=== PATIENT | female | born 1935 | race Caucasian/White ===

== ENCOUNTER 2018-03-29 09:12 | Emergency (ER) | payer MEDICARE ==
[2018-03-29 10:15] LABS: Mean Corpuscular HGB CONC 34.1 g/dL (32.0-36.0); Mean Corpuscular Hemoglobin 30.6 pg (27.0-31.0); Mean Corpuscular Volume 89.5 fl (81.0-99.0); Mean Platelet Volume 7.8 fL (7.4-10.4); Platelet Count 345 thou/uL (130-400); Red Blood Cell (RBC) Count 4.91 mill/uL (4.20-5.40); White Blood Cell (WBC) Count 22.4 thou/uL (4.8-10.8)
[2018-03-29 10:33] LABS: Lymphocytes 30 % (21-51); MDiff Complete? YES; Monocytes 3 % (0-10); Neutrophil 67 % (42-75); PLT Morphology Comment Appears Adequate
[2018-03-29 10:36] LABS: ALT (SGPT) 19 U/L (8-55); AST (SGOT) 25 U/L (5-34); Albumin 3.7 g/dL (3.4-4.8); Alkaline Phosphatase 106 U/L (40-150); Anion Gap 13 mmol/L (10-20); BUN (Urea Nitrogen) 41 mg/dL (9.8-20.1); Bilirubin, Total 0.5 mg/dL (0.2-1.2); Calc. Creatinine Clearance 0 mL/min (70-130); Calcium 11.3 mg/dL (7.8-10.44); Carbon Dioxide 30 mmol/L (23-31); Chloride 93 mmol/L (98-107); Estimated GFR-MDRD 30; Globulin 2.8 g/dL (2.4-3.5); Glucose 256 mg/dL (83-110); Lipase 19 U/L (8-78); Potassium 3.9 mmol/L (3.5-5.1); Protein, Total 6.5 g/dL (6.0-8.3); Sodium 132 mmol/L (136-145)
[2018-03-29] MEDS ORDERED: Iopamidol 370 76% 100 ML VIAL ONE (12:11)
--- NOTE | 2018-03-29 12:26 | CT ---
CT ABDOMEN AND PELVIS WITH CONTRAST: Comparison: None. History: Intermittent diarrhea and constipation over the last week. Vomiting and nausea all night. Technique: Multiple contiguous axial images were obtained in a CT of the abdomen and pelvis with cont rast. Coronal reformats were performed. FINDINGS: The patient is status poste cholecystectomy and hysterectomy. The liver, adrenal glands, and pancreas are unremarkable. There are calcifications in the spleen from prior granulomatous disease. Subcentim eter hypodensities in the kidneys are likely small cysts. There is scattered diverticula in the colon. The small bowel is unremarkable. No abdominal or pelvic lymphadenopathy are seen. Degenerative changes are seen in the spine. The visualized inferior thorax and abdominal wall soft ti ssues are unremarkable. IMPRESSION: 1. Bilateral renal cysts. 2. No evidence of acute intraabdominal/pelvic abnormality. 3. Diverticulosis. POS: [facility]
[2018-03-29 12:37] LABS: Bilirubin Negative (Negative); Blood, Urine Trace (Negative); Clarity CLEAR (Clear); Glucose, Urine (Dipstick) Negative (Negative); Leukocyte Negative (Negative); Nitrite Negative (Negative); Protein, Urine (Dipstick) Negative (Neg-Trace); Specific Gravity, Urine 1.028 (1.002-1.036); pH, Urine 6.5 (5.0-9.0)
[2018-03-29 12:39] LABS: Bacteria/HPF None Seen HPF (None Seen); Hyaline Casts/LPF 0-3 HYALINE CAST LPF (0-3 Hyaline); Pathc Cast-AUWi Flag 0.43 (0-2.49); RBC/HPF 0-3 HPF (0-3); Squamous Epithelial 0-3 HPF (0-3); WBC/HPF 0-3 HPF (0-3)
[2018-03-29 12:54] LABS: Renal Epithelial 0-3 HPF (0-3); Transitional Epithelial 0-3 HPF (0-3)
--- NOTE | 2018-03-29 14:49 | RAD ---
PORTABLE CHEST ONE VIEW: Date: 03-29-18 Time: 2:02 p.m. History: Cough. FINDINGS: The heart size is prominent. There is elevation of the right hemidiaphragm. No focal areas of consoli dation, pneumothorax, qian pulmonary edema, or pleural effusions is seen. There is evidence of old g ranulomatous disease. IMPRESSION: No evidence of acute cardiopulmonary process. POS: [facility]
[2018-03-29] MEDS ORDERED: Ondansetron ODT 4 MG TAB ONE (15:40)
== END 2018-03-29 14:44 | disposition home or self-care (01) ==
LOC: ERS 09:12
DX: R10.9 Unspecified abdominal pain (principal); R11.2 Nausea with vomiting, unspecified; I48.91 Unspecified atrial fibrillation; E11.40 Type 2 diabetes mellitus with diabetic neuropathy, unspecified; I10 Essential (primary) hypertension; F41.9 Anxiety disorder, unspecified; Z79.82 Long term (current) use of aspirin; Z79.899 Other long term (current) drug therapy
CPT/HCPCS: 36415; 51701; 71045; 74177; 80053; 81003; 81015; 83605; 83690; 85025; 87086; 96360; 96361; A4353; Q0162

== ENCOUNTER 2018-03-30 06:26 | Inpatient (IN) | payer MEDICARE ==
[2018-03-30 07:21] LABS: ALT (SGPT) 16 U/L (8-55); AST (SGOT) 21 U/L (5-34); Albumin 3.3 g/dL (3.4-4.8); Alkaline Phosphatase 88 U/L (40-150); Anion Gap 18 mmol/L (10-20); BUN (Urea Nitrogen) 54 mg/dL (9.8-20.1); Bilirubin, Total 0.5 mg/dL (0.2-1.2); Calc. Creatinine Clearance 0 mL/min (70-130); Calcium 10.8 mg/dL (7.8-10.44); Carbon Dioxide 25 mmol/L (23-31); Chloride 96 mmol/L (98-107); Estimated GFR-MDRD 29; Globulin 2.5 g/dL (2.4-3.5); Glucose 429 mg/dL (83-110); Potassium 4.2 mmol/L (3.5-5.1); Protein, Total 5.8 g/dL (6.0-8.3); Sodium 135 mmol/L (136-145)
[2018-03-30 07:26] LABS: CKMB 6.6 ng/mL (0-6.6); Troponin I 0.263 ng/mL (< 0.028)
[2018-03-30 07:46] LABS: Hemoglobin 12.7 g/dL (12.0-16.0); Mean Corpuscular HGB CONC 33.4 g/dL (32.0-36.0); Mean Corpuscular Hemoglobin 30.2 pg (27.0-31.0); Mean Corpuscular Volume 90.5 fl (81.0-99.0); Mean Platelet Volume 8.4 fL (7.4-10.4); Platelet Count 436 thou/uL (130-400); RBC Distribution Width 11.9 % (11.5-14.5); Red Blood Cell (RBC) Count 4.21 mill/uL (4.20-5.40); White Blood Cell (WBC) Count 24.5 thou/uL (4.8-10.8)
[2018-03-30 07:54] LABS: Band 1 % (5-11); Lymphocytes 28 % (21-51); MDiff Complete? YES; Monocytes 4 % (0-10); Neutrophil 65 % (42-75); PLT Morphology Comment Appears Increased; RBC Morphology Normal; Reactive Lymphocytes 2 % (0-10)
[2018-03-30] MEDS ORDERED: Pantoprazole 40 MG VIAL ONE (08:20)
[2018-03-30 08:36] LABS: Bilirubin Negative (Negative); Blood, Urine Small (Negative); Clarity CLOUDY (Clear); Glucose, Urine (Dipstick) 250 mg/dL (Negative); Leukocyte Negative (Negative); Nitrite Negative (Negative); Protein, Urine (Dipstick) 30 mg/dL (Neg-Trace); Specific Gravity, Urine 1.025 (1.002-1.036); pH, Urine 5.5 (5.0-9.0)
[2018-03-30 08:37] LABS: Iron 67 ug/dL (50-170); Iron Binding Capacity, Total 210 mcg/dL (265-497)
[2018-03-30 08:39] LABS: Bacteria/HPF None Seen HPF (None Seen); Squamous Epithelial 0-3 HPF (0-3); WBC/HPF 0-3 HPF (0-3)
[2018-03-30 08:46] LABS: Pathc Cast-AUWi Flag 5.81 (0-2.49)
--- NOTE | 2018-03-30 08:51 | RAD ---
SINGLE VIEW OF THE CHEST: Comparison: 03-29-18 History: Leukocytosis with nausea and vomiting. FINDINGS: Single view of the chest shows normal sized cardiomediastinal silhouette. There is a calcified granul kiana projecting over the left lung. There is no evidence of consolidation or pleural effusion. IMPRESSION: No evidence of acute cardiopulmonary disease. POS: [facility]
[2018-03-30 08:56] LABS: Hyaline Casts/LPF 0-3 HYALINE CAST LPF (0-3 Hyaline)
[2018-03-30 08:57] LABS: Transitional Epithelial 0-3 HPF (0-3)
[2018-03-30] MEDS ORDERED: Piperacillin/Tazobactam 4.5 GM VIAL ONE (09:49)
[2018-03-30] MEDS ORDERED: Piperacillin/Tazobactam 4.5 GM in Sodium Chloride 0.9% 100 ML IVPB SCH (10:15)
[2018-03-30 10:24] LABS: INR-International Normal Ratio 1.1; PTT 28.6 SEC (22.9-36.1); Prothrombin Time 14.4 SEC (12.0-14.7)
[2018-03-30 11:41] LABS: Troponin I 0.231 ng/mL (< 0.028)
--- NOTE | 2018-03-30 12:34 | HP ---
PRIMARY CARE PHYSICIAN: Rashi Chester M.D. REASON FOR ADMISSION: Sent from alf for altered mental status. HISTORY OF PRESENT ILLNESS: An 82-year-old female who has multiple medical problems including hypert ension, paroxysmal atrial fibrillation, diabetes type 2, who lives at alf. Over there, brenda ent was having vomiting and the patient and subsequently unresponsive. Paramedics were called and edmund kaplan was found with atrial fibrillation with RVR. The patient was given Cardizem bolus and Cardizem drip was started. When she arrived to emergency room, she had rate controlled. This patient is currently alert, oriented x1 only. Patient is not able to provide any history. He s tates that she lives at home. Patient also yesterday came to the emergency room for vomiting and dis charged to alf. At that time, CT of the abdomen and pelvis was done which was unremarkable. This morning, the patient had another episode of vomiting and patient was unresponsive. Patient wa s diaphoretic when paramedics arrived at the alf. Her blood sugar was 410. She was hypoten sive with blood pressure 90/50 and she had possibly atrial fibrillation with RVR with heart rate in 1 53 and paramedics gave her Cardizem bolus and drip. Today in the emergency room, chest x-ray is normal. Routine blood tests showed leukocytosis, lactic acidosis, elevated troponin and acute kidney failure. Her urinalysis is normal. REVIEW OF SYSTEMS: All review of systems tried to review with the patient, but unable to review at t his point because of current cognitive status. ALLERGIES: AMLODIPINE, CECLOR. CURRENT HOME MEDICATIONS: Ashley 180 mg p.o. daily, aspirin 81 mg p.o. daily, Atarax 25 mg p.o. at bedtime, clonidine 0.1 mg p.o. daily and p.r.n., Colace 100 mg twice daily, flecainide 50 mg twice da wil, folic acid 3 mg p.o. daily, glipizide 10 mg twice daily, hydralazine 10 mg t.i.d., hydrochloroth iazide 25 mg daily, Lipitor 40 mg p.o. at bedtime, losartan 50 mg p.o. b.i.d., Mobic 7.5 mg p.o. adi y, Toprol-XL 50 mg p.o. daily, Milk of Magnesia 30 mL p.o. daily p.r.n., Prozac 20 mg p.o. daily, vit narvaez B12 of 1000 mcg p.o. daily, vitamin C 500 mg p.o. daily, vitamin D3 of 1000 unit p.o. daily, Car afate 10 mL 4 times daily, Zofran 4 mg q.6 hourly p.r.n. PAST MEDICAL HISTORY: Atrial fibrillation, diabetes type 2, diabetic neuropathy, history of divertic ulitis, peptic ulcer disease, history of recurrent urinary tract infections, hypertension, scoliosis, dementia. PAST SURGICAL HISTORY: Hysterectomy, left wrist surgery, cholecystectomy. PAST PSYCHIATRIC HISTORY: Anxiety and depression. SOCIAL HISTORY: Patient lives at alf. No history of tobacco, alcohol or illicit drug abuse . FAMILY HISTORY: No strong family history of premature coronary artery disease, stroke or cancer. EMERGENCY ROOM COURSE: Patient has received vancomycin, Zosyn, IV fluid 3 liter, Protonix drip. PHYSICAL EXAMINATION: VITAL SIGNS: On arrival, blood pressure 120/62, pulse 84 regular, respiratory rate 20, temperature 9 8.0, saturation 97% on room air, weight 81 kilograms. GENERAL: The patient is currently alert, arousable, only oriented x1, follows verbal command. No ob vious acute distress. HEAD: Normocephalic, atraumatic. EYES: Pupils round, reactive to light. Extraocular muscle intact. ENT: Oropharynx within normal limits. Moist mucous membranes, no oral lesion, no pharyngeal erythem a, no exudate. NECK: Supple, no JVD, no thyromegaly, no carotid bruit, no jugular venous distention. LUNGS: Clear to auscultation without any rhonchi or rales. CARDIAC: S1, S2 regular. No murmur elicited, no gallop, no rub. ABDOMEN: Patient does not have any tenderness on deep palpation. No epigastric tenderness noted, bu t no distention. Bowel sounds present. No suprapubic discomfort noted. BACK: Unremarkable, no CVA tenderness. EXTREMITIES: Upper extremity: Passive movements of all joints are normal. Lower extremities: No e florecita. Good peripheral pulsation. SKIN: No skin rash. HEMATOLOGICAL: No lymphadenopathy. PSYCHIATRIC: Flat affect. NEUROLOGIC: The patient is moving all 4 limbs. Detailed neurological examination is not possible be cause patient does not cooperative completely, but grossly looking, she does not have any focal neuro logical deficit. SIGNIFICANT LABS: EKG based on my review reveals normal sinus rhythm, nonspecific ST-T changes. Mayra st x-ray based on my review, no acute cardiopulmonary process. Abdomen and pelvis CT scan which was done yesterday which showed cholecystectomy, hysterectomy changes, degenerative changes in the spine, bilateral renal cysts, diverticulosis. CBC: WBC 24.5, hemoglobin 12.7, platelet 436. INR 1.1. BM P: Sodium 135, potassium 4.2, chloride 96, carbon dioxide 25, anion gap 18, BUN 54, creatinine 1.627 , glucose 429, calcium 10.8. Lactic acid 4.0. LFT: AST 21, ALT 16, alkaline phosphatase is 88, alb umin 3.3, lipase 20, CK-MB 6.6, troponin 0.263. Ferritin 351.96. Iron 67, TIBC 210. Urinalysis: B lood small. ASSESSMENT AND PLAN: 1. Acute altered mental status. It is very difficult to ascertain patient's current mental status. We do not know patient's baseline status as well, but as per report, the patient is alert, oriented x1 only and she has underlying dementia. We will do necessary workup for altered mental status inclu ding B12, folate, ammonia, RPR. We will consult Neurology for their opinion. 2. Leukocytosis and lactic acidosis. This is concerning to underlying sepsis, but she does not have any fever. She had CT of the abdomen and pelvis which was unremarkable. Her chest x-ray is normal. Her urinalysis is also not showing any infection, doubt she has any kind of infection. We have to look for another etiology for leukocytosis and lactic acidosis. I am worried about maybe seizure lillian salazar was also in report that they suspected seizure type of activity at alf. We will monitor for that as well and will also get opinion from Neurology as well. As there is a concern of sepsis, we will treat empirically with Rocephin and vancomycin, but if culture remains negative, then we will discontinue antibiotic therapy. At this point, source of infection is unclear and we are also doubt ful for a sepsis diagnosis at this point as well. 3. Atrial fibrillation, paroxysmal with rapid ventricular response at alf, converted to nor mal sinus rhythm after Cardizem drip. At this point, we will continue Tambocor, flecainide 50 mg twi ce daily and we will monitor on telemetry floor. We will do serial cardiac enzymes. We will also co ntinue Toprol-XL 50 mg p.o. daily. We will obtain echocardiography to assess ejection fraction and o ther structural abnormality. At this point, the patient is in sinus rhythm, so no need of a cardiolo gy evaluation. This patient will need at least echocardiography. We will check TSH as well. The edmund kaplan is not a good candidate for chronic anticoagulation therapy because of fall risk. 4. Vomiting and there was question of coffee ground vomitus as per ER report. The patient is curren tly getting Protonix drip in the emergency room. We will check stool for guaiac. We will monitor H&H . If her hemoglobin drops, then we will consider GI evaluation. At this point, we will change to Pr otonix drip to Protonix p.o. and we will treat her vomiting symptomatically with Zofran. 5. Lactic acidosis. As mentioned above, we are suspecting from secondary etiology rather than sepsi s, but will repeat lactic acid level tomorrow and the patient is already on IV fluid and empiric anti biotic therapy. 6. Elevated troponin, likely due to demand ischemia. We will do serial cardiac enzymes. We will al so check total CK level. 7. Acute kidney failure. We do not have any baseline creatinine for her and that is why we will juan carlos pect acute kidney failure. We will give her gentle IV fluid and we will repeat BMP tomorrow. 8. Hyperglycemia. We will continue insulin as per sliding scale per protocol. Diabetic diet will b e given. We will also resume patient's diabetic medication, Glipizide 10 mg twice daily. 9. Peptic ulcer disease. We will continue Protonix for now and Carafate 10 mL 4 times daily. 10. Dyslipidemia. Check lipid profile tomorrow and continue Lipitor 40 mg p.o. at bedtime. 11. Hypertension. Currently, the patient's blood pressure is relatively lower side. If blood press ure permits, then we will continue clonidine, losartan, and Toprol-XL. We will hold on hydrochloroth iazide. We will also continue with hydralazine 10 mg 3 times daily. 12. Deep venous thrombosis prophylaxis. Sequential compression device boots only. As there is conc jas of suspected of coffee-ground emesis, we will avoid any antiplatelet and anticoagulant therapy fo r now. 13. Gastrointestinal prophylaxis. Patient is already on Protonix therapy. 14. Code status: The patient cannot discuss about her code status, no family member around bedside at this point to discuss about code status. We will keep as a FULL CODE and will discuss tomorrow. Disposition plan based on clinical course. We are expecting patient's stay in hospital more than 2 m idnights. Plan of care discussed with the patient, but patient cannot understand well.
[2018-03-30 12:41] LABS: Lactic Acid 1.8 mmol/L (0.5-2.2)
[2018-03-30] MEDS ORDERED: Acetaminophen 325 MG TAB PO PRN (14:00)
[2018-03-30] MEDS ORDERED: cloNIDine 0.1 MG TAB PO PRN (14:00)
[2018-03-30] MEDS ORDERED: hydrALAZINE 20 MG/ML VIAL SLOW IVP PRN (14:00)
[2018-03-30] MEDS ORDERED: HumaLOG 300 UNITS/3 ML VIAL SC PRN (14:00)
[2018-03-30] MEDS ORDERED: Nitroglycerin 0.4 MG TAB (25 Tab Bottle) SL PRN (14:00)
[2018-03-30] MEDS ORDERED: Mag-Al 1200 mg/1200 mg/30 ML UDCUP PO PRN (14:00)
[2018-03-30] MEDS ORDERED: Sodium Chloride 0.65% Nasal 44 ML BOT EA NARE PRN (14:00)
[2018-03-30] MEDS ORDERED: Dextrose 50% Abboject 50 ML SYRINGE SLOW IVP PRN (14:00)
[2018-03-30] MEDS ORDERED: Chloraseptic Spray 180 ml Bottle PO PRN (14:00)
[2018-03-30] MEDS ORDERED: Loperamide HCl 2 MG CAP PO PRN (14:00)
[2018-03-30] MEDS ORDERED: Diabetic Tussin 200 MG/10 ML UDCUP PO PRN (14:00)
[2018-03-30] MEDS ORDERED: Ondansetron HCl/PF 4 MG/2 ML Vial IVP PRN (14:00)
[2018-03-30] MEDS ORDERED: Eucerin (Mineral Oil/Petrolatum,White) 30 gm Jar TOP PRN (14:00)
[2018-03-30] MEDS ORDERED: Senokot 8.6 MG TAB PO PRN (14:00)
[2018-03-30] MEDS ORDERED: Ondansetron ODT 4 MG TAB PO PRN (14:00)
[2018-03-30] MEDS ORDERED: Dextrose 5% in Water 1,000 ML IV PRN (14:00)
[2018-03-30] MEDS ORDERED: Milk Of Magnesia 30 ML UDCUP PO PRN (14:00)
[2018-03-30] MEDS ORDERED: Artificial Tears 18 DROP/0.9 ML EA EYE PRN (14:00)
[2018-03-30] MEDS ORDERED: HYDROcodone/Acetaminophen 5/325 mg Tablet PO PRN (14:00)
[2018-03-30 15:08] LABS: Syphilis Antibody Nonreactive (Nonreactive); Syphilis Antibody Index 0.03 S/CO (<1.00 Non-Reactive)
[2018-03-30 15:10] LABS: Troponin I 0.335 ng/mL (< 0.028)
[2018-03-30 15:26] LABS: Vitamin B12 Greater than 2000 pg/mL (211-911)
[2018-03-30] MEDS ORDERED: Aspirin 325 MG TAB PO SCH (15:45)
[2018-03-30] MEDS: hydrALAZINE 10 MG TAB PO SCH ×2 (15:48→20:06)
[2018-03-30] MEDS: glipiZIDE 5 MG TAB PO SCH (15:48)
[2018-03-30] MEDS: Sodium Chloride 0.9% 1,000 ML IV SCH (15:52)
[2018-03-30] MEDS: Sucralfate 1 GM TAB PO SCH ×2 (17:52→20:06)
[2018-03-30] MEDS: HumaLOG 300 UNITS/3 ML VIAL SC PRN (17:53)
[2018-03-30 18:11] VITALS: BMI 27.1
[2018-03-30 18:21] LABS: Hemoglobin 9.9 g/dL (12.0-16.0)
[2018-03-30] MEDS: Atorvastatin Calcium 40 MG TAB PO SCH (20:05)
[2018-03-30] MEDS: Docusate 100 MG CAP PO SCH (20:05)
[2018-03-30] MEDS: Flecainide 50 MG TAB PO SCH (20:06)
[2018-03-30] MEDS: Losartan 25 MG TAB PO SCH (20:06)
[2018-03-30] MEDS: Pantoprazole 80 MG, Admixture Fee 1 EACH in Sodium Chloride 0.9% 100 ML IVP SCH (20:37)
[2018-03-31 00:42] LABS: Hemoglobin 9.9 g/dL (12.0-16.0)
[2018-03-31] MEDS: Pantoprazole 80 MG, Admixture Fee 1 EACH in Sodium Chloride 0.9% 100 ML IVP SCH ×2 (05:54→17:15)
[2018-03-31] MEDS: Sodium Chloride 0.9% 1,000 ML IV SCH ×3 (05:54→21:36)
[2018-03-31 06:19] LABS: #Basophils 0.3 thou/uL (0.0-0.2); #Eosinphils 0.3 thou/uL (0.0-0.7); #Lymphocytes 5.9 thou/uL (1.20-3.40); #Neutrophils 9.3 thou/uL (1.40-6.50); %Basophils 1.9 % (0.0-1.0); %Eosinophils 1.8 % (0.0-10.0); %Lymphocytes 34.7 % (21.0-51.0); %Neutrophils 55.5 % (42.0-75.0); Mean Corpuscular HGB CONC 34.2 g/dL (32.0-36.0); Mean Corpuscular Hemoglobin 31.1 pg (27.0-31.0); Mean Corpuscular Volume 90.9 fl (81.0-99.0); Platelet Count 256 thou/uL (130-400); RBC Distribution Width 11.9 % (11.5-14.5); White Blood Cell (WBC) Count 16.8 thou/uL (4.8-10.8)
[2018-03-31 07:19] LABS: Lactic Acid 0.9 mmol/L (0.5-2.2)
[2018-03-31 07:20] LABS: ALT (SGPT) 13 U/L (8-55); AST (SGOT) 23 U/L (5-34); Albumin 2.6 g/dL (3.4-4.8); Alkaline Phosphatase 60 U/L (40-150); Anion Gap 8 mmol/L (10-20); BUN (Urea Nitrogen) 41 mg/dL (9.8-20.1); Bilirubin, Total 0.4 mg/dL (0.2-1.2); Calc. Creatinine Clearance 58 mL/min (70-130); Calcium 9.3 mg/dL (7.8-10.44); Carbon Dioxide 24 mmol/L (23-31); Chloride 109 mmol/L (98-107); Estimated GFR-MDRD 54; Globulin 1.7 g/dL (2.4-3.5); Glucose 73 mg/dL (83-110); Potassium 3.1 mmol/L (3.5-5.1); Protein, Total 4.3 g/dL (6.0-8.3); Sodium 138 mmol/L (136-145)
[2018-03-31] MEDS ORDERED: Folic Acid 1 MG TAB PO SCH (09:00)
[2018-03-31] MEDS: glipiZIDE 5 MG TAB PO SCH ×2 (09:06→16:02)
[2018-03-31] MEDS: Sucralfate 1 GM TAB PO SCH ×4 (09:09→21:40)
[2018-03-31] MEDS: Ascorbic Acid 500 mg Chewable Tablet PO SCH (09:11)
[2018-03-31] MEDS: Cyanocobalamin (Vitamin B-12) 1,000 MCG TAB PO SCH (09:11)
[2018-03-31] MEDS: FLUoxetine HCl 20 MG CAP PO SCH (09:12)
[2018-03-31] MEDS: Flecainide 50 MG TAB PO SCH ×2 (09:12→21:39)
[2018-03-31] MEDS: Docusate 100 MG CAP PO SCH ×2 (09:12→21:39)
[2018-03-31] MEDS: Losartan 25 MG TAB PO SCH ×2 (09:14→21:40)
[2018-03-31] MEDS: hydrALAZINE 10 MG TAB PO SCH ×4 (09:15→21:39)
[2018-03-31] MEDS ORDERED: GoLYTELY 4,000 ml Bottle PO SCH ×3 (10:30→11:27)
[2018-03-31] MEDS ORDERED: Vancomycin HCl 1 GM in Premix Bag 1 BAG IVPB SCH (11:00)
--- NOTE | 2018-03-31 14:05 | RAD ---
KUB: Date: 03/31/18 HISTORY: Abdominal pain. Constipation. FINDINGS: The bowel gas pattern is nonobstructive. No free air seen on this supine film. Arthritic changes of t he spine and scoliosis are noted. Extensive atherosclerotic changes are seen. IMPRESSION: No acute findings. POS: [facility]
--- NOTE | 2018-03-31 14:28 | PDOC.PN ---
- Subjective Encounter Start Date: 03/31/18 Encounter Start Time: 09:20 Subjective: awake, not in distress -: daughter at bedside, informs that pt has been having brownish vomitus x3 da - Objective Resuscitation Status: Resuscitation Status FULL:Full Resuscitation MAR Reviewed: Yes Vital Signs & Weight: Vital Signs (12 hours) Temp Pulse Resp BP Pulse Ox 03/31/18 12:34 99.0 F 70 18 123/55 L 98 03/31/18 08:45 99.2 F 80 16 03/31/18 08:30 99.2 F 80 16 131/53 L 98 03/31/18 04:00 98.3 F 79 17 117/55 L 96 Weight Admit Weight 178 lb 9.191 oz Weight 178 lb 14.4 oz I&O: 03/30/18 03/31/18 04/01/18 06:59 06:59 06:59 Intake Total 2160 Balance 2160 Result Diagrams: 03/31/18 05:34 03/31/18 05:34 Additional Labs: Accuchecks 03/31/18 03/31/18 03/31/18 10:32 06:15 02:15 POC Glucose 87 87 71 03/31/18 03/30/18 03/30/18 00:32 21:54 17:03 POC Glucose 74 85 211 H Phys Exam - Physical Examination HEENT: PERRLA, moist MMs Neck: no JVD, supple Respiratory: no wheezing, no rales Cardiovascular: RRR, no significant murmur Gastrointestinal: soft, non-tender, no distention, positive bowel sounds Musculoskeletal: no edema, pulses present Neurological: non-focal, moves all 4 limbs Dx/Plan (1) Constipation Code(s): K59.00 - CONSTIPATION, UNSPECIFIED Status: Acute (2) Acute encephalopathy Code(s): G93.40 - ENCEPHALOPATHY, UNSPECIFIED Status: Acute (3) SAE (acute kidney injury) Code(s): N17.9 - ACUTE KIDNEY FAILURE, UNSPECIFIED Status: Acute Comment: resolving (4) Dehydration, moderate Code(s): E86.0 - DEHYDRATION Status: Resolved (5) Chronic anemia Code(s): D64.9 - ANEMIA, UNSPECIFIED Status: Chronic (6) Demand ischemia of myocardium Code(s): I24.8 - OTHER FORMS OF ACUTE ISCHEMIC HEART DISEASE Status: Acute (7) Afib Code(s): I48.91 - UNSPECIFIED ATRIAL FIBRILLATION Status: Chronic Qualifiers: Atrial fibrillation type: chronic Qualified Code(s): I48.2 - Chronic atrial fibrillation (8) HTN (hypertension) Code(s): I10 - ESSENTIAL (PRIMARY) HYPERTENSION Status: Chronic Qualifiers: Hypertension type: essential hypertension Qualified Code(s): I10 - Essential (primary) hypertension (9) DM type 2 (diabetes mellitus, type 2) Status: Chronic Qualifiers: Diabetes mellitus detention insulin use: without brands editor use Diabetes mellitus complication status: with kidney complications Diabetes mellitus complication detail: with chronic kidney disease Chronic kidney disease stage : stage 3 (moderate) Qualified Code(s): E11.22 - Type 2 diabetes mellitus with diabetic chronic kidney disease; N18.3 - Chronic kidney disease, stage 3 ( moderate); N18.3 - Chronic kidney disease, stage 3 (moderate) - Plan will give 2 liters golytely for severe constipation -: abd xray reviewed -: daughter given full updates, wants cardio consultation -: is on flecainide, toprol xl, cozaar, hydralazine tid low dose -: clear liq diet, gi consultation, colace, miralax. DC vanc, cont levaq * . decrease iv fluids to 30mls/hr, pt starting to have wet cough wbc around 16k from 24k, not sure if she has underlying cll. Review of Systems - Medications/Allergies Allergies/Adverse Reactions: Allergies Allergy/AdvReac Type Severity Reaction Status Date / Time amlodipine [From [facility]] Allergy Verified 03/30/18 08:21 cefaclor Allergy Verified 03/30/18 08:21 Medications: Current Medications Acetaminophen (Tylenol) 650 mg PO Q4H PRN PRN Reason: Headache/Fever or Pain Hydrocodone Bitart/Acetaminophen ([place] 5/325) 1 tab PO Q4H PRN PRN Reason: Moderate Pain (4-6) Al Hydroxide/Mg Hydroxide (Maalox) 30 ml PO Q6H PRN PRN Reason: Heartburn or Indigestion Artificial Tears (Tears Naturale) 0 drop EA EYE PRN PRN PRN Reason: Dry Eyes Ascorbic Acid (Vitamin C) 500 mg PO DAILY [facility] Last Admin: 03/31/18 09:11 Dose: 500 mg Atorvastatin Calcium (Lipitor) 40 mg PO HS CATHERINE Last Admin: 03/30/18 20:05 Dose: 40 mg Cholecalciferol (Vitamin D3) 1,000 units PO DAILY [facility] Last Admin: 03/31/18 09:10 Dose: 1,000 units Clonidine (Catapres) 0.1 mg PO Q4H PRN PRN Reason: Systolic BP > 180 Cyanocobalamin (Vitamin B-12) 1,000 mcg PO DAILY [facility] Last Admin: 03/31/18 09:11 Dose: 1,000 mcg Dextrose/Water (Dextrose 50%) 25 gm SLOW IVP PRN PRN PRN Reason: Hypoglycemia Docusate Sodium (Colace) 100 mg PO BID [facility] Last Admin: 03/31/18 09:12 Dose: 100 mg Flecainide Acetate (Tambocor) 50 mg PO Q12HR [facility] Last Admin: 03/31/18 09:12 Dose: 50 mg Fluoxetine HCl (Prozac) 20 mg PO DAILY [facility] Last Admin: 03/31/18 09:12 Dose: 20 mg Folic Acid (Folvite) 3 mg PO [facility] Glipizide (Glucotrol) 10 mg PO BID-AC [facility] Last Admin: 03/31/18 09:06 Dose: Not Given Glucagon (Glucagon) 1 mg IM PRN PRN PRN Reason: Hypoglycemia Guaifenesin (Robitussin Sf) 200 mg PO Q4H PRN PRN Reason: Cough Hydralazine HCl (Apresoline) 10 mg SLOW IVP Q4H PRN PRN Reason: Systolic BP > 180 Hydralazine HCl (Apresoline) 10 mg PO TID [facility] Last Admin: 03/31/18 09:15 Dose: 10 mg Pantoprazole Sodium 80 mg/Miscellaneous Medication 1 each/ Sodium Chloride 100 mls @ 10 mls/hr IVP INF [facility] Last Admin: 03/31/18 05:54 Dose: 100 mls Dextrose/Water (D5w) 1,000 mls @ 0 mls/hr IV .Q0M PRN; As Directed PRN Reason: Hypoglycemia Levofloxacin 500 mg/ Device 100 mls @ 100 mls/hr IVPB Q24HR [facility] Last Admin: 03/30/18 16:13 Dose: 100 mls Sodium Chloride (Normal Saline 0.9%) 1,000 mls @ 100 mls/hr IV .Q10H [facility] Last Admin: 03/31/18 05:54 Dose: 1,000 mls Insulin Human Lispro (Humalog) 0 units SC .AGGRESSIVE SLIDING PRN PRN Reason: Aggressive Correctional Scale Last Admin: 03/30/18 17:53 Dose: 6 unit Insulin Human Lispro (Humalog) 0 units SC .BEDTIME SLIDING SC PRN PRN Reason: Bedtime Correctional Scale Loperamide HCl (Imodium) 2 mg PO PRN PRN PRN Reason: Diarrhea/Loose Stools Losartan Potassium (Cozaar) 50 mg PO Q12HR [facility] Last Admin: 03/31/18 09:14 Dose: 50 mg Magnesium Hydroxide (Milk Of Magnesium) 30 ml PO DAILYPRN PRN PRN Reason: Constipation Metoprolol Succinate (Toprol Xl) 50 mg PO DAILY [facility] Last Admin: 03/31/18 09:13 Dose: 50 mg Mineral Oil/White Petrolatum (Eucerin Cream) 0 gm TOP BIDPRN PRN PRN Reason: Dry Skin Nitroglycerin (Nitrostat) 0.4 mg SL Q5MIN PRN PRN Reason: Chest Pain Ondansetron HCl (Zofran Odt) 4 mg PO Q6H PRN PRN Reason: Nausea/Vomiting Last Admin: 03/31/18 09:14 Dose: 4 mg Ondansetron HCl (Zofran) 4 mg IVP Q6H PRN PRN Reason: Nausea/Vomiting Phenol (Chloraseptic [place] 180 Ml Bot) 0 ml PO PRN PRN PRN Reason: Sore Throat Polyethylene Glycol (Miralax) 17 gm PO DAILY [facility] Polyethylene Glycol/Electrolytes (Golytely) 4,000 ml PO 1030 [facility] Stop: 03/31/18 16:00 Last Admin: 03/31/18 12:29 Dose: 4,000 ml Senna (Senokot) 2 tab PO HSPRN PRN PRN Reason: Constipation Sodium Chloride ([place] Nasal [place] 0.65%) 0 ml EA NARE QIDPRN PRN PRN Reason: Nasal Congestion Sucralfate (Carafate) 1 gm PO ACHS [facility] Last Admin: 03/31/18 12:26 Dose: 1 gm
--- NOTE | 2018-03-31 15:04 | CON ---
DATE OF CONSULTATION: 03/31/2018 GI INPATIENT CONSULTATION REQUESTING PHYSICIAN: Ebony Gupta M.D. REASON FOR CONSULTATION: Nausea, vomiting and constipation. HISTORY OF PRESENT ILLNESS: Ignacia Marvin is an 82-year-old woman, who recently moved to the area with in the past year from [place]. Her daughter is a nurse and provides most of the history today. Mrs Katherine Marvin has a past GI history of diverticulitis, which has been treated with antibiotics in the past . Her last colonoscopy was 5 or 6 years ago per her daughter. She has never undergone EGD. She had a prior clinical diagnosis of possible peptic ulcer disease on a chronic basis. Her daughter says t hat the patient really does not have much in terms of GI symptoms except some occasional reflux sympt oms. Over the past year, the patient has been put on meloxicam for her arthritis and she also takes aspirin 81 mg daily. The patient also has some issues with chronic constipation over the years. She has taken milk of magnesia as needed and now at her facility she has been on Colace twice per day, b ut about a week ago, she had a recent stool impaction. This was evidently disimpacted with good resu lts with a Fleet Enema last week. The patient's daughter is not sure, but she thinks it may have bee n a week since her last bowel movement. There has been no report of any melena or hematochezia. How ever, a couple of days ago, the patient started having acute nausea and multiple episodes of emesis. The patient's daughter describes this as having been coffee ground emesis and she has had repeated e pisodes of this over the past couple of days. On presentation to the ER two days ago, hemoglobin was normal at 15, but upon repeat presentation yesterday it was 12.7 and it dropped down to 9.9, today i t is 9.0. She does have a BUN elevation as well to 41 with creatinine only 0.98. LFTs and lipase ar e normal. The patient is currently not having any abdominal pain. She has not had any vomiting sinc e yesterday. She has remained hemodynamically stable. She is on a PPI drip. REVIEW OF SYSTEMS: Full review of systems including constitutional, head, eyes, ears, nose, throat, GI, , cardiovascular, respiratory, musculoskeletal, and neurologic systems is negative except as no wolf in the HPI. PAST MEDICAL HISTORY: Atrial fibrillation, diabetes type 2, diabetic neuropathy, history of divertic ulitis, history of recurrent urinary tract infections, hypertension, scoliosis, dementia, hysterectom y, cholecystectomy, left wrist surgery, depression and anxiety. Last colonoscopy 5-6 years ago per t he patient's daughter. ALLERGIES: AMLODIPINE and CECLOR. HOME MEDICATIONS: Ashley, aspirin 81 mg daily, Atarax, clonidine, Colace 100 mg twice daily, flecai nide, folic acid, glipizide, hydralazine, hydrochlorothiazide, Lipitor, losartan, meloxicam 7.5 mg da wil, Toprol-XL, milk of magnesia p.r.n., Prozac, vitamin B12, vitamin C, vitamin D3, Carafate 10 mL 4 times daily, and Zofran p.r.n. SOCIAL HISTORY: [facility] Her daughter is a nurse and very involved with h er care. No history of tobacco, alcohol, or drug abuse. FAMILY HISTORY: No strong family history of malignancy. PHYSICAL EXAMINATION: VITAL SIGNS: Temperature 99.2, pulse 80, blood pressure 131/53, 98% oxygen saturation on room air. GENERAL: Frail 82-year-old woman lying in bed comfortably, in no distress. MENTAL: She is alert and oriented to person. She really cannot answer detailed questions about her history. SKIN: No jaundice, no rash visible or palpable. EYES: No scleral icterus. Extraocular movements intact. ENT: Mucous membranes moist, no oral lesions. LYMPH: No submandibular or supraclavicular lymphadenopathy. THYROID: Nontender to palpation. HEART: Regular rate and rhythm. LUNGS: Clear to auscultation bilaterally. ABDOMEN: Nondistended. Bowel sounds present, soft, nontender to palpation. EXTREMITIES: No peripheral edema. VESSELS: Radial pulses 2+ bilaterally. NEUROLOGIC: Cranial nerves II-XII intact bilaterally. No focal deficits. LABORATORY STUDIES: Hemoglobin down to 9.0, MCV is 90.9, WBC is 16.6. Admission hemoglobin last nig ht was 12.7, but there has been no overt bleeding. Platelets 256. INR 1.1. Sodium 138, potassium 3 .1, BUN elevated to 41, creatinine 0.98, glucose 87. LFTs all normal with total bilirubin 0.4, alkal ine phosphatase 60, AST 23, ALT 13, vitamin B12 greater than 2000, folate 15.6. Ammonia only 12. Tr oponin is 0.035. CK-MB 6.6, lipase only 20. Lactic acid initially 4.0, now down to 1.8. IMAGING STUDIES: She had a CT of the abdomen and pelvis 2 days ago on 03/29/2018, this demonstrated no acute abnormalities. She has some bilateral renal cysts, scattered diverticula in the colon, some stool in the left colon. ASSESSMENT: 1. Hematemesis, over the previous 2 days. 2. Anemia, possibly from acute blood loss. 3. Chronic constipation. PLAN: The patient has had significant decline in hemoglobin over the past day with BUN elevated out of proportion to the creatinine. On the other hand, she has remained hemodynamically stable and ther e has been no evidence of melena. It is difficult to know to what degree her chronic constipation is behind all of her more acute symptoms of nausea and vomiting. Upper endoscopy is certainly warrante d to rule out a bleeding source, and I would recommend that we also perform colonoscopy at the same t mitra. We will administer GoLYTELY bowel preparation over the course of today. Continue the Protonix IV. We will plan for EGD and colonoscopy tomorrow morning. Please call back in the meantime with an y questions or concerns.
[2018-03-31] MEDS: Folic Acid 1 MG TAB PO SCH (21:39)
[2018-03-31] MEDS: Atorvastatin Calcium 40 MG TAB PO SCH (21:40)
--- NOTE | 2018-04-01 01:45 | CON ---
CARDIOVASCULAR CONSULTATION REPORT Virgen Farrar, nurse practitioner of Dr. Shane who is a registered nurse nursery. ROOM: [id number] PRIMARY CARE PHYSICIAN: Kary Shane MD REFERRING PHYSICIAN: Dr. Eliecer Brock REASON FOR CARDIOLOGY CONSULTATION: Atrial fibrillation. HISTORY OF PRESENT ILLNESS: Ms. Marvin is an 82-year-old female with significant history o f hypertension, chronic atrial fibrillation, diabetes type 2, and anxiety. The patient has a history of chronic atrial fibrillation since 2012, which was well controlled with flecainide and aspirin 81 mg. The patient recently moved to [place], [place] from [place], I believe, to live close by to her [facility], but the patient is living at [facility]. The patient has several episodes of vomiting with brown emesis with weakness, and EMS was called and she was found to have atrial fibril lation with rapid ventricular response. According to the daughter, the patient was given diltiazem b olus while the patient was transferred to the emergency department. In the emergency department, the patient's EKG showed sinus rhythm. Since then the patient continued to remain in sinus rhythm; temple truong, the cardiology consult was ordered for recurrent atrial fibrillation with RVR. The patient on a spirin 81 mg for anticoagulant management. According to the daughter, she could not tolerate oral an ticoagulants and also aspirin 325 due to cause of abdominal pain. The patient has a long history of hypertensive urgency and she is on clonidine 0.1 mg once a day at night p.r.n. along with blood press ure medicine; however, per the patient and daughter, the patient's blood pressure is increased when s he is in severe anxiety. However, daughter would like to discontinue clonidine or change to as neede d because the clonidine makes the patient very drowsy per her daughter. The patient is going to have an EGD tomorrow by Dr. Fernández. She is getting KUB, abdominal x-ray results, which showing the constip ation. The patient had a CT scan of abdomen 2 days ago, which shows diverticula in the colon and onesimo e stool in the left colon. She is getting GoLYTELY for colonoscopy tomorrow. The patient and the patient's daughter could not remember whether the patient has any cardiac workup or echocardiogram. PAST MEDICAL HISTORY: 1. Hypertensive urgency. 2. Anxiety, with Xanax. 3. Chronic atrial fibrillation, which is managed well with flecainide and aspirin 81 mg once a day. 4. Diabetes, type 2. 5. Diabetic neuropathy. 6. Diverticulitis. 7. History of UTI, but no recurrence. 8. Sclerosis. 9. Dementia. 10. Possible TIA in 2015. PAST SURGICAL HISTORY: 1. Total hysterectomy. 2. Left wrist surgery. 3. Cholecystectomy. 4. Bilateral cataract surgery. PAST PSYCHIATRIC HISTORY: Positive for anxiety. SOCIAL HISTORY: The patient and her are living at the [facility]. She has s edentary lifestyle, although she can walk around, she does not walk at all, stay in the bed or chair / and she uses a walker for movement or transfer. She denies tobacco, alcohol, or illicit drug ab use. FAMILY HISTORY: The patient's paternal side had a significant history of coronary artery disease. ALLERGIES: She is allergic to CEFACLOR and AMIODARONE, which cause severe edema in the lower extremi ties. MEDICATIONS: Zofran 4 mg p.o. every 6 hours as needed, sucralfate 10 mg 4 times a day, vitamin D3 of 1000 units at bedtime, vitamin C 500 mg once a day, vitamin B12 of 1000 mg once a day, milk of magne surya 30 mg once a day as needed, Prozac 20 mg once a day, metoprolol succinate 50 mg once a day, Melox icam 7.5 mg once a day, losartan 50 mg twice a day, atorvastatin 40 mg once a day, hydrochlorothiazid e 25 mg twice a day, hydralazine 10 mg 3 times a day, glyburide 10 mg twice a day, folic acid 1 mg on ce a day at night, flecainide 50 mg twice a day, Colace 100 mg twice a day, clonidine 0.1 mg at bedti me and as needed, Atarax 25 mg 1 tablet once a day at night, Ashley 180 mg once a day, and aspirin 8 1 mg once a day. REVIEW OF SYSTEMS: Negative unless otherwise mentioned in the HPI or below. Constitutional: Weight loss or gain, sense of well-being, ability to conduct usual activities, exercise tolerance. Skin/Br east: Rash, itching, breast lumps, tenderness, swelling, nipple discharge. Eyes: Vision change, do uble vision, tearing, blind. ENT: Dizziness, vertigo, lightheadedness, nose bleeding, dentures, den lety difficulty, neck stiffness, pain, tenderness, masses in thyroid or other areas. Cardiovascular: Precordial pain, substernal distress, palpitations, syncope, dyspnea on exertion, orthopnea, nocturn al dyspnea, edema, varicosis, claudication. Respiratory: Shortness of breath, wheezing, stridor, co ugh, hemoptysis, fever, night sweats. Gastrointestinal: Poor appetite, dysphagia, indigestion, abdo aracelis pain, jaundice, diarrhea. Genitourinary: Urgency, frequency, dysuria, nocturia, hematuria, po lyuria, oliguria, unusual color of urine. Musculoskeletal: Pain, swelling, redness, or heat of the muscle or joint limited motion, muscular weakness. Neurologic: Seizure conversion, paralysis, tremo r, incoordination. Psychiatric: Emotional problem, depression. PHYSICAL EXAMINATION: VITAL SIGNS: Blood pressure 111/46, pulse is 68 and sinus rhythm, temperature 99.2, respiratory 18, and O2 saturation 100% on room air. GENERAL: Well developed, well nourished, without any acute distress. HEAD: Normocephalic, atraumatic. EYES: Extraocular muscle movement intact. ENT: Oral and nasal mucosae moist without lesion. NECK: No JVD. Neck is supple and normal range of motion. LUNGS: Clear to auscultation bilaterally. No wheezing, rales or rhonchi noted. CARDIOVASCULAR: Regular rate and rhythm. Normal S1 and S2. There are no S3 or S4. No significant murmur, hives, thrill noted. There are 2+ pulses in the dorsalis pedis, posterior tibial, and poplit eal. Carotid pulses are present and bruits present in the left carotid artery side. No edema in the bilateral lower extremities. ABDOMEN: Soft and nontender. No masses to palpate. Bowel sounds are present, but hypoactive. MUSCULOSKELETAL: Able to move all extremities. SKIN: Warm and dry. No skin rash, lesion, or bruise noted. NEUROLOGIC: Alert and oriented x2 to self and place. Per the patient's daughter, the patient is francoise lly easy to forget. PSYCHIATRIC: Mood and affect are normal. EKG: A 12-lead EKG in the ER shows normal sinus rhythm, no ST-segment change, and T-wave inversion in lead 1. LABORATORY DATA: WBC 6.8, hemoglobin 9.0, hematocrit 26.3, platelets 256. Sodium of 138, potassium of 3.1, BUN 41, creatinine 0.98, calcium 9.3. TSH is 0.5322. AST 23, ALT 13. A CT scan on 03/29/20 18 shows bilateral renal cysts, no evidence of acute intra-abdominal abnormality and diverticulitis. ASSESSMENT AND PLAN: 1. Chronic atrial fibrillation with rapid ventricular response. The patient remained in the sinus r hythm since the patient was transferred from the ER according to telemetry record. At this moment, s he is not on any anticoagulants, aspirin or Lovenox due to possible gastrointestinal bleed. Once the patient's gastrointestinal bleed ruled out, we would like to resume the aspirin 81 mg once a day. 2. Hypertension. The patient's blood pressure is stable at this moment. We would like to continue to keep the clonidine 0.1 mg as needed and we would like to continue current medications and adjust a s appropriate. 3. Diabetes, type 2. She is on blood and glucose check. She is on glyburide and the patient's bloo d sugars have been stable at this moment, which is managed by primary care doctor. 4. Gastrointestinal bleed. The patient is going to be n.p.o. after midnight and plan for esophagoga stroduodenoscopy and colonoscopy tomorrow. 5. Anemia, possibly due to gastrointestinal bleed. Again, the patient has plan to have an esophagog astroduodenoscopy and colonoscopy tomorrow, which is managed by GI doctors and also, she is on Proton ix IV. 6. Hyperlipidemia. She is on statin. Thank you very much for allowing the cardiology service to participate in care of the patient. We wi ll follow along with the patient's care team and make further recommendation as appropriate.
[2018-04-01] MEDS: Pantoprazole 80 MG, Admixture Fee 1 EACH in Sodium Chloride 0.9% 100 ML IVP SCH (04:56)
[2018-04-01 08:15] LABS: Hemoglobin 9.7 g/dL (12.0-16.0); Mean Corpuscular HGB CONC 33.5 g/dL (32.0-36.0); Mean Corpuscular Hemoglobin 30.7 pg (27.0-31.0); Mean Corpuscular Volume 91.5 fl (81.0-99.0); Mean Platelet Volume 7.8 fL (7.4-10.4); Platelet Count 297 thou/uL (130-400); RBC Distribution Width 11.9 % (11.5-14.5); Red Blood Cell (RBC) Count 3.16 mill/uL (4.20-5.40); White Blood Cell (WBC) Count 15.3 thou/uL (4.8-10.8)
[2018-04-01 08:20] LABS: Anion Gap 9 mmol/L (10-20); BUN (Urea Nitrogen) 21 mg/dL (9.8-20.1); Calc. Creatinine Clearance 53 mL/min (70-130); Calcium 9.2 mg/dL (7.8-10.44); Carbon Dioxide 26 mmol/L (23-31); Chloride 105 mmol/L (98-107); Estimated GFR-MDRD 49; Glucose 227 mg/dL (83-110); Potassium 3.4 mmol/L (3.5-5.1); Sodium 137 mmol/L (136-145)
[2018-04-01 08:40] LABS: Eosinophils 4 % (0-10); Lymphocytes 34 % (21-51); MDiff Complete? YES; Monocytes 10 % (0-10); Neutrophil 51 % (42-75); Reactive Lymphocytes 1 % (0-10)
[2018-04-01] MEDS ORDERED: Polyethylene Glycol 3350 17 GM Packet PO SCH (09:00)
[2018-04-01] MEDS: hydrALAZINE 10 MG TAB PO SCH ×3 (11:36→21:10)
[2018-04-01] MEDS: Cyanocobalamin (Vitamin B-12) 1,000 MCG TAB PO SCH (11:36)
[2018-04-01] MEDS: Sucralfate 1 GM TAB PO SCH ×4 (11:36→21:08)
[2018-04-01] MEDS: Losartan 25 MG TAB PO SCH ×2 (11:37→21:08)
[2018-04-01] MEDS: Flecainide 50 MG TAB PO SCH ×2 (11:37→21:09)
[2018-04-01] MEDS: Ascorbic Acid 500 mg Chewable Tablet PO SCH (11:37)
[2018-04-01] MEDS: FLUoxetine HCl 20 MG CAP PO SCH (11:37)
[2018-04-01] MEDS: Docusate 100 MG CAP PO SCH ×2 (11:38→21:10)
[2018-04-01] MEDS: glipiZIDE 5 MG TAB PO SCH (12:37)
--- NOTE | 2018-04-01 12:38 | OP ---
DATE OF PROCEDURE: 04/01/2018 GI ENDOSCOPY NOTE SURGEON: William Fernández M.D. WOODWORK SALVAGE INSPECTOR SURGEON: None. PROCEDURES: 1. EGD with control of hemorrhage. 2. Colonoscopy, incomplete due to poor bowel prep. INDICATIONS: 1. Hematemesis. 2. Acute blood loss anemia. 3. Chronic constipation. MEDICATIONS: See anesthesia record. FINDINGS: After discussion of the risks, benefits and alternatives of the procedure, informed consent was obtained and witnessed. Pre-endoscopic cardiopulmonary examination was satisfactory. Timeout was performed before sedation was achieved. Sedation was achieved with anesthesia assistance in the endoscopy unit. A Pentax adult upper endoscope was placed into the oropharynx and passed through the cricopharyngeus under direct visualization. The proximal and mid esophageal mucosa appeared normal. In the distal esophagus for about 3 cm above the GE junction, there is severe erosive esophagitis with a few shallow ulcerations. This has the appearance consistent with reflux esophagitis. The endoscope was then advanced through the GE junction and into the stomach. Forward and retroflexed views of the entire gastric mucosa were obtained. The gastric mucosa appeared essentially unremarkable throughout with a little bit of erythema in the gastric antrum. The endoscope was advanced through the pylorus and into the duodenal bulb. In the duodenal bulb on the anterior wall, there is a deep ulceration. This measures about 8 mm in diameter. It is mostly clean based, but there is a single visible vessel. This is the likely site of her recent bleeding. The remainder of the duodenum appears normal. I performed a cautery of the ulcer bed and visible vessel with a 7-Ethiopian bipolar probe. This was successful. Hemostasis was maintained. The upper endoscope was completely withdrawn and the patient was repositioned. Digital rectal exam was performed which demonstrated large external hemorrhoids. A Pentax adult colonoscope was inserted into the anus and passed forward in the usual fashion. The quality of the bowel preparation was very poor. There was a large amount of semi-solid and actually quite a bit of solid stool remaining in the sigmoid colon and rectum. Therefore, I was unable to advance the endoscope beyond the sigmoid colon. Where visualized, the colonic mucosa appeared normal. There is some sigmoid diverticulosis. Retroflexion in the rectum demonstrates internal hemorrhoids. The colonoscope was completely withdrawn and the patient allowed to recover. The patient tolerated the procedure well. There were no immediate post-procedure complications. IMPRESSION: 1. Duodenal bulb ulcer, measuring 8 mm, deep, with visible vessel. I cauterized the ulcer base with 7-Ethiopian bipolar cautery, with hemostasis maintained. 2. Erosive distal esophagitis. 3. Poor bowel prep, aborted colonoscopy. 4. Sigmoid diverticulosis. 5. Internal and external hemorrhoids. RECOMMENDATIONS: 1. IV proton pump inhibitor every 12 hours while inpatient, then transitioned to twice daily oral dosing thereafter. 2. Advance diet. 3. Check H. pylori serology. Treat if positive. 4. Avoid nonsteroidal anti-inflammatory drugs going forward. 5. More aggressive bowel regimen. 6. No plan to repeat colonoscopy this admission. MTDD
[2018-04-01] MEDS: Polyethylene Glycol 3350 17 GM Packet PO SCH (13:49)
--- NOTE | 2018-04-01 14:46 | PDOC.CTH ---
<Virgen Farrar - Last Filed: 04/01/18 14:44> Cardiology Progress Note - Subjective The pt seen and examined. No overnight events. No cardiac complaints. S/p EGD and having clear liquid diet. - Objective Vital Signs Temp Pulse Resp BP BP Pulse Ox 04/01/18 12:22 97.6 F 64 16 119/51 L 100 04/01/18 11:36 67 129/61 04/01/18 08:15 97.8 F 66 16 100 04/01/18 08:03 97.8 F 66 16 111/54 L 100 04/01/18 04:00 98.6 F 70 18 125/57 L 99 Admit Weight 178 lb 9.191 oz Weight 178 lb 14.4 oz 03/31/18 04/01/18 04/02/18 06:59 06:59 06:59 Intake Total 2160 1651 Balance 2160 1651 - Physical Examination General/Neuro: other: (alarted to name) Lungs: other: (diminished at bases) Heart: RRR Abdomen: soft Extremities: other: (No edema) - Telemetry Telemetry Rhythm: SR freqent PACs - Labs Result Diagrams: 04/01/18 07:51 04/01/18 07:51 Troponin/CKMB CK-MB (CK-2) 6.6 ng/mL (0-6.6) 03/30/18 06:51 Troponin I 0.335 ng/mL (< 0.028) H* 03/30/18 14:26 - Assessment/Plan 1. Paroxysmal Afib - Remains in SR with Trig. PACs. On Flecainide; No OAC or ASA due to s/p GI bleed; cont. to monitor on tele 2. GI bleed - S/p EGD with duodenal ulcer with cauterized today. Tolerate clear liquid diet. On Protonix drip. Managed by GI. 3. HTN - stable with current med 4. DM type 2 - managed by PCP 5. SAE - improved 6. Dementia - stable MAR reviewed * Echo on 03/31/18 showed EF 50-55%, mild MR, trace AR, mild TR and WA. Review of Systems - Review of Systems Constitutional: reports: no symptoms reported EENTM: reports: no symptoms reported Respiratory: reports: no symptoms reported Cardiac (ROS): reports: no symptoms reported ABD/GI: reports: no symptoms reported : reports: no symptoms reported Musculoskeletal: reports: no symptoms reported <Andrea Shane - Last Filed: 04/01/18 21:50> Cardiology Progress Note - Objective Vital Signs Temp Pulse Resp BP BP Pulse Ox 04/01/18 21:10 84 119/51 L 04/01/18 16:00 98.1 F 84 16 112/70 98 04/01/18 14:45 64 136/61 04/01/18 12:22 97.6 F 64 16 119/51 L 100 04/01/18 11:36 67 129/61 Admit Weight 178 lb 9.191 oz Weight 178 lb 14.4 oz 03/31/18 04/01/18 04/02/18 06:59 06:59 06:59 Intake Total 2160 1651 Balance 2160 1651 - Labs Result Diagrams: 04/01/18 07:51 04/01/18 07:51 Troponin/CKMB CK-MB (CK-2) 6.6 ng/mL (0-6.6) 03/30/18 06:51 Troponin I 0.335 ng/mL (< 0.028) H* 03/30/18 14:26 - Assessment/Plan Pt. seen and eval. by me. I agree with the A/P by the CLINICAL LABORATORY TECHNOLOGIST. We have discussed the plan.
--- NOTE | 2018-04-01 15:02 | PDOC.PN ---
- Subjective Encounter Start Date: 04/01/18 Encounter Start Time: 14:00 Subjective: is awake and alert, responds well to verbal questions -: no sob or abd pain - Objective Resuscitation Status: Resuscitation Status FULL:Full Resuscitation MAR Reviewed: Yes Vital Signs & Weight: Vital Signs (12 hours) Temp Pulse Resp BP BP Pulse Ox 04/01/18 14:45 64 136/61 04/01/18 12:22 97.6 F 64 16 119/51 L 100 04/01/18 11:36 67 129/61 04/01/18 08:15 97.8 F 66 16 100 04/01/18 08:03 97.8 F 66 16 111/54 L 100 04/01/18 04:00 98.6 F 70 18 125/57 L 99 Weight Admit Weight 178 lb 9.191 oz Weight 178 lb 14.4 oz I&O: 03/31/18 04/01/18 04/02/18 06:59 06:59 06:59 Intake Total 2160 1651 Balance 2160 1651 Result Diagrams: 04/01/18 07:51 04/01/18 07:51 Additional Labs: Accuchecks 04/01/18 04/01/18 03/31/18 10:36 05:59 20:27 POC Glucose 185 H 257 H 124 H 03/31/18 16:47 POC Glucose 101 Phys Exam - Physical Examination HEENT: PERRLA, moist MMs Neck: no JVD, supple Respiratory: no wheezing, no rales Cardiovascular: RRR, no significant murmur Gastrointestinal: soft, non-tender, positive bowel sounds Musculoskeletal: no edema, pulses present Neurological: non-focal, moves all 4 limbs Psychiatric: A&O x 3 Dx/Plan (1) Duodenal ulcer Status: Acute (2) GI bleed Code(s): K92.2 - GASTROINTESTINAL HEMORRHAGE, UNSPECIFIED Status: Acute Qualifiers: GI bleed type/associated pathology: duodenal ulcer Qualified Code(s): K26.4 - Chronic or unspecified duodenal ulcer with hemorrhage (3) Acute blood loss anemia Code(s): D62 - ACUTE POSTHEMORRHAGIC ANEMIA Status: Acute (4) Constipation Code(s): K59.00 - CONSTIPATION, UNSPECIFIED Status: Acute (5) Acute encephalopathy Code(s): G93.40 - ENCEPHALOPATHY, UNSPECIFIED Status: Resolved (6) SAE (acute kidney injury) Code(s): N17.9 - ACUTE KIDNEY FAILURE, UNSPECIFIED Status: Resolved Comment : resolving (7) Dehydration, moderate Code(s): E86.0 - DEHYDRATION Status: Resolved (8) Demand ischemia of myocardium Code(s): I24.8 - OTHER FORMS OF ACUTE ISCHEMIC HEART DISEASE Status: Acute (9) Afib Code(s): I48.91 - UNSPECIFIED ATRIAL FIBRILLATION Status: Chronic Qualifiers: Atrial fibrillation type: chronic Qualified Code(s): I48.2 - Chronic atrial fibrillation (10) HTN (hypertension) Code(s): I10 - ESSENTIAL (PRIMARY) HYPERTENSION Status: Chronic Qualifiers: Hypertension type: essential hypertension Qualified Code(s): I10 - Essential (primary) hypertension (11) DM type 2 (diabetes mellitus, type 2) Status: Chronic Qualifiers: Diabetes mellitus [employer] insulin use: without prison use Diabetes mellitus complication status: with kidney complications Diabetes mellitus complication detail: with chronic kidney disease Chronic kidney disease stage : stage 3 (moderate) Qualified Code(s): E11.22 - Type 2 diabetes mellitus with diabetic chronic kidney disease; N18.3 - Chronic kidney disease, stage 3 ( moderate); N18.3 - Chronic kidney disease, stage 3 (moderate) - Plan is on protonix drip -: egd showed DU with visible vessel -: pt has stool impaction, continue bowel regimen, fleets until clear -: is more awake and responding to verbal questions this afternoon -: tried to reach daughter over phone, unable to reach to give updates * . renal function at baseline. wbc around 15 from 24k, h/h 08/11. diet per gi advice. Likely dc plan when pt is on oral protonix, currently on drip Review of Systems - Medications/Allergies Allergies/Adverse Reactions: Allergies Allergy/AdvReac Type Severity Reaction Status Date / Time amlodipine [From [facility]] Allergy Verified 03/30/18 08:21 cefaclor Allergy Verified 03/30/18 08:21 Medications: Current Medications Acetaminophen (Tylenol) 650 mg PO Q4H PRN PRN Reason: Headache/Fever or Pain Hydrocodone Bitart/Acetaminophen ([place] 5/325) 1 tab PO Q4H PRN PRN Reason: Moderate Pain (4-6) Al Hydroxide/Mg Hydroxide (Maalox) 30 ml PO Q6H PRN PRN Reason: Heartburn or Indigestion Artificial Tears (Tears Naturale) 0 drop EA EYE PRN PRN PRN Reason: Dry Eyes Ascorbic Acid (Vitamin C) 500 mg PO DAILY [facility] Last Admin: 04/01/18 11:37 Dose: 500 mg Atorvastatin Calcium (Lipitor) 40 mg PO HS [facility] Last Admin: 03/31/18 21:40 Dose: 40 mg Cholecalciferol (Vitamin D3) 1,000 units PO DAILY [facility] Last Admin: 04/01/18 11:37 Dose: 1,000 units Clonidine (Catapres) 0.1 mg PO Q4H PRN PRN Reason: Systolic BP > 180 Cyanocobalamin (Vitamin B-12) 1,000 mcg PO DAILY [facility] Last Admin: 04/01/18 11:36 Dose: 1,000 mcg Dextrose/Water (Dextrose 50%) 25 gm SLOW IVP PRN PRN PRN Reason: Hypoglycemia Docusate Sodium (Colace) 100 mg PO BID [facility] Last Admin: 04/01/18 11:38 Dose: Not Given Flecainide Acetate (Tambocor) 50 mg PO Q12HR [facility] Last Admin: 04/01/18 11:37 Dose: 50 mg Fluoxetine HCl (Prozac) 20 mg PO DAILY [facility] Last Admin: 04/01/18 11:37 Dose: 20 mg Folic Acid (Folvite) 3 mg PO HS [facility] Last Admin: 03/31/18 21:39 Dose: 3 mg Glucagon (Glucagon) 1 mg IM PRN PRN PRN Reason: Hypoglycemia Guaifenesin (Robitussin Sf) 200 mg PO Q4H PRN PRN Reason: Cough Hydralazine HCl (Apresoline) 10 mg SLOW IVP Q4H PRN PRN Reason: Systolic BP > 180 Hydralazine HCl (Apresoline) 10 mg PO TID [facility] Last Admin: 04/01/18 14:45 Dose: 10 mg Pantoprazole Sodium 80 mg/Miscellaneous Medication 1 each/ Sodium Chloride 100 mls @ 10 mls/hr IVP INF [facility] Last Admin: 04/01/18 04:56 Dose: 100 mls Dextrose/Water (D5w) 1,000 mls @ 0 mls/hr IV .Q0M PRN; As Directed PRN Reason: Hypoglycemia Levofloxacin 500 mg/ Device 100 mls @ 100 mls/hr IVPB Q24HR [facility] Last Admin: 04/01/18 14:45 Dose: 100 mls Sodium Chloride (Normal Saline 0.9%) 1,000 mls @ 30 mls/hr IV .Q24H [facility] Last Admin: 03/31/18 21:36 Dose: 1,000 mls Insulin Human Lispro (Humalog) 0 units SC .AGGRESSIVE SLIDING PRN PRN Reason: Aggressive Correctional Scale Last Admin: 03/30/18 17:53 Dose: 6 unit Insulin Human Lispro (Humalog) 0 units SC .BEDTIME SLIDING SC PRN PRN Reason: Bedtime Correctional Scale Loperamide HCl (Imodium) 2 mg PO PRN PRN PRN Reason: Diarrhea/Loose Stools Losartan Potassium (Cozaar) 50 mg PO Q12HR [facility] Last Admin: 04/01/18 11:37 Dose: 50 mg Magnesium Hydroxide (Milk Of Magnesium) 30 ml PO DAILYPRN PRN PRN Reason: Constipation Metoprolol Succinate (Toprol Xl) 50 mg PO DAILY [facility] Last Admin: 04/01/18 11:37 Dose: 50 mg Mineral Oil/White Petrolatum (Eucerin Cream) 0 gm TOP BIDPRN PRN PRN Reason: Dry Skin Nitroglycerin (Nitrostat) 0.4 mg SL Q5MIN PRN PRN Reason: Chest Pain Ondansetron HCl (Zofran Odt) 4 mg PO Q6H PRN PRN Reason: Nausea/Vomiting Last Admin: 03/31/18 09:14 Dose: 4 mg Ondansetron HCl (Zofran) 4 mg IVP Q6H PRN PRN Reason: Nausea/Vomiting Phenol (Chloraseptic [place] 180 Ml Bot) 0 ml PO PRN PRN PRN Reason: Sore Throat Polyethylene Glycol (Miralax) 17 gm PO 1300 [facility] Last Admin: 04/01/18 13:49 Dose: Not Given Senna (Senokot) 2 tab PO HSPRN PRN PRN Reason: Constipation Sodium Chloride ([place] Nasal [place] 0.65%) 0 ml EA NARE QIDPRN PRN PRN Reason: Nasal Congestion Sucralfate (Carafate) 1 gm PO ACHS [facility] Last Admin: 04/01/18 11:38 Dose: 1 gm
--- NOTE | 2018-04-01 15:26 | ADD-CON ---
ADDENDUM DATE OF CONSULTATION: 03/31/2018 DATE OF ADMISSION: 03/30/2018 Please refer the note dictated by the nurse practitioner for this cardiology consult. INDICATION FOR CONSULTATION: An 82-year-old female who has a history of atrial fibrillation. HISTORY OF PRESENT ILLNESS: This very pleasant 82-year-old female recently moved here from [place], her daughter is a nurse and now placed her in assisted living here to close part. She has been doin g relatively well. She has been treated for atrial fibrillation in the past, has been on for the las t 5 or 6 years on flecainide, has been doing quite well with that, but recently has developed some GI problems. She has had some what appeared to be some episodes of hematemesis and she has been evalua wolf in the emergency room, she was then discharged and returned again and was felt that she possibly had some small-bowel obstruction according to the daughter; however, she has had more nausea and vomi ting and appears to have had more drop in her overall hemoglobin and hematocrit, I believe on the y to the hospital via the ambulance she did have an episode of atrial fibrillation, but this have con verted back to sinus rhythm after she was given diltiazem and she has remained otherwise relatively s table. As far as her past medical history, social history, review of systems, medications, allergies , family history, please refer the notes dictated by the nurse practitioner. I did see and evaluate this patient. We have discussed the case. She is a very pleasant lady who is in no acute distress a t this time. She has been given GoLYTELY and is about to go to the bathroom. This was somewhat hurr ied physical evaluation. Her chest was clear to auscultation. Cardiovascular reveals a regular rate and rhythm. She had no significant lower extremity edema. Bowel sounds are present. She has no si gnificant tenderness. Her chest was clear. Cardiac enzymes did show a troponin I of 0.035 with an MB of 6.6, which may be due to demand ischemia associated with her anemia as well as a short episode of atrial fibrillation with some rapid ventric ular response. Otherwise, laboratory data as noted above with hemoglobin has decreased down to 9 pre vious on admission and then been 12.7. IMPRESSION: 1. Possible gastrointestinal bleed. She has been seen by GI and will undergo an endoscopy tomorrow. 2. History of atrial fibrillation in the past, for which she has been on flecainide. I would contin ue this medication, obviously she can hold if she is to be n.p.o., but she may be at risk of returnin g back to her atrial fibrillation. 3. History of diabetes. This will be dealt by the primary care service. 4. History of hypertension. This appears to be relatively stable at this time. 5. Some mild dementia, but this appears to be relatively stable. Also, she is a very pleasant lady. 6. History of possible urinary tract infections. We would continue to follow the patient with you, but at this time from a cardiac standpoint she appears to be stable.
[2018-04-01] MEDS ORDERED: PROPOFOL 200 MG/20 ML VIAL ONE (15:30)
[2018-04-01] MEDS ORDERED: Lidocaine 1% PF 5 ML VIAL ONE (15:30)
[2018-04-01] MEDS: HumaLOG 300 UNITS/3 ML VIAL SC PRN (17:46)
[2018-04-01] MEDS: Sodium Chloride 0.9% 1,000 ML IV SCH (18:13)
[2018-04-01] MEDS: Atorvastatin Calcium 40 MG TAB PO SCH (21:09)
[2018-04-01] MEDS: Folic Acid 1 MG TAB PO SCH (21:11)
[2018-04-02 05:55] LABS: Eosinophils 3 % (0-10); Hemoglobin 8.7 g/dL (12.0-16.0); Lymphocytes 36 % (21-51); MDiff Complete? YES; Mean Corpuscular HGB CONC 34.4 g/dL (32.0-36.0); Mean Corpuscular Hemoglobin 31.9 pg (27.0-31.0); Mean Corpuscular Volume 92.7 fl (81.0-99.0); Mean Platelet Volume 7.7 fL (7.4-10.4); Monocytes 5 % (0-10); Neutrophil 56 % (42-75); PLT Morphology Comment Appears Adequate; Platelet Count 257 thou/uL (130-400); RBC Distribution Width 11.9 % (11.5-14.5); Red Blood Cell (RBC) Count 2.73 mill/uL (4.20-5.40); White Blood Cell (WBC) Count 13.1 thou/uL (4.8-10.8)
[2018-04-02 05:58] LABS: Anion Gap 6 mmol/L (10-20); BUN (Urea Nitrogen) 14 mg/dL (9.8-20.1); Calc. Creatinine Clearance 54 mL/min (70-130); Calcium 9.2 mg/dL (7.8-10.44); Carbon Dioxide 28 mmol/L (23-31); Chloride 109 mmol/L (98-107); Estimated GFR-MDRD 51; Glucose 218 mg/dL (83-110); Potassium 3.5 mmol/L (3.5-5.1); Sodium 139 mmol/L (136-145)
--- NOTE | 2018-04-02 07:45 | PRG ---
DATE OF SERVICE: 04/02/2018 SUBJECTIVE: Ms. Marvin is feeling well this morning. She says she got good sleep. She has no compl aints of nausea or abdominal pain. She had a bowel movement charted yesterday after her procedure. Hemoglobin is stable the past 2 days. PHYSICAL EXAMINATION. VITAL SIGNS: Temperature 98.0, pulse 67, blood pressure 109/47, 98% oxygen saturation on room air. GENERAL: No acute distress. HEART: Regular rate and rhythm. LUNGS: Clear to auscultation bilaterally. ABDOMEN: Soft, nontender to palpation. EXTREMITIES: No peripheral edema. LABORATORY STUDIES: Hemoglobin 8.7. WBC 13.1, platelets 257. Sodium 139, potassium 3.5, BUN 14, wh ich is down from 54 on admission, creatinine is 1.04, glucose 232. ASSESSMENT AND PLAN: 1. Duodenal ulcer with hemorrhage, status post esophagogastroduodenoscopy with bipolar cautery of vi sible vessel yesterday. 2. Erosive esophagitis. 3. Acute blood loss anemia, stabilized. 4. Chronic constipation. There has been no further evidence of overt bleeding. The patient seems to be doing clinically well with stable hemoglobin. Would recommend she stayed on PPI twice daily, this could be transitioned to oral dosing upon hospital discharge. We will follow up results of H. pylori serology as an outpatie nt. She does need to avoid nonsteroidal anti-inflammatory drugs. I will plan to see her back in clinic for followup in the next 2-3 weeks. GI will sign off at this t mitra, but please call back anytime with questions or concerns.
[2018-04-02] MEDS: Sucralfate 1 GM TAB PO SCH ×4 (08:33→20:50)
[2018-04-02] MEDS: FLUoxetine HCl 20 MG CAP PO SCH (08:33)
[2018-04-02] MEDS: hydrALAZINE 10 MG TAB PO SCH ×3 (08:33→20:50)
[2018-04-02] MEDS: Losartan 25 MG TAB PO SCH ×2 (08:33→20:50)
[2018-04-02] MEDS: Ascorbic Acid 500 mg Chewable Tablet PO SCH (08:33)
[2018-04-02] MEDS: Flecainide 50 MG TAB PO SCH ×2 (08:33→20:51)
[2018-04-02] MEDS: Cyanocobalamin (Vitamin B-12) 1,000 MCG TAB PO SCH (08:33)
[2018-04-02] MEDS: Docusate 100 MG CAP PO SCH ×2 (08:34→20:51)
[2018-04-02] MEDS: Pantoprazole 80 MG, Admixture Fee 1 EACH in Sodium Chloride 0.9% 100 ML IVP SCH (08:45)
--- NOTE | 2018-04-02 11:11 | PDOC.CTH ---
<Virgen Farrar - Last Filed: 04/02/18 11:10> Cardiology Progress Note - Subjective The pt seen and examined. No overnight events. No cardiac complaints. S/p EGD and having regluar diet. - Objective Vital Signs Temp Pulse Resp BP Pulse Ox 04/02/18 07:35 98.0 F 68 16 131/60 96 04/02/18 04:00 98.0 F 67 14 109/47 L 98 04/02/18 00:00 99.1 F 68 17 121/53 L 98 Admit Weight 178 lb 9.191 oz Weight 197 lb 1 oz 04/01/18 04/02/18 04/03/18 06:59 06:59 06:59 Intake Total 1651 Balance 1651 - Physical Examination General/Neuro: other: (alerted to self) Lungs: CTA Heart: RRR Abdomen: soft Extremities: other: (1+ pitting BLE edema) - Telemetry Telemetry Rhythm: SR, PACs 60-70s - Labs Result Diagrams: 04/02/18 05:22 04/02/18 05:22 Troponin/CKMB CK-MB (CK-2) 6.6 ng/mL (0-6.6) 03/30/18 06:51 Troponin I 0.335 ng/mL (< 0.028) H* 03/30/18 14:26 - Assessment/Plan 1. Paroxysmal Afib - Remains in SR with Trig. PACs. On Flecainide; No OAC or ASA due to s/p GI bleed; cont. to monitor on tele 2. GI bleed - S/p EGD with duodenal ulcer with cauterized today. Tolerates regular diet. On Protonix drip. Managed by GI. 3. HTN - stable with current med 4. DM type 2 - managed by PCP 5. SAE - improved 6. Dementia - stable MAR reviewed * Echo on 03/31/18 showed EF 50-55%, mild MR, trace AR, mild TR and NH. * From Cardiac standpoint, the pt is stable to d/c. The pt will f/u with Dr Shane' office within2-4 wks. Review of Systems - Review of Systems Constitutional: reports: no symptoms reported EENTM: reports: no symptoms reported Respiratory: reports: no symptoms reported Cardiac (ROS): reports: no symptoms reported ABD/GI: reports: no symptoms reported : reports: no symptoms reported Musculoskeletal: reports: no symptoms reported <Andrea Shane - Last Filed: 04/02/18 22:50> Cardiology Progress Note - Objective Vital Signs Temp Pulse Resp BP BP Pulse Ox 04/02/18 20:50 65 04/02/18 20:19 98.4 F 65 18 113/52 L 98 04/02/18 16:55 98.3 F 65 18 144/73 H 97 04/02/18 16:30 98.0 F 78 16 132/58 L 98 04/02/18 16:08 68 132/69 04/02/18 11:10 97.6 F 63 16 154/64 H 97 Admit Weight 178 lb 9.191 oz Weight 197 lb 1 oz 04/01/18 04/02/18 04/03/18 06:59 06:59 06:59 Intake Total 1651 240 Balance 1651 240 - Labs Result Diagrams: 04/02/18 05:22 04/02/18 05:22 Troponin/CKMB CK-MB (CK-2) 6.6 ng/mL (0-6.6) 03/30/18 06:51 Troponin I 0.335 ng/mL (< 0.028) H* 03/30/18 14:26 - Assessment/Plan Pt. seen and eval. by me. I agree with the A/P by the SCRAP SORTER. She denies cardiac complaints.Cardiac status is stable. I will sign off . If any changes I will be happy to visit with her again.
[2018-04-02] MEDS: Polyethylene Glycol 3350 17 GM Packet PO SCH (12:13)
--- NOTE | 2018-04-02 13:11 | PQF ---
CLINICAL DOCUMENTATION IMPROVEMENT CLARIFICATION FORM: ICD-10 Updated PLEASE DO AN ADDENDUM TO THE PROGRESS NOTE WITH ANY DOCUMENTATION UPDATES OR ADDITIONS AND CARRY THROUGH TO DC SUMMARY. THANK YOU. DATE: 04/02 ATTN : DR. JACQUELINE RUIZ Please exercise your independent, professional judgment in responding to the clarification form. Clinical indicators are provided on the bottom of this form for your review Please check appropriate box(s) to clarify if the following diagnosis has been ruled in or ruled out: SEPSIS [ ] Ruled in diagnosis [ ] Continue to treat [ ] Resolved [ ] Ruled out diagnosis [ x ] Other diagnosis sepsis suspected, unknown source, continue to treat ____ [ ] Unable to determine For continuity of documentation, please document condition throughout progress notes and discharge summary. Thank You. CLINICAL INDICATORS - SIGNS / SYMPTOMS / LABS ER PRESENTATION 03/30: AMS WBC: 24.5 LACTIC ACIDOSIS: 4.0 REC'D 3L NS IN ER ER PHYSICIAN DOCUMENTATION 03/30: SEPSIS ATTENDING H&P DOCUMENTATION 03/30: ASSESSMENT/PLAN: 1) AMS; 2) LEUKOCYTOSIS & LACTIC ACIDOSIS. THIS IS CONCERNING TO UNDERLYING SEPSIS, BUT SHE DOES NOT HAVE ANY FEVER; 7) SAE ATTENDING PN 03/31 & : 2) ACUTE ENCEPHALOPATHY NO FURTHER MENTION OF SEPSIS TO DATE RISK FACTORS: LEUKOCYTOSIS (24.5, ON ADMIT) LACTIC ACIDOSIS (4.0, ON ADMIT) TREATMENTS: IV ANTIBIOTICS (IV ZOSYN 03/30; IV LEVAQUIN 03/30 - PRESENT) IVF (NS 03/30 - PRESENT) THANK YOU! Ena (This form is maintained as a part of the permanent medical record) 2014 [employer], [place]. All Rights Reserved Ena Brush RN, BSN [email or web address] Office: [phone] [facility]ITALSonam
--- NOTE | 2018-04-02 14:18 | PDOC.PN ---
- Subjective Encounter Start Date: 04/02/18 Encounter Start Time: 08:30 -: old records requested/rev Patient seen and examined for G I bleed. No new complaints. No overnight events - Objective Resuscitation Status: Resuscitation Status FULL:Full Resuscitation MAR Reviewed: Yes Vital Signs & Weight: Vital Signs (12 hours) Temp Pulse Pulse Pulse Resp BP BP 04/02/18 11:10 97.6 F 63 16 04/02/18 10:21 66 61 170/69 H 155/68 H 04/02/18 08:30 98.0 F 68 16 04/02/18 08:16 68 71 158/66 H 182/72 H 04/02/18 07:35 98.0 F 68 16 04/02/18 04:00 98.0 F 67 14 BP Pulse Ox 04/02/18 11:10 154/64 H 97 04/02/18 10:21 04/02/18 08:30 96 04/02/18 08:16 04/02/18 07:35 131/60 96 04/02/18 04:00 109/47 L 98 Weight Admit Weight 178 lb 9.191 oz Weight 197 lb 1 oz I&O: 04/01/18 04/02/18 04/03/18 06:59 06:59 06:59 Intake Total 1651 Balance 1651 Result Diagrams: 04/02/18 05:22 04/02/18 05:22 Additional Labs: Accuchecks 04/02/18 04/02/18 04/01/18 11:02 06:13 21:15 POC Glucose 249 H 232 H 170 H 04/01/18 16:24 POC Glucose 243 H EKG Reviewed by me: Yes Phys Exam - Physical Examination Constitutional: NAD HEENT: PERRLA, moist MMs, sclera anicteric Neck: no JVD, supple Respiratory: no wheezing, no rales, no rhonchi Cardiovascular: RRR, no significant murmur, no rub Gastrointestinal: soft, non-tender, no distention, positive bowel sounds Musculoskeletal: no edema, pulses present Neurological: non-focal, normal sensation Lymphatic: no nodes Psychiatric: normal affect Skin: no rash, normal turgor Dx/Plan (1) Acute blood loss anemia Code(s): D62 - ACUTE POSTHEMORRHAGIC ANEMIA Status: Acute (2) Demand ischemia of myocardium Code(s): I24.8 - OTHER FORMS OF ACUTE ISCHEMIC HEART DISEASE Status: Acute (3) Duodenal ulcer Status: Acute (4) Erosive esophagitis Code(s): K22.10 - ULCER OF ESOPHAGUS WITHOUT BLEEDING Status: Acute (5) GI bleed Code(s): K92.2 - GASTROINTESTINAL HEMORRHAGE, UNSPECIFIED Status: Acute Qualifiers: GI bleed type/associated pathology: duodenal ulcer Qualified Code(s): K26.4 - Chronic or unspecified duodenal ulcer with hemorrhage (6) Leucocytosis Code(s): D72.829 - ELEVATED WHITE BLOOD CELL COUNT, UNSPECIFIED Status: Acute (7) Afib Code(s): I48.91 - UNSPECIFIED ATRIAL FIBRILLATION Status: Chronic Qualifiers: Atrial fibrillation type: chronic Qualified Code(s): I48.2 - Chronic atrial fibrillation (8) Anxiety and depression Code(s): F41.9 - ANXIETY DISORDER, UNSPECIFIED; F32.9 - MAJOR DEPRESSIVE DISORDER, SINGLE EPISODE, UNSPECIFIED Status: Chronic (9) Constipation Code(s): K59.00 - CONSTIPATION, UNSPECIFIED Status: Chronic (10) DM type 2 (diabetes mellitus, type 2) Status: Chronic Qualifiers: Diabetes mellitus prison insulin use: without clutch inspector use Diabetes mellitus complication status: with kidney complications Diabetes mellitus complication detail: with chronic kidney disease Chronic kidney disease stage : stage 3 (moderate) Qualified Code(s): E11.22 - Type 2 diabetes mellitus with diabetic chronic kidney disease; N18.3 - Chronic kidney disease, stage 3 ( moderate); N18.3 - Chronic kidney disease, stage 3 (moderate) (11) Dyslipidemia Code(s): E78.5 - HYPERLIPIDEMIA, UNSPECIFIED Status: Chronic (12) HTN (hypertension) Code(s): I10 - ESSENTIAL (PRIMARY) HYPERTENSION Status: Chronic Qualifiers: Hypertension type: essential hypertension Qualified Code(s): I10 - Essential (primary) hypertension (13) Obesity (BMI 30.0-34.9) Code(s): E66.9 - OBESITY, UNSPECIFIED Status: Chronic (14) SAE (acute kidney injury) Code(s): N17.9 - ACUTE KIDNEY FAILURE, UNSPECIFIED Status: Resolved Comment : resolving (15) Acute encephalopathy Code(s): G93.40 - ENCEPHALOPATHY, UNSPECIFIED Status: Resolved (16) Dehydration, moderate Code(s): E86.0 - DEHYDRATION Status: Resolved (17) Lactic acidosis Code(s): E87.2 - ACIDOSIS Status: Resolved (18) Sepsis Code(s): A41.9 - SEPSIS, UNSPECIFIED ORGANISM Status: Suspected - Plan cont current plan of care, continue antibiotics * culture negative, sepsis is suspected only but no obvious source, on levaquin * wbc count is improving * today Hb dropped 1 gm, will monitor one more day in hospital * dc tele * transfer to medical * i tried to call daughter on her cell phone but unable to leave voice mail as voice mail is full * medication reviewed as below * symptomatic treatment * possible discharge tomorrow. Review of Systems - Review of Systems Eyes: negative: Pain, Vision Change, Conjunctivae Inflammation, Eyelid Inflammation, Redness, Other ENT: negative: Ear Pain, Ear Discharge, Nose Pain, Nose Discharge, Nose Congestion, Mouth Pain, Mouth Swelling, Throat Pain, Throat Swelling, Other Respiratory: negative: Cough, Dry, Shortness of Breath, Hemoptysis, SOB with Excertion, Pleuritic Pain, Sputum, Wheezing Cardiovascular: negative: chest pain, palpitations, orthopnea, paroxysmal nocturnal dyspnea, edema, light headedness, other Gastrointestinal: negative: Nausea, Vomiting, Abdominal Pain, Diarrhea, Constipation, Melena, Hematochezia, Other Genitourinary: negative: Dysuria, Frequency, Incontinence, Hematuria, Retention , Other Musculoskeletal: negative: Neck Pain, Shoulder Pain, Arm Pain, Back Pain, Hand Pain, Leg Pain, Foot Pain, Other Skin: negative: Rash, Lesions, Jacob, Bruising, Other - Medications/Allergies Allergies/Adverse Reactions: Allergies Allergy/AdvReac Type Severity Reaction Status Date / Time amlodipine [From [facility]] Allergy Verified 03/30/18 08:21 cefaclor Allergy Verified 03/30/18 08:21 Medications: Current Medications Acetaminophen (Tylenol) 650 mg PO Q4H PRN PRN Reason: Headache/Fever or Pain Hydrocodone Bitart/Acetaminophen ([place] 5/325) 1 tab PO Q4H PRN PRN Reason: Moderate Pain (4-6) Al Hydroxide/Mg Hydroxide (Maalox) 30 ml PO Q6H PRN PRN Reason: Heartburn or Indigestion Artificial Tears (Tears Naturale) 0 drop EA EYE PRN PRN PRN Reason: Dry Eyes Ascorbic Acid (Vitamin C) 500 mg PO DAILY [facility] Last Admin: 04/02/18 08:33 Dose: 500 mg Atorvastatin Calcium (Lipitor) 40 mg PO HS [facility] Last Admin: 04/01/18 21:09 Dose: 40 mg Cholecalciferol (Vitamin D3) 1,000 units PO DAILY [facility] Last Admin: 04/02/18 08:33 Dose: 1,000 units Clonidine (Catapres) 0.1 mg PO Q4H PRN PRN Reason: Systolic BP > 180 Cyanocobalamin (Vitamin B-12) 1,000 mcg PO DAILY [facility] Last Admin: 04/02/18 08:33 Dose: 1,000 mcg Dextrose/Water (Dextrose 50%) 25 gm SLOW IVP PRN PRN PRN Reason: Hypoglycemia Docusate Sodium (Colace) 100 mg PO BID [facility] Last Admin: 04/02/18 08:34 Dose: Not Given Flecainide Acetate (Tambocor) 50 mg PO Q12HR [facility] Last Admin: 04/02/18 08:33 Dose: 50 mg Fluoxetine HCl (Prozac) 20 mg PO DAILY [facility] Last Admin: 04/02/18 08:33 Dose: 20 mg Folic Acid (Folvite) 3 mg PO HS [facility] Last Admin: 04/01/18 21:11 Dose: 3 mg Glucagon (Glucagon) 1 mg IM PRN PRN PRN Reason: Hypoglycemia Guaifenesin (Robitussin Sf) 200 mg PO Q4H PRN PRN Reason: Cough Hydralazine HCl (Apresoline) 10 mg SLOW IVP Q4H PRN PRN Reason: Systolic BP > 180 Hydralazine HCl (Apresoline) 10 mg PO TID [facility] Last Admin: 04/02/18 08:33 Dose: 10 mg Pantoprazole Sodium 80 mg/Miscellaneous Medication 1 each/ Sodium Chloride 100 mls @ 10 mls/hr IVP INF [facility] Last Admin: 04/02/18 08:45 Dose: 100 mls Dextrose/Water (D5w) 1,000 mls @ 0 mls/hr IV .Q0M PRN; As Directed PRN Reason: Hypoglycemia Levofloxacin 500 mg/ Device 100 mls @ 100 mls/hr IVPB Q24HR [facility] Last Admin: 04/01/18 14:45 Dose: 100 mls Sodium Chloride (Normal Saline 0.9%) 1,000 mls @ 30 mls/hr IV .Q24H [facility] Last Admin: 04/01/18 18:13 Dose: Not Given Insulin Human Lispro (Humalog) 0 units SC .AGGRESSIVE SLIDING PRN PRN Reason: Aggressive Correctional Scale Last Admin: 04/01/18 17:46 Dose: 6 unit Insulin Human Lispro (Humalog) 0 units SC .BEDTIME SLIDING SC PRN PRN Reason: Bedtime Correctional Scale Loperamide HCl (Imodium) 2 mg PO PRN PRN PRN Reason: Diarrhea/Loose Stools Losartan Potassium (Cozaar) 50 mg PO Q12HR [facility] Last Admin: 04/02/18 08:33 Dose: 50 mg Magnesium Hydroxide (Milk Of Magnesium) 30 ml PO DAILYPRN PRN PRN Reason: Constipation Metoprolol Succinate (Toprol Xl) 50 mg PO DAILY [facility] Last Admin: 04/02/18 08:33 Dose: 50 mg Mineral Oil/White Petrolatum (Eucerin Cream) 0 gm TOP BIDPRN PRN PRN Reason: Dry Skin Nitroglycerin (Nitrostat) 0.4 mg SL Q5MIN PRN PRN Reason: Chest Pain Ondansetron HCl (Zofran Odt) 4 mg PO Q6H PRN PRN Reason: Nausea/Vomiting Last Admin: 03/31/18 09:14 Dose: 4 mg Ondansetron HCl (Zofran) 4 mg IVP Q6H PRN PRN Reason: Nausea/Vomiting Phenol (Chloraseptic [place] 180 Ml Bot) 0 ml PO PRN PRN PRN Reason: Sore Throat Polyethylene Glycol (Miralax) 17 gm PO 1300 [facility] Last Admin: 04/02/18 12:13 Dose: 17 gm Senna (Senokot) 2 tab PO HSPRN PRN PRN Reason: Constipation Sodium Chloride ([place] Nasal [place] 0.65%) 0 ml EA NARE QIDPRN PRN PRN Reason: Nasal Congestion Sucralfate (Carafate) 1 gm PO ACHS [facility] Last Admin: 04/02/18 12:12 Dose: 1 gm
[2018-04-02] MEDS: HumaLOG 300 UNITS/3 ML VIAL SC PRN (16:18)
[2018-04-02] MEDS: Sodium Chloride 0.9% 1,000 ML IV SCH (17:53)
[2018-04-02] MEDS: Folic Acid 1 MG TAB PO SCH (20:50)
[2018-04-02] MEDS: Atorvastatin Calcium 40 MG TAB PO SCH (20:51)
[2018-04-03 05:47] VITALS: TEMP 98.6
[2018-04-03] MEDS: HumaLOG 300 UNITS/3 ML VIAL SC PRN (05:56)
[2018-04-03 06:50] LABS: #Basophils 0.2 thou/uL (0.0-0.2); #Eosinphils 0.5 thou/uL (0.0-0.7); #Lymphocytes 4.8 thou/uL (1.20-3.40); #Monocytes 0.7 thou/uL (0.11-0.59); #Neutrophils 7.5 thou/uL (1.40-6.50); %Basophils 1.7 % (0.0-1.0); %Eosinophils 3.8 % (0.0-10.0); %Monocytes 5.1 % (0.0-10.0); %Neutrophils 54.4 % (42.0-75.0); Hemoglobin 8.6 g/dL (12.0-16.0); Mean Corpuscular HGB CONC 34.1 g/dL (32.0-36.0); Mean Corpuscular Hemoglobin 31.1 pg (27.0-31.0); Mean Corpuscular Volume 91.2 fl (81.0-99.0); Mean Platelet Volume 7.2 fL (7.4-10.4); Platelet Count 282 thou/uL (130-400); RBC Distribution Width 12.2 % (11.5-14.5); Red Blood Cell (RBC) Count 2.77 mill/uL (4.20-5.40); White Blood Cell (WBC) Count 13.8 thou/uL (4.8-10.8)
[2018-04-03 07:08] LABS: Anion Gap 7 mmol/L (10-20); BUN (Urea Nitrogen) 13 mg/dL (9.8-20.1); Calc. Creatinine Clearance 53 mL/min (70-130); Carbon Dioxide 27 mmol/L (23-31); Chloride 110 mmol/L (98-107); Estimated GFR-MDRD 44; Glucose 305 mg/dL (83-110); Potassium 3.4 mmol/L (3.5-5.1); Sodium 141 mmol/L (136-145)
[2018-04-03] MEDS: Flecainide 50 MG TAB PO SCH (07:36)
[2018-04-03] MEDS: Cyanocobalamin (Vitamin B-12) 1,000 MCG TAB PO SCH (07:36)
[2018-04-03] MEDS: Losartan 25 MG TAB PO SCH (07:36)
[2018-04-03] MEDS: Ascorbic Acid 500 mg Chewable Tablet PO SCH (07:37)
[2018-04-03] MEDS: Docusate 100 MG CAP PO SCH (07:37)
[2018-04-03] MEDS: Sucralfate 1 GM TAB PO SCH (07:37)
[2018-04-03] MEDS: FLUoxetine HCl 20 MG CAP PO SCH (07:37)
[2018-04-03] MEDS ORDERED: glipiZIDE 10 MG TAB PO SCH ×2 (09:00)
[2018-04-03 09:06] VITALS: BP 126/71
[2018-04-03] MEDS: hydrALAZINE 10 MG TAB PO SCH (10:22)
--- NOTE | 2018-04-03 10:25 | DIS ---
PRIMARY CARE PHYSICIAN: Dr. Rashi Chester. DATE OF ADMISSION: 03/30/2018 DATE OF DISCHARGE: 04/03/2018 DISCHARGE DISPOSITION: Assisted living facility at [facility]. PRIMARY DISCHARGE DIAGNOSES: Acute blood loss anemia; duodenal ulcer; erosive esophagitis; demand is chemia of myocardium; acute upper gastrointestinal bleed; sepsis, suspected; leukocytosis, improving; acute kidney failure, improved; acute encephalopathy, resolved; dehydration, corrected; lactic acido sis, resolved. SECONDARY DISCHARGE DIAGNOSES: Obesity with BMI of 30, hypertension, dyslipidemia, diabetes type 2, chronic constipation, anxiety, depression, atrial fibrillation. PRIMARY PROCEDURE/OPERATION: Upper endoscopy was performed by Dr. Fernández and found with duodenal ulcer , which was cauterized as well as erosive esophagitis. RADIOLOGICAL INVESTIGATION: Chest x-ray showed no acute cardiopulmonary process. Abdomen x-ray show ed constipation. Echocardiography showed normal EF. SIGNIFICANT LABORATORY DATA: WBC 13.8, hemoglobin 8.6, platelet 282. INR 1.1. Sodium 141, potassiu m 3.4, BUN 13, creatinine 1.18, calcium 9.0. LFT normal. Albumin 2.6. B12, folate, and TSH normal. Urinalysis normal. Hydrocephalus negative. Blood culture, urine culture negative. Stool for occu lt blood positive. C. diff negative. DISCHARGE MEDICATIONS: Vitamin C 500 mg p.o. daily, aspirin 81 mg p.o. daily, Lipitor 40 mg p.o. marie ly, vitamin D3 of 1000 unit p.o. at bedtime, vitamin B12 of 1000 mcg p.o. daily, Colace 100 mg p.o. b .i.d., ferrous sulfate 325 mg p.o. b.i.d., [place] 180 mg p.o. daily, Tambocor 50 mg p.o. b.i.d., Pro andrew 20 mg p.o. daily, folic acid 1 mg p.o. at bedtime, glipizide 10 mg p.o. b.i.d., hydralazine 10 mg t.i.d., Atarax 25 mg p.o. at bedtime, Levaquin 500 mg p.o. daily for 5 days, losartan 50 mg p.o. b.i .d., metoprolol XL 50 mg p.o. daily, Milk of Magnesia 30 mL p.o. daily p.r.n., Protonix 40 mg p.o. b. i.d., MiraLax 17 grams p.o. daily, sucralfate 1 g p.o. q.i.d. CONTRAINDICATIONS: None. CODE STATUS: FULL CODE. INPATIENT CONSULTANTS: Dr. Fernández was consulted while in hospital. Dr. Shane was consulted while in [facility]. TEST RESULTS PENDING ON DISCHARGE: None. ALLERGIES: AMLODIPINE and CEFACLOR. DISCHARGE PLAN: Post hospital, patient will follow up with primary care physician, Dr. Fernández in 2-3 w eeks. HOSPITAL COURSE: An 82-year-old female who was admitted by me on 03/30/2018. Please see my HPI for further detail. [facility] for altered mental status. In emergency room, edmund kaplan had coffee-ground emesis. She was taking Mobic and NSAID along with aspirin at [facility]. In emergency room, her CT of the abdomen and pelvis was unremarkable. She had a guaiac positive stoo l, her hemoglobin was also low. She was also relatively having low blood pressure. Patient also had atrial fibrillation with RVR, which was improved with Cardizem bolus. Initially atrial fibrillation with RVR, which was improved with Cardizem bolus and subsequently Cardi zem drip and subsequently Cardizem drip was discontinued and continued with the Tambocor. Patient re mained in controlled rate. Regarding GI bleed, we consulted electrolytic etcher and patient was treated with Protonix drip and GI did an upper endoscopy and found with duodenal ulcer and esophagitis. Patient had a little bit bloo d count dropped, she did not require any blood transfusion. We started ferrous sulfate upon discharg e and Dr. Fernández recommended to continue Protonix 40 mg p.o. b.i.d. We discontinued Mobic from her dis charge medications, aspirin is okay to resume upon discharge as per GI. Patient initially suspected for sepsis, because she was having lactic acidosis relatively hypotension and leukocytosis and that is why we started empirically antibiotic therapy, but her all cultures rem ained negative including C. diff. We finished complete course of therapy with Levaquin for a total o f 7 days. She had elevated troponin and that is why we consulted Cardiology and there was related to demand ischemia. Cardiology did not pursue any further investigation. We monitored on telemetry fl oor, but upon stabilization, patient was transferred to medical floor. From cardiac perspective, the re was no plan for any procedure or any more investigation. She had abnormal electrolytes, which was replaced while in hospital. Today, I have seen patient at bedside and examined, I spoke with the patient's daughter Yayo Chang about hospital course and plan of care and updated about test results and medications. PHYSICAL EXAMINATION: GENERAL: Currently, patient is hemodynamically stable. She is on room air. VITAL SIGNS: Temperature 98.6, pulse 71, respiratory rate 16, saturation 97% on room air, blood pres sure 126/71, weight 197 pounds. GENERAL: Patient is currently alert, awake, no acute distress. HEAD: Normocephalic, atraumatic. EYES: Pupils round, reactive to light. Extraocular muscle intact. ENT: Oropharynx within normal limits. Moist mucous membranes. NECK: Supple. No JVD, no thyromegaly, no carotid bruit. LUNGS: Clear to auscultation without any rhonchi or rales. CARDIAC: S1, S2 regular without any murmur. ABDOMEN: Soft and benign. EXTREMITIES: No edema. NEUROLOGIC: Nonfocal examination. Overall, patient is medically stable for discharge today.
--- NOTE | 2018-04-04 14:44 | EKG ---
Test Reason : Blood Pressure : / mmHG Vent. Rate : 083 BPM Atrial Rate : 083 BPM P-R Int : 154 ms QRS Dur : 100 ms QT Int : 456 ms P-R-T Axes : 053 045 103 degrees QTc Int : 535 ms Normal sinus rhythm with sinus arrhythmia Anteroseptal infarct , age undetermined Marked ST abnormality, possible lateral subendocardial injury Prolonged QT Abnormal ECG Confirmed by ALLISON SCHNEIDER, POPPY Busch ([id number]), news video editor MISTY SANABRIA ([id number]) on 04/04/2018 2:43:57 PM Referred By: Confirmed By:POPPY COOPER MD
[2018-04-04 19:13] LABS: H. pylori IgA ABS 13.6 units (0.0-8.9); H. pylori IgG ABS 0.12 (0.00-0.79); H. pylori IgM ABS Less than 9.0 units (0.0-8.9)
== END 2018-04-03 11:23 | disposition home or self-care (01) | DRG 871 ==
LOC: ERS 06:26 → 2NO 10:44 → T4-B 04-02 16:55
PROVIDERS: ADMIT Internal Medicine; ATTEND Internal Medicine
PROC: 0W3P8ZZ Control Bleeding in Gastrointestinal Tract, Via Natural or Artificial Opening Endoscopic (ICD-10-PCS; principal; 2018-04-01)
PROC: 0DJD8ZZ Inspection of Lower Intestinal Tract, Via Natural or Artificial Opening Endoscopic (ICD-10-PCS; 2018-04-01)
DX: A41.9 Sepsis, unspecified organism (principal); K22.11 Ulcer of esophagus with bleeding; K26.4 Chronic or unspecified duodenal ulcer with hemorrhage; G93.40 Encephalopathy, unspecified; E87.2 Acidosis; N17.9 Acute kidney failure, unspecified; I24.8 Other forms of acute ischemic heart disease; D62 Acute posthemorrhagic anemia; I10 Essential (primary) hypertension; I48.0 Paroxysmal atrial fibrillation; E11.40 Type 2 diabetes mellitus with diabetic neuropathy, unspecified; M41.9 Scoliosis, unspecified; F03.90 Unspecified dementia, unspecified severity, without behavioral disturbance, psychotic disturbance, mood disturbance, and anxiety; E11.65 Type 2 diabetes mellitus with hyperglycemia; K59.09 Other constipation; K21.0 Gastro-esophageal reflux disease with esophagitis; K57.30 Diverticulosis of large intestine without perforation or abscess without bleeding; K64.4 Residual hemorrhoidal skin tags; K64.8 Other hemorrhoids; E86.0 Dehydration; F41.9 Anxiety disorder, unspecified; F32.9 Major depressive disorder, single episode, unspecified; E66.9 Obesity, unspecified; Z68.30 Body mass index [BMI] 30.0-30.9, adult; Z90.49 Acquired absence of other specified parts of digestive tract; Z90.710 Acquired absence of both cervix and uterus; Z88.1 Allergy status to other antibiotic agents; Z88.8 Allergy status to other drugs, medicaments and biological substances
CPT/HCPCS: 36415; 36416; 51701; 71045; 74018; 74177; 80048; 80053; 81003; 81015; 82140; 82274; 82553; 82607; 82728; 82746; 83540; 83550; 83605; 83690; 84443; 84484; 85025; 85610; 85730; 86780; 86850; 86900; 86901; 87040; 87086; 87324; 87449; 93005; 93306; 96360; 96361; 96365; 96366; 96367; 96376; A4353; C9113; G8978-GP-CM; G8979-GP-CK; G8987-GO-CK; G8988-GO-CJ; J1956; J2001; J2543; J2704; J3370; J7050; Q0162

== ENCOUNTER 2018-05-17 15:54 | Inpatient (IN) | payer MEDICARE ==
[~2018-05-17 15:54] MED LIST: ISOVUE-370 76%-LOCM 1 ML ONE
--- NOTE | 2018-05-17 16:11 | CT ---
CT HEAD NONCONTRAST: Date: 05/17/18 INDICATION: Stroke, right facial droop. Patient last seen normal at [facility] at 1420 hours on 05/17/18. FINDINGS: There is global atrophy and moderate chronic ischemic disease. No intracranial hemorrhage, mass effec t, or midline shift. IMPRESSION: No acute intracranial hemorrhage or mass effect. Telephone call of findings placed to ER physician, Alonso Adler, at 1602 hours on 05/17/18. CODE CR. POS: ANNE MARIE
--- NOTE | 2018-05-17 16:55 | CT ---
CTA HEAD WITH 3D VOLUME RENDERING CTA NECK WITH 3D VOLUME RENDERING 05/17/18 INDICATION: Stroke, right side facial droop recent onset. FINDINGS: There is no evidence of a significant, proximal M1 filling defect bilaterally. The bilateral anterior cerebral arteries and region of anterior communicating artery are grossly unremarkable. The posterio r communicating arteries are patent. Evaluation of each posterior cerebral artery reveals appropriate contrast opacification. No high grade stenosis or occlusion of the basilar artery. Prominence of the caliber of the posterior communicating arteries with diminutive P1 segments indicates type norma iant circulation. The imaged aortic arch reveals vascular calcification. There is prominent focal calcific density at t he origin and proximal aspect of the left subclavian artery producing moderate focal stenosis. There is mild calcification of the right subclavian artery and involving origin of the brachiocephalic trun k and left common carotid artery. There is mild diffuse calcification as well as confirmative noncalc ified plaque of the common carotid arteries. A retropharyngeal course with mild medial deviation of e ach carotid artery is noted. At the level of the carotid bulbs, bilaterally, there is bulky, calcific plaque. However, No severe stenosis of either cervical ICA is demonstrated. There is mild plaque als o seen at the intracranial course of each distal ICA. No evidence of occlusion of either carotid kwaku ry. There is slight dominance of the right vertebral artery. Mild scattered vascular calcification of the left vertebral artery is present. Incidental note of bilateral thyroid nodules which may be further assessed with thyroid ultrasound. IMPRESSION: Scattered atherosclerotic vascular disease. No focal occlusion is present. Telephone call of findings placed to ER physician, Alonso Adler, at 1638 hours, 05/17/18. Code CR POS: ANNE MARIE
[2018-05-17 17:01] LABS: Hemoglobin 14.5 g/dL (12.0-16.0); Mean Corpuscular HGB CONC 34.2 g/dL (32.0-36.0); Mean Corpuscular Hemoglobin 31.9 pg (27.0-31.0); Mean Corpuscular Volume 93.1 fL (78.0-98.0); Mean Platelet Volume 7.8 fL (7.4-10.4); Platelet Count 275 thou/uL (130-400); RBC Distribution Width 12.3 % (11.5-14.5); Red Blood Cell (RBC) Count 4.55 mill/uL (4.20-5.40); White Blood Cell (WBC) Count 13.1 thou/uL (4.8-10.8)
[2018-05-17 17:02] LABS: PTT 23.6 SEC (22.9-36.1); Prothrombin Time 12.7 SEC (12.0-14.7)
[2018-05-17 17:08] LABS: ALT (SGPT) 15 U/L (8-55); AST (SGOT) 11 U/L (5-34); Albumin 3.8 g/dL (3.4-4.8); Alkaline Phosphatase 86 U/L (40-150); Anion Gap 11 mmol/L (10-20); BUN (Urea Nitrogen) 22 mg/dL (9.8-20.1); Bilirubin, Total 0.3 mg/dL (0.2-1.2); Calc. Creatinine Clearance 0 mL/min (70-130); Calcium 11.1 mg/dL (7.8-10.44); Carbon Dioxide 25 mmol/L (23-31); Chloride 98 mmol/L (98-107); Estimated GFR-MDRD 43; Globulin 2.6 g/dL (2.4-3.5); Glucose 243 mg/dL (83-110); Potassium 4.1 mmol/L (3.5-5.1); Protein, Total 6.4 g/dL (6.0-8.3); Sodium 130 mmol/L (136-145)
[2018-05-17 17:12] LABS: CKMB 0.9 ng/mL (0-6.6); Troponin I 0.057 ng/mL (< 0.028)
[2018-05-17 17:30] LABS: Lymphocytes 68 % (21-51); MDiff Complete? YES; Monocytes 7 % (0-10); Neutrophil 25 % (42-75); PLT Morphology Comment Appears Adequate
[2018-05-17 17:42] LABS: Bilirubin Negative (Negative); Blood, Urine Negative (Negative); Clarity CLEAR (Clear); Glucose, Urine (Dipstick) Negative (Negative); Leukocyte Small (Negative); Nitrite Negative (Negative); Protein, Urine (Dipstick) Negative (Neg-Trace); Specific Gravity, Urine 1.029 (1.002-1.036); pH, Urine 6.5 (5.0-9.0)
[2018-05-17 17:43] LABS: Bacteria/HPF None Seen HPF (None Seen); Hyaline Casts/LPF 0-3 HYALINE CAST LPF (0-3 Hyaline); RBC/HPF 0-3 HPF (0-3); Squamous Epithelial None Seen HPF (0-3); WBC/HPF 0-3 HPF (0-3)
[2018-05-17] MEDS ORDERED: Aspirin 300 MG Suppository PR SCH (18:45)
[2018-05-17 19:04] VITALS: BMI 32.5
[2018-05-17] MEDS ORDERED: Senokot 8.6 MG TAB PO PRN (20:59)
[2018-05-17] MEDS ORDERED: Bisacodyl 5 MG TAB PO PRN (20:59)
[2018-05-17] MEDS ORDERED: Labetalol HCl 100 MG/20 ML VIAL SLOW IVP PRN (20:59)
[2018-05-17] MEDS ORDERED: Acetaminophen 325 MG TAB PO PRN (20:59)
[2018-05-17] MEDS ORDERED: Bisacodyl 10 MG SUPP PR PRN (20:59)
[2018-05-17] MEDS: Atorvastatin Calcium 40 MG TAB PO SCH (22:42)
[2018-05-17] MEDS: Docusate 100 MG CAP PO SCH (22:42)
[2018-05-17] MEDS: Famotidine 20 MG TAB PO SCH (22:42)
[2018-05-18 05:31] LABS: Cardiac Risk 7.4 (Less than 4.5)
[2018-05-18] MEDS ORDERED: Dextrose 5% in Water 1,000 ML IV PRN (06:42)
[2018-05-18] MEDS ORDERED: Dextrose 50% Abboject 50 ML SYRINGE IVP PRN (06:42)
[2018-05-18] MEDS ORDERED: HumaLOG 300 UNITS/3 ML VIAL SC PRN (06:42)
--- NOTE | 2018-05-18 06:59 | PDOC.EVN ---
Event Note - Event Note Event Note: not seeing my dictated h&p will retry briefly Hx TIA, GIB p/w R sided facial droop, L sided weakness, "couldnt get up out of the chair" suddenly earlier in the day. SSX resolved at the time of arrival. Pt also endorsing black tarry stools for several dys A/P TIA eval neuro c/s apprec MRI concern for GIB heme check stool pt is hemodynamically stable resume home meds otherwise
[2018-05-18] MEDS ORDERED: cloNIDine 0.1 MG TAB PO PRN (08:51)
[2018-05-18] MEDS ORDERED: Milk Of Magnesia 30 ML UDCUP PO PRN (08:51)
[2018-05-18] MEDS: Aspirin 81 mg Enteric Coated Tablet PO SCH (09:06)
[2018-05-18] MEDS: Docusate 100 MG CAP PO SCH ×2 (09:06→20:45)
[2018-05-18] MEDS: Famotidine 20 MG TAB PO SCH ×2 (09:06→20:43)
[2018-05-18] MEDS: Flecainide 50 MG TAB PO SCH ×2 (09:22→20:40)
--- NOTE | 2018-05-18 10:07 | MRI ---
BRAIN MRI NONCONTRAST: INDICATION: TIA, 82-year-old female with right facial droop. FINDINGS: There is multifocal punctate restricted diffusion of the posterior division right MCA pedicle with sm all recent infarctions. There is no intracranial hemorrhage, mass effect, or midline shift. Parench ymal atrophy is present with compensatory dilatation of the ventricular system. Motion artifact is p resent limiting the evaluation. There is moderate chronic microvascular ischemic disease. IMPRESSION: Multifocal punctate restricted diffusion at the posterior division right middle cerebral artery alexis tory compatible with small recent infarctions. POS: ANNE MARIE
[2018-05-18] MEDS: FLUoxetine HCl 20 MG CAP PO SCH (10:45)
--- NOTE | 2018-05-18 11:11 | CON ---
DATE OF CONSULTATION: 05/18/2018 CHIEF COMPLAINT: Possible CVA. HISTORY OF PRESENT ILLNESS: The patient is 82 years old and is not able to give me much information and patient was admitted yesterday with possible facial droop and left arm weakness from the emergency room. She was brought in here by the daughter and patient also stated she was a bit unsure of what was going on. Per ER note, the patient had sudden onset of right facial droop and left arm weakness and she had fell multiple times the day and night prior to visit. The patient has history of hypertension and a prior TIA and recent hospitalization for GI bleed and based on examination findings at the ER, there was suspicion for she had dysarthria and facial weakness on the left side and no other findings and the diagnosis was ischemic stroke and patient was admitted for further evaluation. PAST MEDICAL HISTORY: The patient's previous medical history includes hypertension, history of GI bleed, also history of diabetes with diabetic neuropathy, gastrointestinal problems, diverticulitis, peptic ulcer disease, urinary infection, hypertension, scoliosis, and dementia. PAST SURGICAL HISTORY: Patient has history of hysterectomy and orthopedic surgery of the left wrist according to her chart. SOCIAL HISTORY: The patient reports she generally used to live in [place] and currently lives in [facility] with her daughter. ALLERGIES: AMLODIPINE, CECLOR, CEFACLOR and NORVASC. HOME MEDICATIONS: List includes aspirin 81 mg per day, Atarax, Ashley, clonidine, Colace, flecainide, folic acid, glipizide, hydralazine, hydrochlorothiazide, Lipitor, and losartan and currently the patient is unable to give me any answers of her medical history and workup so far, her MRI shows multifocal punctate, restricted diffusion at the posterior division of the right MCA, territory compatible with small recent infarctions and then CT angiogram with [place] of [place] with contrast showed scattered atherosclerotic vascular disease. No focal occlusion was present and mild block in the ICA and no stenosis in the cervical segments of the ICA. LABORATORY DATA: Her laboratory workup includes white count 13.1, hemoglobin 14.5, and platelets 275. Chemistries: Sodium 130, potassium 4.1, chloride 98, bicarbonate 25, BUN 22, creatinine 1.20, glucose 243, cholesterol 214, triglycerides 157, HDL 29, LDL 154, serum protein is 6.4, albumin 3.8, globulin 2.6, troponin I 0.057, ALT is 15, AST 11, alkaline phosphatase is 86. PHYSICAL EXAMINATION: VITAL SIGNS: Her examination shows blood pressure of 118/90, pulse 55, temperature 98.1, respiratory rate 28, O2 sats are 98%. Her blood pressures earlier today at 4:00 a.m. and midnight were in the 200s/80s. GENERAL APPEARANCE: Very pleasant lady who seems to be slightly confused. CHEST: Clear vesicular breathing. CARDIOVASCULAR: S1, S2 heard, no murmurs. Carotids are clear. ABDOMEN: Soft and nontender. NEUROLOGICAL: Higher intellectual functions. The patient knows this is May, but could not give me the year, knows she is at a hospital, could not give me the name of the hospital and she also stated she lives in [facility] near her daughter in a care home community and stated that she forgets a lot of current events because she does not keep up with the date. CRANIAL NERVES: She has mild facial droop on the left side. Extraocular movements are normal. Normal sensation of face bilaterally. Tongue midline, no atrophy noted. Hearing is normal. Normal elevation of palate. Pupils are reactive to light equally at 2 mm. MOTOR: Bulk normal, tone normal, strength 5/5 in upper and lower extremities bilaterally in iliopsoas, hamstrings, quadriceps, ankle dorsiflexion, plantar flexion, deltoid, biceps, triceps, wrist extension/flexion, finger extension and flexion bilaterally and deep tendon reflexes were preserved at 3+ bilaterally in upper and lower extremities. SENSORY: Normal touch, pinprick, proprioception, vibration bilaterally. CEREBELLAR: Normal [id number] and vpoh-cc-[id number]. REVIEW OF SYSTEMS: PULMONARY: Normal. CARDIAC: Normal. GASTROINTESTINAL: Prior history of GI bleed. GENITOURINARY: Negative for any dysuria or frequency of urination. NEUROLOGICAL: Positive for speech difficulty, left facial weakness, and confusion. DERMATOLOGIC: Negative for any skin rash. HEMATOLOGIC: Negative for any bleeding diatheses. IMPRESSION: The patient is an 82-year-old lady with history of acute onset of weakness in her extremity plus left facial droop which brought her to the hospital and stated in the chart that the patient had left-sided weakness and right facial droop and her investigations at this point show mild punctate restricted diffusion at the right MCA territory and her examination shows very mild left facial droop. Otherwise, rest of her examination is normal except for mental status. She seems to be somewhat confused and is not oriented to place or time except she remembers it around 05/16/2018 and is very pleasantly confused and can follow all commands. She may have underlying dementia. At this time, her diagnosis is consistent with small acute CVA in the right MCA territory, could be embolic in nature. RECOMMENDATIONS: Please add Plavix to her medication regimen and obtain echocardiogram and carotid Doppler to complete her stroke workup and she is currently on 81 mg of aspirin. If okay with the racking machine operator, we can add Plavix to her treatment regimen for future stroke prevention. Please monitor for any changes in her neurological status and I will continue to follow with you. MATILDE
--- NOTE | 2018-05-18 14:15 | PDOC.PN ---
- Subjective Encounter Start Date: 05/18/18 Encounter Start Time: 14:13 Subjective: denies any headache,nausea,vision changes,facial numbness -: no paraesthesias /weakness - Objective Resuscitation Status: Resuscitation Status FULL:Full Resuscitation MAR Reviewed: Yes Vital Signs & Weight: Vital Signs (12 hours) Temp Pulse Resp BP Pulse Ox 05/18/18 12:00 98.5 F 54 L 20 189/75 H 98 05/18/18 08:00 98.1 F 55 L 20 118/90 98 05/18/18 04:00 98.2 F 61 18 210/88 H 97 Result Diagrams: 05/17/18 16:45 05/17/18 16:45 Additional Labs: Accuchecks 05/18/18 05/18/18 05/18/18 10:53 07:43 05:56 POC Glucose 221 H 226 H 226 H Laboratory Tests 03/30/18 03/30/18 03/30/18 06:51 11:05 14:26 Creatinine Troponin I 0.263 H 0.231 H 0.335 H* Triglycerides Cholesterol 04/02/18 04/03/18 05/17/18 05:22 06:43 16:45 Creatinine 1.04 1.18 H Troponin I 0.057 H Triglycerides Cholesterol 05/17/18 05/18/18 16:45 04:52 Creatinine 1.20 H Troponin I Triglycerides 157 H Cholesterol 214 H labs reviewed Radiology Reviewed by me: Yes (Brain MRI-multifocal infarct MCA R side) Phys Exam - Physical Examination Constitutional: NAD HEENT: PERRLA, moist MMs, sclera anicteric, oral pharynx no lesions Neck: no nodes, no JVD, supple, full ROM Respiratory: no wheezing, no rales, no rhonchi, clear to auscultation bilateral Cardiovascular: RRR, no significant murmur Gastrointestinal: soft, non-tender, no distention, positive bowel sounds Musculoskeletal: no edema, pulses present Neurological: non-focal, normal sensation, moves all 4 limbs Psychiatric: normal affect, A&O x 3 repeating herself.appears somewhat confused Skin: no rash Dx/Plan (1) Cerebrovascular accident, embolic Code(s): I63.9 - CEREBRAL INFARCTION, UNSPECIFIED Status: Acute Qualifiers: Precerebral and cerebral artery: middle cerebral artery Laterality of affected vessel: right Qualified Code(s): I63.411 - Cerebral infarction due to embolism of right middle cerebral artery (2) H/O: GI bleed Code(s): Z87.19 - PERSONAL HISTORY OF OTHER DISEASES OF THE DIGESTIVE SYSTEM Status: Acute (3) PUD (peptic ulcer disease) Code(s): K27.9 - PEPTIC ULC, SITE UNSP, UNSP AC OR CHR, W/O HEMOR OR PERF Status: Acute Comment: recent diagnosis -03/2018 with acute GI bleed (4) Afib Code(s): I48.91 - UNSPECIFIED ATRIAL FIBRILLATION Status: Chronic Qualifiers: Atrial fibrillation type: chronic Qualified Code(s): I48.2 - Chronic atrial fibrillation (5) Anxiety and depression Code(s): F41.9 - ANXIETY DISORDER, UNSPECIFIED; F32.9 - MAJOR DEPRESSIVE DISORDER, SINGLE EPISODE, UNSPECIFIED Status: Chronic (6) DM type 2 (diabetes mellitus, type 2) Status: Chronic Qualifiers: Diabetes mellitus termite inspector insulin use: without fdc use Diabetes mellitus complication status: with kidney complications Diabetes mellitus complication detail: with chronic kidney disease Chronic kidney disease stage : stage 3 (moderate) Qualified Code(s): E11.22 - Type 2 diabetes mellitus with diabetic chronic kidney disease; N18.3 - Chronic kidney disease, stage 3 ( moderate); N18.3 - Chronic kidney disease, stage 3 (moderate); N18.3 - Chronic kidney disease, stage 3 (moderate) (7) Dyslipidemia Code(s): E78.5 - HYPERLIPIDEMIA, UNSPECIFIED Status: Chronic (8) HTN (hypertension) Code(s): I10 - ESSENTIAL (PRIMARY) HYPERTENSION Status: Chronic Qualifiers: Hypertension type: essential hypertension Qualified Code(s): I10 - Essential (primary) hypertension (9) Obesity (BMI 30.0-34.9) Code(s): E66.9 - OBESITY, UNSPECIFIED Status: Chronic - Plan PT/OT, social services designee, respiratory therapy, out of bed/ambulate, DVT proph w/ SCDs Likley embolic stroke,high risk of bleed w anticoagulation/ -: cont ASA for now. will discuss w family -: add PPI BID w recent GI bleed. -: OT/PT/MANAGER PERFORMANCE IMPROVEMENT/Stroke team eval -: am labs.monitorh/h.FOBT pending. no overt bleed for now * . Review of Systems - Review of Systems Constitutional: negative: fever, chills, sweats, weakness, malaise, other Cardiovascular: negative: chest pain, palpitations, orthopnea, paroxysmal nocturnal dyspnea, edema, light headedness, other Gastrointestinal: negative: Nausea, Vomiting, Abdominal Pain, Diarrhea, Constipation, Melena, Hematochezia, Other Genitourinary: negative: Dysuria, Frequency, Incontinence, Hematuria, Retention , Other Musculoskeletal: negative: Neck Pain, Shoulder Pain, Arm Pain, Back Pain, Hand Pain, Leg Pain, Foot Pain, Other Skin: negative: Rash, Lesions, Jacob, Bruising, Other Neurological: negative: Weakness, Numbness, Incoordination, Change in Speech, Confusion, Seizures, Other - Medications/Allergies Allergies/Adverse Reactions: Allergies Allergy/AdvReac Type Severity Reaction Status Date / Time amlodipine [From [facility]] Allergy Verified 03/30/18 08:21 cefaclor Allergy Verified 03/30/18 08:21 Medications: Current Medications Acetaminophen (Tylenol) 650 mg PO Q4H PRN PRN Reason: Headache/Fever or Pain Aspirin (Ecotrin) 81 mg PO DAILY [facility] Last Admin: 05/18/18 09:06 Dose: 81 mg Atorvastatin Calcium (Lipitor) 40 mg PO HS [facility] Last Admin: 05/17/18 22:42 Dose: 40 mg Bisacodyl (Dulcolax) 10 mg PO DAILYPRN PRN PRN Reason: Constipation Bisacodyl (Dulcolax) 10 mg AK Q24H PRN PRN Reason: Constipation Clonidine (Catapres) 0.1 mg PO PRN PRN PRN Reason: Blood Pressure Dextrose/Water (Dextrose 50%) 25 gm IVP PRN PRN PRN Reason: HYPOGLYCEMIA PROTOCOL Docusate Sodium (Colace) 100 mg PO BID [facility] Last Admin: 05/18/18 09:06 Dose: Not Given Famotidine (Pepcid) 20 mg PO BID [facility] Last Admin: 05/18/18 09:06 Dose: 20 mg Flecainide Acetate (Tambocor) 50 mg PO BID [facility] Last Admin: 05/18/18 09:22 Dose: 50 mg Fluoxetine HCl (Prozac) 20 mg PO DAILY [facility] Last Admin: 05/18/18 10:45 Dose: Not Given Folic Acid (Folvite) 3 mg PO HS [facility] Glipizide (Glucotrol) 10 mg PO BID-AC [facility] Glucagon (Glucagon) 1 mg IM PRN PRN PRN Reason: HYPOGLYCEMIA PROTOCOL Hydralazine HCl (Apresoline) 10 mg SLOW IVP Q4H PRN PRN Reason: BP > 220/110 Dextrose/Water (D5w) 1,000 mls @ 0 mls/hr IV INF PRN; As Directed PRN Reason: HYPOGLYCEMIA PROTOCOL Insulin Human Lispro (Humalog) 0 units SC .MILD SLIDING SCALE PRN; Protocol PRN Reason: MILD SLIDING SCALE Labetalol HCl (Normodyne) 20 mg SLOW IVP Q1H PRN PRN Reason: BP > 220/110 Magnesium Hydroxide (Milk Of Magnesium) 30 ml PO DAILY PRN PRN Reason: Constipation Pantoprazole Sodium (Protonix) 40 mg PO BID [facility] Last Admin: 05/18/18 09:22 Dose: 40 mg Senna (Senokot) 2 tab PO HSPRN PRN PRN Reason: Constipation Sodium Chloride (Flush - Normal Saline) 10 ml IVF Q12HR [facility] Last Admin: 05/18/18 09:23 Dose: 10 ml Sodium Chloride (Flush - Normal Saline) 10 ml IVF PRN PRN PRN Reason: Saline Flush
[2018-05-18] MEDS: hydrALAZINE 10 MG TAB PO SCH ×2 (14:53→20:44)
[2018-05-18] MEDS: HumaLOG 300 UNITS/3 ML VIAL SC PRN ×3 (14:58→20:51)
[2018-05-18] MEDS: glipiZIDE 10 MG TAB PO SCH (17:28)
[2018-05-18] MEDS: hydrALAZINE 20 MG/ML VIAL SLOW IVP PRN (17:28)
--- NOTE | 2018-05-18 19:17 | CON ---
GASTROENTEROLOGY CONSULTATION NOTE DATE OF CONSULTATION: 05/18/2018 CHIEF COMPLAINT: Left-sided weakness. HISTORY OF PRESENT ILLNESS: Ms. Marvin is an 82-year-old woman who was admitted to the emergency [facility] yesterday with a stroke. She was started on aspirin for that. She was evaluated by Neurology and a recommendation was made to add Plavix to her medication regimen. GI was consulted to give an opini on regarding antiplatelet or anticoagulation in this patient since she had a GI bleed back in March. I n 03/2018, she had an acute bleed from a duodenal ulcer for which she underwent cautery of the visibl e vessel by Dr. Fernández. Serology was positive for H. pylori and she underwent treatment with Protonix 40 mg twice daily and amoxicillin and clarithromycin for 14 days starting in mid April. She does not appear to have been on a PPI since then on her medicine list from [facility]. The patient is not able to give much history. She apparently has some underlying demen tia. She is able to tell me her name, but not really contribute otherwise. She does not have family with her currently. She has no abdominal pain, no nausea or vomiting. She states she has a bowel m ovement daily. She is on MiraLax daily at the [facility]. She has had no reported overt ble eding. PAST MEDICAL HISTORY: Atrial fibrillation, diabetes mellitus type 2, diabetic neuropathy, diverticul itis, urinary tract infection, hypertension, scoliosis, and dementia. PAST SURGICAL HISTORY: Hysterectomy, cholecystectomy, wrist surgery. She underwent EGD in 03/2018 a nd was found to have an actively bleeding ulcer in the bulb of the duodenum cauterized. She was barbie wolf for H. pylori in the mid April. FAMILY HISTORY: Negative for GI malignancy. SOCIAL HISTORY: No alcohol, tobacco or drugs. ALLERGIES: AMLODIPINE and CECLOR. MEDICATIONS: Prior to admission, Ashley, aspirin, Atarax, clonidine, Colace, and folic acid, glipiz felicity, hydralazine, hydrochlorothiazide, Lipitor, Losartan, metoprolol, Milk of Magnesia, Prozac, vitam in B12, vitamin C, vitamin D3, Carafate, and Zofran. PHYSICAL EXAMINATION: VITAL SIGNS: Temperature 97.2, pulse 55, blood pressure 198/89. GENERAL: She is in no acute distress. She is oriented to her name, but not the place or year. EYES: Have no scleral icterus. OROPHARYNX: Clear, without lesions. NECK: No cervical or supraclavicular lymphadenopathy. LUNGS: Clear to auscultation bilaterally. HEART: Regular rate and rhythm. ABDOMEN: Soft, nontender, nondistended, bowel sounds are present. EXTREMITIES: No lower extremity edema. RECTAL: Reveals brown stool in the rectal vault. LABORATORY DATA: White blood cell count 13.1, hemoglobin 14.5, platelets 275. Creatinine 1.2. IMPRESSION: 1. Ischemic stroke, likely thromboembolic. 2. Recent duodenal ulcer back in 03/2018. She has been treated with proton pump inhibitor initially and then treated for Helicobacter pylori in April. She completed the 14 days of triple therapy end o f 04/2018. She has been off proton pump inhibitor since then. She has had no evidence of recurrent bleeding. RECOMMENDATIONS: 1. Given the complicated ulcer and that she presented with previously and need for anticoagulation o r antiplatelet therapy, then I would restart proton pump inhibitor daily and continue this indefinite ly. 2. There is no overt bleeding now and she has had her ulcer treated and underlying cause of the ulce r also treated in the H. pylori therapy. She should have a stool antigen checked for H. pylori to [facility] for eradication ideally in around a month. We will check a stool antigen now since she has been off proton pump inhibitor. 3. There is no contraindication at this point to antiplatelet therapy or anticoagulation. 4. I will sign off. Please call if GI can be of assistance.
[2018-05-18] MEDS: Losartan 25 MG TAB PO SCH (20:39)
[2018-05-18] MEDS: Folic Acid 1 MG TAB PO SCH (20:41)
[2018-05-18] MEDS: Atorvastatin Calcium 40 MG TAB PO SCH (20:43)
[2018-05-18] MEDS ORDERED: Non-Formulary Item 1 EACH (Losartan Potassium [Losartan Potassium] 50 MG) PO SCH (21:00)
[2018-05-19 00:36] LABS: BHCG - Serum Negative (NEGATIVE); Pregs Control Background? CLEAR/WHITE (CLR/WHITE); Pregs Control Bar Appear? YES (CONTROL BAR)
[2018-05-19 00:38] LABS: PTT 26.1 SEC (22.9-36.1); Prothrombin Time 13.7 SEC (12.0-14.7)
[2018-05-19 00:50] LABS: CKMB 1.8 ng/mL (0-6.6); Troponin I 0.083 ng/mL (< 0.028)
[2018-05-19] MEDS: HumaLOG 300 UNITS/3 ML VIAL SC PRN ×3 (07:33→22:31)
--- NOTE | 2018-05-19 08:13 | CT ---
PRELIMINARY REPORT/[facility]/EMERGENTY AFTER-HOURS PROCEDURE CT Head Without Intravenous Contrast CLINICAL HISTORY: 82 years old, female; Signs and symptoms; Weakness, extremity; Left; Patient HX: Stroke TECHNIQUE: Axial computed tomography images of the head/brain without intravenous contrast. COMPARISON: No relevant prior studies available. FINDINGS: Brain: Age appropriate atrophy and small vessel ischemic change. No mass effect, midline shift or ext ra axial fluid collections. [place]-white matter differentiation is normal. No hemorrhage. Ventricles: Unremarkable. No ventriculomegaly. Bones/joints: Unremarkable. No acute fracture. Soft tissues: Unremarkable. Vasculature: Carotid and vertebral artery atherosclerotic calcification. Sinuses: Unremarkable as visualized. No acute sinusitis. Mastoid air cells: Unremarkable as visualized. No mastoid effusion. Orbits: The patient has had bilateral lens replacement surgery. IMPRESSION: No acute findings. Thank you for allowing us to participate in the care of your patient. Dictated and Authenticated by: Theron Booker MD 05/19/2018 1:09 AM Central Time ([place] & [place]) FINAL REPORT CT HEAD NONCONTRAST: FINDINGS/IMPRESSION: Agree with the preliminary interpretation provided above. No acute intracranial hemorrhage or mass effect. Redemonstration of microvascular ischemic disease, moderate in degree, as was depicted on exam 2 days prior.
--- NOTE | 2018-05-19 08:16 | PDOC.EVN ---
Event Note - Event Note Event Note: Late Entry for 05/18/18. Phoned Pt's daughter Ms Stephens. Discussed the findings of MRI elvi with new CVA.Question of embolic in nature and recs from Neurology to start Plavix and personal Recs for Anticoagulation. 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 she is not oppesed to the antiplatelet/anticoagulation Rx but would like me to get cardiology and GI on board for their recommendations as well ,since Pt had episode of GIB in from duodenal ulcer. Off of PPI for some reason-daughter not able to tell. Code status discussed with daughter who is MPOA. She reports that pt was a DNR/ DNI earlier but daughter wants to think about it it and discuss it with other family members as well. Wants to keep mom as Full Code for now. Will get back to me soon. all Qs answered. RN updated. Time spent in ACP meeting-17 mins.
--- NOTE | 2018-05-19 12:01 | PRG ---
DATE OF SERVICE: 05/19/2018 CHIEF COMPLAINT: Stroke. INTERVAL HISTORY: The patient's daughter was in the room today and she reports she has had prior history of mild dementia, but she has fallen 4 times the night before she was brought to the hospital and she has worsened overnight and she now has significant worsening of her speech as well as left arm weakness and she is more sleepy today and a repeat stat CT scan was done last night after a code green was called in. At this time, patient is resting in a chair. CURRENT REPORTS: Echocardiogram shows ejection fraction 55%-60%, mildly dilated left atrium, left ventricular size is normal. Impaired relaxation compatible with diastolic dysfunction. LABORATORY DATA: No new labs on the system other than PT 13.7, INR 1.0, PTT is 26.1, troponin I is 0.083, glucose 192. PHYSICAL EXAMINATION: VITAL SIGNS: Blood pressure 183/62, pulse 53, temperature 97.4, and 94% O2 sats. GENERAL APPEARANCE: She is sitting down in the chair and kind of slumped over, but wakes up and tries to talk. CHEST: Clear. NEUROLOGICAL: Higher intellectual functions. She does try to talk, but she has significant dysarthria. CRANIAL NERVES: She has left facial droop which is worse than yesterday. Extraocular movements are normal. Motor exam; bulk is normal. Tone is decreased in the left upper extremity. Strength is normal in the right upper with normal hand stunt double and left upper extremity strength is 0/ 5. She does not cooperate much and difficult to assess strength in lower extremities, but right leg is moving well and I am not sure about the left lower extremity strength on my testing. IMPRESSION: Patient is an 82-year-old lady with definite worsening since yesterday and seems to have established her right MCA stroke at this time. Her MRI did show evidence of multifocal distribution at posterior division of right MCA and current exam is compatible with right MCA infarct. RECOMMENDATIONS: Please consult Cardiology regarding whether she is a candidate for anticoagulation; however, she is high fall risk and I discussed this with the patient's daughter and I will follow up patient with you tomorrow. Please continue to monitor neurological status. [id number]
[2018-05-19] MEDS: glipiZIDE 10 MG TAB PO SCH ×2 (12:37→16:57)
[2018-05-19] MEDS: Aspirin 81 mg Enteric Coated Tablet PO SCH (12:37)
[2018-05-19] MEDS: Docusate 100 MG CAP PO SCH ×2 (12:38→20:18)
[2018-05-19] MEDS: Flecainide 50 MG TAB PO SCH ×2 (12:38→20:17)
[2018-05-19] MEDS: Famotidine 20 MG TAB PO SCH (12:38)
[2018-05-19] MEDS: FLUoxetine HCl 20 MG CAP PO SCH (12:39)
[2018-05-19] MEDS: hydrALAZINE 10 MG TAB PO SCH ×3 (12:39→20:18)
[2018-05-19] MEDS: Losartan 25 MG TAB PO SCH ×2 (12:40→20:18)
[2018-05-19] MEDS: Polyethylene Glycol 3350 17 GM Packet PO SCH (12:41)
--- NOTE | 2018-05-19 13:50 | PDOC.PN ---
- Subjective Encounter Start Date: 05/19/18 Encounter Start Time: 13:48 Subjective: Ramy russ called last night for changes in mental status -: Stat anitha CT negative for ac findings.discussed daughter -: Pt sleeping in chair .more somnolent per daughter - Objective Resuscitation Status: Resuscitation Status FULL:Full Resuscitation MAR Reviewed: Yes Vital Signs & Weight: Vital Signs (12 hours) Temp Pulse Pulse Pulse Resp BP BP 05/19/18 12:39 55 L 05/19/18 11:54 98.4 F 55 L 20 05/19/18 08:14 54 L 53 L 151/79 H 183/62 H 05/19/18 08:00 97.4 F L 54 L 16 05/19/18 07:50 97.4 F L 54 L 16 05/19/18 03:11 98.2 F 60 20 BP Pulse Ox 05/19/18 12:39 05/19/18 11:54 163/87 H 93 L 05/19/18 08:14 05/19/18 08:00 94 L 05/19/18 07:50 149/52 H 94 L 05/19/18 03:11 170/65 H 98 Weight Admit Weight 195 lb 8 oz Weight 195 lb 8 oz I&O: 05/18/18 05/19/18 05/20/18 06:59 06:59 06:59 Intake Total 300 370 Balance 300 370 Result Diagrams: 05/17/18 16:45 05/17/18 16:45 Additional Labs: Accuchecks 05/19/18 05/19/18 05/19/18 10:45 05:53 00:10 POC Glucose 219 H 192 H 239 H 05/18/18 05/18/18 20:40 16:28 POC Glucose 243 H 256 H Microbiology 05/18/18 12:36 Urine voided Urine Culture - Preliminary Laboratory Tests 05/17/18 05/19/18 16:45 00:15 Troponin I 0.057 H 0.083 H labs reviewed Phys Exam - Physical Examination Constitutional: NAD HEENT: PERRLA, moist MMs, sclera anicteric, oral pharynx no lesions Neck: no nodes, no JVD, supple, full ROM Respiratory: no wheezing, no rales, no rhonchi, clear to auscultation bilateral Cardiovascular: RRR, no significant murmur Gastrointestinal: soft, non-tender, no distention, positive bowel sounds Musculoskeletal: no edema, pulses present Neurological: moves all 4 limbs Deviation from normal: sleepy Dx/Plan (1) Cerebrovascular accident, embolic Code(s): I63.9 - CEREBRAL INFARCTION, UNSPECIFIED Status: Acute Qualifiers: Precerebral and cerebral artery: middle cerebral artery Laterality of affected vessel: right Qualified Code(s): I63.411 - Cerebral infarction due to embolism of right middle cerebral artery (2) H/O: GI bleed Code(s): Z87.19 - PERSONAL HISTORY OF OTHER DISEASES OF THE DIGESTIVE SYSTEM Status: Acute (3) PUD (peptic ulcer disease) Code(s): K27.9 - PEPTIC ULC, SITE UNSP, UNSP AC OR CHR, W/O HEMOR OR PERF Status: Acute Comment: recent diagnosis -03/2018 with acute GI bleed (4) Afib Code(s): I48.91 - UNSPECIFIED ATRIAL FIBRILLATION Status: Chronic Qualifiers: Atrial fibrillation type: chronic Qualified Code(s): I48.2 - Chronic atrial fibrillation (5) Anxiety and depression Code(s): F41.9 - ANXIETY DISORDER, UNSPECIFIED; F32.9 - MAJOR DEPRESSIVE DISORDER, SINGLE EPISODE, UNSPECIFIED Status: Chronic (6) DM type 2 (diabetes mellitus, type 2) Status: Chronic Qualifiers: Diabetes mellitus cartoon designer insulin use: without alf use Diabetes mellitus complication status: with kidney complications Diabetes mellitus complication detail: with chronic kidney disease Chronic kidney disease stage : stage 3 (moderate) Qualified Code(s): E11.22 - Type 2 diabetes mellitus with diabetic chronic kidney disease; N18.3 - Chronic kidney disease, stage 3 ( moderate); N18.3 - Chronic kidney disease, stage 3 (moderate); N18.3 - Chronic kidney disease, stage 3 (moderate) (7) Dyslipidemia Code(s): E78.5 - HYPERLIPIDEMIA, UNSPECIFIED Status: Chronic (8) HTN (hypertension) Code(s): I10 - ESSENTIAL (PRIMARY) HYPERTENSION Status: Chronic Qualifiers: Hypertension type: essential hypertension Qualified Code(s): I10 - Essential (primary) hypertension (9) Obesity (BMI 30.0-34.9) Code(s): E66.9 - OBESITY, UNSPECIFIED Status: Chronic - Plan respiratory therapy, incentive spirometry, out of bed/ambulate, DVT proph w/SCDs cont ASA ,statin for now.marino embolic stroke -: cleared by GI for anticoag if needed.will defer to cardiology -: discussed w daughter (SHIRA) again-she in not oppsed to it if needed -: cont PPI. no overt bleed. s/p rx for H pylori.H/H stable -: OT,PT.rehab on DC.discussed w Neurologist as well * .Follow urine Cx results. * am labs Review of Systems - Review of Systems Other: limited ROS as falls back asleep quickly.denies any discomfort or pain - Medications/Allergies Allergies/Adverse Reactions: Allergies Allergy/AdvReac Type Severity Reaction Status Date / Time amlodipine [From [facility]] Allergy Verified 03/30/18 08:21 cefaclor Allergy Verified 03/30/18 08:21 Medications: Current Medications Acetaminophen (Tylenol) 650 mg PO Q4H PRN PRN Reason: Headache/Fever or Pain Aspirin (Ecotrin) 81 mg PO DAILY [facility] Last Admin: 05/19/18 12:37 Dose: Not Given Atorvastatin Calcium (Lipitor) 40 mg PO HS [facility] Last Admin: 05/18/18 20:43 Dose: 40 mg Bisacodyl (Dulcolax) 10 mg PO DAILYPRN PRN PRN Reason: Constipation Bisacodyl (Dulcolax) 10 mg [place] Q24H PRN PRN Reason: Constipation Clonidine (Catapres) 0.1 mg PO PRN PRN PRN Reason: Blood Pressure Last Admin: 05/18/18 15:55 Dose: 0.1 mg Dextrose/Water (Dextrose 50%) 25 gm IVP PRN PRN PRN Reason: HYPOGLYCEMIA PROTOCOL Docusate Sodium (Colace) 100 mg PO BID [facility] Last Admin: 05/19/18 12:38 Dose: Not Given Enoxaparin Sodium (Lovenox) 90 mg SC 0900,2100 [facility] Famotidine (Pepcid) 20 mg PO BID [facility] Last Admin: 05/19/18 12:38 Dose: Not Given Flecainide Acetate (Tambocor) 50 mg PO BID [facility] Last Admin: 05/19/18 12:38 Dose: Not Given Fluoxetine HCl (Prozac) 20 mg PO DAILY [facility] Last Admin: 07/07/18 12:39 Dose: Not Given Folic Acid (Folvite) 3 mg PO HS [facility] Last Admin: 05/18/18 20:41 Dose: 3 mg Glipizide (Glucotrol) 10 mg PO BID-AC [facility] Last Admin: 05/19/18 12:37 Dose: Not Given Glucagon (Glucagon) 1 mg IM PRN PRN PRN Reason: HYPOGLYCEMIA PROTOCOL Hydralazine HCl (Apresoline) 10 mg SLOW IVP Q4H PRN PRN Reason: BP > 220/110 Last Admin: 05/18/18 17:28 Dose: 10 mg Hydralazine HCl (Apresoline) 10 mg PO TID [facility] Last Admin: 05/19/18 12:39 Dose: Not Given Dextrose/Water (D5w) 1,000 mls @ 0 mls/hr IV INF PRN; As Directed PRN Reason: HYPOGLYCEMIA PROTOCOL Insulin Human Lispro (Humalog) 0 units SC .MILD SLIDING SCALE PRN; Protocol PRN Reason: MILD SLIDING SCALE Last Admin: 05/19/18 07:33 Dose: 2 unit Labetalol HCl (Normodyne) 20 mg SLOW IVP Q1H PRN PRN Reason: BP > 220/110 Losartan Potassium (Cozaar) 50 mg PO BID [facility] Last Admin: 05/19/18 12:40 Dose: Not Given Magnesium Hydroxide (Milk Of Magnesium) 30 ml PO DAILY PRN PRN Reason: Constipation Metoprolol Succinate (Toprol Xl) 50 mg PO DAILY [facility] Last Admin: 05/19/18 12:40 Dose: Not Given Pantoprazole Sodium (Protonix) 40 mg PO DAILY [facility] Last Admin: 05/19/18 12:41 Dose: Not Given Polyethylene Glycol (Miralax) 17 gm PO DAILY [facility] Last Admin: 05/19/18 12:41 Dose: Not Given Senna (Senokot) 2 tab PO HSPRN PRN PRN Reason: Constipation Sodium Chloride (Flush - Normal Saline) 10 ml IVF Q12HR [facility] Last Admin: 05/18/18 20:46 Dose: Not Given Sodium Chloride (Flush - Normal Saline) 10 ml IVF PRN PRN PRN Reason: Saline Flush
--- NOTE | 2018-05-19 15:33 | MRI ---
BRAIN MRI NONCONTRAST: CLINICAL HISTORY: Progressive stroke symptoms, left-sided weakness, right facial droop with confusion. FINDINGS: There is increased restricted diffusion localizing to posterior division, right MCA territory. The d egree of patient motion throughout the exam does limit assessment. Ventricular system is stable. No new midline shift. Evaluation is otherwise limited as the patient could not tolerate the exam and a dditional imaging sequences were not acquired. IMPRESSION: Progressive restricted diffusion, localizing primarily to the posterior division right middle cerebra l artery territory, compatible with temporal evolution/progression of acute infarction. Examination is otherwise limited. POS: ANNE MARIE
--- NOTE | 2018-05-19 15:54 | CON ---
DATE OF CONSULT: 05/19/18 HISTORY OF PRESENT ILLNESS: Patient is an unfortunate 82-year-old woman who presents with a left-side d weakness and altered mental status. The patient apparently has a history of paroxysmal atrial fibr illation. She was diagnosed seven years ago. She was placed on flecainide. The patient was also tr eated with Coumadin. She eventually got off this medication. She suffered cerebrovascular accident when she was not on anticoagulation therapy. She was treated with Eliquis. This medication was then switched back to ASPIRIN according to the patient's daughter. The patient subsequently had a GI hem orrhage. The patient continued on low dose aspirin therapy. She presented with left-sided weakness and altered mental status. The patient seemed to be improving until yesterday when she suddenly bec rachel markedly weak on her left side and less responsive. PAST MEDICAL HISTORY: Significant for 1. Paroxysmal atrial fibrillation. 2. Hypertension. 3. Diabetes mellitus. 4. Thyroid disorder. PAST SURGICAL HISTORY: Has had a thyroidectomy, hysterectomy. SOCIAL HISTORY: Nonsmoker. FAMILY HISTORY: Positive family history of heart disease. ALLERGIES: She is allergic to CECLOR. MEDICATIONS: Aspirin 81 daily, Prozac 20 daily, flecainide 50 b.i.d., metoprolol 50 daily, glipizide 10 daily, losartan 50 b.i.d. REVIEW OF SYSTEMS: Not obtainable. PHYSICAL EXAMINATION: GENERAL: Confused woman with a blood pressure 163/87. NECK: Showed no jugular venous distention. LUNGS: Clear to auscultation. HEART: Regular rate and rhythm, normal S1, S2. ABDOMEN: Distended. EXTREMITIES: Showed trace edema. NEUROLOGIC: She has marked left-sided upper extremity weakness and slurred speech. LABORATORY: Sodium 130, potassium 4.1, chloride 90, bicarbonate 25, BUN 22, creatinine 1.2, glucose is 243. Her white blood count 13.1, hemoglobin 14.5, hematocrit 42.4 and platelets are 274. Her EK G revealed her to have sinus bradycardia with a nonspecific ST-T wave abnormality. Her echocardiogra m revealed normal left ventricular ejection fraction 55-60% with diastolic dysfunction. IMPRESSION: 1. Cerebrovascular accident. 2. History of paroxysmal atrial fibrillation. 3. History of gastrointestinal hemorrhage. 4. Hypertension. 5. Diabetes mellitus. 6. Dyslipidemia. This patient presents with cerebrovascular accident would recommend Eliquis to lower her risk of futu re thromboembolic events. The patient's prognosis is very guarded. We will continue to follow this patient with you through her hospitalization.
[2018-05-19] MEDS: hydrALAZINE 20 MG/ML VIAL SLOW IVP PRN (16:57)
[2018-05-19] MEDS ORDERED: Ondansetron HCl/PF 4 MG/2 ML Vial SLOW IVP PRN (19:55)
[2018-05-19] MEDS: Folic Acid 1 MG TAB PO SCH (20:17)
[2018-05-19] MEDS: Atorvastatin Calcium 40 MG TAB PO SCH (20:17)
[2018-05-19] MEDS: Enoxaparin Sodium 100 MG/ML SYRINGE SC SCH (20:21)
[2018-05-20] MEDS: HumaLOG 300 UNITS/3 ML VIAL SC PRN ×4 (06:54→21:17)
[2018-05-20 07:31] LABS: #Eosinphils 0.3 thou/uL (0.0-0.7); #Lymphocytes 5.7 thou/uL (1.20-3.40); #Neutrophils 7.6 thou/uL (1.40-6.50); %Basophils 0.1 % (0.0-1.0); %Eosinophils 2.1 % (0.0-10.0); %Lymphocytes 38.8 % (21.0-51.0); %Monocytes 7.1 % (0.0-10.0); Hemoglobin 15.7 g/dL (12.0-16.0); Mean Corpuscular HGB CONC 33.2 g/dL (32.0-36.0); Mean Corpuscular Hemoglobin 31.1 pg (27.0-31.0); Mean Corpuscular Volume 93.6 fL (78.0-98.0); Mean Platelet Volume 8.6 fL (7.4-10.4); Platelet Count 296 thou/uL (130-400); RBC Distribution Width 12.6 % (11.5-14.5); Red Blood Cell (RBC) Count 5.05 mill/uL (4.20-5.40); White Blood Cell (WBC) Count 14.6 thou/uL (4.8-10.8)
[2018-05-20] MEDS: Enoxaparin Sodium 100 MG/ML SYRINGE SC SCH ×2 (08:58→21:18)
[2018-05-20] MEDS: glipiZIDE 10 MG TAB PO SCH ×2 (09:01→16:43)
[2018-05-20] MEDS: Losartan 25 MG TAB PO SCH ×2 (09:04→21:32)
[2018-05-20] MEDS: hydrALAZINE 10 MG TAB PO SCH ×3 (09:04→21:32)
[2018-05-20] MEDS: Famotidine 20 MG TAB PO SCH (09:04)
[2018-05-20] MEDS: Aspirin 81 mg Enteric Coated Tablet PO SCH (09:04)
[2018-05-20] MEDS: FLUoxetine HCl 20 MG CAP PO SCH (09:05)
[2018-05-20] MEDS: Flecainide 50 MG TAB PO SCH ×2 (09:05→21:32)
[2018-05-20] MEDS: Docusate 100 MG CAP PO SCH ×2 (09:08→21:31)
[2018-05-20] MEDS: Polyethylene Glycol 3350 17 GM Packet PO SCH (09:11)
--- NOTE | 2018-05-20 11:49 | PRG ---
DATE OF SERVICE: 05/20/2018 INTERVAL HISTORY: The patient has had an MRI of the brain, which confirmed the extension of her CVA in the same vascular territory. She is already on anticoagulation. The patient continues to be some what sleepy since yesterday and no additional changes. She has already completed her Cardiology cons ultation as well, which is much appreciated. LABORATORY WORKUP: White count 14.6, hemoglobin 15.7, hematocrit 47.3, platelets 296. Chemistry, gl ucose is 246. PHYSICAL EXAMINATION: VITAL SIGNS: Her blood pressure is 174/82, pulse 79, temperature 98.3. GENERAL: She seems quite drowsy similar to yesterday and does not talk much, seems to be having some aphasia. MOTOR EXAMINATION: She moves right upper extremity as well as both lower extremities and has signifi cant weakness in the left upper extremity. IMPRESSION: The patient is an 82-year-old lady with an acute right middle cerebral artery stroke wit h establishment of that stroke and extension of the infarct territory yesterday, and she has been onesimo ewhat drowsy at this time. She may have other metabolic factors such as a possible infection, which needs to be explored and that could explain her drowsiness and deterioration in her level of alertnes s. RECOMMENDATIONS: Please continue to look for any other metabolic factors, which can contribute to he r worsening clinically. Agree with anticoagulation plans per Dr. Mei. I will have Neurology fo llow up patient. Please consider transfer to a rehabilitation center such as long term [facility] or acute rehabilitation.
--- NOTE | 2018-05-20 14:56 | PDOC.PN ---
- Subjective Encounter Start Date: 05/20/18 Encounter Start Time: 10:30 Subjective: pt up in chair. - Objective Resuscitation Status: Resuscitation Status FULL:Full Resuscitation Vital Signs & Weight: Vital Signs (12 hours) Temp Pulse Pulse Pulse Resp BP BP 05/20/18 14:16 67 167/76 H 05/20/18 12:00 98.7 F 70 18 05/20/18 09:04 79 174/82 H 05/20/18 08:59 98.3 F 79 16 05/20/18 08:19 79 68 174/82 H 05/20/18 07:36 98.3 F 74 16 05/20/18 03:34 97.9 F 73 20 BP BP Pulse Ox 05/20/18 14:16 05/20/18 12:00 135/67 95 05/20/18 09:04 05/20/18 08:59 98 05/20/18 08:19 158/52 H 05/20/18 07:36 206/64 H 98 05/20/18 03:34 177/59 H 90 L Weight Admit Weight 195 lb 8 oz Weight 195 lb 8 oz I&O: 05/19/18 05/20/18 05/21/18 06:59 06:59 06:59 Intake Total 300 370 Output Total 300 Balance 300 70 Result Diagrams: 05/20/18 04:30 05/17/18 16:45 Additional Labs: Accuchecks 05/20/18 05/20/18 05/19/18 10:40 04:59 21:57 POC Glucose 246 H 203 H 203 H 05/19/18 16:46 POC Glucose 196 H Phys Exam - Physical Examination HEENT: PERRLA, moist MMs, sclera anicteric, TM's clear, oral pharynx no lesions , 2+ tonsils Neck: no nodes, no JVD, supple, full ROM Respiratory: no wheezing, no rales, no rhonchi, wheezing present, clear to auscultation bilateral Cardiovascular: RRR, no significant murmur, no rub, gallop, irregular Gastrointestinal: soft, non-tender, positive bowel sounds left sided paralysis, aphasia Dx/Plan (1) Cerebrovascular accident, embolic Code(s): I63.9 - CEREBRAL INFARCTION, UNSPECIFIED Status: Acute Qualifiers: Precerebral and cerebral artery: middle cerebral artery Laterality of affected vessel: right Qualified Code(s): I63.411 - Cerebral infarction due to embolism of right middle cerebral artery (2) Afib Code(s): I48.91 - UNSPECIFIED ATRIAL FIBRILLATION Status: Chronic Qualifiers: Atrial fibrillation type: chronic Qualified Code(s): I48.2 - Chronic atrial fibrillation (3) H/O: GI bleed Code(s): Z87.19 - PERSONAL HISTORY OF OTHER DISEASES OF THE DIGESTIVE SYSTEM Status: Acute (4) DM type 2 (diabetes mellitus, type 2) Status: Chronic Qualifiers: Diabetes mellitus fdc insulin use: without terminal operations manager use Diabetes mellitus complication status: with kidney complications Diabetes mellitus complication detail: with chronic kidney disease Chronic kidney disease stage : stage 3 (moderate) Qualified Code(s): E11.22 - Type 2 diabetes mellitus with diabetic chronic kidney disease; N18.3 - Chronic kidney disease, stage 3 ( moderate); N18.3 - Chronic kidney disease, stage 3 (moderate); N18.3 - Chronic kidney disease, stage 3 (moderate) - Plan ok per cardio/gi to start pt on anticoagulation -: pt on lovonox will start eliquis -: on asa/statin -: will need snf * . Review of Systems - Review of Systems ENT: negative: Ear Pain, Ear Discharge, Nose Pain, Nose Discharge, Nose Congestion, Mouth Pain, Mouth Swelling, Throat Pain, Throat Swelling, Other Respiratory: negative: Cough, Dry, Shortness of Breath, Hemoptysis, SOB with Excertion, Pleuritic Pain, Sputum, Wheezing Cardiovascular: negative: chest pain, palpitations, orthopnea, paroxysmal nocturnal dyspnea, edema, light headedness, other Gastrointestinal: negative: Nausea, Vomiting, Abdominal Pain, Diarrhea, Constipation, Melena, Hematochezia, Other - Medications/Allergies Allergies/Adverse Reactions: Allergies Allergy/AdvReac Type Severity Reaction Status Date / Time amlodipine [From [facility]] Allergy Verified 03/30/18 08:21 cefaclor Allergy Verified 03/30/18 08:21 Medications: Current Medications Acetaminophen (Tylenol) 650 mg PO Q4H PRN PRN Reason: Headache/Fever or Pain Aspirin (Ecotrin) 81 mg PO DAILY [facility] Last Admin: 05/20/18 09:04 Dose: 81 mg Atorvastatin Calcium (Lipitor) 40 mg PO HS [facility] Last Admin: 05/19/18 20:17 Dose: Not Given Bisacodyl (Dulcolax) 10 mg PO DAILYPRN PRN PRN Reason: Constipation Bisacodyl (Dulcolax) 10 mg [place] Q24H PRN PRN Reason: Constipation Clonidine (Catapres) 0.1 mg PO PRN PRN PRN Reason: Blood Pressure Last Admin: 05/18/18 15:55 Dose: 0.1 mg Dextrose/Water (Dextrose 50%) 25 gm IVP PRN PRN PRN Reason: HYPOGLYCEMIA PROTOCOL Docusate Sodium (Colace) 100 mg PO BID [facility] Last Admin: 05/20/18 09:08 Dose: 100 mg Enoxaparin Sodium (Lovenox) 90 mg SC 0900,2100 [facility] Last Admin: 05/20/18 08:58 Dose: 90 mg Famotidine (Pepcid) 20 mg PO DAILY [facility] Last Admin: 05/20/18 09:04 Dose: 20 mg Flecainide Acetate (Tambocor) 50 mg PO BID [facility] Last Admin: 05/20/18 09:05 Dose: 50 mg Fluoxetine HCl (Prozac) 20 mg PO DAILY [facility] Last Admin: 05/20/18 09:05 Dose: 20 mg Folic Acid (Folvite) 3 mg PO HS [facility] Last Admin: 05/19/18 20:17 Dose: Not Given Glipizide (Glucotrol) 10 mg PO BID-AC [facility] Last Admin: 05/20/18 09:01 Dose: 10 mg Glucagon (Glucagon) 1 mg IM PRN PRN PRN Reason: HYPOGLYCEMIA PROTOCOL Hydralazine HCl (Apresoline) 10 mg SLOW IVP Q4H PRN PRN Reason: BP > 220/110 Last Admin: 05/19/18 16:57 Dose: 10 mg Hydralazine HCl (Apresoline) 10 mg PO TID [facility] Last Admin: 05/20/18 14:16 Dose: 10 mg Dextrose/Water (D5w) 1,000 mls @ 0 mls/hr IV INF PRN; As Directed PRN Reason: HYPOGLYCEMIA PROTOCOL Insulin Human Lispro (Humalog) 0 units SC .MILD SLIDING SCALE PRN; Protocol PRN Reason: MILD SLIDING SCALE Last Admin: 05/20/18 10:55 Dose: 3 unit Labetalol HCl (Normodyne) 20 mg SLOW IVP Q1H PRN PRN Reason: BP > 220/110 Losartan Potassium (Cozaar) 50 mg PO BID [facility] Last Admin: 05/20/18 09:04 Dose: 50 mg Magnesium Hydroxide (Milk Of Magnesium) 30 ml PO DAILY PRN PRN Reason: Constipation Metoprolol Succinate (Toprol Xl) 50 mg PO DAILY [facility] Last Admin: 05/20/18 09:04 Dose: 50 mg Ondansetron HCl (Zofran) 4 mg SLOW IVP ONE PRN PRN Reason: Nausea/Vomiting Stop: 05/20/18 19:56 Last Admin: 05/19/18 20:20 Dose: 4 mg Pantoprazole Sodium (Protonix) 40 mg PO DAILY [facility] Last Admin: 05/20/18 09:05 Dose: 40 mg Polyethylene Glycol (Miralax) 17 gm PO DAILY [facility] Last Admin: 05/20/18 09:11 Dose: 17 gm Senna (Senokot) 2 tab PO HSPRN PRN PRN Reason: Constipation Sodium Chloride (Flush - Normal Saline) 10 ml IVF Q12HR [facility] Last Admin: 05/20/18 09:07 Dose: 10 ml Sodium Chloride (Flush - Normal Saline) 10 ml IVF PRN PRN PRN Reason: Saline Flush
[2018-05-20] MEDS: Dextrose 5 %-0.45 % NaCl 1,000 ML IV SCH (16:43)
[2018-05-20 17:10] LABS: Bilirubin Small (Negative); Blood, Urine Negative (Negative); Clarity CLOUDY (Clear); Glucose, Urine (Dipstick) Negative (Negative); Leukocyte Small (Negative); Nitrite Negative (Negative); Protein, Urine (Dipstick) Trace mg/dL (Neg-Trace); Specific Gravity, Urine 1.029 (1.002-1.036); pH, Urine 5.5 (5.0-9.0)
[2018-05-20 17:12] LABS: Yeast-AUWi Flag 12.3 (0-25.0)
[2018-05-20 17:17] LABS: Pathc Cast-AUWi Flag 2.76 (0-2.49)
[2018-05-20 17:31] LABS: RBC/HPF 0-3 HPF (0-3)
[2018-05-20 17:32] LABS: Bacteria/HPF Rare-Few HPF (None Seen); Hyaline Casts/LPF NONE SEEN LPF (0-3 Hyaline); Manual Microscopic Reviewed? No Path Casts Seen; Renal Epithelial None Seen HPF (0-3); Transitional Epithelial 0-3 HPF (0-3)
[2018-05-20] MEDS: Atorvastatin Calcium 40 MG TAB PO SCH (21:31)
[2018-05-20] MEDS: Folic Acid 1 MG TAB PO SCH (21:32)
[2018-05-21] MEDS: Dextrose 5 %-0.45 % NaCl 1,000 ML IV SCH ×2 (06:18→21:24)
[2018-05-21] MEDS: HumaLOG 300 UNITS/3 ML VIAL SC PRN ×3 (06:41→16:43)
[2018-05-21] MEDS ORDERED: hydrALAZINE 25 MG TAB PO SCH (09:00)
[2018-05-21] MEDS: Enoxaparin Sodium 100 MG/ML SYRINGE SC SCH (09:14)
[2018-05-21] MEDS: Losartan 25 MG TAB PO SCH ×2 (09:21→21:22)
[2018-05-21] MEDS: Flecainide 50 MG TAB PO SCH ×2 (09:22→21:23)
[2018-05-21] MEDS: hydrALAZINE 10 MG TAB PO SCH (09:22)
[2018-05-21] MEDS: Aspirin 81 mg Enteric Coated Tablet PO SCH (09:25)
[2018-05-21] MEDS: Docusate 100 MG CAP PO SCH ×4 (09:28→21:23)
[2018-05-21] MEDS: Famotidine 20 MG TAB PO SCH (09:28)
[2018-05-21] MEDS: glipiZIDE 10 MG TAB PO SCH ×2 (09:28→16:33)
[2018-05-21] MEDS: FLUoxetine HCl 20 MG CAP PO SCH ×2 (09:28→09:40)
[2018-05-21] MEDS: Polyethylene Glycol 3350 17 GM Packet PO SCH (09:34)
[2018-05-21] MEDS ORDERED: Insulin Glargine 5 UNITS in Pre-Filled Syringe 1 EACH SC SCH (10:30)
--- NOTE | 2018-05-21 10:33 | PDOC.CTH ---
<Virgen Farrar - Last Filed: 05/21/18 10:34> Cardiology Progress Note - Subjective The pt seen and examined. No overnight events. No cardiac complaints. Passed Swallowing test. - Objective Vital Signs Temp Pulse Resp BP BP Pulse Ox 05/21/18 09:37 71 164/80 H 05/21/18 09:22 71 164/80 H 05/21/18 08:00 98.4 F 70 18 164/80 H 97 05/21/18 04:41 98 F 70 16 214/86 H 93 L 05/21/18 00:37 97.8 F 67 16 202/86 H 99 Admit Weight 195 lb 8 oz Weight 195 lb 8 oz 05/20/18 05/21/18 05/22/18 06:59 06:59 06:59 Intake Total 370 Output Total 300 Balance 70 - Physical Examination General/Neuro: other: (self and pertial situation) Lungs: CTA Heart: RRR Abdomen: soft Extremities: other: (No edema) - Telemetry Telemetry Rhythm: SR 60-70s - Labs Result Diagrams: 05/20/18 04:30 05/20/18 16:00 Troponin/CKMB CK-MB (CK-2) 1.8 ng/mL (0-6.6) 05/19/18 00:15 Troponin I 0.083 ng/mL (< 0.028) H 05/19/18 00:15 - Assessment/Plan 1. Emblic CVA with Lt side weakness - managed by neurology service; She passed swallowing test. 2. Paroxysmal Afib - Remains in SR 60-70s. On Lovenox 910mg subq BID. Will stop ASA and Lovenox and change to Eliquis 5mg PO BID (Cr clearance level 48ml/ min with Cockcroft-Gault scale) 3. Hx of GI bleed with s/p Duodenal ulcer with cauterized on 04/02/18 - Stable; OK to start OAC by GI 4. HTN - Hydralazine 25mg BID was started from today. Clonidine 0.1 mg PRN for SBP > 180. Cont. to monitor 5. DM type 2 - managed by PCP 6. SAE - slightly worsen than yesterday; on NS 75ml/h 7. Demntia - stable MAR reviewed Review of Systems - Review of Systems Constitutional: reports: weakness EENTM: reports: no symptoms reported Respiratory: reports: no symptoms reported Cardiac (ROS): reports: no symptoms reported ABD/GI: reports: no symptoms reported : reports: no symptoms reported Musculoskeletal: reports: no symptoms reported <Andrea Shane - Last Filed: 05/21/18 23:25> Cardiology Progress Note - Objective Vital Signs Temp Pulse Pulse Resp BP BP Pulse Ox 05/21/18 21:23 79 05/21/18 19:40 97.4 F L 79 20 100/48 L 96 05/21/18 19:37 98.1 F 63 18 200/75 H 94 L 05/21/18 15:38 97.6 F 68 16 165/69 H 96 05/21/18 12:19 63 176/77 H 05/21/18 12:00 97.9 F 63 15 178/80 H 97 Admit Weight 195 lb 8 oz Weight 195 lb 8 oz 05/20/18 05/21/18 05/22/18 06:59 06:59 06:59 Intake Total 370 Output Total 300 Balance 70 - Labs Result Diagrams: 05/20/18 04:30 05/20/18 16:00 Troponin/CKMB CK-MB (CK-2) 1.8 ng/mL (0-6.6) 05/19/18 00:15 Troponin I 0.083 ng/mL (< 0.028) H 05/19/18 00:15 - Assessment/Plan Pt. seen and eval. by me. I agree with the A/P by the [employer]IVER.She is able to communicate but still has left hemiparesis.
[2018-05-21] MEDS ORDERED: hydrALAZINE 10 MG TAB PO SCH (15:00)
[2018-05-21] MEDS ORDERED: diphenhydrAMINE 12.5 MG/5 ML UDCUP PO PRN (17:19)
--- NOTE | 2018-05-21 20:24 | PDOC.PN ---
- Subjective Encounter Start Date: 05/21/18 Encounter Start Time: 09:15 Subjective: pt up in bed no complains - Objective Resuscitation Status: Resuscitation Status FULL:Full Resuscitation Vital Signs & Weight: Vital Signs (12 hours) Temp Pulse Pulse Pulse Resp BP BP 05/21/18 15:38 97.6 F 68 16 05/21/18 12:19 63 176/77 H 05/21/18 12:00 97.9 F 63 15 05/21/18 10:19 67 05/21/18 09:37 71 164/80 H 05/21/18 09:22 71 164/80 H BP BP Pulse Ox 05/21/18 15:38 165/69 H 96 05/21/18 12:19 05/21/18 12:00 178/80 H 97 05/21/18 10:19 153/79 H 05/21/18 09:37 05/21/18 09:22 Weight Admit Weight 195 lb 8 oz Weight 195 lb 8 oz I&O: 05/20/18 05/21/18 05/22/18 06:59 06:59 06:59 Intake Total 370 Output Total 300 Balance 70 Result Diagrams: 05/20/18 04:30 05/20/18 16:00 Additional Labs: Accuchecks 05/21/18 05/21/18 05/21/18 16:42 10:53 05:53 POC Glucose 197 H 239 H 257 H 05/20/18 21:06 POC Glucose 224 H Phys Exam - Physical Examination HEENT: PERRLA, moist MMs, sclera anicteric, TM's clear, oral pharynx no lesions , 2+ tonsils Neck: no nodes, no JVD, supple, full ROM Respiratory: no wheezing, no rales, no rhonchi, wheezing present, clear to auscultation bilateral Cardiovascular: RRR, no significant murmur, no rub, gallop, irregular Gastrointestinal: soft, non-tender, positive bowel sounds left side paralysis, aphasia Dx/Plan (1) Cerebrovascular accident, embolic Code(s): I63.9 - CEREBRAL INFARCTION, UNSPECIFIED Status: Acute Qualifiers: Precerebral and cerebral artery: middle cerebral artery Laterality of affected vessel: right Qualified Code(s): I63.411 - Cerebral infarction due to embolism of right middle cerebral artery (2) Afib Code(s): I48.91 - UNSPECIFIED ATRIAL FIBRILLATION Status: Chronic Qualifiers: Atrial fibrillation type: chronic Qualified Code(s): I48.2 - Chronic atrial fibrillation (3) H/O: GI bleed Code(s): Z87.19 - PERSONAL HISTORY OF OTHER DISEASES OF THE DIGESTIVE SYSTEM Status: Acute (4) DM type 2 (diabetes mellitus, type 2) Status: Chronic Qualifiers: Diabetes mellitus intermediate accountant insulin use: without intermediate accountant use Diabetes mellitus complication status: with kidney complications Diabetes mellitus complication detail: with chronic kidney disease Chronic kidney disease stage : stage 3 (moderate) Qualified Code(s): E11.22 - Type 2 diabetes mellitus with diabetic chronic kidney disease; N18.3 - Chronic kidney disease, stage 3 ( moderate); N18.3 - Chronic kidney disease, stage 3 (moderate); N18.3 - Chronic kidney disease, stage 3 (moderate) (5) Elevated WBC count Code(s): D72.829 - ELEVATED WHITE BLOOD CELL COUNT, UNSPECIFIED Status: Acute - Plan pt started on eliquis -: will check cxr in am, ua normal cx so far is negative -: spoke with daughter she is ok for her mom to go to rehab * . Review of Systems - Review of Systems ENT: negative: Ear Pain, Ear Discharge, Nose Pain, Nose Discharge, Nose Congestion, Mouth Pain, Mouth Swelling, Throat Pain, Throat Swelling, Other Respiratory: negative: Cough, Dry, Shortness of Breath, Hemoptysis, SOB with Excertion, Pleuritic Pain, Sputum, Wheezing Cardiovascular: negative: chest pain, palpitations, orthopnea, paroxysmal nocturnal dyspnea, edema, light headedness, other Gastrointestinal: negative: Nausea, Vomiting, Abdominal Pain, Diarrhea, Constipation, Melena, Hematochezia, Other Genitourinary: negative: Dysuria, Frequency, Incontinence, Hematuria, Retention , Other - Medications/Allergies Allergies/Adverse Reactions: Allergies Allergy/AdvReac Type Severity Reaction Status Date / Time amlodipine [From [facility]] Allergy Verified 03/30/18 08:21 cefaclor Allergy Verified 03/30/18 08:21 Medications: Current Medications Acetaminophen (Tylenol) 650 mg PO Q4H PRN PRN Reason: Headache/Fever or Pain Apixaban (Eliquis) 5 mg PO BID [facility] Atorvastatin Calcium (Lipitor) 40 mg PO HS [facility] Last Admin: 05/20/18 21:31 Dose: Not Given Bisacodyl (Dulcolax) 10 mg PO DAILYPRN PRN PRN Reason: Constipation Bisacodyl (Dulcolax) 10 mg PA Q24H PRN PRN Reason: Constipation Clonidine (Catapres) 0.1 mg PO PRN PRN PRN Reason: Blood Pressure Last Admin: 05/18/18 15:55 Dose: 0.1 mg Dextrose/Water (Dextrose 50%) 25 gm IVP PRN PRN PRN Reason: HYPOGLYCEMIA PROTOCOL Diphenhydramine HCl (Benadryl) 12.5 mg PO Q6H PRN PRN Reason: Itching & Insomnia Docusate Sodium (Colace) 100 mg PO BID [facility] Last Admin: 05/21/18 09:37 Dose: 100 mg Famotidine (Pepcid) 20 mg PO DAILY [facility] Last Admin: 05/21/18 09:28 Dose: 20 mg Flecainide Acetate (Tambocor) 50 mg PO BID [facility] Last Admin: 05/21/18 09:22 Dose: 50 mg Fluoxetine HCl (Prozac) 20 mg PO DAILY [facility] Last Admin: 05/21/18 09:40 Dose: 20 mg Folic Acid (Folvite) 3 mg PO [facility] Last Admin: 05/20/18 21:32 Dose: Not Given Glipizide (Glucotrol) 10 mg PO BID-AC [facility] Last Admin: 05/21/18 16:33 Dose: 10 mg Glucagon (Glucagon) 1 mg IM PRN PRN PRN Reason: HYPOGLYCEMIA PROTOCOL Hydralazine HCl (Apresoline) 10 mg SLOW IVP Q4H PRN PRN Reason: BP > 220/110 Last Admin: 05/19/18 16:57 Dose: 10 mg Hydralazine HCl (Apresoline) 25 mg PO BID [facility] Dextrose/Water (D5w) 1,000 mls @ 0 mls/hr IV INF PRN; As Directed PRN Reason: HYPOGLYCEMIA PROTOCOL Dextrose/Sodium Chloride (D5 1/2 Ns) 1,000 mls @ 75 mls/hr IV .[id number] [facility] Last Admin: 05/21/18 06:18 Dose: 1,000 mls Insulin Glargine 5 units/ (Miscellaneous Medication) 0.05 mls @ 0 mls/[facility] Insulin Human Lispro (Humalog) 0 units SC .MILD SLIDING SCALE PRN; Protocol PRN Reason: MILD SLIDING SCALE Last Admin: 05/21/18 16:43 Dose: 2 unit Labetalol HCl (Normodyne) 20 mg SLOW IVP Q1H PRN PRN Reason: BP > 220/110 Losartan Potassium (Cozaar) 50 mg PO BID [facility] Last Admin: 05/21/18 09:21 Dose: 50 mg Magnesium Hydroxide (Milk Of Magnesium) 30 ml PO DAILY PRN PRN Reason: Constipation Metoprolol Succinate (Toprol Xl) 50 mg PO DAILY [facility] Last Admin: 05/21/18 09:22 Dose: 50 mg Pantoprazole Sodium (Protonix) 40 mg PO DAILY [facility] Last Admin: 05/21/18 09:28 Dose: 40 mg Polyethylene Glycol (Miralax) 17 gm PO DAILY [facility] Last Admin: 05/21/18 09:34 Dose: Not Given Senna (Senokot) 2 tab PO HSPRN PRN PRN Reason: Constipation Sodium Chloride (Flush - Normal Saline) 10 ml IVF Q12HR [facility] Last Admin: 05/21/18 11:21 Dose: 10 ml Sodium Chloride (Flush - Normal Saline) 10 ml IVF PRN PRN PRN Reason: Saline Flush
[2018-05-21] MEDS ORDERED: Heparin 5,000 UNITS/ML VIAL SC SCH (21:00)
[2018-05-21] MEDS: Apixaban 5 MG TAB PO SCH (21:22)
[2018-05-21] MEDS: Atorvastatin Calcium 40 MG TAB PO SCH (21:22)
[2018-05-21] MEDS: hydrALAZINE 25 MG TAB PO SCH (21:23)
[2018-05-21] MEDS: Folic Acid 1 MG TAB PO SCH (21:23)
[2018-05-22 05:33] LABS: Anion Gap 13 mmol/L (10-20); BUN (Urea Nitrogen) 18 mg/dL (9.8-20.1); Calc. Creatinine Clearance 54 mL/min (70-130); Calcium 10.7 mg/dL (7.8-10.44); Carbon Dioxide 19 mmol/L (23-31); Chloride 107 mmol/L (98-107); Estimated GFR-MDRD 45; Glucose 233 mg/dL (83-110); Potassium 4.2 mmol/L (3.5-5.1); Sodium 135 mmol/L (136-145)
[2018-05-22 06:03] LABS: Band 2 % (5-11); Eosinophils 6 % (0-10); Lymphocytes 31 % (21-51); MDiff Complete? YES; Mean Corpuscular HGB CONC 32.8 g/dL (32.0-36.0); Mean Corpuscular Hemoglobin 30.6 pg (27.0-31.0); Mean Corpuscular Volume 93.3 fL (78.0-98.0); Mean Platelet Volume 8.6 fL (7.4-10.4); Monocytes 7 % (0-10); Neutrophil 47 % (42-75); Platelet Count 244 thou/uL (130-400); RBC Distribution Width 12.3 % (11.5-14.5); Reactive Lymphocytes 7 % (0-10); Red Blood Cell (RBC) Count 4.58 mill/uL (4.20-5.40)
[2018-05-22] MEDS: HumaLOG 300 UNITS/3 ML VIAL SC PRN ×3 (06:33→17:14)
[2018-05-22] MEDS: Losartan 25 MG TAB PO SCH (08:11)
[2018-05-22] MEDS: Apixaban 5 MG TAB PO SCH (08:11)
[2018-05-22] MEDS: Docusate 100 MG CAP PO SCH (08:12)
[2018-05-22] MEDS: glipiZIDE 10 MG TAB PO SCH ×2 (08:13→15:47)
[2018-05-22] MEDS: Flecainide 50 MG TAB PO SCH (08:13)
[2018-05-22] MEDS: Famotidine 20 MG TAB PO SCH (08:13)
[2018-05-22] MEDS: FLUoxetine HCl 20 MG CAP PO SCH (08:26)
[2018-05-22] MEDS: hydrALAZINE 25 MG TAB PO SCH ×3 (08:29→15:46)
[2018-05-22] MEDS: Polyethylene Glycol 3350 17 GM Packet PO SCH (08:32)
[2018-05-22] MEDS ORDERED: cloNIDine 0.1 MG TAB PO SCH ×2 (09:00→21:00)
[2018-05-22] MEDS ORDERED: Insulin Glargine 5 UNITS in Pre-Filled Syringe 1 EACH SC SCH (09:00)
--- NOTE | 2018-05-22 09:42 | RAD ---
CHEST 1 VIEW PORTABLE: Date: 05/22/18 HISTORY: 82-year-old female with history of leukocytosis. COMPARISON: 03/30/10. FINDINGS: Monitor leads overlie the chest. Heart size is at least borderline. Prominent atherosclerotic ectatic changes of the aorta. Old granuloma calcification changes of the left lung. There is some artifact o verlying the mid and lower chest. IMPRESSION: Borderline heart size. Old granulomatous disease. Atherosclerosis of aorta with ectasia. No evidence for pneumonia or other acute process. POS: [facility]
--- NOTE | 2018-05-22 10:12 | PQF ---
CLINICAL DOCUMENTATION IMPROVEMENT CLARIFICATION FORM: ICD-10 Updated PLEASE DO AN ADDENDUM TO THE PROGRESS NOTE WITH ANY DOCUMENTATION UPDATES OR ADDITIONS AND CARRY THROUGH TO DC SUMMARY. THANK YOU. Date: 07/23/18 ATTN: DR. GARLAND Please exercise your independent, professional judgment in responding to the clarification form. Clinical indicators are provided on the bottom of this form for your review Please check appropriate box(s): [ ] Protein Calorie Malnutrition: [ ] Mild [ ] Moderate [ ] Severe [ ] Other Malnutrition (please specify) __ [ ] Underweight without malnutrition [ ] Cachexia [ ] Other diagnosis [ x ] Unable to determine In addition, please specify: Present on Admission (POA): [ x] Yes [ ] No [ ] Unable to determine CLINICAL INDICATORS - SIGNS / SYMPTOMS / LABS DIETARY NOTE 05/18: "INCREASED NUTRIENT NEEDS RELATED TO METABOLIC DEMANDS OF WOUND HEALING EVIDENCED BY INCREASED ESTIMATED CALORI AND PROTEIN NEEDS." OT NOTE 05/19: "ORAL PHASE DEFICITS- MODERATE IMPAIRMENT" PHARYNGEAL PHASE: "MODERATE-SEVERE FUNCTIONAL IMPAIRMENT" RISKS: CVA DEMENTIA WOUND HEALING IMPAIRED ADLS DYSPHAGIA TREATMENT: DIETARY CONSULT OCCUPATIONAL THERAPY CONSULT NUTRITIONAL SUPPLEMENTS Moderate Malnutrition (in acute illness) Energy Intake: <75% of estimated energy requirement for > 7 days Weight Loss: 1-2%/1 week; 5%/ 1 month; 7.5%/3 months Other: mild body fat loss; mild muscle mass loss; mild fluid accumulation; Severe Malnutrition (in acute illness) Energy Intake: < 50% of estimated energy requirement for > 5 days Weight Loss: >1-2%/1 week; >5%/1 month; >7.5%/3 months Other: moderate body fat loss; moderate muscle mass loss; moderate- severe fluid accumulation; measurably reduced emergency nurse strength Moderate Malnutrition (in chronic illness) Energy Intake: <75% of estimated energy requirement for >1 month Weight Loss: 5%/1 month; 7.5%/3 months; 10%/6 months; 20%/1 year Other: mild body fat loss; mild muscle mass loss; mild fluid accumulation Severe Malnutrition (in chronic illness) Energy Intake: <75% of estimated energy requirement for >1 month Weight Loss: >5%/1 month; >7.5%/3 months; >10%/6 months; >20%/1 year Other: severe body fat loss; severe muscle mass loss; severe fluid accumulation ; measurably reduced emergency nurse strength (This form is maintained as a part of the permanent medical record) 2014 [employer] All Rights Reserved [email or web address] Office: [phone] [facility]
[2018-05-22] MEDS ORDERED: cloNIDine 0.1 MG TAB PO PRN (14:16)
--- NOTE | 2018-05-22 14:23 | PDOC.CTH ---
<Virgen Farrar - Last Filed: 05/22/18 14:20> Cardiology Progress Note - Subjective The pt seen and examined. No overnight events. No cardiac complaints. She is in bed sleeping at this moment. Per family, she will be very drowsy after taking Clonidine. Prior to taking clonidine, the pt was talking and responded to family. - Objective Vital Signs Temp Pulse Pulse Resp BP BP BP 05/22/18 11:35 97.7 F 62 16 147/52 H 05/22/18 10:30 174/63 H 05/22/18 10:29 59 L 174/63 H 05/22/18 09:35 59 L 174/63 H 05/22/18 08:29 57 L 190/90 H 05/22/18 08:00 98.4 F 57 L 16 05/22/18 07:47 98.4 F 57 L 16 190/90 H 05/22/18 03:20 98.2 F 66 20 185/90 H Pulse Ox 05/22/18 11:35 96 05/22/18 10:30 05/22/18 10:29 05/22/18 09:35 05/22/18 08:29 05/22/18 08:00 95 05/22/18 07:47 95 05/22/18 03:20 95 Admit Weight 195 lb 8 oz Weight 195 lb 8 oz 05/21/18 05/22/18 05/23/18 06:59 06:59 06:59 Intake Total 945 Balance 945 - Physical Examination Heart: RRR Abdomen: soft Extremities: other: (No edema) - Telemetry Telemetry Rhythm: SR 60s with PACs - Labs Result Diagrams: 05/22/18 04:36 05/22/18 04:36 Troponin/CKMB CK-MB (CK-2) 1.8 ng/mL (0-6.6) 05/19/18 00:15 Troponin I 0.083 ng/mL (< 0.028) H 05/19/18 00:15 - Assessment/Plan 1. Emblic CVA with Lt hemiparesis - managed by neurology service; She passed swallowing test. 2. Paroxysmal Afib - Remains in SR 60-70s; on Eliquis 5mg PO BID and Metoprolol 50mg (Cr clearance level 48ml/min with Cockcroft-Gault scale) 3. Hx of GI bleed with s/p Duodenal ulcer with cauterized on 04/02/18 - Stable; OK to start OAC by GI 4. HTN - Hydralazine 25mg was increased from BID to TID. Also start Isosorbide dinitrate 10mg BID from tonight. Change Clonidine 0.1 mg to PRN for SBP > 180m due to side effect (makes the pt very drowsy). Cont. to monitor 5. DM type 2 - managed by PCP 6. SAE - improving; cont. to monitor 7. Demntia - stable MAR reviewed Review of Systems - Review of Systems Constitutional: reports: see HPI EENTM: reports: see HPI Respiratory: reports: see HPI Cardiac (ROS): reports: no symptoms reported, see HPI ABD/GI: reports: see HPI : reports: see HPI <Andrea Shane - Last Filed: 05/22/18 18:29> Cardiology Progress Note - Objective Vital Signs Temp Pulse Pulse Resp BP BP BP 05/22/18 16:00 98.1 F 56 L 14 144/56 H 05/22/18 15:46 62 05/22/18 11:35 97.7 F 62 16 147/52 H 05/22/18 10:30 174/63 H 05/22/18 10:29 59 L 174/63 H 05/22/18 09:35 59 L 174/63 H 05/22/18 08:29 57 L 190/90 H 05/22/18 08:00 98.4 F 57 L 16 05/22/18 07:47 98.4 F 57 L 16 190/90 H Pulse Ox 05/22/18 16:00 89 L 05/22/18 15:46 05/22/18 11:35 96 05/22/18 10:30 05/22/18 10:29 05/22/18 09:35 05/22/18 08:29 05/22/18 08:00 95 05/22/18 07:47 95 Admit Weight 195 lb 8 oz Weight 195 lb 8 oz 05/21/18 05/22/18 05/23/18 06:59 06:59 06:59 Intake Total 1145 Balance 1145 - Labs Result Diagrams: 05/22/18 04:36 05/22/18 16:01 Troponin/CKMB CK-MB (CK-2) 1.8 ng/mL (0-6.6) 05/19/18 00:15 Troponin I 0.083 ng/mL (< 0.028) H 05/19/18 00:15 - Assessment/Plan pt. seen and eval. by me. I agree with the A\P by the RETAIL SALES ASSISTANT. She is alert. No complaints. Plan for rehab transfer today.
[2018-05-22 16:35] VITALS: BP 144/56; TEMP 98.1
[2018-05-22] MEDS: Dextrose 5 %-0.45 % NaCl 1,000 ML IV SCH (17:29)
[2018-05-22] MEDS ORDERED: Isosorbide Dinitrate 5 MG TAB PO SCH (21:00)
== END 2018-05-22 18:26 | DRG 65 ==
LOC: ERS 15:54 → 2SE 18:48
PROVIDERS: ADMIT Family Medicine; ATTEND Family Medicine
DX: I63.411 Cerebral infarction due to embolism of right middle cerebral artery (principal); G81.94 Hemiplegia, unspecified affecting left nondominant side; N17.9 Acute kidney failure, unspecified; K27.7 Chronic peptic ulcer, site unspecified, without hemorrhage or perforation; F41.8 Other specified anxiety disorders; E11.9 Type 2 diabetes mellitus without complications; E78.5 Hyperlipidemia, unspecified; E66.9 Obesity, unspecified; F03.90 Unspecified dementia, unspecified severity, without behavioral disturbance, psychotic disturbance, mood disturbance, and anxiety; I48.0 Paroxysmal atrial fibrillation; Z79.01 Long term (current) use of anticoagulants; I12.9 Hypertensive chronic kidney disease with stage 1 through stage 4 chronic kidney disease, or unspecified chronic kidney disease; E11.22 Type 2 diabetes mellitus with diabetic chronic kidney disease; N18.3 Chronic kidney disease, stage 3 (moderate)
CPT/HCPCS: 36415; 36416; 70450; 70496; 70498; 70551; 71045; 80053; 80061; 81001; 81003; 81015; 82274; 82550; 82553; 82565; 84484; 84703; 85025; 85610; 85730; 87086; 93005; 93306; A4216; G8978-GP-CM; G8979-GP-CL; G8987-GO-CN; G8988-GO-CM; G8996-GN-CJ; G8996-GN-CM; G8997-GN-CJ; G8997-GN-CK; J0360; J1650; J2405

== ENCOUNTER 2018-06-19 13:32 | Outpatient (CLI) | payer MEDICARE | END 2018-06-19 13:33 | disposition home or self-care (01) | LOC: BICRAD 13:32 | PROVIDERS: ATTEND Nurse Practitioner Family | DX: M25.512 Pain in left shoulder (principal); M79.602 Pain in left arm; M79.642 Pain in left hand; M21.932 Unspecified acquired deformity of left forearm ==

== ENCOUNTER 2018-06-22 15:09 | Inpatient (IN) | payer MEDICARE ==
[2018-06-22 15:43] LABS: Hemoglobin 14.8 g/dL (12.0-16.0); Mean Corpuscular HGB CONC 32.1 g/dL (32.0-36.0); Mean Corpuscular Hemoglobin 30.7 pg (27.0-31.0); Mean Corpuscular Volume 95.4 fL (78.0-98.0); Mean Platelet Volume 8.3 fL (7.4-10.4); Platelet Count 212 thou/uL (130-400); RBC Distribution Width 13.1 % (11.5-14.5); Red Blood Cell (RBC) Count 4.84 mill/uL (4.20-5.40)
[2018-06-22 15:52] LABS: PTT 32.5 SEC (22.9-36.1); Prothrombin Time 15.4 SEC (12.0-14.7)
[2018-06-22 15:54] LABS: INR-International Normal Ratio 1.2
[2018-06-22 15:58] LABS: Eosinophils 4 % (0-10); Lymphocytes 34 % (21-51); MDiff Complete? YES; Monocytes 8 % (0-10); Neutrophil 46 % (42-75); PLT Morphology Comment Appears Adequate; RBC Morphology Normal; Reactive Lymphocytes 7 % (0-10)
[2018-06-22 16:04] LABS: AST (SGOT) 23 U/L (5-34); Albumin 3.9 g/dL (3.4-4.8); Anion Gap 14 mmol/L (10-20); Bilirubin, Total 0.5 mg/dL (0.2-1.2); Calc. Creatinine Clearance 0 mL/min (70-130); Calcium 11.4 mg/dL (7.8-10.44); Carbon Dioxide 22 mmol/L (23-31); Chloride 106 mmol/L (98-107); Estimated GFR-MDRD 46; Globulin 2.6 g/dL (2.4-3.5); Potassium 4.6 mmol/L (3.5-5.1); Protein, Total 6.5 g/dL (6.0-8.3); Sodium 137 mmol/L (136-145)
--- NOTE | 2018-06-22 16:04 | CT ---
CT BRAIN WITHOUT CONTRAST: 06/22/18 HISTORY: Altered mental status. FINDINGS: Comparison is made with the exam of 05/19/18. There are changes or cortical atrophy, chronic small vessel ischemic disease and old infarction in th e right MCA territory. No acute infarct, hemorrhage, midline shift, or abnormal extra-axial fluid col lections are seen. The ventricular size is appropriate and the basilar cisterns patent. The bony calv arium is intact. The visualized paranasal sinuses and mastoid air cells are well aerated. IMPRESSION: No CT evidence of acute intracranial process. Discussed over the telephone with ER physician, Dr. Nik Cao at 3:36 p.m. POS: [facility]
[2018-06-22 16:07] LABS: CKMB 3.1 ng/mL (0-6.6); Troponin I 0.075 ng/mL (< 0.028)
[2018-06-22 16:28] LABS: Bilirubin Negative (Negative); Blood, Urine Negative (Negative); Clarity CLEAR (Clear); Glucose, Urine (Dipstick) Negative (Negative); Leukocyte Trace (Negative); Nitrite Positive (Negative); Protein, Urine (Dipstick) Negative (Neg-Trace); Specific Gravity, Urine 1.013 (1.002-1.036); pH, Urine 6.5 (5.0-9.0)
[2018-06-22 16:31] LABS: Bacteria/HPF Rare-Few HPF (None Seen); Hyaline Casts/LPF 0-3 HYALINE CAST LPF (0-3 Hyaline); RBC/HPF 0-3 HPF (0-3); Squamous Epithelial 0-3 HPF (0-3)
[2018-06-22 19:24] LABS: BUN (Urea Nitrogen) 23 mg/dL (9.8-20.1); Glucose 118 mg/dL (83-110)
[2018-06-22 19:25] LABS: ALT (SGPT) 20 U/L (8-55); Alkaline Phosphatase 83 U/L (40-150)
[2018-06-22 19:41] LABS: Troponin I 0.081 ng/mL (< 0.028)
[2018-06-23] MEDS ORDERED: Milk Of Magnesia 30 ML UDCUP PO PRN (03:47)
[2018-06-23] MEDS ORDERED: Insulin Regular 300 UNITS/3 ML VIAL SC PRN ×2 (03:47)
[2018-06-23] MEDS ORDERED: Mag-Al 1200 mg/1200 mg/30 ML UDCUP PO PRN (03:47)
[2018-06-23] MEDS ORDERED: Acetaminophen 325 MG TAB PO PRN (03:47)
[2018-06-23] MEDS ORDERED: Calcium Carbonate 500 MG ChewTAB PO PRN (03:47)
[2018-06-23] MEDS ORDERED: Bisacodyl 10 MG SUPP PR PRN (03:47)
[2018-06-23] MEDS ORDERED: Dextrose 50% Abboject 50 ML SYRINGE SLOW IVP PRN (03:47)
[2018-06-23] MEDS ORDERED: Senokot 8.6 MG TAB PO PRN (03:47)
[2018-06-23] MEDS ORDERED: Dextrose 5% in Water 1,000 ML IV PRN (03:47)
[2018-06-23] MEDS ORDERED: Acetaminophen 650 MG Suppository PR PRN (03:47)
[2018-06-23] MEDS: Sodium Chloride 0.9% 1,000 ML IV SCH ×2 (04:17→21:29)
--- NOTE | 2018-06-23 04:47 | HP ---
DATE OF ADMISSION: 06/22/2018 The patient was seen and examined on 06/22/2018 CHIEF COMPLAINT: Altered mentation. HISTORY OF PRESENT ILLNESS: The patient is an 82-year-old female with recent embolic CVA, was irish t into the emergency room with altered mentation. History obtained from the review of ER record as w ell as from the patient. No family at the bedside. The patient was discharged from this facility approximately a month ago after an embolic CVA. She wa s started on anticoagulation. She currently resides at [facility] er the care of Dr. Chester. The patient was found to have altered mentation for which she was sent to the emergency room for eval uation. Not much information is available from the patient. Per ER record, nursing staff reported t hat the patient was last seen normal this morning. No fever, chills, injuries, fall, nausea or vomit ing, chest pain, shortness of breath reported. PAST MEDICAL HISTORY: 1. Recent embolic cerebrovascular accident with left-sided hemiparesis. 2. Paroxysmal atrial fibrillation. 3. History of GI bleeding secondary to duodenal ulcer in 03/2018. 4. Hypertension. 5. Diabetes mellitus, type 2. 6. Dementia. 7. Recurrent urinary tract infections. 8. Anxiety, depression. PAST SURGICAL HISTORY: 1. Hysterectomy. 2. Cholecystectomy. 3. Left wrist surgery. ALLERGIES: The patient is allergic to AMLODIPINE and CEFACLOR. CURRENT MEDICATIONS: At the nursing facility; 1. Tylenol as needed. 2. Apixaban 5 mg twice a day. 3. Lipitor 40 mg at bedtime. 4. Colace twice a day. 5. Vitamin B12 of 1000 mcg daily. 6. Pepcid 20 mg daily. 7. Ashley 180 mg daily. 8. Flecainide 50 mg b.i.d. 9. Prozac 40 mg daily. 10. Folic acid 3 mg daily. 11. Glipizide 10 mg twice a day. 12. Hydralazine 25 mg 3 times a day. 13. Levemir 5 units every morning. 14. Losartan 50 mg twice a day. 15. Melatonin 3 mg at bedtime. 16. Toprol-XL 50 mg daily. 17. MiraLax daily. 18. Vitamin C 500 mg daily. 19. Zofran as needed. SOCIAL HISTORY: As discussed above. The patient is FULL CODE. Surrogate decision maker is Katnesha Ellisnoel per face sheet. This needs to be confirmed in a.m. FAMILY HISTORY: Cannot be obtained from the patient due to current cognitive status. REVIEW OF SYSTEMS: Cannot be obtained from the patient due to current cognitive status. PHYSICAL EXAMINATION: VITAL SIGNS: In the emergency room, temperature 98.2, respirations 16, pulse rate of 61, blood press ure 179/59 with O2 saturation 93% on room air. GENERAL: An 82-year-old female, in no apparent distress. HEENT: Head atraumatic, normocephalic. Sclerae are anicteric. Moist mucous membrane. No oral lesi on. NECK: Supple. No JVD appreciated. No carotid bruit. LUNGS: Clear to auscultation bilaterally. No wheezing, rales or rhonchi. HEART: S1, S2 present. Regular rate and rhythm. No rubs or gallops appreciated. ABDOMEN: Soft. Bowel sounds present. No rebound or guarding. EXTREMITIES: No edema or calf tenderness. NEUROLOGIC: At baseline, no new focal deficit. The patient has chronic left-sided weakness. Tone w as normal on the right. PSYCHIATRY: As discussed above. LYMPH NODES: No palpable lymph nodes in the neck. PERIPHERAL VASCULAR: Radial pulses palpable bilaterally. MUSCULOSKELETAL: No joint swelling or tenderness. SKIN: Warm and dry. LABORATORY AND X-RAY FINDINGS: 1. CBC showed WBC 12 with hemoglobin 14.8. 2. BUN 23, creatinine 1.13. 3. Troponin in the indeterminate range at 0.075. 4. Calcium chronically elevated at 11.4. 5. Urinalysis showed 4-6 wbc with few bacteria. 6. CT scan of the brain by my review was negative for acute findings. 7. Chest x-ray, two weeks ago, was negative for acute findings. 8. EKG by my review showed sinus bradycardia without significant ST-T wave changes. IMPRESSION: 1. Toxic metabolic encephalopathy, multifactorial. Probably secondary to urinary tract infection. 2. Paroxysmal atrial fibrillation on anticoagulation. 3. Chronically elevated troponins in the indeterminate range. 4. Diabetes mellitus, type 2. 5. Recent embolic cerebrovascular accident with left-sided hemiparesis. 6. Hypertension. 7. History of GI bleeding secondary to duodenal ulcer. 8. Chronic kidney disease, stage 3. 9. Chronic mild hypercalcemia. 10. Dehydration. 11. Leukocytosis. Please note that patient's white blood cell counts are chronically elevated. 12. Mild metabolic acidosis. PLAN: The patient will be monitored on the telemetry unit. She is currently admitted as observation . We will continue empiric antibiotics. We will resume home medications including anticoagulation. Repeat labs in a.m. Consult physical therapy, occupation therapy. There is a rehab screening order ed by the ER physician. We will add urine cultures to the ER sample. Plan of care was discussed with the patient in detail. We will discuss the plan of care with the sandra de la torre when they arrive.
[2018-06-23 07:33] LABS: Hemoglobin 12.5 g/dL (12.0-16.0); Platelet Count 191 thou/uL (130-400)
[2018-06-23] MEDS: Losartan 25 MG TAB PO SCH ×2 (08:33→21:31)
[2018-06-23] MEDS: hydrALAZINE 25 MG TAB PO SCH ×3 (08:33→21:31)
[2018-06-23] MEDS: Cyanocobalamin (Vitamin B-12) 1,000 MCG TAB PO SCH (08:33)
[2018-06-23] MEDS: Apixaban 5 MG TAB PO SCH ×2 (08:33→21:30)
[2018-06-23] MEDS: Flecainide 50 MG TAB PO SCH ×2 (08:34→21:31)
[2018-06-23] MEDS: FLUoxetine HCl 20 MG CAP PO SCH (08:34)
[2018-06-23] MEDS ORDERED: Prevnar 13-Val Conj/PF 0.5 ML SYRINGE IM ONE (09:00)
[2018-06-23] MEDS: Polyethylene Glycol 3350 17 GM Packet PO SCH (09:05)
[2018-06-23] MEDS: Docusate 100 MG CAP PO SCH ×2 (09:05→21:30)
[2018-06-23] MEDS: Famotidine 20 MG TAB PO SCH (09:05)
[2018-06-23] MEDS: Atorvastatin Calcium 40 MG TAB PO SCH (21:30)
[2018-06-23] MEDS: Folic Acid 1 MG TAB PO SCH (21:31)
[2018-06-23] MEDS: Melatonin 3 MG TAB PO SCH (21:32)
--- NOTE | 2018-06-23 21:50 | PDOC.PN ---
- Subjective Encounter Start Date: 06/23/18 Encounter Start Time: 21:44 Subjective: nsg notes rev, sara ovn, pt no new c/o, no active pain at this point in time -: is able to calmly answer questions appropriately - son in law at bedside -: states she is visiblly better and "has better color" - Objective Resuscitation Status: Resuscitation Status FULL:Full Resuscitation Vital Signs & Weight: Vital Signs (12 hours) Temp Pulse Resp BP Pulse Ox 06/23/18 19:30 98.5 F 61 16 175/73 H 100 06/23/18 15:12 57 L 06/23/18 14:40 97.9 F 57 L 16 173/71 H Weight Admit Weight 182 lb 4.8 oz Weight 182 lb 4.8 oz Result Diagrams: 06/23/18 07:19 06/22/18 15:28 Additional Labs: Accuchecks 06/23/18 06/23/18 06/23/18 20:41 16:51 11:01 POC Glucose 132 H 100 115 H Phys Exam - Physical Examination Constitutional: NAD lying in hospital bed HEENT: moist MMs Respiratory: no wheezing, no rales, no rhonchi, clear to auscultation bilateral limited ant exam Cardiovascular: RRR, no significant murmur, no rub Gastrointestinal: soft, non-tender, no distention, positive bowel sounds Musculoskeletal: no edema, pulses present Neurological: moves all 4 limbs Psychiatric: normal affect Dx/Plan - Plan H&P reviewed. 1. sepsis - significantly improved 2. UTI - continue empiric abx 3. metabolic encephalopathy 2/2 sepsis from UTI - resolved diet: as chad activity: as chad dvt ppx Review of Systems - Medications/Allergies Allergies/Adverse Reactions: Allergies Allergy/AdvReac Type Severity Reaction Status Date / Time amlodipine [From [facility]] Allergy Verified 06/22/18 23:57 cefaclor Allergy Verified 06/22/18 23:57 Medications: Current Medications Acetaminophen (Tylenol) 650 mg PO Q4H PRN PRN Reason: Headache/Fever or Pain Acetaminophen (Tylenol) 650 mg ID Q4H PRN PRN Reason: Headache/Fever or Pain Al Hydroxide/Mg Hydroxide (Maalox) 30 ml PO Q6H PRN PRN Reason: Heartburn or Indigestion Apixaban (Eliquis) 5 mg PO BID [facility] Last Admin: 06/23/18 21:30 Dose: 5 mg Atorvastatin Calcium (Lipitor) 40 mg PO HS [facility] Last Admin: 06/23/18 21:30 Dose: 40 mg Bisacodyl (Dulcolax) 10 mg ID Q24H PRN PRN Reason: Constipation Calcium Carbonate (Tums) 1,000 mg PO Q4H PRN PRN Reason: Heartburn or Indigestion Clonidine (Catapres) 0.1 mg PO PRN PRN PRN Reason: SBP Greater Than 180 Cyanocobalamin (Vitamin B-12) 1,000 mcg PO DAILY [facility] Last Admin: 06/23/18 08:33 Dose: 1,000 mcg Dextrose/Water (Dextrose 50%) 25 gm SLOW IVP PRN PRN PRN Reason: Hypoglycemia Docusate Sodium (Colace) 100 mg PO BID [facility] Last Admin: 06/23/18 21:30 Dose: Not Given Famotidine (Pepcid) 20 mg PO DAILY [facility] Last Admin: 06/23/18 09:05 Dose: Not Given Flecainide Acetate (Tambocor) 50 mg PO BID [facility] Last Admin: 06/23/18 21:31 Dose: 50 mg Fluoxetine HCl (Prozac) 20 mg PO DAILY [facility] Last Admin: 06/23/18 08:34 Dose: 20 mg Folic Acid (Folvite) 3 mg PO HS [facility] Last Admin: 06/23/18 21:31 Dose: 3 mg Glucagon (Glucagon) 1 mg IM PRN PRN PRN Reason: Hypoglycemia Hydralazine HCl (Apresoline) 25 mg PO TID [facility] Last Admin: 06/23/18 21:31 Dose: 25 mg Sodium Chloride (Normal Saline 0.9%) 1,000 mls @ 75 mls/hr IV .[id number] [facility] Stop: 06/25/18 04:01 Last Admin: 06/23/18 21:29 Dose: Not Given Dextrose/Water (D5w) 1,000 mls @ 0 mls/hr IV .Q0M PRN PRN Reason: Hypoglycemia Insulin Human Regular (Humulin R) 0 units SC .MILD SLIDING SCALE PRN PRN Reason: Mild Correctional Scale Insulin Human Regular (Humulin R) 0 units SC .BEDTIME SLIDING SC PRN PRN Reason: Bedtime Correctional Scale Losartan Potassium (Cozaar) 50 mg PO BID [facility] Last Admin: 06/23/18 21:31 Dose: 50 mg Magnesium Hydroxide (Milk Of Magnesium) 30 ml PO DAILYPRN PRN PRN Reason: Constipation Melatonin (Melatonin) 3 mg PO HS [facility] Last Admin: 06/23/18 21:32 Dose: 3 mg Metoprolol Succinate (Toprol Xl) 50 mg PO DAILY [facility] Last Admin: 06/23/18 08:33 Dose: 50 mg Polyethylene Glycol (Miralax) 17 gm PO DAILY [facility] Last Admin: 06/23/18 09:05 Dose: Not Given Senna (Senokot) 2 tab PO HSPRN PRN PRN Reason: Constipation Sodium Chloride (Flush - Normal Saline) 10 ml IVF Q12HR [facility] Last Admin: 06/23/18 21:32 Dose: Not Given Sodium Chloride (Flush - Normal Saline) 10 ml IVF PRN PRN PRN Reason: Saline Flush
[2018-06-24] MEDS ORDERED: Haloperidol Lactate 5 MG/ML VIAL SLOW IVP SCH ×2 (04:45→22:00)
[2018-06-24 05:24] LABS: ALT (SGPT) 21 U/L (8-55); AST (SGOT) 21 U/L (5-34); Albumin 3.5 g/dL (3.4-4.8); Alkaline Phosphatase 77 U/L (40-150); Anion Gap 13 mmol/L (10-20); BUN (Urea Nitrogen) 13 mg/dL (9.8-20.1); Bilirubin, Total 0.6 mg/dL (0.2-1.2); Calc. Creatinine Clearance 59 mL/min (70-130); Calcium 10.8 mg/dL (7.8-10.44); Carbon Dioxide 21 mmol/L (23-31); Chloride 109 mmol/L (98-107); Estimated GFR-MDRD 55; Globulin 2.2 g/dL (2.4-3.5); Glucose 133 mg/dL (83-110); Magnesium 1.8 mg/dL (1.6-2.6); Phosphorus 2.7 mg/dL (2.3-4.7); Potassium 4.4 mmol/L (3.5-5.1); Protein, Total 5.7 g/dL (6.0-8.3); Sodium 139 mmol/L (136-145)
[2018-06-24 07:04] LABS: Band 1 % (5-11); Hemoglobin 13.6 g/dL (12.0-16.0); Lymphocytes 35 % (21-51); MDiff Complete? YES; Mean Corpuscular HGB CONC 33.6 g/dL (32.0-36.0); Mean Corpuscular Hemoglobin 32.1 pg (27.0-31.0); Mean Corpuscular Volume 95.4 fL (78.0-98.0); Mean Platelet Volume 8.2 fL (7.4-10.4); Monocytes 7 % (0-10); Neutrophil 57 % (42-75); PLT Morphology Comment Appears Adequate; Platelet Count 212 thou/uL (130-400); RBC Distribution Width 12.9 % (11.5-14.5); Red Blood Cell (RBC) Count 4.25 mill/uL (4.20-5.40); White Blood Cell (WBC) Count 11.8 thou/uL (4.8-10.8)
[2018-06-24] MEDS: Flecainide 50 MG TAB PO SCH ×2 (08:11→20:41)
[2018-06-24] MEDS: FLUoxetine HCl 20 MG CAP PO SCH (08:11)
[2018-06-24] MEDS: Polyethylene Glycol 3350 17 GM Packet PO SCH (08:11)
[2018-06-24] MEDS: Losartan 25 MG TAB PO SCH ×2 (08:16→20:41)
[2018-06-24] MEDS: Famotidine 20 MG TAB PO SCH (08:16)
[2018-06-24] MEDS: Apixaban 5 MG TAB PO SCH ×2 (08:16→20:40)
[2018-06-24] MEDS: Cyanocobalamin (Vitamin B-12) 1,000 MCG TAB PO SCH (08:16)
[2018-06-24] MEDS: hydrALAZINE 25 MG TAB PO SCH ×3 (08:16→20:42)
[2018-06-24] MEDS: Sodium Chloride 0.9% 1,000 ML IV SCH ×2 (08:17→20:38)
[2018-06-24] MEDS: Docusate 100 MG CAP PO SCH ×2 (08:17→20:42)
[2018-06-24] MEDS ORDERED: Meropenem 1 GM in Sodium Chloride 0.9% 100 ML IVPB SCH (10:30)
[2018-06-24] MEDS ORDERED: MEROPENEM 1 GM/50 ML 1 GM in Admixture Fee 1 EACH IVPB SCH (14:00)
--- NOTE | 2018-06-24 15:08 | PDOC.PN ---
- Subjective Encounter Start Date: 06/24/18 Encounter Start Time: 15:14 Pt seen for followup re: UTI. Denies chest pain, shortness of breath, fevers or chills. - Objective Resuscitation Status: Resuscitation Status FULL:Full Resuscitation MAR Reviewed: Yes Vital Signs & Weight: Vital Signs (12 hours) Temp Pulse Pulse Pulse Pulse Pulse Pulse 06/24/18 13:10 64 71 66 65 59 L 06/24/18 12:00 97.8 F 60 06/24/18 08:10 97.9 F 60 06/24/18 04:00 97.9 F 61 Resp BP BP BP BP BP BP 06/24/18 13:10 174/74 H 145/96 H 152/84 H 216/84 H 196/82 H 06/24/18 12:00 14 180/78 H 06/24/18 08:10 13 189/79 H 06/24/18 04:00 16 177/79 H Pulse Ox 06/24/18 13:10 06/24/18 12:00 98 06/24/18 08:10 96 06/24/18 04:00 100 Weight Admit Weight 182 lb 4.8 oz Weight 182 lb 4.8 oz I&O: 06/23/18 06/24/18 06/25/18 06:59 06:59 06:59 Intake Total 1000 Balance 1000 Result Diagrams: 06/24/18 04:44 06/24/18 04:44 Additional Labs: Accuchecks 06/24/18 06/24/18 06/23/18 11:01 08:11 20:41 POC Glucose 134 H 110 132 H 06/23/18 16:51 POC Glucose 100 EKG Reviewed by me: Yes (Tele: NSR) Phys Exam - Physical Examination Constitutional: NAD HEENT: moist MMs Neck: supple Respiratory: clear to auscultation bilateral Cardiovascular: RRR Gastrointestinal: soft Neurological: moves all 4 limbs Psychiatric: normal affect Dx/Plan (1) UTI (urinary tract infection) Status: Acute Comment: resubmit urine sample, start meropenem. Pt's allergic reaction fo cefaclor was rash. Discussed with daughter, updated her. Also explained that there is a 1% chance of cross-reactivity. (2) HTN (hypertension) Code(s): I10 - ESSENTIAL (PRIMARY) HYPERTENSION Status: Chronic Qualifiers: Hypertension type: essential hypertension Qualified Code(s): I10 - Essential (primary) hypertension Comment: start PRN IV hydralazine (3) PAF (paroxysmal atrial fibrillation) Code(s): I48.0 - PAROXYSMAL ATRIAL FIBRILLATION Status: Chronic Comment: continue apixaban, metoprolol (4) Acute encephalopathy Code(s): G93.40 - ENCEPHALOPATHY, UNSPECIFIED Status: Resolved - Plan * . Review of Systems - Review of Systems Constitutional: negative: fever, chills, sweats, weakness, malaise Respiratory: negative: Cough, Shortness of Breath, SOB with Excertion, Pleuritic Pain, Wheezing Cardiovascular: negative: chest pain, palpitations, orthopnea, paroxysmal nocturnal dyspnea, edema, light headedness - Medications/Allergies Allergies/Adverse Reactions: Allergies Allergy/AdvReac Type Severity Reaction Status Date / Time amlodipine [From [facility]] Allergy Verified 06/22/18 23:57 cefaclor Allergy Verified 06/22/18 23:57 Medications: Current Medications Acetaminophen (Tylenol) 650 mg PO Q4H PRN PRN Reason: Headache/Fever or Pain Acetaminophen (Tylenol) 650 mg UT Q4H PRN PRN Reason: Headache/Fever or Pain Al Hydroxide/Mg Hydroxide (Maalox) 30 ml PO Q6H PRN PRN Reason: Heartburn or Indigestion Apixaban (Eliquis) 5 mg PO BID [facility] Last Admin: 06/24/18 08:16 Dose: 5 mg Atorvastatin Calcium (Lipitor) 40 mg PO HS [facility] Last Admin: 06/23/18 21:30 Dose: 40 mg Bisacodyl (Dulcolax) 10 mg UT Q24H PRN PRN Reason: Constipation Calcium Carbonate (Tums) 1,000 mg PO Q4H PRN PRN Reason: Heartburn or Indigestion Clonidine (Catapres) 0.1 mg PO PRN PRN PRN Reason: SBP Greater Than 180 Cyanocobalamin (Vitamin B-12) 1,000 mcg PO DAILY [facility] Last Admin: 06/24/18 08:16 Dose: 1,000 mcg Dextrose/Water (Dextrose 50%) 25 gm SLOW IVP PRN PRN PRN Reason: Hypoglycemia Docusate Sodium (Colace) 100 mg PO BID [facility] Last Admin: 06/24/18 08:17 Dose: Not Given Famotidine (Pepcid) 20 mg PO DAILY [facility] Last Admin: 06/24/18 08:16 Dose: 20 mg Flecainide Acetate (Tambocor) 50 mg PO BID [facility] Last Admin: 06/24/18 08:11 Dose: 50 mg Fluoxetine HCl (Prozac) 20 mg PO DAILY [facility] Last Admin: 06/24/18 08:11 Dose: 20 mg Folic Acid (Folvite) 3 mg PO HS [facility] Last Admin: 06/23/18 21:31 Dose: 3 mg Glucagon (Glucagon) 1 mg IM PRN PRN PRN Reason: Hypoglycemia Hydralazine HCl (Apresoline) 25 mg PO TID [facility] Last Admin: 06/24/18 08:16 Dose: 25 mg Sodium Chloride (Normal Saline 0.9%) 1,000 mls @ 75 mls/hr IV .[id number] [facility] Stop: 06/25/18 04:01 Last Admin: 06/24/18 08:17 Dose: 1,000 mls Dextrose/Water (D5w) 1,000 mls @ 0 mls/hr IV .Q0M PRN PRN Reason: Hypoglycemia Meropenem 1 gm/ Miscellaneous (Medication) 50 mls @ 100 mls/hr IVPB Q8HR [facility] Last Admin: 06/24/18 14:18 Dose: 50 mls Insulin Human Regular (Humulin R) 0 units SC .MILD SLIDING SCALE PRN PRN Reason: Mild Correctional Scale Insulin Human Regular (Humulin R) 0 units SC .BEDTIME SLIDING SC PRN PRN Reason: Bedtime Correctional Scale Losartan Potassium (Cozaar) 50 mg PO BID [facility] Last Admin: 06/24/18 08:16 Dose: 50 mg Magnesium Hydroxide (Milk Of Magnesium) 30 ml PO DAILYPRN PRN PRN Reason: Constipation Melatonin (Melatonin) 3 mg PO [facility] Last Admin: 06/23/18 21:32 Dose: 3 mg Metoprolol Succinate (Toprol Xl) 50 mg PO DAILY [facility] Last Admin: 06/24/18 08:16 Dose: 50 mg Polyethylene Glycol (Miralax) 17 gm PO DAILY [facility] Last Admin: 06/24/18 08:11 Dose: 17 gm Senna (Senokot) 2 tab PO HSPRN PRN PRN Reason: Constipation Sodium Chloride (Flush - Normal Saline) 10 ml IVF Q12HR [facility] Last Admin: 06/24/18 08:17 Dose: Not Given Sodium Chloride (Flush - Normal Saline) 10 ml IVF PRN PRN PRN Reason: Saline Flush
[2018-06-24] MEDS ORDERED: hydrALAZINE 20 MG/ML VIAL SLOW IVP PRN (15:14)
[2018-06-24] MEDS: Atorvastatin Calcium 40 MG TAB PO SCH (20:41)
[2018-06-24] MEDS: Folic Acid 1 MG TAB PO SCH (20:41)
[2018-06-24] MEDS: Melatonin 3 MG TAB PO SCH (20:42)
[2018-06-24] MEDS: MEROPENEM 1 GM/50 ML 1 GM in Premix Bag 1 BAG IVPB SCH (21:07)
[2018-06-25] MEDS: Haloperidol Lactate 5 MG/ML VIAL SLOW IVP SCH ×2 (03:22→04:45)
[2018-06-25] MEDS: MEROPENEM 1 GM/50 ML 1 GM in Premix Bag 1 BAG IVPB SCH ×3 (06:15→22:02)
[2018-06-25] MEDS: Flecainide 50 MG TAB PO SCH ×2 (09:00→22:05)
[2018-06-25] MEDS: hydrALAZINE 25 MG TAB PO SCH ×3 (09:00→22:23)
[2018-06-25] MEDS: Famotidine 20 MG TAB PO SCH (09:00)
[2018-06-25] MEDS: Cyanocobalamin (Vitamin B-12) 1,000 MCG TAB PO SCH (09:00)
[2018-06-25] MEDS: FLUoxetine HCl 20 MG CAP PO SCH (09:00)
[2018-06-25] MEDS: Apixaban 5 MG TAB PO SCH ×2 (09:01→22:04)
[2018-06-25] MEDS: Docusate 100 MG CAP PO SCH ×2 (09:01→22:05)
[2018-06-25] MEDS: Losartan 25 MG TAB PO SCH ×2 (09:01→22:05)
[2018-06-25] MEDS: Polyethylene Glycol 3350 17 GM Packet PO SCH (09:04)
[2018-06-25] MEDS: cloNIDine 0.1 MG TAB PO PRN (12:11)
--- NOTE | 2018-06-25 13:07 | PQF ---
CLINICAL DOCUMENTATION IMPROVEMENT CLARIFICATION FORM: ICD-10 Updated PLEASE DO AN ADDENDUM TO THE PROGRESS NOTE WITH ANY DOCUMENTATION UPDATES OR ADDITIONS AND CARRY THROUGH TO DC SUMMARY. THANK YOU. DATE: 06/25 ATTN: DR. MALAIKA ROTHMAN Please exercise your independent, professional judgment in responding to the clarification form. Clinical indicators are provided on the bottom of this form for your review. Please check appropriate box(s) to clarify if the following diagnosis has been ruled in or ruled out: SEPSIS [ ] Ruled in diagnosis [ ] Continue to treat [ ] Resolved [ X ] Ruled out diagnosis [ ] Other diagnosis [ ] Unable to determine In addition, please specify: Present on Admission (POA): [ ] Yes [ ] No [ ] Unable to determine For continuity of documentation, please document condition throughout progress notes and discharge summary. Thank You. CLINICAL INDICATORS - SIGNS / SYMPTOMS / LABS ER PHYSICIAN DOCUMENTATION 06/22: PT PRESENTS FOR EVALUATION OF MENTAL STATUS CHANGES SINCE THIS MORNING. PER NH, PT HAS BEEN SCREAMING ALL DAY & IS NOT VERBALIZING ANY COMPLAINTS. H&P DOCUMENTATION 06/22: IMPRESSION: 1) TOXIC METABOLIC ENCEPHALOPATHY, MULTIFACTORIAL. PROBABLY 2/2 UTI; 11) LEUKOCYTOSIS. PLEASE NOTE THAT PATIENT' S WBC COUNTS ARE CHRONICALLY ELEVATED; 12) MILD METABOIC ACIDOSIS ATTENDING PN 06/23: DX/PLAN: 1) SEPSIS - SIGNIFICANTLY IMPROVED WBC: 12.0 (06/22) RISK FACTORS: CURRENT UTI METABOLIC ACIDOSIS METABOLIC ENCEPHALOPATHY TREATMENTS: IV ANTIBIOTICS (CIPRO 06/22; MERREM 06/23 - PRESENT) IVF (NS 06/23-) THANK YOU! Ena (This form is maintained as a part of the permanent medical record) 2014 [employer]. All Rights Reserved Ena Brush RN, BSN [email or web address] Office: [phone] [facility]
--- NOTE | 2018-06-25 16:03 | PDOC.PN ---
- Subjective Encounter Start Date: 06/25/18 Encounter Start Time: 08:00 Pt seen for followup re: UTI. Awake and alert, denies chest pain, shortness of breath, fevers or chills. - Objective Resuscitation Status: Resuscitation Status FULL:Full Resuscitation MAR Reviewed: Yes Vital Signs & Weight: Vital Signs (12 hours) Temp Pulse Resp BP BP BP Pulse Ox 06/25/18 15:11 97.8 F 72 14 146/68 H 98 06/25/18 12:50 141/63 H 06/25/18 12:11 188/79 H 06/25/18 11:49 98.3 F 55 L 12 188/79 H 100 06/25/18 08:40 97.8 F 57 L 14 176/74 H 98 Weight Admit Weight 182 lb 4.8 oz Weight 189 lb 1.6 oz I&O: 06/24/18 06/25/18 06/26/18 06:59 06:59 06:59 Intake Total 1000 2390 Output Total 100 Balance 1000 2290 Result Diagrams: 06/26/18 07:48 06/26/18 07:54 Additional Labs: Accuchecks 06/25/18 06/25/18 06/24/18 10:52 06:04 20:34 POC Glucose 135 H 150 H 165 H 06/24/18 16:36 POC Glucose 159 H EKG Reviewed by me: Yes (Tele: NSR) Phys Exam - Physical Examination Constitutional: NAD HEENT: moist MMs Neck: full ROM Respiratory: clear to auscultation bilateral Cardiovascular: RRR Gastrointestinal: soft Neurological: moves all 4 limbs Psychiatric: normal affect Dx/Plan (1) UTI (urinary tract infection) Status: Acute Comment: continue IV meropenem, await (repeat) urine culture (2) HTN (hypertension) Code(s): I10 - ESSENTIAL (PRIMARY) HYPERTENSION Status: Chronic Qualifiers: Hypertension type: essential hypertension Qualified Code(s): I10 - Essential (primary) hypertension Comment: Improving, continue PRN IV hydralazine (3) PAF (paroxysmal atrial fibrillation) Code(s): I48.0 - PAROXYSMAL ATRIAL FIBRILLATION Status: Chronic Comment: on apixaban, metoprolol (4) Acute encephalopathy Code(s): G93.40 - ENCEPHALOPATHY, UNSPECIFIED Status: Resolved - Plan * . Review of Systems - Review of Systems Cardiovascular: negative: chest pain, palpitations, orthopnea, paroxysmal nocturnal dyspnea, edema, light headedness Gastrointestinal: negative: Nausea, Vomiting, Abdominal Pain, Diarrhea, Constipation, Melena, Hematochezia - Medications/Allergies Allergies/Adverse Reactions: Allergies Allergy/AdvReac Type Severity Reaction Status Date / Time amlodipine [From [facility]] Allergy Verified 06/22/18 23:57 cefaclor Allergy Verified 06/22/18 23:57 Medications: Current Medications Acetaminophen (Tylenol) 650 mg PO Q4H PRN PRN Reason: Headache/Fever or Pain Last Admin: 06/25/18 01:58 Dose: 650 mg Acetaminophen (Tylenol) 650 mg MA Q4H PRN PRN Reason: Headache/Fever or Pain Al Hydroxide/Mg Hydroxide (Maalox) 30 ml PO Q6H PRN PRN Reason: Heartburn or Indigestion Apixaban (Eliquis) 5 mg PO BID [facility] Last Admin: 06/25/18 09:01 Dose: 5 mg Atorvastatin Calcium (Lipitor) 40 mg PO [facility] Last Admin: 06/24/18 20:41 Dose: 40 mg Bisacodyl (Dulcolax) 10 mg MA Q24H PRN PRN Reason: Constipation Calcium Carbonate (Tums) 1,000 mg PO Q4H PRN PRN Reason: Heartburn or Indigestion Clonidine (Catapres) 0.1 mg PO PRN PRN PRN Reason: SBP Greater Than 180 Last Admin: 06/25/18 12:11 Dose: 0.1 mg Cyanocobalamin (Vitamin B-12) 1,000 mcg PO DAILY [facility] Last Admin: 06/25/18 09:00 Dose: 1,000 mcg Dextrose/Water (Dextrose 50%) 25 gm SLOW IVP PRN PRN PRN Reason: Hypoglycemia Docusate Sodium (Colace) 100 mg PO BID [facility] Last Admin: 06/25/18 09:01 Dose: 100 mg Famotidine (Pepcid) 20 mg PO DAILY [facility] Last Admin: 06/25/18 09:00 Dose: 20 mg Flecainide Acetate (Tambocor) 50 mg PO BID [facility] Last Admin: 06/25/18 09:00 Dose: 50 mg Fluoxetine HCl (Prozac) 20 mg PO DAILY [facility] Last Admin: 06/25/18 09:00 Dose: 20 mg Folic Acid (Folvite) 3 mg PO HS [facility] Last Admin: 06/24/18 20:41 Dose: 3 mg Glucagon (Glucagon) 1 mg IM PRN PRN PRN Reason: Hypoglycemia Hydralazine HCl (Apresoline) 25 mg PO TID [facility] Last Admin: 06/25/18 15:32 Dose: 25 mg Hydralazine HCl (Apresoline) 10 mg SLOW IVP Q6H PRN PRN Reason: SBP Greater Than 170 Dextrose/Water (D5w) 1,000 mls @ 0 mls/hr IV .Q0M PRN PRN Reason: Hypoglycemia Meropenem 1 gm/ Device 50 mls @ 100 mls/hr IVPB Q8HR [facility] Last Admin: 06/25/18 15:31 Dose: 50 mls Insulin Human Regular (Humulin R) 0 units SC .MILD SLIDING SCALE PRN PRN Reason: Mild Correctional Scale Insulin Human Regular (Humulin R) 0 units SC .BEDTIME SLIDING SC PRN PRN Reason: Bedtime Correctional Scale Losartan Potassium (Cozaar) 50 mg PO BID [facility] Last Admin: 06/25/18 09:01 Dose: 50 mg Magnesium Hydroxide (Milk Of Magnesium) 30 ml PO DAILYPRN PRN PRN Reason: Constipation Melatonin (Melatonin) 3 mg PO HS [facility] Last Admin: 06/24/18 20:42 Dose: 3 mg Metoprolol Succinate (Toprol Xl) 50 mg PO DAILY [facility] Last Admin: 06/25/18 09:00 Dose: 50 mg Polyethylene Glycol (Miralax) 17 gm PO DAILY [facility] Last Admin: 06/25/18 09:04 Dose: Not Given Senna (Senokot) 2 tab PO HSPRN PRN PRN Reason: Constipation Sodium Chloride (Flush - Normal Saline) 10 ml IVF Q12HR [facility] Last Admin: 06/25/18 09:05 Dose: Not Given Sodium Chloride (Flush - Normal Saline) 10 ml IVF PRN PRN PRN Reason: Saline Flush
[2018-06-25] MEDS: Folic Acid 1 MG TAB PO SCH (22:04)
[2018-06-25] MEDS: Atorvastatin Calcium 40 MG TAB PO SCH (22:04)
[2018-06-25] MEDS: Melatonin 3 MG TAB PO SCH (22:04)
[2018-06-26] MEDS: MEROPENEM 1 GM/50 ML 1 GM in Premix Bag 1 BAG IVPB SCH ×2 (05:33→14:44)
[2018-06-26 08:43] LABS: Hemoglobin 13.5 g/dL (12.0-16.0); Mean Corpuscular HGB CONC 33.7 g/dL (32.0-36.0); Mean Corpuscular Hemoglobin 31.5 pg (27.0-31.0); Mean Corpuscular Volume 93.2 fL (78.0-98.0); Mean Platelet Volume 8.5 fL (7.4-10.4); Platelet Count 172 thou/uL (130-400); RBC Distribution Width 12.9 % (11.5-14.5); Red Blood Cell (RBC) Count 4.28 mill/uL (4.20-5.40)
[2018-06-26] MEDS: Polyethylene Glycol 3350 17 GM Packet PO SCH (08:53)
[2018-06-26] MEDS: Apixaban 5 MG TAB PO SCH (08:55)
[2018-06-26] MEDS: Flecainide 50 MG TAB PO SCH (08:55)
[2018-06-26] MEDS: Cyanocobalamin (Vitamin B-12) 1,000 MCG TAB PO SCH (08:55)
[2018-06-26] MEDS: Famotidine 20 MG TAB PO SCH (08:55)
[2018-06-26] MEDS: hydrALAZINE 25 MG TAB PO SCH (08:55)
[2018-06-26] MEDS: Docusate 100 MG CAP PO SCH (08:55)
[2018-06-26] MEDS: FLUoxetine HCl 20 MG CAP PO SCH (08:55)
[2018-06-26] MEDS: Losartan 25 MG TAB PO SCH (08:56)
[2018-06-26] MEDS: cloNIDine 0.1 MG TAB PO PRN (08:56)
[2018-06-26 09:10] LABS: Band 2 % (5-11); Eosinophils 1 % (0-10); Lymphocytes 16 % (21-51); MDiff Complete? YES; Monocytes 2 % (0-10); Neutrophil 66 % (42-75); RBC Morphology Normal; Reactive Lymphocytes 12 % (0-10)
[2018-06-26 10:43] LABS: Carbon Dioxide 13 mmol/L (23-31); Chloride 109 mmol/L (98-107); Potassium 4.5 mmol/L (3.5-5.1); Sodium 136 mmol/L (136-145)
[2018-06-26 10:45] LABS: Anion Gap 16 mmol/L (10-20); BUN (Urea Nitrogen) 8 mg/dL (9.8-20.1); Calc. Creatinine Clearance 72 mL/min (70-130); Calcium 10.1 mg/dL (7.8-10.44); Estimated GFR-MDRD 68; Glucose 143 mg/dL (83-110)
[2018-06-26] MEDS ORDERED: hydrALAZINE 25 MG TAB PO SCH (13:00)
[2018-06-26 13:29] VITALS: BMI 28.1
--- NOTE | 2018-06-26 15:14 | DIS ---
DATE OF ADMISSION: 06/22/2018 DATE OF DISCHARGE: 06/26/2018 PRIMARY CARE PROVIDER: LISA Lama DISCHARGE DIAGNOSES: 1. Acute encephalopathy. 2. Urinary tract infection. CONDITION OF PATIENT ON THE DAY OF DISCHARGE: Stable. I assessed Ms. Marvin on the day of discharge . She denies any chest pain or shortness of breath. PHYSICAL EXAMINATION: VITAL SIGNS: Stable. HEART: S1 and S2 are heard, regular. LUNGS: Clear to auscultation bilaterally. DISCHARGE MEDICATIONS: Meropenem 1 gram IV q.8 hours, 8 more doses, vitamin C 500 mg at bedtime, Lip itor 40 mg at bedtime, vitamin B12 1000 mcg daily, Colace 100 mg 2 times a day, Pepcid 20 mg daily, A llegra 180 mg daily, flecainide 50 mg 2 times a day, Prozac 20 mg daily, folic acid 3 mg at bedtime, glipizide 10 mg 2 times a day, losartan 50 mg 2 times a day, metoprolol succinate 50 mg daily, apixab an 5 mg 2 times a day, Apresoline 25 mg 4 times a day, Lantus 5 units in the morning, MiraLax 17 gram s daily, clonidine 0.1 mg as needed for systolic blood pressure greater than 180, Atarax 25 mg at bed time as needed, magnesium hydroxide 30 mL daily as needed, Zofran 4 mg every 6 hours as needed, Tylen ol regular strength 650 mg every 4 hours as needed. HOSPITAL COURSE: Ms. Marvin is a pleasant 82-year-old lady who was admitted to [facility] on 06/23/2018 for acute encephalopathy, likely secondary to urinary tract infection. Sara still was treated with intravenous antibiotics. First urine culture showed growth of 3 or more different organisms indicating probable contamination. A second sample was submitted on 06/24/2018. She is b eing continued on intravenous meropenem. She is being discharged to [facility] for skilled [facility]. Her final urine culture results will need to be followed up by [facility] physician. Clinically, her encephalopathy improved. On the day of discharge, she has white count of 12,000, hem oglobin 13.5, platelet count 172,000. Normal sodium, normal potassium and normal creatinine. Many thanks for allowing me to participate in your patient's care. Please feel free to contact me wi th any questions or concerns. DISCHARGE DESTINATION: [facility]. TOTAL AMOUNT OF TIME SPENT COORDINATING THIS DISCHARGE: 33 minutes.
[2018-06-26 16:43] VITALS: TEMP 98.6
[2018-06-26 16:44] VITALS: BP 124/71
--- NOTE | 2018-07-07 11:19 | EKG ---
Test Reason : Blood Pressure : / mmHG Vent. Rate : 057 BPM Atrial Rate : 057 BPM P-R Int : 196 ms QRS Dur : 116 ms QT Int : 492 ms P-R-T Axes : 000 -26 123 degrees QTc Int : 478 ms Sinus bradycardia with Premature supraventricular complexes Inferior infarct , age undetermined Anteroseptal infarct , age undetermined Abnormal ECG Confirmed by CARLOS VILLASENOR DO ([id number]), manuscript editor MISTY SANABRIA ([id number]) on 07/07/2018 11:19:25 AM Referred By: Confirmed By:CARLOS VILLASENOR DO
== END 2018-06-26 16:48 | disposition home or self-care (01) | DRG 689 ==
LOC: ERS 15:09 → OBSVTOIN 19:48 → 2NO 19:48 → T4-A 06-26 13:24
PROVIDERS: ADMIT Internal Medicine; ATTEND Internal Medicine
DX: N39.0 Urinary tract infection, site not specified (principal); G92 Toxic encephalopathy; I69.354 Hemiplegia and hemiparesis following cerebral infarction affecting left non-dominant side; E87.2 Acidosis; N18.3 Chronic kidney disease, stage 3 (moderate); I12.9 Hypertensive chronic kidney disease with stage 1 through stage 4 chronic kidney disease, or unspecified chronic kidney disease; E11.22 Type 2 diabetes mellitus with diabetic chronic kidney disease; I48.0 Paroxysmal atrial fibrillation; F41.9 Anxiety disorder, unspecified; F32.9 Major depressive disorder, single episode, unspecified; F03.90 Unspecified dementia, unspecified severity, without behavioral disturbance, psychotic disturbance, mood disturbance, and anxiety; E86.0 Dehydration; E83.52 Hypercalcemia; Z88.8 Allergy status to other drugs, medicaments and biological substances; Z88.1 Allergy status to other antibiotic agents; Z79.01 Long term (current) use of anticoagulants; Z87.11 Personal history of peptic ulcer disease; Z90.49 Acquired absence of other specified parts of digestive tract; Z90.710 Acquired absence of both cervix and uterus
CPT/HCPCS: 36415; 36416; 51701; 70450; 80048; 80053; 81003; 81015; 82553; 83735; 84100; 84484; 85014; 85018; 85025; 85049; 85610; 85730; 87086; 93005; 96365; A4216; A4353; G8978-GP-CL; G8979-GP-CL; G8987-GO-CM; G8988-GO-CK; G8996-GN-CJ; G8996-GN-CK; G8997-GN-CJ; G8997-GN-CK; J0744; J1630; J2185; J7050

== ENCOUNTER 2018-07-22 22:02 | Observation (INO) | payer MEDICARE ==
[2018-07-22 23:16] LABS: #Basophils 0.1 thou/uL (0.0-0.2); #Eosinphils 0.4 thou/uL (0.0-0.7); #Lymphocytes 3.5 thou/uL (1.20-3.40); #Monocytes 0.7 thou/uL (0.11-0.59); #Neutrophils 7.7 thou/uL (1.40-6.50); %Basophils 0.9 % (0.0-1.0); %Eosinophils 3.2 % (0.0-10.0); %Monocytes 5.7 % (0.0-10.0); %Neutrophils 62.2 % (42.0-75.0); Hemoglobin 12.1 g/dL (12.0-16.0); Mean Corpuscular HGB CONC 33.4 g/dL (32.0-36.0); Mean Corpuscular Hemoglobin 31.9 pg (27.0-31.0); Mean Corpuscular Volume 95.6 fL (78.0-98.0); Mean Platelet Volume 7.9 fL (7.4-10.4); Platelet Count 305 thou/uL (130-400); RBC Distribution Width 12.9 % (11.5-14.5); White Blood Cell (WBC) Count 12.4 thou/uL (4.8-10.8)
--- NOTE | 2018-07-22 23:19 | CT ---
CT CERVICAL SPINE NONCONTRAST: History: Fall. Neck injury. FINDINGS: Vertebral body heights and alignment are maintained. There is multilevel disc space narrowing and ost eophytosis. Cervicothoracic junction is intact. Osseous structures are demineralized. No acute fractu re or dislocation. Nonspecific low density nodules are apparent within the thyroid gland. Dense calci fication within the internal carotid arteries. Degenerative changes throughout the cervical spine. IMPRESSION: 1. Lumbar spondylosis. No acute osseous abnormalities are demonstrated. 2. Atherosclerosis. POS: [facility]
--- NOTE | 2018-07-22 23:20 | CT ---
CT HEAD NONCONTRAST: History: Fall. Head injury. Comparison: 06-22-18 FINDINGS: There is no evidence of acute intracranial hemorrhage or infarct. Diffuse cortical atrophy and chroni c ischemic small vessel disease are again demonstrated. Old right posterior frontal infarct. Extracra nial scalp swelling overlies the left frontal calvarium. No depressed skull fracture. IMPRESSION: 1. No acute intracranial abnormalities are demonstrated. Chronic intracranial findings are stable. 2. Large left frontal scalp hematoma. POS: [facility]
[2018-07-22 23:21] LABS: INR-International Normal Ratio 1.3; PTT 31.6 SEC (22.9-36.1); Prothrombin Time 16.6 SEC (12.0-14.7)
--- NOTE | 2018-07-22 23:23 | RAD ---
AP PELVIS ONE VIEW: History: Fall. Pelvic injury. FINDINGS: Sacral ala and pelvic rings are intact. No displaced fractures are apparent. Calcification over the a rterial structures. Degenerative changes of hips, right greater than left. IMPRESSION: 1. Atherosclerosis. 2. No acute osseous abnormalities are demonstrated. POS: [facility]
--- NOTE | 2018-07-22 23:27 | RAD ---
CHEST ONE VIEW: History: Fall. Chest pain. Comparison: 05-24-18 FINDINGS: Cardiac silhouette is magnified by projection. Pulmonary vasculature is unremarkable. Mediastinum is midline with aortic calcification. Calcified granulomata are consistent with healed granulomatous dis ease. No lobar consolidation or evidence of pneumothorax. IMPRESSION: Atherosclerosis. Chronic type findings are stable. POS: [facility]
[2018-07-22 23:32] LABS: ALT (SGPT) 14 U/L (8-55); AST (SGOT) 15 U/L (5-34); Albumin 3.3 g/dL (3.4-4.8); Alkaline Phosphatase 78 U/L (40-150); Anion Gap 12 mmol/L (10-20); BUN (Urea Nitrogen) 12 mg/dL (9.8-20.1); Bilirubin, Total 0.6 mg/dL (0.2-1.2); Calc. Creatinine Clearance 0 mL/min (70-130); Calcium 10.7 mg/dL (7.8-10.44); Carbon Dioxide 23 mmol/L (23-31); Chloride 109 mmol/L (98-107); Estimated GFR-MDRD 55; Glucose 177 mg/dL (83-110); Magnesium 1.6 mg/dL (1.6-2.6); Protein, Total 6.3 g/dL (6.0-8.3); Sodium 140 mmol/L (136-145)
[2018-07-22 23:36] LABS: CKMB 1.7 ng/mL (0-6.6); Troponin I 0.032 ng/mL (< 0.028)
[2018-07-22] MEDS ORDERED: Acetaminophen 500 MG TAB ONE (23:48)
[2018-07-23] MEDS ORDERED: Ondansetron ODT 4 MG TAB SL PRN (01:45)
[2018-07-23] MEDS ORDERED: Acetaminophen 325 MG TAB PO PRN (01:45)
[2018-07-23] MEDS ORDERED: Ondansetron HCl/PF 4 MG/2 ML Vial IVP PRN (01:45)
[2018-07-23 02:40] VITALS: BMI 28.5
--- NOTE | 2018-07-23 09:13 | CT ---
NONCONTRAST CT HEAD: DATE: 07/23/18. HISTORY: Post fall, scalp hematoma. Followup evaluation. COMPARISON: 07/22/18. FINDINGS: There has been interval enlargement of the left frontal and frontotemporal scalp hematoma when compar ed to the prior exam. No underlying calvarial fracture is seen. There is no evidence of an intrapar enchymal or extraaxial hemorrhage. Again noted are chronic small-vessel ischemic changes and cerebral volume loss. This stable area of encephalomalacia is again demonstrated in the right posterior frontal lobe related to remote infarcti on. There is no mass effect or midline shift. No acute cortical infarction is seen. There has been no o ther interval change from the prior exam. IMPRESSION: 1. No acute intracranial abnormalities demonstrated. 2. Interval enlargement of the left frontal and frontotemporal scalp hematoma. No intraparenchymal or extraaxial hemorrhage is evident on this exam. 3. Stable chronic small-vessel ischemic changes and cerebral volume loss as well as stable area of e ncephalomalacia likely related to remote infarction in the posterior right frontal lobe. POS: [facility]
[2018-07-23] MEDS ORDERED: cloNIDine 0.1 MG TAB PO PRN (10:11)
[2018-07-23] MEDS ORDERED: hydrOXYzine 25 MG TAB PO PRN (10:16)
[2018-07-23] MEDS ORDERED: Ondansetron ODT 4 MG TAB PO PRN (10:17)
[2018-07-23] MEDS ORDERED: Milk Of Magnesia 30 ML UDCUP PO PRN (10:17)
[2018-07-23] MEDS ORDERED: Loratadine 10 MG TAB PO SCH (10:30)
[2018-07-23] MEDS ORDERED: FLUoxetine HCl 20 MG CAP PO SCH (10:30)
[2018-07-23] MEDS ORDERED: Flecainide 50 MG TAB PO SCH (10:30)
[2018-07-23] MEDS ORDERED: hydrALAZINE 25 MG TAB PO SCH (10:30)
[2018-07-23] MEDS ORDERED: Famotidine 20 MG TAB PO SCH (10:30)
[2018-07-23] MEDS ORDERED: Docusate 100 MG CAP PO SCH (10:30)
[2018-07-23] MEDS ORDERED: Polyethylene Glycol 3350 17 GM Packet PO SCH (10:30)
[2018-07-23] MEDS ORDERED: Cyanocobalamin (Vitamin B-12) 1,000 MCG TAB PO SCH (10:30)
[2018-07-23] MEDS: Losartan 25 MG TAB PO SCH ×2 (11:12→23:41)
[2018-07-23] MEDS: hydrALAZINE 25 MG TAB PO SCH ×3 (13:40→23:42)
[2018-07-23] MEDS ORDERED: Folic Acid 1 MG TAB PO SCH (21:00)
[2018-07-23] MEDS ORDERED: Mirtazapine 15 MG TAB PO SCH (21:00)
[2018-07-23] MEDS ORDERED: Ascorbic Acid 500 mg Chewable Tablet PO SCH (21:00)
[2018-07-23] MEDS ORDERED: Atorvastatin Calcium 40 MG TAB PO SCH (21:00)
--- NOTE | 2018-07-23 23:12 | HP ---
DATE OF ADMISSION: 07/23/2018 CHIEF COMPLAINT: Status post fall. HISTORY OF PRESENT ILLNESS: Ms. Marvin is an 82-year-old female with past medical history of diabetes, hypertension, history of CVA, was brought [facility] The patient fell with face down. The patient, according to the alf staff, they wanted to put her in the bed, they kept her in the wheelchair in the room, went to get the sheet s and by the time they came back, patient fell, she was found on the floor. The patient's daughter jose butler this is the second fall in 2 days. 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 The patient was sent to the ER and then she was evaluated and foun d to have a large hematoma on the left frontal area, but no evidence of any intracranial bleeding. X -ray of the pelvis did not show any fractures. X-ray of the hip also did not show factors. The brenda ent admitted for close monitoring of her head injury with possible concussion and hematoma. The brenda ent is also on anticoagulant for her atrial fibrillation with a lipase 89. The patient is admitted f or close monitoring. PAST MEDICAL HISTORY: 1. Hypertension. 2. Diabetes mellitus. 3. Dementia. 4. Hyperlipidemia. 5. Gastroesophageal reflux. 6. Status post CVA. 7. GI bleeding. 8. Paroxysmal atrial fibrillation. 9. Dementia. PAST SURGICAL HISTORY: 1. Status post hysterectomy. 2. Status post cholecystectomy. 3. Status post left hip replacement surgery. ALLERGIES: AMLODIPINE and CEFACLOR. CURRENT MEDICATIONS: Tylenol p.r.n., Eliquis b.i.d. 5 mg, Lipitor 40 mg at bedtime, vitamin C daily, clonidine p.r.n., vitamin B12 daily, Colace 100 mg b.i.d., Pepcid 20 mg daily, Ashley daily, flecai nide 50 mg b.i.d., Prozac 20 mg daily, folic acid 3 mg daily, hydralazine 25 q.i.d., Atarax p.r.n., L antus insulin 5 units daily, losartan 50 mg b.i.d., Milk of Magnesia p.r.n., metoprolol 50 daily, Rem gerald 15 mg at bedtime, MiraLax 17 grams daily, Zofran p.r.n., Seroquel 25 b.i.d. FAMILY HISTORY: Nothing of interest. SOCIAL HISTORY: Patient is a resident of [facility]. REVIEW OF SYSTEMS: Cardiovascular: No chest pain. No shortness of breath. There has been no fever or cough. Gastrointestinal: No nausea or vomiting. No abdominal pain. Central Nervous System: H as headache, no dizziness. PHYSICAL EXAMINATION: GENERAL: The patient is alert, awake, not well oriented. VITAL SIGNS: Temperature 98, pulse 70, respirations 20, blood pressure 170/60. HEENT: Head, there is a large hematoma on the left frontal area. NECK: Supple. No JVD. LUNGS: Bilateral air entry present, no rales, no rhonchi. CARDIAC: S1, S2 regular. ABDOMEN: Soft, no distention, no tenderness. Normal bowel sounds. RECTAL: Deferred. NEUROLOGIC: The patient is alert, awake, not oriented. Motor system power 3/5 in left upper and low er extremities and 4/5 in right upper and lower extremities. Deep tendon reflexes 2+ bilaterally. P lantar downgoing. Sensory intact. LABORATORY AND X-RAY FINDINGS: CBC shows WBC 12, hemoglobin 12, hematocrit 36, platelets 305. Proth rombin time 16, INR 1.3. Metabolic panel: Sodium 140, potassium 4, chloride 109, CO2 of 26, BUN 12, creatinine 0.9, glucose 177. CK-MB 1.7, troponin I 0.038. CT cervical spine showed no abnormalities. Pelvic x-ray showed no fractures. CT of the brain showed no acute intracranial abnormalities. There is evidence of left frontal and frontotemporal scalp hem atoma. EKG not done. ASSESSMENT: 1. Status post fall with possible head concussion. 2. Large left frontal scalp hematoma. 3. Diabetes mellitus. 4. Hypertension. 5. Atrial fibrillation, paroxysmal. 6. Status post cerebrovascular accident with left hemiparesis. 7. Dementia. PLAN: 1. Vital signs q.4 hours. 2. Activity: As tolerated. 3. Allergies: AMLODIPINE and CEFACLOR. 4. We will do neuro checks. 5. Continue alf medications. 6. We will monitor left scalp hematoma.
[2018-07-23] MEDS: Docusate 100 MG CAP PO SCH (23:41)
[2018-07-23] MEDS: Flecainide 50 MG TAB PO SCH (23:42)
[2018-07-24 06:10] LABS: Anion Gap 10 mmol/L (10-20); BUN (Urea Nitrogen) 12 mg/dL (9.8-20.1); Calc. Creatinine Clearance 64 mL/min (70-130); Calcium 10.2 mg/dL (7.8-10.44); Carbon Dioxide 26 mmol/L (23-31); Chloride 107 mmol/L (98-107); Estimated GFR-MDRD 62; Glucose 132 mg/dL (83-110); Potassium 3.9 mmol/L (3.5-5.1); Sodium 139 mmol/L (136-145)
[2018-07-24] MEDS ORDERED: Prevnar 13-Val Conj/PF 0.5 ML SYRINGE IM ONE (09:00)
[2018-07-24] MEDS ORDERED: Loratadine 10 MG TAB PO SCH (09:00)
[2018-07-24] MEDS ORDERED: Polyethylene Glycol 3350 17 GM Packet PO SCH (09:00)
[2018-07-24] MEDS ORDERED: Cyanocobalamin (Vitamin B-12) 1,000 MCG TAB PO SCH (09:00)
[2018-07-24] MEDS ORDERED: FLUoxetine HCl 20 MG CAP PO SCH (09:00)
[2018-07-24] MEDS ORDERED: Famotidine 20 MG TAB PO SCH (09:00)
[2018-07-24] MEDS: Flecainide 50 MG TAB PO SCH (11:03)
[2018-07-24] MEDS: hydrALAZINE 25 MG TAB PO SCH (11:03)
[2018-07-24] MEDS: Losartan 25 MG TAB PO SCH ×2 (11:03→11:04)
[2018-07-24] MEDS: Docusate 100 MG CAP PO SCH (11:03)
[2018-07-24 12:02] LABS: Burr Cells SLIGHT = 2-5 cells (100X) (0-1/hpf); Eosinophils 4 % (0-10); Lymphocytes 25 % (21-51); MDiff Complete? YES; Mean Corpuscular HGB CONC 33.3 g/dL (32.0-36.0); Mean Corpuscular Hemoglobin 31.6 pg (27.0-31.0); Mean Platelet Volume 8.4 fL (7.4-10.4); Microcytosis SLIGHT = 6-15 cells (100X) (0-5/hpf); Monocytes 6 % (0-10); Neutrophil 59 % (42-75); PLT Morphology Comment Appears Adequate; Platelet Count 338 thou/uL (130-400); RBC Distribution Width 12.9 % (11.5-14.5); Reactive Lymphocytes 6 % (0-10); Red Blood Cell (RBC) Count 3.48 mill/uL (4.20-5.40); White Blood Cell (WBC) Count 13.1 thou/uL (4.8-10.8)
[2018-07-24 13:28] VITALS: BP 142/74; TEMP 98.5
--- NOTE | 2018-07-25 13:01 | DIS ---
DATE OF ADMISSION: 07/23/2018 DATE OF DISCHARGE: 07/24/2018 ADMITTING DIAGNOSES: 1. Status post fall with possible head concussion. 2. Large left frontal scalp hematoma. 3. Diabetes mellitus. 4. Hypertension. 5. Atrial fibrillation, paroxysmal. 6. Status post cerebrovascular accident, left hemiparesis. 7. Dementia. FINAL DIAGNOSES: 1. Status post fall with possible head concussion, improved. 2. Large left frontal scalp hematoma. 3. Diabetes mellitus. 4. Hypertension. 5. Chronic atrial fibrillation paroxysmal. 6. Status post cerebrovascular accident with left hemiparesis. 7. Dementia. BRIEF SUMMARY OF HOSPITAL COURSE: Ms. Marvin is an 82-year-old female admitted [facility] and sustained hematoma, left frontal head, also has evidence of concussion. Patient was closed monitoring for head injury. A repeat CAT scan done , showed no intracranial bleeding , but still showed left frontal scalp hematoma. Patient was a bit sleepy, so her medications were changed. Her medications when she was [facility] were discontinued. Seroquel was stopped. Remeron was also stopped and Atarax was also stopped. Patient became more alert, awake, and she is eating better. She has remained neurologically stable. So in view of improvement, the patient was discharged. At the time of discharge, she was stable. Her vital signs stable. Lungs clear. Heart sounds regular. Abdomen is soft, nontender. Bowel sounds present. DISCHARGE MEDICATIONS: Include vitamin C 500 mg daily, vitamin B12 of 1000 mcg daily, magnesium p.r.n., Prozac 20 mg daily, metoprolol 50 daily, losartan 50 b.i.d., Lipitor 40 mg daily, folic acid daily 1 mg, flecainide 50 mg b.i.d., Colace 100 mg b.i.d., Ashley 60 mg daily, clonidine 0.1 q.6 hours p.r.n., Zofran 4 mg p.r.n. q.6, Tylenol p.r.n., Eliquis 5 mg b.i.d., Lantus insulin 20 units daily, MiraLax 17 grams daily, Pepcid 20 mg daily, hydralazine 25 mg q.i.d. FOLLOWUP: [facility]
== END 2018-07-24 11:43 ==
LOC: ERS 22:02 → 2SE 07-23 00:37
PROVIDERS: ADMIT Internal Medicine; ATTEND Internal Medicine
DX: S09.90XA Unspecified injury of head, initial encounter (principal); S00.03XA Contusion of scalp, initial encounter; I10 Essential (primary) hypertension; E11.9 Type 2 diabetes mellitus without complications; E78.5 Hyperlipidemia, unspecified; K21.9 Gastro-esophageal reflux disease without esophagitis; F03.90 Unspecified dementia, unspecified severity, without behavioral disturbance, psychotic disturbance, mood disturbance, and anxiety; I69.354 Hemiplegia and hemiparesis following cerebral infarction affecting left non-dominant side; I48.2 Chronic atrial fibrillation; Z79.01 Long term (current) use of anticoagulants; Z79.899 Other long term (current) drug therapy; Z88.8 Allergy status to other drugs, medicaments and biological substances; Z96.642 Presence of left artificial hip joint; W05.0XXA Fall from non-moving wheelchair, initial encounter; Y92.129 Unspecified place in nursing home as the place of occurrence of the external cause
CPT/HCPCS: 36415; 36416; 70450; 71045; 72125; 72170; 80048; 80053; 82553; 83735; 84484; 85025; 85610; 85730; 93005; A4216; G0378

== ENCOUNTER 2018-08-03 13:46 | Outpatient (CLI) | payer MEDICARE ==
[~2018-08-03 13:46] MED LIST changes: -ISOVUE-370 76%-LOCM 1 ML ONE; +Iopamidol 370 76% 100 ML VIAL ONE
--- NOTE | 2018-08-03 15:10 | CT ---
CT HEAD WITH AND WITHOUT CONTRAST 08/03/18 Multiple axial tomograms obtained through the head both pre and post IV contrast administration. INDICATIONS: Cognitive changes. Fall two weeks ago. COMPARISON: Comparison made to head CT of 07/23/18. FINDINGS: Scalp hematoma of the left frontal bone has decreased in size; however, there continues to be a promi nent focal hematoma over the left frontal bone. There is no evidence of underlying fracture. Sinuses and mastoids are well aerated. There is cortical atrophy. Chronic ischemic white matter changes. Encephalomalacia involving the righ t frontoparietal region is again noted. There is no evidence of acute intracranial hemorrhage, mass o r infarct. No abnormally enhancement identified on the postcontrast study. IMPRESSION: 1. There continues to be a prominent scalp hematoma over the left frontal bone although the scal p hematoma has decreased in size when compared to prior study. 2. There are chronic brain findings which appear stable with no evidence of acute interval herndon ge. POS: [facility]
== END 2018-08-03 13:47 | disposition home or self-care (01) ==
LOC: CT 13:46
PROVIDERS: ATTEND Internal Medicine
DX: R41.89 Other symptoms and signs involving cognitive functions and awareness (principal); S00.03XD Contusion of scalp, subsequent encounter
CPT/HCPCS: 70470

== ENCOUNTER 2018-08-05 11:29 | Inpatient (IN) | payer MEDICARE ==
[2018-08-05 12:34] LABS: Hemoglobin 12.9 g/dL (12.0-16.0); Mean Corpuscular HGB CONC 32.5 g/dL (32.0-36.0); Mean Corpuscular Hemoglobin 30.7 pg (27.0-31.0); Mean Corpuscular Volume 94.3 fL (78.0-98.0); Mean Platelet Volume 8.2 fL (7.4-10.4); Platelet Count 333 thou/uL (130-400); RBC Distribution Width 12.4 % (11.5-14.5); White Blood Cell (WBC) Count 11.1 thou/uL (4.8-10.8)
[2018-08-05 12:39] LABS: ALT (SGPT) Less than 7 U/L (8-55); AST (SGOT) 10 U/L (5-34); Alkaline Phosphatase 72 U/L (40-150); Anion Gap 12 mmol/L (10-20); BUN (Urea Nitrogen) 12 mg/dL (9.8-20.1); Bilirubin, Total 0.5 mg/dL (0.2-1.2); Calc. Creatinine Clearance 0 mL/min (70-130); Calcium 10.7 mg/dL (7.8-10.44); Carbon Dioxide 20 mmol/L (23-31); Chloride 108 mmol/L (98-107); Estimated GFR-MDRD 69; Globulin 2.8 g/dL (2.4-3.5); Glucose 129 mg/dL (83-110); Potassium 4.2 mmol/L (3.5-5.1); Protein, Total 5.8 g/dL (6.0-8.3); Sodium 136 mmol/L (136-145)
[2018-08-05 12:44] LABS: CKMB 1.1 ng/mL (0-6.6); Troponin I 0.044 ng/mL (< 0.028)
[2018-08-05 12:53] LABS: Band 2 % (5-11); Eosinophils 2 % (0-10); Lymphocytes 10 % (21-51); MDiff Complete? YES; Monocytes 12 % (0-10); Neutrophil 62 % (42-75); PLT Morphology Comment Appears Adequate; RBC Morphology Normal; Reactive Lymphocytes 12 % (0-10)
[2018-08-05 12:55] LABS: Bilirubin Negative (Negative); Blood, Urine Negative (Negative); Clarity CLEAR (Clear); Glucose, Urine (Dipstick) Negative (Negative); Leukocyte Negative (Negative); Nitrite Negative (Negative); Protein, Urine (Dipstick) Negative (Neg-Trace); Specific Gravity, Urine 1.012 (1.002-1.036); Urobilinogen 0.2 mg/dL (0.2-1.0); pH, Urine 5.5 (5.0-9.0)
[2018-08-05] MEDS ORDERED: Nitroglycerin 2% Ointment 1 INCH/1 GM Packet ONE (13:59)
[2018-08-05 16:18] LABS: Troponin I 0.052 ng/mL (< 0.028)
[2018-08-05] MEDS ORDERED: Insulin Regular 300 UNITS/3 ML VIAL SC PRN (16:39)
[2018-08-05] MEDS ORDERED: Dextrose 50% Abboject 50 ML SYRINGE IVP PRN (16:39)
[2018-08-05] MEDS ORDERED: Dextrose 5% in Water 1,000 ML IV PRN (16:39)
[2018-08-05] MEDS: hydrALAZINE 25 MG TAB PO SCH ×2 (17:17→21:40)
[2018-08-05] MEDS ORDERED: Milk Of Magnesia 30 ML UDCUP PO PRN (17:25)
[2018-08-05] MEDS ORDERED: Ondansetron ODT 4 MG TAB PO PRN (17:26)
[2018-08-05] MEDS ORDERED: Acetaminophen 325 MG TAB PO PRN (17:27)
[2018-08-05] MEDS ORDERED: cloNIDine 0.1 MG TAB PO PRN (17:28)
[2018-08-05] MEDS: cefTRIAXone\\ROCEPHIN 2 GM in Sodium Chloride 0.9% 100 ML IVPB SCH (18:25)
[2018-08-05] MEDS: Flecainide 50 MG TAB PO SCH (21:40)
[2018-08-05] MEDS: Folic Acid 1 MG TAB PO SCH (21:40)
[2018-08-05] MEDS: Atorvastatin Calcium 40 MG TAB PO SCH (21:40)
[2018-08-05] MEDS: Apixaban 5 MG TAB PO SCH (21:40)
[2018-08-05] MEDS: Ascorbic Acid 500 mg Chewable Tablet PO SCH (21:40)
[2018-08-05] MEDS: Famotidine 20 MG TAB PO SCH (21:41)
--- NOTE | 2018-08-06 00:17 | HP ---
DATE OF ADMISSION: 08/05/2018 REASON FOR ADMISSION AND CHIEF COMPLAINT: Altered mental status, chest pain. HISTORY OF PRESENT ILLNESS: Ms. Marvin is an 83-year-old, female with past medical history of dementia, status post CVA, who was found to have altered mental status, the patient was not responding well. According to alf staff, the patient also has not been eating well either. She was started on Rocephin 3 days ago for urinary tract infection and given fluids as well, but today, she has not been responding well according to alf staff, complained of some jaw pain, and her blood pressure was also elevated at the alf. In the ER, the patient was evaluated. The patient complained of chest pain while in the ER. She was given aspirin and nitroglycerin. Her urinalysis was negative. When I went to see the patient, the patient was more alert and awake, able to answer all questions. So, in view of the chest pain and altered mental status, the patient is being admitted to rule out myocardial infarction. PAST MEDICAL HISTORY: 1. Dementia. 2. Hypertension. 3. Diabetes mellitus. 4. Hyperlipidemia. 5. Gastroesophageal reflux disease. 6. Status post CVA with left hemiparesis. 7. History of gastrointestinal bleeding. 8. Paroxysmal atrial fibrillation. 9. History of UTI. PAST SURGICAL HISTORY: 1. Status post hysterectomy. 2. Status post cholecystectomy. 3. Status post left hip replacement surgery. ALLERGIES: AMLODIPINE and CEFACLOR. CURRENT MEDICATIONS: The patient is on fluoxetine 20 mg daily, losartan 50 mg b.i.d., metoprolol 50 mg daily, Lantus insulin 5 units daily, hydralazine 25 mg q.i.d., Eliquis 5 mg b.i.d., Rocephin 2 grams daily, Ashley 60 mg daily, vitamin B12 daily, Pepcid 20 mg daily, Lipitor 40 mg daily, flecainide 50 mg daily, vitamin C daily, Colace 100 mg b.i.d. FAMILY HISTORY: Nothing of interest. SOCIAL HISTORY: The patient lives at [facility]. No history of smoking. No history of alcohol. REVIEW OF SYSTEMS: Unable to obtain fully, but the patient states she does have some pain in the chest, sharp in nature, not associated with diaphoresis. Respiratory: No fever or cough. Gastrointestinal: No nausea, vomiting, abdominal pain. Genitourinary: No dysuria or hematuria. Central Nervous System: No headache, no dizziness. PHYSICAL EXAMINATION: GENERAL: The patient is alert, awake, not well oriented. VITAL SIGNS: Temperature 98, pulse 65, respirations 20, blood pressure 158/60. HEENT: Head has hematoma on the left side, which is old one. Also, ecchymosis on the left temporal area, frontal areas of the left cheek area, and left side of the neck as well. NECK: Supple. No JVD. LUNGS: Bilateral air entry present. No rales or rhonchi. HEART: S1, S2 regular. ABDOMEN: Soft. No distention, no tenderness. Normal bowel sounds. RECTAL: Deferred. CENTRAL NERVOUS SYSTEM: The patient is alert, awake, not well oriented. Motor system: Power 4/5 in right upper and lower extremities and 2 to 3/5 in left upper and lower extremities. Deep tendon reflex, 2+ bilaterally. Plantar downgoing. Sensory intact. LABORATORY AND X-RAY FINDINGS: CBC shows WBC 11, hemoglobin 12, hematocrit 39, platelets 333. Metabolic panel: Sodium 136, potassium 4.8, chloride 108, CO2 of 20, urea nitrogen 12, creatinine 0.9, glucose 129. CK-MB 1.1. Troponin 0.044. Urinalysis is negative. Chest x-ray was not done. EKG shows normal sinus rhythm, no acute ST-T wave changes seen. ASSESSMENT: 1. Chest pain, rule out myocardial infarction. 2. Metabolic encephalopathy. 3. Left frontal hematoma, improving. 4. Left scalp hematoma, improving. 5. Urinary tract infection by history. 6. Status post cerebrovascular accident with left hemiparesis. 7. Hypertension, uncontrolled. 8. Diabetes mellitus. 9. Paroxysmal atrial fibrillation. 10. Dementia. 11. History of diarrhea. PLAN: 1. Vital signs q.4 hours. 2. Activity: As tolerated. 3. Allergies: CEFACLOR and AMLODIPINE. 4. Hep-Lock. 5. Diet: ADA and cardiac. 6. Troponin I q.8 hours as well as q.6 hours x2. 7. Increase hydralazine to 50 q.i.d. 8. Continue other medications. Hold Colace. 9. Stool for C. difficile and culture. 10. Rocephin 2 grams daily. MTDD
[2018-08-06] MEDS: Losartan 25 MG TAB PO SCH ×2 (09:40→12:51)
[2018-08-06] MEDS: hydrALAZINE 25 MG TAB PO SCH ×5 (09:40→21:32)
[2018-08-06] MEDS: Flecainide 50 MG TAB PO SCH ×3 (09:40→21:31)
[2018-08-06] MEDS: Famotidine 20 MG TAB PO SCH ×3 (09:40→21:32)
[2018-08-06] MEDS: Cyanocobalamin (Vitamin B-12) 1,000 MCG TAB PO SCH ×2 (09:41→12:50)
[2018-08-06] MEDS: Loratadine 10 MG TAB PO SCH ×2 (09:41→12:51)
[2018-08-06] MEDS: Apixaban 5 MG TAB PO SCH ×3 (09:41→21:33)
[2018-08-06] MEDS: Insulin Glargine 5 UNITS in Pre-Filled Syringe 1 EACH SC SCH (09:41)
[2018-08-06] MEDS: FLUoxetine HCl 20 MG CAP PO SCH (12:44)
[2018-08-06] MEDS: Vancomycin HCl 25 MG/ML Oral PO SCH (17:04)
[2018-08-06] MEDS: cefTRIAXone\\ROCEPHIN 2 GM in Sodium Chloride 0.9% 100 ML IVPB SCH (17:12)
[2018-08-06] MEDS: Sodium Chloride 0.45% 1,000 ML IV SCH (19:57)
[2018-08-06] MEDS: Atorvastatin Calcium 40 MG TAB PO SCH (21:31)
[2018-08-06] MEDS: Folic Acid 1 MG TAB PO SCH (21:31)
[2018-08-06] MEDS: Ascorbic Acid 500 mg Chewable Tablet PO SCH (21:32)
[2018-08-07] MEDS: Vancomycin HCl 25 MG/ML Oral PO SCH ×4 (00:04→17:47)
[2018-08-07 06:05] LABS: #Basophils 0.1 thou/uL (0.0-0.2); #Eosinphils 0.4 thou/uL (0.0-0.7); #Lymphocytes 3.9 thou/uL (1.20-3.40); #Monocytes 0.9 thou/uL (0.11-0.59); #Neutrophils 6.4 thou/uL (1.40-6.50); %Basophils 0.8 % (0.0-1.0); %Eosinophils 3.4 % (0.0-10.0); %Lymphocytes 33.4 % (21.0-51.0); %Monocytes 7.4 % (0.0-10.0); %Neutrophils 55.1 % (42.0-75.0); Hemoglobin 13.5 g/dL (12.0-16.0); Mean Corpuscular HGB CONC 32.2 g/dL (32.0-36.0); Mean Corpuscular Hemoglobin 30.3 pg (27.0-31.0); Mean Corpuscular Volume 93.9 fL (78.0-98.0); Mean Platelet Volume 8.2 fL (7.4-10.4); Platelet Count 397 thou/uL (130-400); RBC Distribution Width 12.3 % (11.5-14.5); Red Blood Cell (RBC) Count 4.47 mill/uL (4.20-5.40); White Blood Cell (WBC) Count 11.6 thou/uL (4.8-10.8)
[2018-08-07 06:18] LABS: Anion Gap 18 mmol/L (10-20); BUN (Urea Nitrogen) 11 mg/dL (9.8-20.1); Calc. Creatinine Clearance 55 mL/min (70-130); Carbon Dioxide 16 mmol/L (23-31); Chloride 107 mmol/L (98-107); Estimated GFR-MDRD 56; Glucose 152 mg/dL (83-110); Potassium 3.9 mmol/L (3.5-5.1); Sodium 137 mmol/L (136-145)
[2018-08-07] MEDS: Flecainide 50 MG TAB PO SCH ×2 (09:52→21:30)
[2018-08-07] MEDS: hydrALAZINE 25 MG TAB PO SCH ×4 (09:52→21:27)
[2018-08-07] MEDS: FLUoxetine HCl 20 MG CAP PO SCH (09:52)
[2018-08-07] MEDS: Loratadine 10 MG TAB PO SCH (09:52)
[2018-08-07] MEDS: Insulin Glargine 5 UNITS in Pre-Filled Syringe 1 EACH SC SCH (09:53)
[2018-08-07] MEDS: Losartan 25 MG TAB PO SCH (09:53)
[2018-08-07] MEDS: Cyanocobalamin (Vitamin B-12) 1,000 MCG TAB PO SCH (09:53)
[2018-08-07] MEDS: Apixaban 5 MG TAB PO SCH ×2 (09:53→21:33)
[2018-08-07] MEDS: Famotidine 20 MG TAB PO SCH ×2 (09:53→21:34)
[2018-08-07] MEDS: Sodium Chloride 0.45% 1,000 ML IV SCH (11:46)
[2018-08-07] MEDS: cefTRIAXone\\ROCEPHIN 2 GM in Sodium Chloride 0.9% 100 ML IVPB SCH (18:57)
[2018-08-07] MEDS ORDERED: hydrALAZINE 20 MG/ML VIAL SLOW IVP PRN (19:00)
[2018-08-07] MEDS: Atorvastatin Calcium 40 MG TAB PO SCH (21:30)
[2018-08-07] MEDS: Ascorbic Acid 500 mg Chewable Tablet PO SCH (21:33)
[2018-08-07] MEDS: Folic Acid 1 MG TAB PO SCH (21:35)
[2018-08-08] MEDS: Vancomycin HCl 25 MG/ML Oral PO SCH ×5 (00:25→18:38)
[2018-08-08] MEDS ORDERED: hydrALAZINE 20 MG/ML VIAL SLOW IVP PRN (07:24)
[2018-08-08] MEDS: Insulin Glargine 5 UNITS in Pre-Filled Syringe 1 EACH SC SCH (09:09)
[2018-08-08] MEDS: Loratadine 10 MG TAB PO SCH (09:09)
[2018-08-08] MEDS: Losartan 25 MG TAB PO SCH (09:09)
[2018-08-08] MEDS: FLUoxetine HCl 20 MG CAP PO SCH (09:09)
[2018-08-08] MEDS: Flecainide 50 MG TAB PO SCH ×2 (09:09→21:53)
[2018-08-08] MEDS: Famotidine 20 MG TAB PO SCH ×2 (09:09→21:53)
[2018-08-08] MEDS: Apixaban 5 MG TAB PO SCH ×2 (09:09→21:53)
[2018-08-08] MEDS: Cyanocobalamin (Vitamin B-12) 1,000 MCG TAB PO SCH (09:09)
[2018-08-08] MEDS: hydrALAZINE 25 MG TAB PO SCH ×4 (09:38→21:56)
[2018-08-08 11:39] VITALS: BMI 25.0
[2018-08-08] MEDS: Ascorbic Acid 500 mg Chewable Tablet PO SCH (21:53)
[2018-08-08] MEDS: Folic Acid 1 MG TAB PO SCH (21:53)
[2018-08-08] MEDS: Atorvastatin Calcium 40 MG TAB PO SCH (21:54)
[2018-08-09] MEDS: Vancomycin HCl 25 MG/ML Oral PO SCH ×4 (00:22→17:58)
[2018-08-09] MEDS: Insulin Glargine 5 UNITS in Pre-Filled Syringe 1 EACH SC SCH (09:19)
[2018-08-09] MEDS: hydrALAZINE 25 MG TAB PO SCH ×3 (10:25→21:36)
[2018-08-09] MEDS: Apixaban 5 MG TAB PO SCH ×2 (10:25→21:35)
[2018-08-09] MEDS: Flecainide 50 MG TAB PO SCH ×2 (10:25→21:35)
[2018-08-09] MEDS: Losartan 25 MG TAB PO SCH (10:26)
[2018-08-09] MEDS: Saccharomyces boulardii 250 MG CAP PO SCH (10:26)
[2018-08-09] MEDS: FLUoxetine HCl 20 MG CAP PO SCH (10:26)
--- NOTE | 2018-08-09 10:32 | CON ---
DATE OF CONSULTATION: 08/09/2018 INDICATION FOR CONSULTATION: This is an 83-year-old female with hypertension and other medical probl ems which include occasional bradycardia. HISTORY OF PRESENT ILLNESS: This very unfortunate 83-year-old female who has had multiple medical pr oblems in the past. She suffered a CVA. She has had a history of hypertension. She has altered men lety status. [facility] a [facility]. She has dementia. She has not been eating very much rec ently and has had failure to thrive. She has been having urinary tract infections in the past. She has been placed on antibiotics and she remains on antibiotics at this time. She was seen in the [facility] room apparently complaining of some chest discomfort. Unfortunately, I cannot get any informat ion from this lady, she has maybe the alertness of perhaps 1, she is arousable, but appears to be truong y sleepy. She does not offer up any answers to the questions and just continues to drift back off to sleep. In the emergency room apparently there was some concern about some chest discomfort and she was admitted with the chest discomfort and possible rule out myocardial infarction. Her cardiac enzy mes were indeterminate at 0.044, increased up to 0.052 and then decreased back down to 0.04. The MBs were negative. This does not indicate myocardial infarction. Her EKG did have some abnormalities, but she has some type of conduction abnormality. Also, she had decreased R-wave progression in the a nterior leads which could have been considered as a possible old anterior myocardial infarction. She has had an echocardiogram earlier this year which showed ejection fraction to be within normal limit s. This was performed in May. Ejection fraction was 55-60%. She also had some mild dilatation of the left atrium as well as some diastolic dysfunction. At this time, I cannot elicit any complaints from the patient. PAST MEDICAL HISTORY: Significant for hypertension, diabetes, hyperlipidemia, gastroesophageal reflu x disease. She has had a CVA. She has a left hemiparesis. Also, the right upper extremity appears to be somewhat contracted. She has a history of paroxysmal atrial fibrillation, history of urinary t ract infections, dementia. She has had a history of GI bleeds in the past. She has had a hysterecto my, cholecystectomy, left hip replacement. ALLERGIES: She is allergic to AMLODIPINE and CEFACLOR. MEDICATIONS: Insulin, vancomycin, Eliquis, Lipitor, vitamins, Pepcid, flecainide, Prozac, Folvite, h ydralazine, Cozaar and Claritin. REVIEW OF SYSTEMS: Not obtainable as she does not offer any information. Please refer to the notes already dictated. SOCIAL HISTORY: She lives in a [facility]. She has no history of alcohol or tobacco abuse. FAMILY HISTORY: Noncontributory. PHYSICAL EXAMINATION: GENERAL: Reveals an elderly demented female who has obviously had strokes in the past and has hemipa resis and has contractures of the left upper extremity worse than the right. VITAL SIGNS: Her blood pressure is fluctuating between 130/53 to 170/70. The highest was over 200 s ystolic. This is only one reading a couple days ago, heart rate is 62 and sinus rhythm. Respiratory rate is about 18. HEENT: Shows the head to have a large hematoma which is slightly fluctuant in the left frontal area of the scalp, but otherwise unremarkable. Carotids are present. I do not hear any significant bruit s. CHEST: Clear to auscultation. She has poor inspiratory effort. CARDIOVASCULAR: Exam reveals a regular rate and rhythm. There are no gross murmurs noted. ABDOMEN: Soft and nontender. Positive bowel sounds are present. EXTREMITIES: Show no clubbing, cyanosis or edema. Pedal pulses are present. SKIN: Warm and dry. NEUROLOGIC: The patient is alert and oriented x1. She is arousable, but that is about it. I cannot elicit any further information from the patient. IMPRESSION: 1. Hypertension, which appears to be under reasonable control at this time. Occasionally, she does fluctuate, but overall blood pressure appears to be relatively stable with the present medications an d I would agree with the present management of the patient. 2. History of abnormal EKGs. The patient does have diastolic dysfunction. She may have had myocard ial infarctions in the past; however, EKG does not show anything acute. Her echocardiogram did not g aminata evidence back in May of any myocardial infarction. I will need to compare her EKGs with older E KGs, but at this time I do not see any acute changes, there is no ST segment elevation and I suspect that the abnormal EKG changes most likely are due to ongoing hypertension. She may have had an infer ior myocardial infarction and again will need to evaluate the old EKGs at this time. She is not a ca ndidate to undergo any type of interventional procedures. She is also not a candidate for pacemaker should she become bradycardic unless her mental status improves. At this time, she appears to be com fortable and I would agree with the present management of the patient. 3. History of diabetes. This will be dealt with by the primary care service. 4. History of hyperlipidemia. Given her age and her mental status changes, it could be reasonable t o stop the Lipitor at this time unless she has severe elevation of the cholesterol. Her last LDL lev el back in May, was 154, I do not see one has been checked since that time and based on this, it cou ld be reasonable either way to proceed with the Lipitor or given her status issues do not improve, to stop this medication, it would be 1 less medication that she would have to take. 5. History of intermittent atrial fibrillation. She has remained in sinus rhythm since she has been here and she seems to be tolerating the flecainide and I would continue this medication. From my perspective, the patient is stable enough most likely to be returned to the [facility]. I do not have any further recommendations at this time for the patient.
[2018-08-09] MEDS: Cyanocobalamin (Vitamin B-12) 1,000 MCG TAB PO SCH (10:40)
[2018-08-09] MEDS: Famotidine 20 MG TAB PO SCH ×2 (10:41→21:35)
[2018-08-09] MEDS: Loratadine 10 MG TAB PO SCH (10:41)
[2018-08-09 11:12] LABS: #Basophils 0.1 thou/uL (0.0-0.2); #Eosinphils 0.6 thou/uL (0.0-0.7); #Lymphocytes 4.7 thou/uL (1.20-3.40); #Neutrophils 5.5 thou/uL (1.40-6.50); %Eosinophils 5.4 % (0.0-10.0); %Lymphocytes 39.6 % (21.0-51.0); Hemoglobin 14.4 g/dL (12.0-16.0); Mean Corpuscular HGB CONC 31.4 g/dL (32.0-36.0); Mean Corpuscular Hemoglobin 29.4 pg (27.0-31.0); Mean Corpuscular Volume 93.7 fL (78.0-98.0); Mean Platelet Volume 7.8 fL (7.4-10.4); Platelet Count 353 thou/uL (130-400); RBC Distribution Width 12.6 % (11.5-14.5); White Blood Cell (WBC) Count 11.9 thou/uL (4.8-10.8)
[2018-08-09 11:30] LABS: Anion Gap 11 mmol/L (10-20); BUN (Urea Nitrogen) 9 mg/dL (9.8-20.1); Calc. Creatinine Clearance 66 mL/min (70-130); Calcium 11.2 mg/dL (7.8-10.44); Carbon Dioxide 21 mmol/L (23-31); Chloride 108 mmol/L (98-107); Estimated GFR-MDRD 69; Glucose 134 mg/dL (83-110); Potassium 3.8 mmol/L (3.5-5.1); Sodium 136 mmol/L (136-145)
[2018-08-09] MEDS: Folic Acid 1 MG TAB PO SCH (21:35)
[2018-08-09] MEDS: Atorvastatin Calcium 40 MG TAB PO SCH (21:35)
[2018-08-09] MEDS: Ascorbic Acid 500 mg Chewable Tablet PO SCH (21:35)
[2018-08-10] MEDS: Vancomycin HCl 25 MG/ML Oral PO SCH ×2 (00:56→05:36)
[2018-08-10 09:18] VITALS: TEMP 97.8
--- NOTE | 2018-08-10 10:16 | PDOC.CTH ---
Cardiology Progress Note - Subjective The pt seen and examined. No overnight events. She is very drowsy and unable to answer any questions or follow commands at this time. - Objective Vital Signs Temp Pulse Resp BP Pulse Ox 08/10/18 08:51 97.8 F 63 17 143/65 H 98 08/10/18 04:00 98.2 F 63 14 151/66 H 99 Admit Weight 176 lb 0.32 oz Weight 169 lb 1.6 oz 08/09/18 08/10/18 08/11/18 06:59 06:59 06:59 Intake Total 400 320 Output Total 576 Balance -176 320 - Physical Examination General/Neuro: other: (confused) Lungs: CTA Heart: RRR Abdomen: soft Extremities: other: - Telemetry Telemetry Rhythm: SB/SR 55-60s - Labs Result Diagrams: 08/09/18 10:58 08/09/18 10:58 Troponin/CKMB CK-MB (CK-2) 1.1 ng/mL (0-6.6) 08/05/18 12:12 Troponin I 0.040 ng/mL (< 0.028) H 08/05/18 18:51 - Assessment/Plan 1. HTN - relatively stable 2. Paroxysmal Afib - Remains in SR/SB with Flecainide 50 mg BID, Eliquis 5mg BID , and Metoprolol. [id number] score of 7 (Age >75, Female, HTN, CVA, DM) 3. Abnormal ECG - not good candidate for further cardiac sx. 4. DM type 2 - managed by PCP 5. hx of CVA with Lt hemiparesis - 6. Hx of GI bleed - stable 7. Dementia MAR * From Cardiac standpoint, the pt is stable to tx back to SNF. Review of Systems - Review of Systems Constitutional: reports: see HPI EENTM: reports: see HPI Respiratory: reports: see HPI Cardiac (ROS): reports: see HPI ABD/GI: reports: see HPI
[2018-08-10] MEDS: Famotidine 20 MG TAB PO SCH (10:46)
[2018-08-10] MEDS: Cyanocobalamin (Vitamin B-12) 1,000 MCG TAB PO SCH (10:46)
[2018-08-10] MEDS: hydrALAZINE 25 MG TAB PO SCH (10:47)
[2018-08-10] MEDS: Loratadine 10 MG TAB PO SCH (10:48)
[2018-08-10 10:54] VITALS: BP 139/64
[2018-08-10] MEDS: Flecainide 50 MG TAB PO SCH (10:58)
[2018-08-10] MEDS: FLUoxetine HCl 20 MG CAP PO SCH (10:58)
[2018-08-10] MEDS: Losartan 25 MG TAB PO SCH (10:58)
[2018-08-10] MEDS: Apixaban 5 MG TAB PO SCH (10:58)
[2018-08-10] MEDS: Insulin Glargine 5 UNITS in Pre-Filled Syringe 1 EACH SC SCH (10:58)
[2018-08-10] MEDS: Saccharomyces boulardii 250 MG CAP PO SCH (10:59)
--- NOTE | 2018-08-11 16:08 | EKG ---
Test Reason : Blood Pressure : / mmHG Vent. Rate : 064 BPM Atrial Rate : 064 BPM P-R Int : 188 ms QRS Dur : 100 ms QT Int : 454 ms P-R-T Axes : 074 -22 114 degrees QTc Int : 468 ms Sinus rhythm with Premature atrial complexes Inferior infarct , age undetermined Anteroseptal infarct , age undetermined Abnormal ECG Confirmed by TANIKA SCHNEIDER, MACARIO ([id number]), department editor MISTY SANABRIA ([id number]) on 08/11/2018 4:07:51 PM Referred By: Confirmed By:MACARIO SAGASTUME MD
--- NOTE | 2018-08-11 16:10 | EKG ---
Test Reason : Blood Pressure : / mmHG Vent. Rate : 067 BPM Atrial Rate : 067 BPM P-R Int : 162 ms QRS Dur : 108 ms QT Int : 462 ms P-R-T Axes : 042 -19 111 degrees QTc Int : 488 ms Normal sinus rhythm with sinus arrhythmia Inferior infarct , age undetermined Anteroseptal infarct , age undetermined Abnormal ECG No changes 22-JUN-2018 Confirmed by TANIKA SCHNEIDER, MACARIO ([id number]), field map editor MISTY SANABRIA ([id number]) on 08/11/2018 4:10:45 PM Referred By: Confirmed By:MACARIO SAGASTUME MD
--- NOTE | 2018-08-13 10:43 | DIS ---
DATE OF ADMISSION: 08/05/2018 DATE OF DISCHARGE: 08/10/2018 ADMITTING DIAGNOSES: 1. Chest pain, rule out myocardial infarction. 2. Metabolic encephalopathy. 3. Left frontal hematoma, improving. 4. Left scalp hematoma, improving. 5. Urinary tract infection. 6. Status post cerebrovascular accident with right hemiparesis. 7. Uncontrolled hypertension. 8. Diabetes mellitus. 9. Paroxysmal atrial fibrillation. 10 . Dementia. FINAL DIAGNOSES: 1. Clostridium difficile colitis. 2. Protein-calorie malnutrition, severe. 3. Severe dementia. 4. Metabolic encephalopathy, improved. 5. Left frontal and scalp hematoma, improving. 6. Status post cerebrovascular accident with left hemiparesis. 7. Diabetes mellitus. 8. Hypertension, uncontrolled, improved. 9. Paroxysmal atrial fibrillation. BRIEF SUMMARY OF HOSPITAL COURSE: Ms. Marvin is an 83-year-old female admitted because of chest pain. The patient was admitted to rule out myocardial infarction. Serial cardiac enzymes were within normal limits, but patient developed diarrhea, watery stools. Stool test was done for C. dif f and came out positive, so patient was started on vancomycin p.o. Patient was lethargic on admissio n, but improved in few days and started on diet, but she was not eating much. Her hypertension was u ncontrolled. Her medication hydralazine dose was increased after which her blood pressure came down to normal. Cardiology consult was also done. Patient was seen by Dr. Shane. She felt her chest pain is resolved. She is not a candidate for any invasive workup for coronary artery disease. Her blood pressure is fairly controlled. No additional recommendations. The patient's diarrhea has improved, but she is still not improving, not eating much. Her condition was discussed with the family, did n ot want any PEG tubing. Continue with current diet. Patient will be transferred back to the [facility]. At the time of discharge, it was stable. Her vital signs stable. Lungs clear. Heart so unds regular. Abdomen is soft, nontender. Bowel sounds present. DISCHARGE MEDICATIONS: Include vitamin C daily 500 mg, vitamin B12 of 1000 mcg daily, Milk of Magnes ia p.r.n., Prozac 20 mg daily, metoprolol 50 daily, losartan 50 mg daily, Lipitor 40 mg daily, folic acid 3 mg at bedtime, flecainide 50 b.i.d., clonidine 0.1 q.6 hours p.r.n., Zofran p.r.n., Tylenol p. r.n., Eliquis 5 mg b.i.d., Lantus insulin 5 units daily, Pepcid 20 mg daily, Ashley 60 mg daily, hyd ralazine 50 t.i.d., Florastor 250 mg daily, vancomycin 125 q.i.d. for 10 days. FOLLOWUP: Patient will be followed up at [facility].
== END 2018-08-10 12:10 | DRG 313 ==
LOC: ERS 11:29 → 2NO 14:31
PROVIDERS: ADMIT Internal Medicine; ATTEND Internal Medicine
DX: R07.9 Chest pain, unspecified (principal); G93.41 Metabolic encephalopathy; N39.0 Urinary tract infection, site not specified; I69.354 Hemiplegia and hemiparesis following cerebral infarction affecting left non-dominant side; I10 Essential (primary) hypertension; F03.90 Unspecified dementia, unspecified severity, without behavioral disturbance, psychotic disturbance, mood disturbance, and anxiety; R94.31 Abnormal electrocardiogram [ECG] [EKG]; I48.0 Paroxysmal atrial fibrillation; E11.9 Type 2 diabetes mellitus without complications; R62.7 Adult failure to thrive; R00.1 Bradycardia, unspecified; K21.9 Gastro-esophageal reflux disease without esophagitis; S00.03XD Contusion of scalp, subsequent encounter; E78.5 Hyperlipidemia, unspecified; Z87.19 Personal history of other diseases of the digestive system; Z79.01 Long term (current) use of anticoagulants; Z79.4 Long term (current) use of insulin; Z88.8 Allergy status to other drugs, medicaments and biological substances
CPT/HCPCS: 36415; 36416; 51701; 70470; 80048; 80053; 81003; 82274; 82553; 83630; 84484; 85025; 87045; 87046; 87086; 87324; 87449; 87493; 87899; 93005; A4216; G8996-GN-CK; G8997-GN-CJ; J0360; J0696; J7050; Q0162

== ENCOUNTER 2018-08-29 14:16 | Emergency (ER) | payer MEDICARE, BC ==
[2018-08-29 15:32] LABS: #Basophils 0.1 thou/uL (0.0-0.2); #Eosinphils 0.4 thou/uL (0.0-0.7); #Lymphocytes 4.4 thou/uL (1.20-3.40); #Monocytes 0.6 thou/uL (0.11-0.59); #Neutrophils 6.7 thou/uL (1.40-6.50); %Basophils 0.6 % (0.0-1.0); %Eosinophils 3.5 % (0.0-10.0); %Monocytes 5.1 % (0.0-10.0); %Neutrophils 54.7 % (42.0-75.0); Hemoglobin 15.8 g/dL (12.0-16.0); Mean Corpuscular Volume 93.5 fL (78.0-98.0); Mean Platelet Volume 9.9 fL (7.4-10.4); Platelet Count 220 thou/uL (130-400); RBC Distribution Width 13.7 % (11.5-14.5); Red Blood Cell (RBC) Count 5.29 mill/uL (4.20-5.40); White Blood Cell (WBC) Count 12.2 thou/uL (4.8-10.8)
[2018-08-29 15:41] LABS: ALT (SGPT) 14 U/L (8-55); AST (SGOT) 15 U/L (5-34); Albumin 3.9 g/dL (3.4-4.8); Alkaline Phosphatase 79 U/L (40-150); Anion Gap 12 mmol/L (10-20); BUN (Urea Nitrogen) 16 mg/dL (9.8-20.1); Bilirubin, Total 0.8 mg/dL (0.2-1.2); Calc. Creatinine Clearance 0 mL/min (70-130); Calcium 11.8 mg/dL (7.8-10.44); Carbon Dioxide 25 mmol/L (23-31); Chloride 105 mmol/L (98-107); Estimated GFR-MDRD 51; Globulin 3.4 g/dL (2.4-3.5); Glucose 177 mg/dL (83-110); Potassium 3.3 mmol/L (3.5-5.1); Protein, Total 7.3 g/dL (6.0-8.3); Sodium 139 mmol/L (136-145)
--- NOTE | 2018-08-29 15:52 | RAD ---
CHEST ONE VIEW: 08/29/18 COMPARISON: 05/24/18 HISTORY: Generalized weakness. FINDINGS: Atherosclerosis of the aorta. Normal cardiac silhouette. The pulmonary vessels and hilum are normal. Costophrenic angles are clear. Diminished lung volumes, without consolidation or mass. No pneumothora x or osseous abnormalities. Calcified granuloma in the left upper lobe is redemonstrated. IMPRESSION: 1. Diminished lung volumes likely due to poor inspiratory effort. 2. No acute cardiopulmonary process. 3. Atherosclerosis. POS: [facility]
--- NOTE | 2018-08-29 15:53 | CT ---
HEAD CT WITHOUT CONTRAST: Date: 08/29/18 COMPARISON: 07/23/18 and 08/03/18. HISTORY: Generalized weakness. FINDINGS: Stable malacic change involving the right frontal and temporal lobe. Stable white matter hypodensitie s due to chronic small vessel ischemic change. No midline shift. Basilar cisterns are patent. Stable atrophy. No parenchymal hemorrhage. No extra-axial hematoma. Interval resolution of previously noted left scalp hematoma. Minimal residual soft tissue prominence does remain along the left frontal convexity. Calvarium is intact. Adequate aeration of the sinuses a nd mastoid air cells. Atherosclerosis of the carotid arteries is noted. IMPRESSION: 1. No intracranial post-traumatic sequelae. 2. Stable chronic small vessel ischemic change of the white matter. 3. Stable malacic change involving the right cerebrum. POS: [facility]
[2018-08-29 16:06] LABS: Bilirubin Negative (Negative); Blood, Urine Negative (Negative); Clarity TURBID (Clear); Glucose, Urine (Dipstick) Negative (Negative); Leukocyte Trace (Negative); Nitrite Negative (Negative); Protein, Urine (Dipstick) Negative (Neg-Trace); Specific Gravity, Urine 1.023 (1.002-1.036); Urobilinogen 0.2 mg/dL (0.2-1.0); pH, Urine 5.5 (5.0-9.0)
[2018-08-29 16:08] LABS: Bacteria/HPF None Seen HPF (None Seen)
[2018-08-29 16:13] LABS: Pathc Cast-AUWi Flag 16.57 (0-2.49)
[2018-08-29 16:20] LABS: RBC/HPF 0-3 HPF (0-3); WBC/HPF 0-3 HPF (0-3)
[2018-08-29 16:21] LABS: Hyaline Casts/LPF 0-3 HYALINE CAST LPF (0-3 Hyaline); Other Casts/LPF None Seen LPF (0-3 Hyaline)
[2018-08-29] MEDS ORDERED: Potassium Chloride 20 MEQ TAB ONE (18:03)
== END 2018-08-29 18:28 | disposition home or self-care (01) ==
LOC: ERS 14:16
DX: E86.0 Dehydration (principal); E87.6 Hypokalemia; I48.91 Unspecified atrial fibrillation; E11.9 Type 2 diabetes mellitus without complications; I10 Essential (primary) hypertension; Z86.73 Personal history of transient ischemic attack (TIA), and cerebral infarction without residual deficits; F41.8 Other specified anxiety disorders
CPT/HCPCS: 36415; 70450; 71045; 80053; 81003; 81015; 85025; 93005; A4353

== ENCOUNTER 2018-09-25 10:18 | Inpatient (IN) | payer MEDICARE, BC ==
[2018-09-25 11:16] LABS: Bilirubin Moderate (Negative); Blood, Urine Trace (Negative); Clarity CLOUDY (Clear); Glucose, Urine (Dipstick) Negative (Negative); Leukocyte Negative (Negative); Nitrite Negative (Negative); Protein, Urine (Dipstick) Negative (Neg-Trace); Specific Gravity, Urine 1.026 (1.002-1.036); Urobilinogen 0.2 mg/dL (0.2-1.0)
[2018-09-25 11:21] LABS: Squamous Epithelial 0-3 HPF (0-3); WBC/HPF 0-3 HPF (0-3)
[2018-09-25 11:25] LABS: Pathc Cast-AUWi Flag 6.68 (0-2.49)
[2018-09-25 11:40] LABS: Hyaline Casts/LPF 0-3 HYALINE CAST LPF (0-3 Hyaline)
[2018-09-25 11:41] LABS: Bacteria/HPF 1+ HPF (None Seen); Crystals/HPF None Seen HPF (Negative)
[2018-09-25 11:52] LABS: Hemoglobin 17.5 g/dL (12.0-16.0); Mean Corpuscular HGB CONC 30.2 g/dL (32.0-36.0); Mean Corpuscular Hemoglobin 28.9 pg (27.0-31.0); Mean Corpuscular Volume 95.8 fL (78.0-98.0); Mean Platelet Volume 12.1 fL (7.4-10.4); Platelet Count 131 thou/uL (130-400); Red Blood Cell (RBC) Count 6.05 mill/uL (4.20-5.40)
[2018-09-25 12:11] LABS: CKMB 19.9 ng/mL (0-6.6); Troponin I 0.682 ng/mL (< 0.028)
[2018-09-25 12:12] LABS: ALT (SGPT) 26 U/L (8-55); AST (SGOT) 42 U/L (5-34); Albumin 3.6 g/dL (3.4-4.8); Alkaline Phosphatase 126 U/L (40-150); Anion Gap 18 mmol/L (10-20); BUN (Urea Nitrogen) 92 mg/dL (9.8-20.1); Bilirubin, Total 0.8 mg/dL (0.2-1.2); Calc. Creatinine Clearance 0 mL/min (70-130); Calcium 12.7 mg/dL (7.8-10.44); Carbon Dioxide 28 mmol/L (23-31); Chloride 129 mmol/L (98-107); Estimated GFR-MDRD 16; Globulin 3.4 g/dL (2.4-3.5); Glucose 171 mg/dL (83-110); Potassium 3.8 mmol/L (3.5-5.1); Sodium 171 mmol/L (136-145)
[2018-09-25 12:36] LABS: Band 1 % (5-11); Eosinophils 3 % (0-10); Lymphocytes 24 % (21-51); Monocytes 4 % (0-10); Neutrophil 55 % (42-75); Reactive Lymphocytes 13 % (0-10)
[2018-09-25 12:37] LABS: MDiff Complete? YES
--- NOTE | 2018-09-25 12:51 | RAD ---
CHEST ONE VIEW: HISTORY: An 83-year-old female with altered mental status and low diastolic blood pressure. FINDINGS: Monitor leads overly the chest. Old granulomatous disease. Heart size is normal. No confluent pneu monia, overt edema, or pleural effusion. Stable from prior study, 08/29/2018. IMPRESSION: 1. Stable chest. 2. Old granulomatous disease. 3. Atherosclerosis of the aorta with ectasia. POS: [facility]
--- NOTE | 2018-09-25 12:56 | CT ---
HEAD CT WITHOUT CONTRAST: HISTORY: Altered mental status. COMPARISON: 08/29/2018 FINDINGS: No parenchymal hemorrhage. No extraaxial hematoma. No midline shift. The basilar cisterns are moon nt. Age appropriate atrophy. Chronic small vessel ischemic changes of the white matter identified. Stable malacic and gliotic change in the right temporal lobe. The remainder of the cerebrum demonst rates preservation of cortical saldivar white matter differentiation. Stable configuration of the ventricular system. Adequate aeration of the sinuses and mastoid air cells. The calvarium is intact. IMPRESSION: 1. No acute intracranial process. 2. Chronic small vessel ischemic change of the white matter. 3. Stable malacic and gliotic change of the right temporal lobe due to previous right middle cerebra l artery distribution insult. POS: [facility]
[2018-09-25] MEDS ORDERED: Sodium Chloride 0.9% 100 ML ONE (13:34)
[2018-09-25] MEDS ORDERED: Piperacillin/Tazobactam 3.375 GM VIAL ONE (13:34)
[2018-09-25] MEDS ORDERED: Aspirin 300 MG Suppository ONE (13:34)
[2018-09-25 14:12] LABS: CKMB 20.7 ng/mL (0-6.6); Troponin I 0.641 ng/mL (< 0.028)
[2018-09-25] MEDS ORDERED: Ondansetron PF 4 MG/2 ML Vial IVP PRN (16:07)
[2018-09-25] MEDS ORDERED: Ondansetron ODT 4 MG TAB SL PRN (16:07)
[2018-09-25] MEDS ORDERED: Acetaminophen 325 MG TAB PO PRN (16:07)
[2018-09-25 16:12] LABS: Critical Call Chem Troponin I RESULT DECREASING; Troponin I 0.614 ng/mL (< 0.028)
[2018-09-25] MEDS ORDERED: Dextrose 5% in Water 1,000 ML IV SCH (16:15)
[2018-09-25 17:17] LABS: Lactic Acid 3.5 mmol/L (0.5-2.2)
[2018-09-25] MEDS ORDERED: Dextrose 5% in Water 1,000 ML IV PRN (18:38)
[2018-09-25] MEDS ORDERED: Dextrose 50% Abboject 50 ML SYRINGE IVP PRN (18:38)
[2018-09-25] MEDS: Dextrose 5% in Water 1,000 ML IV SCH (18:51)
[2018-09-25 19:17] LABS: Hemoglobin 14.8 g/dL (12.0-16.0); Mean Corpuscular HGB CONC 29.5 g/dL (32.0-36.0); Mean Corpuscular Hemoglobin 28.7 pg (27.0-31.0); Mean Corpuscular Volume 97.4 fL (78.0-98.0); Mean Platelet Volume 12.5 fL (7.4-10.4); Platelet Count 100 thou/uL (130-400); RBC Distribution Width 14.8 % (11.5-14.5); Red Blood Cell (RBC) Count 5.15 mill/uL (4.20-5.40); White Blood Cell (WBC) Count 16.4 thou/uL (4.8-10.8)
[2018-09-25 19:22] LABS: Troponin I 0.645 ng/mL (< 0.028)
[2018-09-25 19:37] LABS: Anion Gap 20 mmol/L (10-20); BUN (Urea Nitrogen) 91 mg/dL (9.8-20.1); Calc. Creatinine Clearance 15 mL/min (70-130); Calcium 11.3 mg/dL (7.8-10.44); Carbon Dioxide 22 mmol/L (23-31); Chloride 132 mmol/L (98-107); Estimated GFR-MDRD 16; Glucose 255 mg/dL (83-110); Potassium 3.6 mmol/L (3.5-5.1); Sodium 170 mmol/L (136-145)
[2018-09-25 19:47] LABS: #Basophils 0.2 thou/uL (0.0-0.2); #Eosinphils 0.2 thou/uL (0.0-0.7); #Lymphocytes 5.3 thou/uL (1.20-3.40); #Monocytes 0.7 thou/uL (0.11-0.59); %Basophils 1.1 % (0.0-1.0); %Eosinophils 1.4 % (0.0-10.0); %Monocytes 4.4 % (0.0-10.0); %Neutrophils 61.1 % (42.0-75.0); Anisocytosis SLIGHT = 6-15 cells (100X) (0-5/hpf); MDiff Complete? YES; PLT Morphology Comment Appears Decreased
[2018-09-25] MEDS: Piperacillin/Tazobactam 2.25 GM in Sodium Chloride 0.9% 100 ML IVPB SCH (20:04)
--- NOTE | 2018-09-25 23:47 | CON ---
DATE OF CONSULTATION: 09/25/2018 HISTORY OF PRESENT ILLNESS: Ms. Marvin is an 83-year-old white female who is a resident of [facility], was transferred for further evaluation for the decreased maintenance status. She was noted to be severely hypernatremic. Please note, she has a history of C. difficile colitis recently. She has had decreased p.o. intake for the last several days. She continues to have ongoing diarrhea. Du ring the initial evaluation, she was noted to be severely hypernatremic. D5 water has been started a t the ER. REVIEW OF SYSTEMS: Positive for decreased mentation, decreased appetite, decreased energy level. Po sitive for diarrhea. Positive for nausea, but no vomiting. No headache, no diplopia, no fever or ch ills, no abdominal pain, no shortness of breath, no chest pain. HOME MEDICATIONS: Included hydralazine 50 mg p.o. t.i.d., clonidine 0.1 mg p.r.n., vancomycin 125 mg q.i.d., Florastor 250 mg daily, metoprolol succinate 50 mg once a day, magnesium hydroxide p.r.n., i nsulin 5 units subcu q.a.m., folic acid 3 mg at bedtime, flecainide 50 mg p.o. b.i.d., fluoxetine 20 mg daily, atorvastatin 40 mg at bedtime, and Eliquis 5 mg p.o. b.i.d. PAST MEDICAL HISTORY: Status post atrial fibrillation, hypertension, C. difficile colitis, depressio n, hyperlipidemia, history of dementia, diabetes mellitus, GERD, status post cerebrovascular accident with left hemiparesis, status post GI bleed, paroxysmal atrial fibrillation, and history of UTI. PAST SURGICAL HISTORY: 1. The patient is status post colonoscopy. 2. Status post hysterectomy. 3. Status post thyroid surgery. 4. Status post left wrist surgery. 5. Status post left hip replacement. 6. Status post cholecystectomy. ALLERGIES: AMLODIPINE, CEFACLOR. FAMILY HISTORY: No ESRD. SOCIAL HISTORY: The patient lives in [facility]. She has two children. She is a retired banker. She is . No alcohol, no IV drug abuse, no blood transfusion. No history of smoking. Originally from [place]. PHYSICAL EXAMINATION: VITAL SIGNS: Blood pressure is noted at 119/66, heart rate 83, respiratory rate 16, temperature 97.3 , O2 sat is 100% on room air. GENERAL: Noted to be lethargic, decreased mentation. SKIN: Decreased turgor. HEENT: Pinkish conjunctivae, anicteric sclerae. NECK: No neck mass, no carotid bruits, no JVD. CHEST: No deformities. LUNGS: Clear breath sounds, no wheezing, no crackles. HEART: Irregularly irregular. Grade 2/6 systolic murmur, no gallops, no rubs. ABDOMEN: Globular, soft, nontender, no masses. EXTREMITIES: No edema, no deformities. NEUROLOGIC: Decreased mentation. Positive for left hemiparesis. LABORATORY: Of 09/25/2018 sodium was noted at 171, potassium 3.8, chloride 129, carbon dioxide 28, B UN 92, creatinine 2.87, glucose 171, calcium 12.7, AST 42, ALT 26, troponin I 0.614. White count 22, hemoglobin 17.5. Urinalysis specific gravity 1.026, no pigmented granular cast. Further review of her serum creatinine shows the following 08/29/2018, BUN 16, creatinine 1.04. CT scan of the brain 09/25/2018 showed no acute intracranial process. Stable malacic and gliotic estela nge in the right temporal lobe. On 09/25/2018, chest x-ray stable chest, old granulomatous disease. ASSESSMENT AND PLAN: 1. Hypernatremia secondary to volume depletion. Agree with D5 water at 125 mL per hour. 2. Acute kidney injury - consider hemodynamically mediated renal dysfunction with a history of diarr hea, decreased p.o. intake and decreased fluid intake. Once the hyponatremia slightly improved, cons ider changing the IV fluid to D5 half normal saline at 125 mL per hour. We will be repeating a base met again. Elevated white count 22,000. Consider empiric IV antibiotics with this patient. Consider cefepime 1 gram IV every day. Consider blood culture and urine culture with this patient. Thank you for the consult. We will continue to follow.
[2018-09-26] MEDS: Dextrose 5% in Water 1,000 ML IV SCH (01:11)
[2018-09-26] MEDS: Insulin Regular 300 UNITS/3 ML VIAL SC PRN (02:29)
[2018-09-26] MEDS: Piperacillin/Tazobactam 2.25 GM in Sodium Chloride 0.9% 100 ML IVPB SCH ×4 (02:29→19:50)
[2018-09-26 05:36] LABS: Anion Gap 15 mmol/L (10-20); BUN (Urea Nitrogen) 93 mg/dL (9.8-20.1); Calc. Creatinine Clearance 14 mL/min (70-130); Calcium 10.8 mg/dL (7.8-10.44); Carbon Dioxide 21 mmol/L (23-31); Chloride 130 mmol/L (98-107); Estimated GFR-MDRD 15; Glucose 247 mg/dL (83-110); Potassium 3.4 mmol/L (3.5-5.1); Sodium 163 mmol/L (136-145)
[2018-09-26 05:50] LABS: Band 4 % (5-11); Eosinophils 3 % (0-10); Hemoglobin 12.9 g/dL (12.0-16.0); Lymphocytes 37 % (21-51); MDiff Complete? YES; Mean Corpuscular HGB CONC 30.4 g/dL (32.0-36.0); Mean Corpuscular Hemoglobin 29.2 pg (27.0-31.0); Mean Platelet Volume 11.1 fL (7.4-10.4); Monocytes 1 % (0-10); Neutrophil 45 % (42-75); PLT Morphology Comment Appears Decreased; Platelet Count 98 thou/uL (130-400); RBC Distribution Width 14.4 % (11.5-14.5); Reactive Lymphocytes 10 % (0-10); Red Blood Cell (RBC) Count 4.41 mill/uL (4.20-5.40); White Blood Cell (WBC) Count 19.2 thou/uL (4.8-10.8)
--- NOTE | 2018-09-26 05:54 | PDOC.EVN ---
Event Note - Event Note Event Note: Ramy Rodrigues was called at approx 04:56, when I arrived at bedside, patient was minimally responsive and being bag masked as she is DNI. Unable to get a blood pressure. Pulses were palpated in carotid and radial. Prior to arrival about 20 seconds of CPR was performed until patient pushed staff away. Monitors showed sustained ventricular tachycardia with rates in the 180s up to 200. Amiodarone 150mg was given, patient converted to sinus in the 120s for a few minutes. BP was 80s/50s. 500ml LR bolus given. Then patient slowed into HR of 50s, afib. BP improved to 100s/60s, MAP of 80. Bag mask was changed to non-rebreather, SO2 >92 % during this entire episode, though initially SO2 was not being measured. Daughter and PCP was called and informed of preceding events. Morning labs were drawn during this event, Na improved from 170 to 162, K was 3.4, Cl 130. There was concern about patient not voiding overnight, bladder scan showed scant urine in the bladder.
[2018-09-26 06:11] LABS: Troponin I 0.645 ng/mL (< 0.028)
[2018-09-26] MEDS ORDERED: Sodium Chloride 0.9% 250 ML IV SCH (06:30)
--- NOTE | 2018-09-26 07:22 | HP ---
DATE OF ADMISSION: 09/25/2018 REASON FOR ADMISSION AND CHIEF COMPLAINT: Altered mental status. HISTORY OF PRESENT ILLNESS: Ms. Marvin is an 83-year-old female with past medical history of severe dementia, protein-calorie malnutrition, who was brought in because of change and decrease in mental status for the last 1 week. Her mentation was slowly going down and at last became almost unresponsive. Patient has not been eating well, taking fluids for the last couple of weeks. She has been treated for C. difficile colitis, completed treatment recently. She did not have any fever, no chest pain, no shortness of breath. Patient usually communicates with her daughter, but the last one week, she has not communicated to her, becoming more lethargic, so patient was sent to the hospital. In the ER, patient was found to be severely dehydrated with acute kidney injury and hypernatremia. Patient was also found to have leukocytosis as well and elevated lactic acid, but there is no clear cut evidence of any infection. She does have a sacral decubitus. The patient received IV fluids D5W after normal saline then given Zosyn 1 dose and admitted for further evaluation and management. PAST MEDICAL HISTORY: 1. Severe dementia. 2. Paroxysmal atrial fibrillation. 3. Diabetes mellitus. 4. Peptic ulcer disease. 5. Status post cerebrovascular accident with left hemiparesis. 6. History of GI bleeding as well. 7. History of urinary tract infection. 8. History of Clostridium difficile colitis. 9. Gastroesophageal reflux disease. PAST SURGICAL HISTORY: 1. Status post hysterectomy. 2. Status post cholecystectomy. 3. Status post left hip replacement surgery. ALLERGIES: AMLODIPINE, CEFACLOR. CURRENT MEDICATIONS: Patient is on nystatin suspension for oral thrush, Florastor daily, Pepcid AC daily, Prozac 20 mg daily, metoprolol 50 mg daily, Cozaar also 50 mg daily, Lantus insulin 5 units daily, flecainide 50 mg b.i.d., Lipitor 40 mg daily, Eliquis 5 mg b.i.d., hydralazine 50 three times daily, clonidine p.r.n., Tylenol p.r.n., Zofran p.r.n. FAMILY HISTORY: Nothing of interest. SOCIAL HISTORY: Patient is a resident of [facility]. REVIEW OF SYSTEMS: Unable to obtain because of mental status. PHYSICAL EXAMINATION: GENERAL: The patient is awake, not very alert, not communicating. VITAL SIGNS: Temperature 97, pulse 79, respirations 20, blood pressure 120/60, O2 saturation 96% on room air. HEENT: Head is normocephalic, atraumatic. Pupils are equal and reactive to light. Nasopharynx is pale and dry. Hard and soft palate, no lesions seen. SKIN: Turgor is decreased. There is mottling of the skin in the lower legs. NECK: Supple. No JVD. LUNGS: Breath sounds diminished bilaterally. Percussion not dull bilaterally. No rales, no rhonchi. CARDIAC: S1, S2, irregular irregular. ABDOMEN: Soft, no distention, no tenderness. Normal bowel sounds present. RECTAL: Deferred. CENTRAL NERVOUS SYSTEM: No focal deficit. EXTREMITIES: On exam of the back, there is a sacral decubitus present LABORATORY AND X-RAY FINDINGS: CBC shows WBC 22, hemoglobin 17, hematocrit 57, platelets 131. Metabolic panel: Sodium 170, potassium 3.8, chloride 129, CO2 of 28, BUN 92, creatinine 2.87, glucose 171. Lactic acid level 2.5. CK-MB 19, troponin I 0.68. CPK 266. Urinalysis negative. Chest x-ray, old granulomatous disease, stable chest. CT of the brain, no acute intracranial process. ASSESSMENT: 1. Acute metabolic encephalopathy, severe. 2. Acute kidney injury. 3. Severe hypernatremia,severe dementia, severe protein-calorie malnutrition, elevated troponin I, possible demand ischemia, and sacral decubitus. 4. Leukocytosis, rule out sepsis. 5. Diabetes mellitus. 6. History of Clostridium difficile colitis. PLAN: 1. Vital signs q.4 hours. 2. Activity: As tolerated. 3. Allergies: CEFACLOR and AMLODIPINE. 4. IV fluids: D5W 800 mL/hour. 5. Zosyn 2.25 grams IV piggyback q.6 hours. 6. Diet: N.p.o. 7. Troponin I q.6 hours x2. 8. Wound care team consult. 9. Nephrology consult. 10. Protonix 40 mg IV piggyback daily. 11. Cardiology consult. MTDD
[2018-09-26] MEDS ORDERED: Sodium Chloride 0.9% 500 ML IV SCH (08:15)
--- NOTE | 2018-09-26 09:06 | PRG ---
DATE OF SERVICE: 09/26/2018 SUBJECTIVE: Ms. Marvin is an 83-year-old white female who was admitted for volume depletion. She h as also history of Clostridium difficile colitis. We are seeing the patient for her hypernatremia. She was given D5 water with some improvement of the serum sodium from 170 to a most recent value of 1 62. In addition, she was also noted to be in acute renal failure. My feeling is that this is all hemodyn amically mediated renal dysfunction. In the interim, last night, she developed ventricular tachycard ia. A code was said to have been called. Currently, she is still on the hypotensive side. PHYSICAL EXAMINATION: VITAL SIGNS: Blood pressure is noted at 84/70, heart rate 72, respiratory rate 19, temperature 99.4, pulse ox 98%. GENERAL: The patient is awake, but confused, not in overt distress. SKIN: Adequate turgor. HEENT: She has pinkish conjunctivae, anicteric sclerae. NECK: No neck mass, no carotid bruits, no JVD. CHEST: No deformities. LUNGS: Decreased breath sounds. HEART: Normal sinus rhythm. No murmur, no gallops or rubs. ABDOMEN: Globular, soft, nontender, no masses. EXTREMITIES: No edema, no deformities. MEDICATIONS: 09/26/2018 - Reviewed. LABORATORY: 09/26/2018 - White count 9.2, hemoglobin 12.9. Sodium 163, potassium 3.4, chloride 130, carbon dioxide 21, BUN 93, creatinine 3.0, glucose 247, calcium 10.8. ASSESSMENT AND PLAN: 1. Acute kidney injury - hemodynamically mediated renal dysfunction. Continue to optimize hemodynam ics. Change the D5 water to D5 half normal saline at 125 mL per hour. 2. Mild hyperkalemia - due to the acute renal failure we will continue to observe this. Potassium 3 .4. 3. Hypernatremia, slightly improved. Continue IV hydration. Currently, serum sodium is 163. I hav e changed IV fluid from D5 water to D5 half normal saline at 125 mL per hour due to the hypotension. 4. Leukocytosis - on empiric antibiotics. Overall, prognosis remains guarded.
[2018-09-26] MEDS: Nystatin 500,000 UNITS/5 ML UDCUP PO SCH ×4 (10:42→19:51)
[2018-09-26] MEDS: Pantoprazole 40 MG VIAL IVP SCH (10:42)
[2018-09-26] MEDS: Dextrose 5 %-0.45 % NaCl 1,000 ML IV SCH ×2 (12:15→18:59)
--- NOTE | 2018-09-26 13:28 | CON ---
DATE OF CONSULTATION: 09/26/2018 PRIMARY CARE PHYSICIAN: Dr. Felix Wilkerson PRIMARY MILL LABORER: Dr. Kary Shane REFERRING PHYSICIAN: Dr. Wilkerson REASON FOR CARDIOLOGY CONSULTATION: Elevated troponin. HISTORY OF PRESENT ILLNESS: Ms. Marvin is an 83-year-old female with significant history o f dementia, paroxysmal atrial fibrillation, diabetes, hypertension, history of GI bleed with cauteriz ation in 03/2018, Clostridium difficile and a UTI and cerebrovascular accident with right-sided weakn ess. The patient is currently a resident of the [facility]. At this moment, the patient is un responsive, not following commands or answering any questions. The patient's information was receive d from patient's medical record and the ER records. The patient was transferred from [facility] to the emergency department for mental status change for at least 1 week and severe weakness. She has been treated for C. diff for quite a while. She has not eaten well and her mental status decline d for the last couple of weeks. In the ER, the patient was found to have hypernatremia with 171 and dehydration and creatinine kinase is 266. The patient coded early this morning around 5:00 due to un responsive. They started CPR and the patient started moving in response to the CPR. At this moment, the patient is DNI. However, according to the nurses report, the patient is going to be a DNR today . The patient had echocardiogram done in 05/2018 which shows EF of 55-60%, mild dilated left atrium, di astolic dysfunction, mild tricuspid regurgitation, mild pulmonary valve regurgitation, and trace mitr al valve regurgitation. According to hospital records, she has not had any cardiac workup except ech ocardiogram; however, at the last admission, the patient was told she is not a good candidate for any cardiac procedure due to dementia and with multiple physical problems. PAST MEDICAL HISTORY: 1. Paroxysmal atrial fibrillation. 2. Hypertension. 3. Dementia. 4. Diabetes. 5. History of a GI bleed from jejunal ulcer with cauterization in 03/2018. 6. History of a urinary tract infection. 7. History of Clostridium difficile. 8. Status post cerebrovascular accident with right-sided weakness. 9. Diabetic neuropathy. 10. Diverticulitis. 11. Sclerosis. 12. Anxiety. PAST SURGICAL HISTORY: 1. Hysterectomy. 2. Cholecystectomy. 3. Left hip replacement surgery. 4. Jejunal ulcer cauterization in 03/2018. ALLERGIES: She is allergic to AMLODIPINE and CEFACLOR. HOME MEDICATIONS: Vitamin C 500 mg once a day, vitamin B12 1000 mcg once a day, Prozac 20 mg once a day, metoprolol succinate 50 mg once a day, losartan 50 mg twice a day, atorvastatin 40 mg once a day , folic acid 3 mg once a day, Flecainide 50 mg once a day, Eliquis 5 mg twice a day, Lantus 5 units e very morning, Pepcid 20 mg once a day, Ashley 60 mg once a day as needed, Colace 100 mg twice a day as needed, hydralazine 50 mg 4 times a day. FAMILY HISTORY: The patient's paternal side has a significant history of coronary artery disease. SOCIAL HISTORY: Patient and her live at [facility]. According to the patient's medica l record she has a sedentary lifestyle. She never used tobacco, alcohol or illicit drug abuse. REVIEW OF SYSTEMS: Not obtainable. PHYSICAL EXAMINATION: VITAL SIGNS: Blood pressure 86/42, temperature 98.9, pulse is 81, atrial fibrillation, respiratory r ate 16, O2 saturation 100% with a nonrebreather. GENERAL: The patient is not responsive, response to the painful stimulation. The patient does not f ollow commands at this moment. HEENT: Head is normocephalic, atraumatic. NECK: No JVP, neck is supple. LUNGS: Clear to auscultation bilaterally, but diminished at the bases. No wheezing, rales or rhonch i noted. CARDIOVASCULAR: Irregularly irregular did have a systolic murmur, no gallop, rub, thrill noted. 1+ pulses in bilateral lower extremities. No edema, warm to touch in the bilateral lower extremities. ABDOMEN: Soft, nontender, no mass to palpate. Bowel sounds are present. MUSCULOSKELETAL: The patient can move her right arm, but not the left arm or lower extremities. Aga in, she does not follow any commands. SKIN: Warm and dry. No lesion or hematoma noted. NEUROLOGIC: Patient is lethargic, decreased mentation. LABORATORY DATA: WBC 19.2, hemoglobin 12.9, hematocrit 42.4, platelets 98. Sodium 163, which was 17 1 at admission, potassium 3.4, BUN 93, creatinine 3.0, glucose 247, AST 42, ALT 26, creatinine kinase 266. Troponin is less 0.645. RADIOLOGY: Brain CT scan shows no acute intracranial process. Chest x-ray show atherosclerosis of t he aorta with ectasia, otherwise stable. ASSESSMENT AND PLAN: 1. Elevated troponin, possible demand ischemia secondary to severe dehydration and severe hypernatre maciel. 12-lead EKG at ER did not show any ST elevation change or T-wave inversion. Also, at this mome nt, the patient is not a good candidate for any cardiac workup due to elevated creatinine level and t he patient's mental status. We would like to continue to monitor on the telemetry at this moment. 2. Acute metabolic encephalopathy and history of Code Blue early this morning. According to patient 's medical record, the patient's mental status has not changed at this moment. She is n.p.o. at this moment, she is receiving D5 half normal saline 125 mL per an hour. 3. Severe dehydration. Again, at this moment, the patient receiving D5 half normal saline at 125 mL per an hour. 4. Acute kidney injury on chronic kidney disease. Already the renal consult was done by Dr. Alves. 5. Paroxysmal atrial fibrillation. The patient was in a sinus rhythm until this morning, but at thi s moment, the patient is in atrial fibrillation, heart rate 70s-80s. The Flecainide is on hold at th is moment due to the n.p.o. at this moment. Once the patient's condition is stable, we would like to resume that medicine. At this moment, we would like to continue to monitor on the telemetry. Once the patient's heart rate is more than normal, we might like to start diltiazem or amiodarone. 6. Diabetes type 2. She is on a.c. and at bedtime glucose check with sliding scale insulin ordered. 7 . History of gastrointestinal bleed. At this moment, the patient's hemoglobin level is stable. Th ere are no medical records showing the patient is having any blood in her stool or urine. We would l isabelle to continue to monitor. Thank you very much for allowing the Cardiology Service to participate in the care of this patient. We will follow along with the patient's care team and make further recommendations as appropriate.
[2018-09-26] MEDS ORDERED: Sodium Chloride 0.9% 500 ML IVPB SCH (18:30)
[2018-09-27] MEDS: Piperacillin/Tazobactam 2.25 GM in Sodium Chloride 0.9% 100 ML IVPB SCH ×4 (01:48→20:24)
[2018-09-27] MEDS: Insulin Regular 300 UNITS/3 ML VIAL SC PRN ×2 (01:55→08:33)
[2018-09-27 05:25] LABS: Anion Gap 11 mmol/L (10-20); BUN (Urea Nitrogen) 67 mg/dL (9.8-20.1); Calc. Creatinine Clearance 18 mL/min (70-130); Calcium 9.1 mg/dL (7.8-10.44); Carbon Dioxide 21 mmol/L (23-31); Chloride 126 mmol/L (98-107); Estimated GFR-MDRD 18; Glucose 338 mg/dL (83-110); Potassium 3.2 mmol/L (3.5-5.1); Sodium 155 mmol/L (136-145)
[2018-09-27 05:30] LABS: Critical Call Chem Troponin I RESULT DECREASING; Troponin I 0.564 ng/mL (< 0.028)
[2018-09-27 05:37] LABS: Band 1 % (5-11); Lymphocytes 30 % (21-51); MDiff Complete? YES; Mean Corpuscular HGB CONC 30.1 g/dL (32.0-36.0); Mean Corpuscular Hemoglobin 29.2 pg (27.0-31.0); Mean Corpuscular Volume 97.1 fL (78.0-98.0); Mean Platelet Volume 12.4 fL (7.4-10.4); Monocytes 7 % (0-10); Neutrophil 62 % (42-75); PLT Morphology Comment Appears Decreased; Platelet Count 81 thou/uL (130-400); RBC Distribution Width 14.4 % (11.5-14.5); RBC Morphology Normal; Red Blood Cell (RBC) Count 4.11 mill/uL (4.20-5.40); White Blood Cell (WBC) Count 14.8 thou/uL (4.8-10.8)
[2018-09-27] MEDS: Dextrose 5 %-0.45 % NaCl 1,000 ML IV SCH ×3 (06:08→20:42)
--- NOTE | 2018-09-27 08:27 | ADD-CON ---
ADDENDUM DATE OF CONSULTATION: 09/26/2018 DATE OF ADMISSION: 09/25/2018 INDICATION FOR CONSULTATION: This is an elderly 83-year-old female with dementia who is status post CVA, paroxysmal atrial fibrillation with multiple other medical problems who has had a recent episode of Clostridium difficile. She also has what appears to be candidate in the mouth and throat area of the tongue. She has not been eating for the last couple of weeks. She became dehydrated. She presented to the emergency room, she was hypotensive. She was admitted at this time and then actually this morning had an episode of ventricular tachycardia. She has been on flecainide for her atrial fibrillation. At this time, this is being held after her renal insufficiency which is acute most likely due to the dehydration and due to the ventricular tachycardia. Please refer to the notes already dictated by my nurse practitioner, Ivanna New. At this time, the patient is minimally responsive. She will open her eyes, but otherwise does not offer up any verbal response. She is a DNR patient. At this time, she did have an echocardiogram earlier this year which showed a normal ejection fraction with diastolic dysfunction. Other than that, she has been doing relatively well. She is not a candidate for any other significant cardiac procedures due to her dementia and multiple medical problems. For her past medical history, social history, family history, allergies, medications, review of systems: Please refer to the notes dictated already by my nurse practitioner. PHYSICAL EXAMINATION: GENERAL: Reveals an elderly female who at this time is unresponsive. She is hypotensive. VITAL SIGNS: Blood pressure in the 80s-90s systolic, but in the Trendelenburg. Blood pressures over 100. She is volume depleted. She is afebrile. Heart rate is in the 80s. She has atrial fibrillation, respiratory rate is about 16. She has a nonrebreather oxygen mask and oxygen levels are 100% saturations. HEENT: Shows the head to be normocephalic and atraumatic. LUNGS: Chest is clear to auscultation. There were no rales, rhonchi, or wheezing. CARDIOVASCULAR: Reveals an irregular rhythm. She has a systolic murmur at the apex. ABDOMEN: Soft and nontender. EXTREMITIES: Showed no clubbing, cyanosis, or edema. Left foot has minimal edema actually now since she has been given hydration. NEUROLOGIC: The patient is unresponsive essentially except she will open her eyes and she has evidence of dementia. LABORATORY DATA: Please refer to the notes already dictated as well as the laboratory data, Radiology, EKGs, and chest x-rays. IMPRESSION: 1. Abnormal cardiac enzymes was due to demand ischemia associated with her multiple medical problems dehydration. She also has severe hyponatremia. Sodium level is over 170. At this time, we will continue medical management and we will follow her closely with you. Dr. Wilkerson is replacing her volume. 2. Dementia with metabolic encephalopathy. We will continue with her IV fluids. 3. Cardiac arrest or ventricular tachycardia this morning. This appears to be stable at this time, she has had no further episodes, we will hold the flecainide with her renal insufficiency. This medication will increase the chances of her having ventricular tachycardia .I suggest calium blockers or betablockers if needed to control the heart rate. 4. Acute on chronic kidney disease. She has stage 4 renal disease. This will be dealt with by the primary care physician and the morning nanny. 5. History of paroxysmal atrial fibrillation. At this time, we would just continue to follow her and rate controlled could give perhaps deep venous thrombosis prophylaxis, Lovenox or heparin in this lady, but again, she is a DNR and also will need to be very careful with Lovenox and her renal insufficiency. MATILDE
--- NOTE | 2018-09-27 09:01 | PRG ---
DATE OF SERVICE: 09/27/2018 SUBJECTIVE: Ms. Marvin is an 83-year-old female who was seen by the Renal Service for her acute kidn ey injury/hypernatremia. Initially she was given with D5 water with improvement of the hypernatremia . However, due to the hypotensive episode, IV fluid was changed to D5 half normal saline with potass ium. Blood pressure is also slowly improving. She has had episodes also of hypertension. At the [facility] time, she has been having episodes of V-tach as well as sinus pauses. Cardiology is now consulted . No new complaints today. PHYSICAL EXAMINATION: VITAL SIGNS: Blood pressure 119/58, heart rate 64, respiratory rate 16, temperature 98, pulse ox 100 %. GENERAL: Noted to be awake, but lethargic, not in overt distress. SKIN: Adequate turgor. HEENT: She has pinkish conjunctivae, anicteric sclerae. NECK: No neck mass, no carotid bruits, no JVD. CHEST: No deformities. LUNGS: Decreased breath sounds. HEART: Normal sinus rhythm. No murmur, no gallops or rubs. ABDOMEN: Globular, soft, nontender, no masses. EXTREMITIES: No edema, no deformities. MEDICATIONS: 09/27/2018 - Reviewed. LABORATORY DATA: 09/27/2018 - White count 14.8, hemoglobin 12, sodium 155, potassium 3.2, chloride 1 26, carbon dioxide 21, BUN 67, creatinine 2.58, glucose 338. Troponin I 0.564. ASSESSMENT: 1. Hypernatremia, clinically improving with hypotonic solution. Continue D5 half normal saline. 2. Acute kidney injury - hemodynamically mediated renal dysfunction. Improved with volume repletion . Currently on D5 half normal. 3. Cardiac arrhythmia. Cardiology is following. 4. Hypotension, much improved. 5. Hypokalemia, p.r.n. potassium replacement. 6. Elevated white count on empiric IV antibiotics. Recheck base met and CBC in a.m.
[2018-09-27] MEDS: Pantoprazole 40 MG VIAL IVP SCH (09:51)
[2018-09-27] MEDS: Nystatin 500,000 UNITS/5 ML UDCUP PO SCH ×4 (09:52→20:24)
[2018-09-27] MEDS ORDERED: Potassium Chloride 40 MEQ in Sodium Chloride 0.9% 250 ML 250 ML IVPB SCH (10:00)
--- NOTE | 2018-09-27 11:34 | PDOC.CTH ---
<Virgen Farrar - Last Filed: 09/27/18 11:31> Cardiology Progress Note - Subjective The pt seen and examined. No overnight events. She does not follow any commands. Per RN, her HR went down very low when she was moved/turned today. - Objective Vital Signs Temp Pulse Resp BP Pulse Ox 09/27/18 08:15 97.4 F L 58 L 18 113/51 L 100 09/27/18 04:23 98.0 F 64 16 119/58 L 100 09/27/18 00:00 97.8 F 58 L 20 115/56 L 100 Admit Weight 135 lb Weight 143 lb 3.2 oz 09/26/18 09/27/18 09/28/18 06:59 06:59 06:59 Intake Total 1373 Output Total 380 Balance 993 - Physical Examination General/Neuro: other: (very lethergic) Lungs: other: (diminished at bases) Heart: RRR Abdomen: soft Extremities: other: (No edema) - Telemetry Telemetry Rhythm: SR - Labs Result Diagrams: 09/27/18 04:31 09/27/18 04:31 Troponin/CKMB CK-MB (CK-2) 20.7 ng/mL (0-6.6) H* 09/25/18 13:33 Troponin I 0.564 ng/mL (< 0.028) H* 09/27/18 04:31 - Assessment/Plan 1. elevated Trop 2/2 demand ischemia possible due to severe dehydration - stable ; 2. Hypernatremia - improving with D51/2NS; 3. s/p Cardiac arrest/V tach - cont. to monitor on tele 4. SAE on CKD stage 4 - managed by car refinisher 5. Prox Afib - Remains in SB/SR; Flecanide is on hold due to renal insufficiency ; Platelet level is 81 today. cont. to monitor on tele 6. DM type 2 - stable 7. C diff - 8. Hx of GI bleed - 9. Hypokelemia - replaced today MAR reviewed * DNR Review of Systems - Review of Systems Constitutional: reports: see HPI EENTM: reports: see HPI Respiratory: reports: see HPI <Andrea Shane - Last Filed: 09/27/18 17:02> Cardiology Progress Note - Objective Vital Signs Temp Pulse Resp BP Pulse Ox 09/27/18 16:35 97.3 F L 66 20 122/58 L 100 09/27/18 13:00 97.9 F 59 L 18 101/47 L 99 09/27/18 08:15 97.4 F L 58 L 18 113/51 L 100 09/27/18 08:00 100 Admit Weight 135 lb Weight 143 lb 3.2 oz 09/26/18 09/27/18 09/28/18 06:59 06:59 06:59 Intake Total 1373 Output Total 380 Balance 993 - Labs Result Diagrams: 09/27/18 04:31 09/27/18 04:31 Troponin/CKMB CK-MB (CK-2) 20.7 ng/mL (0-6.6) H* 09/25/18 13:33 Troponin I 0.564 ng/mL (< 0.028) H* 09/27/18 04:31 - Assessment/Plan Pt. seen and eval. by me. She is slightly more alert today. She is able to say her name and responds to verbal stimuli. I agree with the A/P by the LEVEL VIAL CURVATURE GAUGER. would not resume flecainide in the future.
[2018-09-28] MEDS: Insulin Regular 300 UNITS/3 ML VIAL SC PRN ×3 (00:55→18:31)
[2018-09-28] MEDS: Piperacillin/Tazobactam 2.25 GM in Sodium Chloride 0.9% 100 ML IVPB SCH ×4 (01:01→20:17)
[2018-09-28] MEDS: Dextrose 5 %-0.45 % NaCl 1,000 ML IV SCH ×2 (02:23→20:18)
[2018-09-28 05:34] LABS: Anion Gap 13 mmol/L (10-20); BUN (Urea Nitrogen) 55 mg/dL (9.8-20.1); Calc. Creatinine Clearance 19 mL/min (70-130); Calcium 9.6 mg/dL (7.8-10.44); Carbon Dioxide 18 mmol/L (23-31); Estimated GFR-MDRD 20; Glucose 326 mg/dL (83-110); Potassium 3.6 mmol/L (3.5-5.1); Sodium 153 mmol/L (136-145)
[2018-09-28 05:36] LABS: Chloride 126 mmol/L (98-107)
[2018-09-28 05:40] LABS: Band 2 % (5-11); Eosinophils 2 % (0-10); Hemoglobin 14.3 g/dL (12.0-16.0); Lymphocytes 40 % (21-51); MDiff Complete? YES; Mean Corpuscular Hemoglobin 28.5 pg (27.0-31.0); Mean Corpuscular Volume 98.2 fL (78.0-98.0); Monocytes 3 % (0-10); Neutrophil 53 % (42-75); Nucleated RBC 1 % (0); PLT Morphology Comment Appears Decreased; Platelet Count 93 thou/uL (130-400); RBC Distribution Width 14.3 % (11.5-14.5); Red Blood Cell (RBC) Count 5.02 mill/uL (4.20-5.40); White Blood Cell (WBC) Count 14.5 thou/uL (4.8-10.8)
--- NOTE | 2018-09-28 07:22 | PRG ---
DATE OF SERVICE: 09/28/2018 SUBJECTIVE: Ms. Marvin is an 83-year-old white female who was admitted for generalized malaise. She was found to be in acute kidney injury and hypernatremic. She has been given hypotonic solution. D ue to the acute kidney injury IV fluid was changed to half normal saline and renal function is slowly improving. Cardiology has evaluated this patient for runs of sinus pauses. This morning the patien t is awake, but confused and not following commands. PHYSICAL EXAMINATION: VITAL SIGNS: Blood pressure 104/54, heart rate 64, respiratory rate 18, temperature 97.4. GENERAL: The patient is awake, not in distress, not following commands, confused. SKIN: Adequate turgor. HEENT: She has a pinkish conjunctivae, anicteric sclerae. NECK: No neck mass, no carotid bruits, no JVD. CHEST: No deformities. LUNGS: Decreased breath sounds. HEART: Normal sinus rhythm. No murmur, no gallops, no rubs. ABDOMEN: Globular, soft, nontender. EXTREMITIES: No edema. MEDICATIONS: 09/28/2018 - Reviewed. LABORATORY DATA: 09/28/2018 - White count 14.5, hemoglobin 14.3, sodium 153, potassium 3.6, chloride 126, carbon dioxide 18, BUN 55, creatinine 2.32, glucose 326, calcium 9.6. ASSESSMENT AND PLAN: 1. Acute kidney injury - hemodynamically mediated renal dysfunction. Renal function is slowly impro ving with a creatinine currently at 2.32. Please note this peaked at 3.0. Continue current IV hydra tion. 2. Hypernatremia, slowly improving. Most recent serum sodium is 153 and on admission this was 170. Once the renal function is further improved, consider changing the D5 half normal saline to 0.25% so dium chloride. 3. Sepsis, on empiric IV antibiotics. 4. Cardiac arrhythmias. Cardiology is following. The patient is a DNR. Continue supportive care.
[2018-09-28] MEDS: Pantoprazole 40 MG VIAL IVP SCH (08:19)
[2018-09-28] MEDS: Nystatin 500,000 UNITS/5 ML UDCUP PO SCH ×4 (08:21→20:18)
--- NOTE | 2018-09-28 11:38 | PDOC.CTH ---
<Virgen Farrar - Last Filed: 09/28/18 11:38> Cardiology Progress Note - Subjective The pt seen and examined. No overnight events. The pt responds to pain stimulation; however, she still does not follow commands. - Objective Vital Signs Temp Pulse Resp BP Pulse Ox 09/28/18 08:20 100 09/28/18 03:22 97.4 F L 64 18 104/54 L 100 Admit Weight 135 lb Weight 147 lb 09/27/18 09/28/18 09/29/18 06:59 06:59 06:59 Intake Total 1373 1376 Output Total 380 250 Balance 993 1126 - Physical Examination Lungs: other: (diminished at bases) Heart: RRR Abdomen: soft Extremities: other: (No edema) - Telemetry Telemetry Rhythm: SR 60s - Labs Result Diagrams: 09/28/18 04:38 09/28/18 04:38 Troponin/CKMB CK-MB (CK-2) 20.7 ng/mL (0-6.6) H* 09/25/18 13:33 Troponin I 0.564 ng/mL (< 0.028) H* 09/27/18 04:31 - Assessment/Plan 1. Elevated Trop 2/2 demand ischemia possible due to severe dehydration - stable ; 2. Hypernatremia - improving with D51/2NS; 3. s/p Cardiac arrest/V tach - cont. to monitor on tele 4. SAE on CKD stage 4 - improving; managed by early education teacher 5. Prox Afib - Remains in SB/SR; Flecanide is on hold due to renal insufficiency ; Platelet level is 81 today. cont. to monitor on tele 6. DM type 2 - stable 7. C diff - 8. Hx of GI bleed - 9. Bradycardia - HR was down to 26 at 0717 on 09/28/18. Cont monitoring on tele MAR reviewed * DNR Review of Systems - Review of Systems Constitutional: reports: see HPI EENTM: reports: see HPI Respiratory: reports: see HPI Cardiac (ROS): reports: see HPI ABD/GI: reports: see HPI : reports: see HPI <Andrea Shane - Last Filed: 09/28/18 13:17> Cardiology Progress Note - Objective Vital Signs Temp Pulse Resp BP Pulse Ox 09/28/18 12:00 97.4 F L 67 18 126/58 L 98 09/28/18 08:20 100 09/28/18 03:22 97.4 F L 64 18 104/54 L 100 Admit Weight 135 lb Weight 147 lb 09/27/18 09/28/18 09/29/18 06:59 06:59 06:59 Intake Total 1373 1376 Output Total 380 250 Balance 993 1126 - Labs Result Diagrams: 09/28/18 04:38 09/28/18 04:38 Troponin/CKMB CK-MB (CK-2) 20.7 ng/mL (0-6.6) H* 09/25/18 13:33 Troponin I 0.564 ng/mL (< 0.028) H* 09/27/18 04:31 - Assessment/Plan pt. seen and eval. by me this afternoon. She is much improved. She is communicating in full sentences and answering questions. HR still fluctuates. Overall stable. Continue to observe. Not a good candidate for pacemaker insertion. RRR, chest clear. No edema.
--- NOTE | 2018-09-28 16:29 | PQF ---
CLINICAL DOCUMENTATION IMPROVEMENT CLARIFICATION FORM: ICD-10 Updated PLEASE DO AN ADDENDUM TO THE PROGRESS NOTE WITH ANY DOCUMENTATION UPDATES OR ADDITIONS AND CARRY THROUGH TO DC SUMMARY. THANK YOU. DATE: 09/28/18 ATTN: Dr. Wilkerson Please exercise your independent, professional judgment in responding to the clarification form. Clinical indicators are provided on the bottom of this form for your review Please check appropriate box(s) to clarify if the following diagnosis has been ruled in or ruled out: SEPSIS [ ] Ruled in diagnosis [ ] Continue to treat [ ] Resolved [ ] Ruled out diagnosis [ y] Cannot rule out diagnosis [ ] Other diagnosis [ ] Unable to determine In addition, please specify: Present on Admission (POA): [ y ] Yes [ ] No [ ] Unable to determine For continuity of documentation, please document condition throughout progress notes and discharge summary. Thank You. CLINICAL INDICATORS - SIGNS / SYMPTOMS / LABS H&P 09/25: WBC 22 Lactic acid level 2.5 Acute metabolic encephalopathy, severe SAE Leukocytosis, rule out sepsis 09/28 Dr. Alves: Sepsis, on empiric IV antibiotics RISKS: H&P: 83 yo. Severe dementia. DM . Sacral decubitus present. Hx of clostridium difficile colitis. Severe hypernatremia, severe protein-calorie malnutrition, elevated troponin I, possible demand ischemia. TREATMENT: Order 09/25: IV Zosyn Thank you, Mackenzie (This form is maintained as a part of the permanent medical record) 2014 [employer], [email or web address]. All Rights Reserved Mackenzie Perdomo RN, BSN [email or web address] Office: [phone] [facility]
[2018-09-29] MEDS: Piperacillin/Tazobactam 2.25 GM in Sodium Chloride 0.9% 100 ML IVPB SCH ×4 (02:33→20:14)
[2018-09-29 05:19] LABS: Anion Gap 12 mmol/L (10-20); BUN (Urea Nitrogen) 41 mg/dL (9.8-20.1); Calc. Creatinine Clearance 24 mL/min (70-130); Calcium 9.2 mg/dL (7.8-10.44); Carbon Dioxide 16 mmol/L (23-31); Estimated GFR-MDRD 26; Glucose 257 mg/dL (83-110); Potassium 3.3 mmol/L (3.5-5.1); Sodium 151 mmol/L (136-145)
[2018-09-29 05:31] LABS: Chloride 126 mmol/L (98-107)
[2018-09-29] MEDS: Dextrose 5 %-0.45 % NaCl 1,000 ML IV SCH ×3 (06:00→11:41)
[2018-09-29 06:17] LABS: Band 3 % (5-11); Eosinophils 1 % (0-10); Hemoglobin 13.4 g/dL (12.0-16.0); Lymphocytes 32 % (21-51); MDiff Complete? YES; Mean Corpuscular HGB CONC 31.2 g/dL (32.0-36.0); Mean Corpuscular Hemoglobin 29.2 pg (27.0-31.0); Mean Corpuscular Volume 93.7 fL (78.0-98.0); Mean Platelet Volume 12.5 fL (7.4-10.4); Monocytes 6 % (0-10); Neutrophil 57 % (42-75); PLT Morphology Comment Appears Decreased; Platelet Count 98 thou/uL (130-400); RBC Distribution Width 14.1 % (11.5-14.5); RBC Morphology Normal; Red Blood Cell (RBC) Count 4.57 mill/uL (4.20-5.40); White Blood Cell (WBC) Count 10.9 thou/uL (4.8-10.8)
[2018-09-29] MEDS: Nystatin 500,000 UNITS/5 ML UDCUP PO SCH ×4 (08:55→20:24)
[2018-09-29] MEDS: Pantoprazole 40 MG VIAL IVP SCH (08:55)
[2018-09-29] MEDS ORDERED: Potassium Chloride 10 MEQ in Premix Bag 1 BAG IVPB SCH ×2 (10:30→12:45)
--- NOTE | 2018-09-29 11:41 | PRG ---
DATE OF SERVICE: 09/29/2018 RENAL MEDICINE SUBJECTIVE: Ms. Marvin is an 83-year-old white female who was seen by the Renal Service for hypernat remia and acute kidney injury. She was given hypertonic volume repletion with improvement of the ser um sodium and renal function. She has also been seen by Cardiology due to cardiac arrhythmia. This morning, she is a little more awake. The plan is to change her to completely hypotonic solution D5 water. This was ordered by Dr. Wilkerson. No new complaints. OBJECTIVE: VITAL SIGNS: Blood pressure 168/71, heart rate 70, respiratory rate 16, temperature 96.9, pulse ox 1 00%. GENERAL: Noted to be awake and follows simple commands. SKIN: Adequate turgor. HEENT: She has pinkish conjunctivae, anicteric sclerae. NECK: No neck mass, no carotid bruits, no JVD. CHEST: No deformities. LUNGS: Decreased breath sounds. HEART: Normal sinus rhythm. No murmur, no gallops, no rubs. ABDOMEN: Globular, soft, nontender, no masses. EXTREMITIES: No edema. NEUROLOGIC: The patient is awake, can follow simple commands, moving all extremities. MEDICATIONS: Medications of 09/29/2018 was reviewed. LABORATORY DATA: Laboratories of 09/29/2018, white count 10.9, hemoglobin 13.4. Sodium 151, potassi um 3.3, chloride 126, carbon dioxide 16, BUN 41, creatinine 1.88, glucose 257, calcium 9.2. ASSESSMENT AND PLAN: 1. Mild hypokalemia, p.r.n. potassium replacement. 2. Hypernatremia, clinically improving. Most recent serum sodium is now 151. Continue hypotonic so lution. 3. Acute kidney injury -- hemodynamically mediated renal dysfunction, much improved with volume repl etion. 4. Leukocytosis -- the patient is on IV antibiotics. 5. Cardiac arrhythmia -- Cardiology is following. We will check base met and CBC in a.m. Agree wit h current management.
--- NOTE | 2018-09-29 12:47 | PDOC.CTH ---
Cardiology Progress Note - Objective Vital Signs Temp Pulse Resp BP Pulse Ox 09/29/18 12:36 97.8 F 70 16 138/65 100 09/29/18 07:47 96.9 F L 70 16 168/71 H 100 09/29/18 05:04 97.6 F 69 13 163/70 H 100 Admit Weight 135 lb Weight 161 lb 11.2 oz 09/28/18 09/29/18 09/30/18 06:59 06:59 06:59 Intake Total 1376 1700 Output Total 250 650 Balance 1126 1050 - Physical Examination General/Neuro: other: (lethargic but making sentences.) Neck: no JVD present Lungs: CTA Heart: RRR Abdomen: no HSM, NT/ND - Telemetry Telemetry Rhythm: NSR - Labs Result Diagrams: 09/29/18 04:27 09/29/18 04:27 Troponin/CKMB CK-MB (CK-2) 20.7 ng/mL (0-6.6) H* 09/25/18 13:33 Troponin I 0.564 ng/mL (< 0.028) H* 09/27/18 04:31 - Assessment/Plan 1. Elevated Trop 2/2 demand ischemia possible due to severe dehydration - stable ; 2. Hypernatremia - improving with D51/2NS; 3. s/p Cardiac arrest/V tach - cont. to monitor on tele 4. SAE on CKD stage 4 - improving; managed by rainbow trout farm manager 5. Prox Afib - Remains in SB/SR; Flecanide is on hold due to renal insufficiency ; Platelet level is 81 today. cont. to monitor on tele 6. DM type 2 - stable 7. C diff - 8. Hx of GI bleed - 9. Bradycardia - HR was down to 26 at 0717 on 09/28/18. Cont monitoring on tele MAR reviewed * DNR
[2018-09-29] MEDS: Insulin Regular 300 UNITS/3 ML VIAL SC PRN (13:04)
[2018-09-29] MEDS: Dextrose 5% w/ 20 mEq KCl 1,000 ML IV SCH (15:51)
[2018-09-30] MEDS: Piperacillin/Tazobactam 2.25 GM in Sodium Chloride 0.9% 100 ML IVPB SCH ×4 (01:26→20:50)
[2018-09-30] MEDS: Dextrose 5% w/ 20 mEq KCl 1,000 ML IV SCH (08:29)
[2018-09-30] MEDS: Nystatin 500,000 UNITS/5 ML UDCUP PO SCH ×4 (08:29→20:50)
[2018-09-30] MEDS: Pantoprazole 40 MG VIAL IVP SCH (08:30)
[2018-09-30] MEDS ORDERED: Dextrose 5% w/ 20 mEq KCl 1,000 ML IV SCH (10:41)
--- NOTE | 2018-09-30 13:03 | PRG ---
DATE OF SERVICE: 09/30/2018 SUBJECTIVE: Ms. Marvin is an 83-year-old white female who was seen by the Renal Service for her hype rnatremia and acute kidney injury. She has been getting hypotonic solution in the last several days with a slow improvement in the serum sodium. Renal function has also been slowly improving over time with IV volume repletion. She is more awake this morning. No acute events noted last night. IV fl uid has been changed to D5 water. OBJECTIVE: VITAL SIGNS: Blood pressure is 148/64, heart rate 66, respiratory rate 18, temperature 99.4, pulse o x 100% room air. GENERAL: Noted to be awake, alert, supine, lethargic, not in overt distress. SKIN: Adequate turgor. HEENT: She has pinkish conjunctivae, anicteric sclerae. NECK: No neck mass, no carotid bruits, no JVD. CHEST: No deformities. LUNGS: Clear breath sounds. HEART: Normal sinus rhythm. No murmur, no gallops, no rubs. ABDOMEN: Globular, soft, nontender, no masses. EXTREMITIES: No edema, no deformities. MEDICATIONS: Of 09/30/2018 reviewed. LABORATORY: Of 09/29/2018: White count 10.9, hemoglobin 13.4. Sodium 151, potassium 5.3, chloride 126. Carbon dioxide 16, BUN 41, creatinine 1.88. Base met for 09/30/2018 pending. ASSESSMENT AND PLAN: 1. Hypernatremia. Adjust IV fluid. Increase D5 water per hour. She has still decreased p.o. intake. 2. Acute kidney injury -- hemodynamically mediated renal dysfunction. Slowly improving. Continue c urrent management. 3. Elevated blood sugar, Humalog insulin sliding scale. Overall, prognosis remains guarded.
[2018-09-30 14:31] LABS: #Basophils 0.1 thou/uL (0.0-0.2); #Eosinphils 0.3 thou/uL (0.0-0.7); #Lymphocytes 3.2 thou/uL (1.20-3.40); #Monocytes 0.6 thou/uL (0.11-0.59); #Neutrophils 6.7 thou/uL (1.40-6.50); %Basophils 0.9 % (0.0-1.0); %Eosinophils 2.8 % (0.0-10.0); %Lymphocytes 29.8 % (21.0-51.0); %Monocytes 5.3 % (0.0-10.0); %Neutrophils 61.2 % (42.0-75.0); Hemoglobin 12.6 g/dL (12.0-16.0); Mean Corpuscular HGB CONC 31.5 g/dL (32.0-36.0); Mean Corpuscular Hemoglobin 28.9 pg (27.0-31.0); Mean Corpuscular Volume 91.8 fL (78.0-98.0); Mean Platelet Volume 11.8 fL (7.4-10.4); Platelet Count 126 thou/uL (130-400); Red Blood Cell (RBC) Count 4.37 mill/uL (4.20-5.40); White Blood Cell (WBC) Count 10.9 thou/uL (4.8-10.8)
[2018-09-30] MEDS: Insulin Regular 300 UNITS/3 ML VIAL SC PRN (14:48)
[2018-09-30 14:54] LABS: Anion Gap 10 mmol/L (10-20); BUN (Urea Nitrogen) 30 mg/dL (9.8-20.1); Calc. Creatinine Clearance 32 mL/min (70-130); Calcium 8.7 mg/dL (7.8-10.44); Carbon Dioxide 17 mmol/L (23-31); Chloride 121 mmol/L (98-107); Estimated GFR-MDRD 33; Glucose 259 mg/dL (83-110); Potassium 3.1 mmol/L (3.5-5.1); Sodium 145 mmol/L (136-145)
--- NOTE | 2018-09-30 19:36 | PDOC.CTH ---
Cardiology Progress Note - Subjective Pt. seen and eval. by me. No new events overnight. Gradually improving. - Objective Vital Signs Temp Pulse Resp BP Pulse Ox 09/30/18 17:25 97.1 F L 68 18 150/67 H 100 09/30/18 12:26 99.3 F 70 18 152/60 H 100 09/30/18 08:31 100 09/30/18 08:27 99.4 F 66 18 148/64 H 100 Admit Weight 135 lb Weight 154 lb 09/29/18 09/30/18 10/01/18 06:59 06:59 06:59 Intake Total 1700 1300 1000 Output Total 650 400 300 Balance 1050 900 700 - Physical Examination General/Neuro: other: (alert,awake.) Neck: no JVD present Lungs: CTA Heart: RRR Abdomen: NT/ND - Labs Result Diagrams: 09/30/18 14:24 09/30/18 14:24 Troponin/CKMB CK-MB (CK-2) 20.7 ng/mL (0-6.6) H* 09/25/18 13:33 Troponin I 0.564 ng/mL (< 0.028) H* 09/27/18 04:31 - Assessment/Plan 1. Elevated Trop 2/2 demand ischemia possible due to severe dehydration - stable ; 2. Hypernatremia - improving with D51/2NS; 3. s/p Cardiac arrest/V tach - cont. to monitor on tele 4. SAE on CKD stage 4 - improving; managed by supervisor extrusion 5. Prox Afib - Remains in SB/SR; Flecanide is on hold due to renal insufficiency ; Platelet level is 81 today. cont. to monitor on tele 6. DM type 2 - stable 7. C diff - 8. Hx of GI bleed - 9. Bradycardia - HR was down to 26 at 0717 on 09/28/18. Cont monitoring on tele MAR reviewed * DNR
[2018-10-01] MEDS: Piperacillin/Tazobactam 2.25 GM in Sodium Chloride 0.9% 100 ML IVPB SCH ×4 (02:45→20:08)
[2018-10-01 05:18] LABS: Anion Gap 12 mmol/L (10-20); BUN (Urea Nitrogen) 27 mg/dL (9.8-20.1); Calc. Creatinine Clearance 35 mL/min (70-130); Calcium 9.1 mg/dL (7.8-10.44); Carbon Dioxide 16 mmol/L (23-31); Chloride 122 mmol/L (98-107); Estimated GFR-MDRD 38; Glucose 141 mg/dL (83-110); Potassium 3.3 mmol/L (3.5-5.1); Sodium 147 mmol/L (136-145)
[2018-10-01] MEDS ORDERED: Acetaminophen 325 MG TAB PO PRN (09:05)
[2018-10-01] MEDS: Nystatin 500,000 UNITS/5 ML UDCUP PO SCH ×4 (09:31→20:10)
[2018-10-01] MEDS: Pantoprazole 40 MG VIAL IVP SCH (09:32)
--- NOTE | 2018-10-01 09:51 | PDOC.CTH ---
Cardiology Progress Note - Subjective Pt. seen and eval. by me. No acute events overnight.She is confused this AM but probably back to baseline. - Objective Vital Signs Temp Pulse Resp BP Pulse Ox 10/01/18 04:00 97.6 F 72 18 137/73 100 Admit Weight 135 lb Weight 156 lb 4 oz 09/30/18 10/01/18 10/02/18 06:59 06:59 06:59 Intake Total 1300 1200 Output Total 400 400 Balance 900 800 - Physical Examination General/Neuro: other: (Awake, confused. Talking.) Neck: carotid US brisk Lungs: CTA Heart: RRR Abdomen: NT/ND, soft - Labs Result Diagrams: 09/30/18 14:24 10/01/18 04:38 Troponin/CKMB CK-MB (CK-2) 20.7 ng/mL (0-6.6) H* 09/25/18 13:33 Troponin I 0.564 ng/mL (< 0.028) H* 09/27/18 04:31 - Assessment/Plan 1. Elevated Trop 2/2 demand ischemia possible due to severe dehydration - stable ; No further cardiac workup. 2. Hypernatremia - improving with D51/2NS; 3. s/p Cardiac arrest/V tach - cont. to monitor on tele. likely due to her electrolyte abnormalities and severe dehydration. 4. SAE on CKD stage 4 - improving; managed by veterinary pathologist 5. Prox Afib - Remains in SB/SR; Flecanide is on hold due to renal insufficiency ; Resume when renal function is back to baseline . Platelet level is 81 today. cont. to monitor on tele 6. DM type 2 - stable 7. C diff - 8. Hx of GI bleed - 9. Bradycardia - HR was down to 26 at 0717 on 09/28/18. No further events. Cont monitoring on tele MAR reviewed * DNR
[2018-10-01 12:22] VITALS: BMI 23.1
--- NOTE | 2018-10-01 13:51 | PRG ---
DATE OF SERVICE: 10/01/2018 SERVICE: Renal Medicine. SUBJECTIVE: Ms. Marvin is an 83-year-old white female, who was seen by the Renal Service for her acu te kidney injury and hypernatremia. problems are improving over time with IV volume repletion. This morning, no new complaints, no chest pain, no shortness of breath. No acute events noted last night. She has also been empirically treated with antibiotics due to the leukocytosis. OBJECTIVE: VITAL SIGNS: Blood pressure 137/73, heart rate 72, respiratory rate 18, temperature 97.6, pulse oxim etry 100% on room air. GENERAL: Awake, confused, somewhat dysarthric, not in distress. SKIN: Adequate turgor. HEENT: She has pinkish conjunctivae, anicteric sclerae. NECK: No neck mass, no carotid bruits, no JVD. CHEST: No deformities. LUNGS: Clear breath sounds. HEART: Normal sinus rhythm. No murmur, no gallops, no rubs. ABDOMEN: Globular, soft, nontender, no masses. EXTREMITIES: No edema, no deformities. NEUROLOGIC: Decreased motor, dysarthric. MEDICATIONS: Medications of 10/01/2018 was reviewed. LABORATORY DATA: Laboratories of 10/01/2018, sodium 147, potassium is 3.3, chloride 122, carbon diox felicity 16, BUN 27, creatinine 1.35, glucose 141, calcium 9.1. On 09/30/2018, white count 10.9, hemoglobin 12.6. ASSESSMENT AND PLAN: 1. Hypernatremia, much improved. Serum sodium is slightly higher from yesterday. This is a reflect ion of decreased p.o. intake with the patient. If the patient will continue to have decreased p.o. i ntake, she may be a candidate for PEG tube placement. 2. Hypokalemia, p.r.n. potassium replacement. Again, a reflection of decreased p.o. intake, conside r PEG tube placement. 3. Acute kidney injury - hemodynamically mediated renal dysfunction. Much improved. The patient is currently off IV fluid. We will recheck base met and CBC in a.m.
[2018-10-01] MEDS ORDERED: Potassium Chloride 20 MEQ in Premix Bag 1 BAG IVPB SCH (19:15)
[2018-10-02] MEDS: Piperacillin/Tazobactam 2.25 GM in Sodium Chloride 0.9% 100 ML IVPB SCH ×4 (01:00→21:45)
[2018-10-02 05:07] LABS: #Basophils 0.1 thou/uL (0.0-0.2); #Eosinphils 0.4 thou/uL (0.0-0.7); #Lymphocytes 4.5 thou/uL (1.20-3.40); #Monocytes 0.6 thou/uL (0.11-0.59); #Neutrophils 5.9 thou/uL (1.40-6.50); %Basophils 0.8 % (0.0-1.0); %Eosinophils 3.2 % (0.0-10.0); %Lymphocytes 39.1 % (21.0-51.0); %Monocytes 5.4 % (0.0-10.0); %Neutrophils 51.6 % (42.0-75.0); Hemoglobin 12.7 g/dL (12.0-16.0); Mean Corpuscular HGB CONC 32.7 g/dL (32.0-36.0); Mean Corpuscular Hemoglobin 29.2 pg (27.0-31.0); Mean Corpuscular Volume 89.2 fL (78.0-98.0); Mean Platelet Volume 10.7 fL (7.4-10.4); Platelet Count 180 thou/uL (130-400); RBC Distribution Width 14.3 % (11.5-14.5); Red Blood Cell (RBC) Count 4.35 mill/uL (4.20-5.40); White Blood Cell (WBC) Count 11.5 thou/uL (4.8-10.8)
[2018-10-02 05:16] LABS: Anion Gap 12 mmol/L (10-20); BUN (Urea Nitrogen) 27 mg/dL (9.8-20.1); Calc. Creatinine Clearance 36 mL/min (70-130); Calcium 9.1 mg/dL (7.8-10.44); Carbon Dioxide 20 mmol/L (23-31); Chloride 123 mmol/L (98-107); Estimated GFR-MDRD 38; Glucose 149 mg/dL (83-110); Sodium 152 mmol/L (136-145)
[2018-10-02 05:26] LABS: Potassium 2.9 mmol/L (3.5-5.1)
[2018-10-02] MEDS: Potassium Chloride 20 MEQ in Premix Bag 1 BAG IVPB SCH ×2 (06:25→10:02)
[2018-10-02] MEDS: Nystatin 500,000 UNITS/5 ML UDCUP PO SCH ×5 (08:19→21:52)
[2018-10-02] MEDS ORDERED: Magnesium 2 GM/50 ML 2 GM in Premix Bag 1 BAG IVPB SCH ×2 (09:15→19:00)
--- NOTE | 2018-10-02 09:15 | PRG ---
DATE OF SERVICE: 10/02/2018 SUBJECTIVE: Ms. Marvin is an 83-year-old white female who was seen by the Renal Service for her hyp ernatremia and acute kidney injury. The hypernatremia and kidney injury has improved with volume rep letion. However, the hypernatremia is still persistent as well as the hypokalemia due to the fact th e patient is not eating. I did discuss with the patient's daughter regarding PEG tube placement. Ac cording to the daughter the patient does not want to have a PEG tube placed. A consideration for hos pice is being made. PHYSICAL EXAMINATION: VITAL SIGNS: Blood pressure is 141/88, heart rate 77, respiratory rate 17, temperature 97.4, pulse o x 99%. GENERAL: The patient is awake, dysarthric, not in distress. SKIN: Adequate turgor. HEENT: She has pinkish conjunctivae, anicteric sclerae. NECK: No neck mass, no carotid bruits, no JVD. CHEST: No deformities. LUNGS: Clear breath sounds. No wheezing, no crackles. HEART: Normal sinus rhythm. No murmur, no gallops or rubs. ABDOMEN: Globular, soft, nontender. EXTREMITIES: No edema. NEUROLOGIC: Dysarthric. Moving her extremities. No tremors. MEDICATIONS: 10/02/2018 - Reviewed. LABORATORY DATA: 10/02/2018 - White count 11.5, hemoglobin 12.7. Sodium 152, potassium 2.9, chlorid e 123, carbon dioxide 20, BUN 27, creatinine 1.33, calcium 9.1, magnesium is 1, glucose 126. ASSESSMENT AND PLAN: 1. Hypokalemia, currently being corrected with potassium, p.r.n. correction, reflection of decrease d p.o. intake. 2. Hypernatremia, increase free water intake. Encourage the patient to drink. However, she has bee n reluctant to eat and drink. Family is declining PEG tube placement. Overall, prognosis remains poor. The family to discuss hospice options.
--- NOTE | 2018-10-02 11:38 | PDOC.CTH ---
Cardiology Progress Note - Objective Vital Signs Temp Pulse Resp BP Pulse Ox 10/02/18 08:16 97.4 F L 77 17 141/88 H 99 10/02/18 04:00 97.6 F 77 20 129/63 100 Admit Weight 135 lb Weight 157 lb 11.2 oz 10/01/18 10/02/18 10/03/18 06:59 06:59 06:59 Intake Total 1200 545 Output Total 400 650 Balance 800 -105 - Physical Examination General/Neuro: other: (awake when stimulated.) Neck: no JVD present Lungs: CTA Heart: RRR Abdomen: NT/ND, soft - Labs Result Diagrams: 10/02/18 04:37 10/02/18 04:37 Troponin/CKMB CK-MB (CK-2) 20.7 ng/mL (0-6.6) H* 09/25/18 13:33 Troponin I 0.564 ng/mL (< 0.028) H* 09/27/18 04:31 - Assessment/Plan 1. Elevated Trop 2/2 demand ischemia possible due to severe dehydration - stable ; No further cardiac workup. 2. Hypernatremia - improving with D51/2NS; worse today.recheck. Hypokalemia.replace K. 3. s/p Cardiac arrest/V tach - cont. to monitor on tele. likely due to her electrolyte abnormalities and severe dehydration. 4. SAE on CKD stage 4 - improving; managed by assembler product 5. Prox Afib - Remains in SB/SR; Flecanide is on hold due to renal insufficiency ; Resume when renal function is back to baseline . cont. to monitor on tele 6. DM type 2 - stable 7. C diff - 8. Hx of GI bleed - 9. Bradycardia - HR was down to 26 at 0717 on 09/28/18. No further events. Cont monitoring on tele MAR reviewed * DNR Overallcardiac status is stable.
[2018-10-02 15:59] LABS: Anion Gap 12 mmol/L (10-20); BUN (Urea Nitrogen) 26 mg/dL (9.8-20.1); Calc. Creatinine Clearance 39 mL/min (70-130); Calcium 8.9 mg/dL (7.8-10.44); Carbon Dioxide 18 mmol/L (23-31); Chloride 123 mmol/L (98-107); Estimated GFR-MDRD 40; Glucose 136 mg/dL (83-110); Magnesium 1.5 mg/dL (1.6-2.6); Potassium 3.5 mmol/L (3.5-5.1); Sodium 149 mmol/L (136-145)
[2018-10-02] MEDS ORDERED: Potassium Chloride 20 MEQ in Premix Bag 1 BAG IVPB SCH (19:00)
[2018-10-03] MEDS: Piperacillin/Tazobactam 2.25 GM in Sodium Chloride 0.9% 100 ML IVPB SCH ×2 (01:55→09:17)
[2018-10-03 06:23] LABS: Anion Gap 11 mmol/L (10-20); BUN (Urea Nitrogen) 23 mg/dL (9.8-20.1); Calc. Creatinine Clearance 40 mL/min (70-130); Calcium 9.2 mg/dL (7.8-10.44); Carbon Dioxide 16 mmol/L (23-31); Chloride 124 mmol/L (98-107); Estimated GFR-MDRD 45; Glucose 136 mg/dL (83-110); Potassium 3.5 mmol/L (3.5-5.1); Sodium 147 mmol/L (136-145)
--- NOTE | 2018-10-03 08:48 | PDOC.CTH ---
Cardiology Progress Note - Subjective The pt seen and examined. No overnight events. The pt's Lt arm is twisted with severe edema this AM. Unable to follow commands. - Objective Vital Signs Temp Pulse Resp BP Pulse Ox 10/03/18 05:24 78 145/101 H 10/03/18 05:05 98.1 F 69 16 181/75 H 95 10/02/18 22:50 98.9 F 78 18 125/56 L 99 10/02/18 21:40 97.3 F L 76 15 139/62 96 Admit Weight 135 lb Weight 147 lb 4.8 oz 10/02/18 10/03/18 10/04/18 06:59 06:59 06:59 Intake Total 545 415 Output Total 650 75 Balance -105 340 - Physical Examination General/Neuro: other: (disoriented) Lungs: other: (diminished at bases) Heart: RRR Abdomen: soft Extremities: other: (4+ edema to LUE.) - Telemetry Telemetry Rhythm: SR - Labs Result Diagrams: 10/02/18 04:37 10/03/18 05:53 Troponin/CKMB CK-MB (CK-2) 20.7 ng/mL (0-6.6) H* 09/25/18 13:33 Troponin I 0.564 ng/mL (< 0.028) H* 09/27/18 04:31 - Assessment/Plan 1. Elevated Trop 2/2 demand ischemia possible due to severe dehydration - stable ; No further cardiac workup. 2. Hypernatremia - improving. 3. S/p Cardiac arrest/V tach - cont. to monitor on tele. likely due to her electrolyte abnormalities and severe dehydration. 4. SAE on CKD stage 4 - improving; managed by manager pharmacy 5. Prox Afib - Remains in SB/SR; Flecanide is on hold due to renal insufficiency ; Resume when renal function is back to baseline. cont. to monitor on tele 6. DM type 2 - stable 7. C diff - 8. Hx of GI bleed - 9. Bradycardia - HR was down to 26 at 0717 on 09/28/18. No further events. Cont monitoring on tele MAR reviewed * DNR * Over all, cardiac status is stable to tx to rehab/SNF. Review of Systems - Review of Systems Constitutional: reports: see HPI EENTM: reports: see HPI
[2018-10-03 09:07] VITALS: BP 135/89; TEMP 98.8
[2018-10-03] MEDS: Nystatin 500,000 UNITS/5 ML UDCUP PO SCH (09:17)
--- NOTE | 2018-10-03 13:39 | EKG ---
Test Reason : AMS Blood Pressure : / mmHG Vent. Rate : 079 BPM Atrial Rate : 079 BPM P-R Int : 136 ms QRS Dur : 096 ms QT Int : 430 ms P-R-T Axes : 053 -60 173 degrees QTc Int : 493 ms Normal sinus rhythm with sinus arrhythmia Left axis deviation Incomplete right bundle branch block Abnormal ECG Confirmed by DIONTE SULLIVAN ([id number]), writer editor MISTY SANABRIA ([id number]) on 10/03/2018 1:38:46 PM Referred By: Confirmed By:DIONTE SULLIVAN
== END 2018-10-03 12:40 | DRG 871 ==
LOC: ERS 10:18 → 2NO 13:03
PROVIDERS: ADMIT Internal Medicine; ATTEND Internal Medicine
PROC: 5A12012 Performance of Cardiac Output, Single, Manual (ICD-10-PCS; principal; 2018-09-26)
DX: A41.9 Sepsis, unspecified organism (principal); G93.41 Metabolic encephalopathy; E43 Unspecified severe protein-calorie malnutrition; I46.9 Cardiac arrest, cause unspecified; N17.9 Acute kidney failure, unspecified; E87.0 Hyperosmolality and hypernatremia; I69.354 Hemiplegia and hemiparesis following cerebral infarction affecting left non-dominant side; I47.2 Ventricular tachycardia; I24.8 Other forms of acute ischemic heart disease; N18.4 Chronic kidney disease, stage 4 (severe); A04.72 Enterocolitis due to Clostridium difficile, not specified as recurrent; F03.90 Unspecified dementia, unspecified severity, without behavioral disturbance, psychotic disturbance, mood disturbance, and anxiety; Z68.21 Body mass index [BMI] 21.0-21.9, adult; E86.0 Dehydration; L89.159 Pressure ulcer of sacral region, unspecified stage; D72.829 Elevated white blood cell count, unspecified; I48.0 Paroxysmal atrial fibrillation; K27.9 Peptic ulcer, site unspecified, unspecified as acute or chronic, without hemorrhage or perforation; K21.9 Gastro-esophageal reflux disease without esophagitis; Z96.642 Presence of left artificial hip joint; Z66 Do not resuscitate; E11.22 Type 2 diabetes mellitus with diabetic chronic kidney disease; E87.6 Hypokalemia; F32.9 Major depressive disorder, single episode, unspecified; E78.5 Hyperlipidemia, unspecified; Z90.49 Acquired absence of other specified parts of digestive tract
CPT/HCPCS: 36415; 36416; 51701; 70450; 71045; 80048; 80053; 81003; 81015; 82553; 83605; 83735; 84484; 85025; 87040; 87077; 87086; 87149; 87324; 87449; 87493; 93005; 93010; 96361; 96365; A4353; C9113; G8996-GN-CL; G8996-GN-CM; G8996-GN-CN; G8997-GN-CK; G8997-GN-CL; G8997-GN-CM; J0282; J1815; J2543; J3480; J7050

== ENCOUNTER 2018-10-06 18:28 | Inpatient (IN) | payer MEDICARE, BC ==
[2018-10-06 19:05] LABS: #Basophils 0.2 thou/uL (0.0-0.2); #Eosinphils 0.5 thou/uL (0.0-0.7); #Lymphocytes 5.5 thou/uL (1.20-3.40); #Monocytes 0.6 thou/uL (0.11-0.59); #Neutrophils 4.9 thou/uL (1.40-6.50); %Lymphocytes 47.1 % (21.0-51.0); %Monocytes 4.8 % (0.0-10.0); %Neutrophils 42.1 % (42.0-75.0); Hemoglobin 12.4 g/dL (12.0-16.0); Mean Corpuscular HGB CONC 33.2 g/dL (32.0-36.0); Mean Corpuscular Volume 90.3 fL (78.0-98.0); Mean Platelet Volume 9.1 fL (7.4-10.4); Platelet Count 226 thou/uL (130-400); Red Blood Cell (RBC) Count 4.14 mill/uL (4.20-5.40); White Blood Cell (WBC) Count 11.7 thou/uL (4.8-10.8)
[2018-10-06 19:26] LABS: ALT (SGPT) 12 U/L (8-55); AST (SGOT) 14 U/L (5-34); Albumin 2.3 g/dL (3.4-4.8); Alkaline Phosphatase 105 U/L (40-150); Anion Gap 11 mmol/L (10-20); BUN (Urea Nitrogen) 22 mg/dL (9.8-20.1); Bilirubin, Total 0.5 mg/dL (0.2-1.2); Calc. Creatinine Clearance 0 mL/min (70-130); Calcium 9.7 mg/dL (7.8-10.44); Carbon Dioxide 19 mmol/L (23-31); Estimated GFR-MDRD 54; Globulin 2.4 g/dL (2.4-3.5); Glucose 160 mg/dL (83-110); Protein, Total 4.7 g/dL (6.0-8.3); Sodium 154 mmol/L (136-145)
[2018-10-06 19:29] LABS: Chloride 127 mmol/L (98-107)
[2018-10-06] MEDS ORDERED: Acetaminophen 325 MG TAB PO PRN (21:09)
[2018-10-06 22:10] VITALS: BMI 23.6
[2018-10-06] MEDS ORDERED: D5 1/4 NS 1,000 ML IV SCH (22:15)
[2018-10-07 05:35] LABS: Anion Gap 9 mmol/L (10-20); BUN (Urea Nitrogen) 20 mg/dL (9.8-20.1); Calc. Creatinine Clearance 51 mL/min (70-130); Calcium 9.2 mg/dL (7.8-10.44); Carbon Dioxide 18 mmol/L (23-31); Estimated GFR-MDRD 57; Glucose 200 mg/dL (83-110); Sodium 150 mmol/L (136-145)
[2018-10-07 05:39] LABS: Chloride 126 mmol/L (98-107); Potassium 2.8 mmol/L (3.5-5.1)
[2018-10-07] MEDS ORDERED: Acetaminophen 325 MG TAB PO PRN (06:29)
[2018-10-07] MEDS ORDERED: Docusate 100 MG CAP PO PRN (06:29)
[2018-10-07] MEDS ORDERED: Potassium Chloride 20 MEQ TAB PO SCH (06:30)
[2018-10-07 06:42] LABS: Band 2 % (5-11); Eosinophils 3 % (0-10); Hemoglobin 11.2 g/dL (12.0-16.0); Lymphocytes 44 % (21-51); MDiff Complete? YES; Mean Corpuscular HGB CONC 32.3 g/dL (32.0-36.0); Mean Corpuscular Hemoglobin 29.3 pg (27.0-31.0); Mean Corpuscular Volume 90.6 fL (78.0-98.0); Mean Platelet Volume 8.9 fL (7.4-10.4); Monocytes 3 % (0-10); Neutrophil 47 % (42-75); Platelet Count 209 thou/uL (130-400); Reactive Lymphocytes 1 % (0-10); Red Blood Cell (RBC) Count 3.81 mill/uL (4.20-5.40); White Blood Cell (WBC) Count 11.3 thou/uL (4.8-10.8)
[2018-10-07] MEDS: Potassium Chloride 20 MEQ in Premix Bag 1 BAG IVPB SCH ×2 (07:38→09:38)
[2018-10-07] MEDS: Nystatin 500,000 UNITS/5 ML UDCUP SSW SCH ×4 (08:34→20:30)
[2018-10-07] MEDS: Acetaminophen 500 MG TAB PO SCH ×3 (08:34→20:29)
[2018-10-07] MEDS: Loratadine 10 MG TAB PO SCH (08:34)
[2018-10-07] MEDS: Famotidine 20 MG TAB PO SCH (08:34)
[2018-10-07] MEDS: Flecainide 50 MG TAB PO SCH (08:34)
[2018-10-07] MEDS: Multivitamin W/ Minerals 1 TAB PO SCH (08:34)
[2018-10-07] MEDS: Apixaban 5 MG TAB PO SCH ×2 (08:34→20:28)
--- NOTE | 2018-10-07 11:58 | PRG ---
DATE OF SERVICE: 10/07/2018 SERVICE: Renal Medicine. SUBJECTIVE: Ms. Marvin is an 83-year-old, who was readmitted due to the hypernatremia. Please note, she was just discharged a few days ago from the hospital for the same problem. At that time, she marley d free water deficit to explain the hypernatremia. A recommendation to have a PEG tube placed was de clined by the family since the patient has, in the past, refused to have any PEG tube placed. She co ntinues to have decreased p.o. intake and this may explain for the recurrent hypernatremia. This mor danyelle, she was also noted to be hypokalemic and potassium replacement has been given. We are now foll owing back this patient for the hypernatremia. No other complaints today. She is mentating well. OBJECTIVE: VITAL SIGNS: Blood pressure is 162/73, heart rate 72, respiratory rate 13, temperature 97.5, pulse o x is 93%. GENERAL EXAM: Noted to be awake, comfortable, not in overt distress. SKIN: Adequate turgor. HEENT: Pinkish conjunctivae, anicteric sclerae. NECK: No neck mass, no carotid bruits, no JVD. CHEST: No deformities. LUNGS: Clear breath sounds, no wheezing, no crackles. HEART: Normal sinus rhythm. No murmur, no gallops, no rubs. ABDOMEN: Globular, soft, nontender. No masses. EXTREMITIES: No edema, no deformities. Medications of 10/07/2018 were reviewed. LABORATORY DATA: Laboratories of 10/07/2018, white count 11.2, hemoglobin 11.2. Sodium 150, potassi um 2.8, chloride 126, carbon dioxide 18, BUN 20, creatinine 0.94, glucose 200, calcium 9.2. ASSESSMENT AND PLAN: Hypernatremia - secondary to free water deficits due to the history of decrease d p.o. intake with this patient. The recommendation for PEG tube placement has been done in the past , but the family is declining. Continue IV fluid. We will change IV fluid to D5 water with 40 mEq o f KCl to run at 100 mL per hour. I do anticipate improvement with the electrolyte abnormalities with the said maneuver. Again, I strongly recommend a PEG tube placement with this patient.
[2018-10-07] MEDS: Potassium Chloride 40 MEQ in Dextrose 5% in Water 1,000 ML IV SCH (12:26)
--- NOTE | 2018-10-07 12:28 | PDOC.PN ---
- Subjective Encounter Start Date: 10/07/18 Encounter Start Time: 09:40 Pt seen for followup re: hypernatremia. Pt unable to answer questions, could not complete ROS. - Objective Resuscitation Status: Resuscitation Status DNR:Do Not Resuscitate MAR Reviewed: Yes Vital Signs & Weight: Vital Signs (12 hours) Temp Pulse Resp BP Pulse Ox 10/07/18 11:26 98.2 F 68 14 150/69 H 100 10/07/18 07:29 97.5 F L 72 13 162/73 H 93 L 10/07/18 04:23 98.0 F 62 14 140/58 L 99 Weight Weight 155 lb 2 oz I&O: 10/06/18 10/07/18 10/08/18 06:59 06:59 06:59 Intake Total 866 Balance 866 Result Diagrams: 10/07/18 04:58 10/07/18 04:58 Additional Labs: Accuchecks 10/07/18 10:38 POC Glucose 231 H EKG Reviewed by me: Yes (Tele: NSR) Phys Exam - Physical Examination Constitutional: NAD Dry mucosae Neck: supple Respiratory: clear to auscultation bilateral Cardiovascular: RRR Gastrointestinal: soft Musculoskeletal: no edema left sided weakness Psychiatric: normal affect Dx/Plan (1) Hypernatremia Code(s): E87.0 - HYPEROSMOLALITY AND HYPERNATREMIA Status: Acute Comment: secondary to dehydration (2) Hypokalemia Code(s): E87.6 - HYPOKALEMIA Status: Acute Comment: replace potassium (3) Severe dehydration Code(s): E86.0 - DEHYDRATION Status: Acute Comment: continue IV fluids (4) Dyslipidemia Code(s): E78.5 - HYPERLIPIDEMIA, UNSPECIFIED Status: Chronic Comment: continue statin (5) HTN (hypertension) Code(s): I10 - ESSENTIAL (PRIMARY) HYPERTENSION Status: Chronic Qualifiers: Hypertension type: essential hypertension Qualified Code(s): I10 - Essential (primary) hypertension Comment: monitor vital signs and titrate antihypertensives as needed - Plan * . Review of Systems - Medications/Allergies Allergies/Adverse Reactions: Allergies Allergy/AdvReac Type Severity Reaction Status Date / Time amlodipine [From [facility]] Allergy Verified 09/25/18 18:08 cefaclor Allergy Verified 09/25/18 18:08 Medications: Current Medications Acetaminophen (Tylenol) 650 mg PO Q4H PRN PRN Reason: Headache/Fever or Pain Acetaminophen (Tylenol) 500 mg PO TID [facility] Last Admin: 10/07/18 08:34 Dose: 500 mg Apixaban (Eliquis) 5 mg PO BID [facility] Last Admin: 10/07/18 08:34 Dose: 5 mg Atorvastatin Calcium (Lipitor) 40 mg PO HS [facility] Docusate Sodium (Colace) 100 mg PO BID PRN PRN Reason: Constipation Famotidine (Pepcid) 20 mg PO DAILY [facility] Last Admin: 10/07/18 08:34 Dose: 20 mg Flecainide Acetate (Tambocor) 50 mg PO DAILY [facility] Last Admin: 10/07/18 08:34 Dose: 50 mg Folic Acid (Folvite) 3 mg PO HS [facility] Potassium Chloride 40 meq/ (Dextrose/Water) 1,020 mls @ 100 mls/hr IV INF [facility] Last Admin: 10/07/18 12:26 Dose: 1,020 mls Iron/Minerals/Multivitamins (Theragran M) 1 tab PO DAILY [facility] Last Admin: 10/07/18 08:34 Dose: 1 tab Loratadine (Claritin) 10 mg PO DAILY [facility] Last Admin: 10/07/18 08:34 Dose: 10 mg Metoprolol Succinate (Toprol Xl) 50 mg PO DAILY [facility] Last Admin: 10/07/18 08:34 Dose: 50 mg Nystatin (Mycostatin) 500,000 units SSW QID [facility] Last Admin: 10/07/18 12:29 Dose: Not Given Ondansetron HCl (Zofran) 4 mg IVP Q6H PRN PRN Reason: Nausea/Vomiting Sodium Chloride (Flush - Normal Saline) 10 ml IVF PRN PRN PRN Reason: Saline Flush
--- NOTE | 2018-10-07 14:37 | HP ---
PRIMARY CARE PHYSICIAN: [facility]. TIME OF EVALUATION: Around 2100. CHIEF COMPLAINT: Abnormal labs. HISTORY OF PRESENT ILLNESS: This is an 83-year-old male patient, known to our hospital, he was recently discharged. The patient has multiple comorbidities including previous stroke with a left significant functional deficit and also mental deficit, history of atrial fibrillation, diabetes, GERD, and hypertension , who was brought into the hospital after being found that the patient had low potassium and very high sodium. Labs were drawn yesterday; sodium was 155 and potassium 3.2. The patient is nonverbal and can communicate very poorly due to the stroke sequela and possible changes in mental status due to acute encephalopathy secondary to sodium. The patient cannot describe the symptoms. The information has been gathered from the daughter who is at bedside. She has reported that the patient has been not eating properly with failure to thrive. REVIEW OF SYSTEMS: Unable to obtain; the patient is unable to give any complete history. PAST MEDICAL HISTORY: As described in the HPI. PAST SURGICAL HISTORY: Hysterectomy and orthopedic surgery, left wrist. FAMILY HISTORY: Reviewed and non contributory. PSYCHIATRIC HISTORY: Includes anxiety. SOCIAL HISTORY: No alcohol, no drugs, and no smoking history. KNOWN ALLERGIES: To AMLODIPINE, CECLOR, CEFACLOR, and NORVASC. REPORTED MEDICATION LIST: Florastor, fexofenadine, Pepcid-AC, losartan, metoprolol, Cozaar, B12, Lantus, ascorbic acid, , Lipitor, folic acid daily with hydralazine, Colace, clonidine, acetaminophen, Zofran ODT, and magnesium hydroxide. PHYSICAL EXAMINATION: VITAL SIGNS: Blood pressure 140/54 with heart rate 64, respiratory rate was 16 , temperature 97.5, pain is 0/10, oxygen saturation 98% on room air. GENERAL APPEARANCE: The patient is alert, disoriented with frequent . HEENT: Eyes, normal conjunctivae. Moist oral mucosa. Anicteric. NECK: No JVD. RESPIRATORY: Bilateral air entry. No rales, no wheezes. Symmetric expansion. CARDIOVASCULAR: Normal rate, regular rhythm. No murmurs, no gallop, no edema. ABDOMEN: Soft, normal bowel sounds. MUSCULOSKELETAL: Baseline range of motion and strength. No tenderness. SKIN: Warm and intact. No pallor, no rash, no redness. She does have a bedsore that is unstageable. Peripheral pulses are present. Capillary refill seems to be intact. NEUROLOGIC: The patient has sequela from previous stroke or having dysarthria and also having left-sided weakness, also change in mentation had been reported from previous stroke. PSYCHIATRIC: The patient is in good mood, disoriented, judgment. IMAGING STUDIES: EKG was done. The patient had a heart rate of 63 with sinus arrhythmia, no anterolateral infarct. LABORATORY DATA: Labs were reviewed. The patient has a white count of 11.7, hemoglobin 12.4, MCV 90.3, platelet count 226. On initial presentation, the sodium was 154 with potassium 3.0, chloride 127, carbon dioxide 19, anion gap 11 , BUN 22, creatinine 0.9, GFR 54, glucose 160. The repeat potassium is low at 2.8 with a sodium 150, is coming down and chloride 126 about the same. ASSESSMENT AND PLAN: The patient will be placed in the hospital with following medical problems: 1. Acute encephalopathy, likely secondary to metabolic derangement, we have consulted Dr. Alves, there has fluid adjustment been recommendations, and adjust as needed. 2. Acute hypernatremia. Sodium 154, likely causing change in mental status, Dr Alves following this problem with fluid adjustment. will monitor, support as inpatient. 3. Hypokalemia. Potassium 2.8 this morning. We will replace electrolytes as needed. 4. Hyperchloremia of 137, Dr lAves adjusting fluids, will follow recommendations. 5. Hyperchloremic metabolic acidosis with carbon dioxide 19, treatment as above . 6. Hyperglycemia. The patient has a history of diabetes uncontrolled, will restart the patient on insulin. We will monitor, at this point might be secondary to acute distress and dehydration. 7. Hyperlipidemia, reconcile home meds, low cholesterol diet is advised. 8. History of atrial fibrillation. We will reconcile home medications, continue anticoagulation. 9. Controlled hypertension. This problem is chronic, reconcile home medications, adjust as needed. Risk assessment: the patient has a high risk of complication due to acute encephalopathy and electrolyte imbalance. MTDD
[2018-10-07] MEDS: Atorvastatin Calcium 40 MG TAB PO SCH (20:29)
[2018-10-07] MEDS: Folic Acid 1 MG TAB PO SCH (20:29)
[2018-10-08 05:15] LABS: Anion Gap 7 mmol/L (10-20); BUN (Urea Nitrogen) 20 mg/dL (9.8-20.1); Calc. Creatinine Clearance 50 mL/min (70-130); Calcium 9.4 mg/dL (7.8-10.44); Carbon Dioxide 21 mmol/L (23-31); Chloride 123 mmol/L (98-107); Estimated GFR-MDRD 56; Glucose 153 mg/dL (83-110); Potassium 3.4 mmol/L (3.5-5.1); Sodium 148 mmol/L (136-145)
[2018-10-08 05:27] LABS: Band 8 % (5-11); Eosinophils 6 % (0-10); Hemoglobin 11.2 g/dL (12.0-16.0); Lymphocytes 45 % (21-51); MDiff Complete? YES; Mean Corpuscular HGB CONC 32.9 g/dL (32.0-36.0); Mean Corpuscular Hemoglobin 29.5 pg (27.0-31.0); Mean Corpuscular Volume 89.7 fL (78.0-98.0); Mean Platelet Volume 9.3 fL (7.4-10.4); Monocytes 10 % (0-10); Neutrophil 31 % (42-75); Ovalocytes SLIGHT = 2-5 cells (100X) (0-1/hpf); Platelet Count 207 thou/uL (130-400); RBC Distribution Width 15.1 % (11.5-14.5); Red Blood Cell (RBC) Count 3.78 mill/uL (4.20-5.40); White Blood Cell (WBC) Count 11.1 thou/uL (4.8-10.8)
--- NOTE | 2018-10-08 09:27 | PRG ---
DATE OF SERVICE: 10/08/2018 SUBJECTIVE: Ms. Marvin is an 83-year-old white female who was admitted for hypernatremia and hypoka lemia. She was given IV fluid with improvement of the serum sodium to a most recent value of 148. P lease note when she initially came in, serum sodium was 154. In addition, potassium has improved. H owever, the patient's IV fluid was placed on hold due to we have lost her peripheral line access. We will resume this once the access is available. No other complaints. PHYSICAL EXAMINATION: VITAL SIGNS: Blood pressure is 143/65, heart rate 54, respiratory rate 16, temperature 97.8, pulse o x 100%. GENERAL: The patient is noted to be awake, confused, not in distress. SKIN: Adequate turgor. HEENT: She has pinkish conjunctivae, anicteric sclerae. NECK: No neck mass, no carotid bruits, no JVD. CHEST: No deformities. LUNGS: Decreased breath sounds. HEART: Normal sinus rhythm. No murmur, no gallops or rubs. ABDOMEN: Globular, soft, nontender, no masses. EXTREMITIES: No edema, no deformities. MEDICATIONS: 10/08/2018 - Reviewed. LABORATORY: 10/08/2018 - White count 11.1, hemoglobin 11.2. Sodium 148, potassium 3.4, chloride 103 , carbon dioxide 21, BUN 20, creatinine 0.96, calcium 9.4. ASSESSMENT AND PLAN: 1. Hypernatremia, slowly improving. I would suggest we continue current IV fluid. 2. Hypokalemia, improving. Continue IV fluid - half D5 water with 40 mEq KCl being given. We will try to find another peripheral line access. We will discuss with nursing staff. Please note this patient should be considered for PEG tube placement. However, the family is declini ng. If the family is declining with her overall condition, consider possible palliative care with is patient.
--- NOTE | 2018-10-08 15:26 | PDOC.PN ---
- Subjective Encounter Start Date: 10/08/18 Encounter Start Time: 09:00 Pt seen for followup re: hypernatremia. Sleepy but arousable, not answering questions, unable to complete ROS. - Objective Resuscitation Status: Resuscitation Status DNR:Do Not Resuscitate MAR Reviewed: Yes Vital Signs & Weight: Vital Signs (12 hours) Temp Pulse Resp BP Pulse Ox 10/08/18 11:13 98.2 F 60 18 144/70 H 100 10/08/18 07:49 100 10/08/18 07:37 97.8 F 54 L 16 143/65 H 100 10/08/18 04:00 99.1 F 58 L 16 134/65 99 Weight Admit Weight 155 lb 2 oz Weight 155 lb 2 oz I&O: 10/07/18 10/08/18 10/09/18 06:59 06:59 06:59 Intake Total 866 700 Output Total 0 Balance 866 700 Result Diagrams: 10/08/18 03:49 10/08/18 03:49 Additional Labs: Accuchecks 10/08/18 10/08/18 10/07/18 10:33 06:11 20:19 POC Glucose 137 H 127 H 173 H 10/07/18 16:41 POC Glucose 235 H EKG Reviewed by me: Yes (Tele: NSR) Phys Exam - Physical Examination Constitutional: NAD dry mucosae Neck: supple Respiratory: clear to auscultation bilateral Cardiovascular: RRR Gastrointestinal: soft Unable to assess due to patient's noncooperation Deviation from normal: Unable to assess Dx/Plan (1) Hypernatremia Code(s): E87.0 - HYPEROSMOLALITY AND HYPERNATREMIA Status: Acute Comment: secondary to dehydration, sodium improved to 148 today (2) Hypokalemia Code(s): E87.6 - HYPOKALEMIA Status: Acute Comment: potassium being replaced , improved to 3.4 today (3) Severe dehydration Code(s): E86.0 - DEHYDRATION Status: Acute Comment: continue IV fluids (4) Dyslipidemia Code(s): E78.5 - HYPERLIPIDEMIA, UNSPECIFIED Status: Chronic Comment: on statin (5) HTN (hypertension) Code(s): I10 - ESSENTIAL (PRIMARY) HYPERTENSION Status: Chronic Qualifiers: Hypertension type: essential hypertension Qualified Code(s): I10 - Essential (primary) hypertension Comment: monitor vital signs and titrate antihypertensives as needed (6) Afib Code(s): I48.91 - UNSPECIFIED ATRIAL FIBRILLATION Status: Chronic Qualifiers: Atrial fibrillation type: chronic Qualified Code(s): I48.2 - Chronic atrial fibrillation Comment: Pt has not been able to take Eliquis last two ays. Will start Lovenox. - Plan * . Had a lengthy discussion with patient's daughter. Family would likel all measures instituted to get fluids into patient, including central line. They do not want a PEG tube, however. Review of Systems - Medications/Allergies Allergies/Adverse Reactions: Allergies Allergy/AdvReac Type Severity Reaction Status Date / Time amlodipine [From [facility]] Allergy Verified 09/25/18 18:08 cefaclor Allergy Verified 09/25/18 18:08 Medications: Current Medications Acetaminophen (Tylenol) 650 mg PO Q4H PRN PRN Reason: Headache/Fever or Pain Acetaminophen (Tylenol) 500 mg PO TID [facility] Last Admin: 10/07/18 20:29 Dose: Not Given Atorvastatin Calcium (Lipitor) 40 mg PO HS [facility] Last Admin: 10/07/18 20:29 Dose: Not Given Docusate Sodium (Colace) 100 mg PO BID PRN PRN Reason: Constipation Enoxaparin Sodium (Lovenox) 70 mg SC 0900,2100 [facility] Famotidine (Pepcid) 20 mg PO DAILY [facility] Last Admin: 10/07/18 08:34 Dose: 20 mg Flecainide Acetate (Tambocor) 50 mg PO DAILY [facility] Last Admin: 10/07/18 08:34 Dose: 50 mg Folic Acid (Folvite) 3 mg PO HS [facility] Last Admin: 10/07/18 20:29 Dose: Not Given Potassium Chloride 40 meq/ (Dextrose/Water) 1,020 mls @ 100 mls/hr IV INF [facility] Last Admin: 10/07/18 12:26 Dose: 1,020 mls Iron/Minerals/Multivitamins (Theragran M) 1 tab PO DAILY [facility] Last Admin: 10/07/18 08:34 Dose: 1 tab Loratadine (Claritin) 10 mg PO DAILY [facility] Last Admin: 10/07/18 08:34 Dose: 10 mg Metoprolol Succinate (Toprol Xl) 50 mg PO DAILY [facility] Last Admin: 10/07/18 08:34 Dose: 50 mg Nystatin (Mycostatin) 500,000 units SSW QID [facility] Last Admin: 10/07/18 20:30 Dose: Not Given Ondansetron HCl (Zofran) 4 mg IVP Q6H PRN PRN Reason: Nausea/Vomiting Sodium Chloride (Flush - Normal Saline) 10 ml IVF PRN PRN PRN Reason: Saline Flush
[2018-10-08] MEDS: Loratadine 10 MG TAB PO SCH (17:36)
[2018-10-08] MEDS: Multivitamin W/ Minerals 1 TAB PO SCH (17:36)
[2018-10-08] MEDS: Acetaminophen 500 MG TAB PO SCH ×2 (17:36→21:09)
[2018-10-08] MEDS: Famotidine 20 MG TAB PO SCH (17:36)
[2018-10-08] MEDS: Flecainide 50 MG TAB PO SCH (17:36)
[2018-10-08] MEDS: Nystatin 500,000 UNITS/5 ML UDCUP SSW SCH ×3 (17:37→21:24)
[2018-10-08] MEDS: Apixaban 5 MG TAB PO SCH (19:24)
--- NOTE | 2018-10-08 19:56 | RAD ---
FRONTAL RADIOGRAPH CHEST PORTABLE UPRIGHT: 10/08/2018 HISTORY: Evaluate chest following central line placement. COMPARISON: 09/25/2018 FINDINGS: There is a right-sided vascular catheter. The tip of the catheter extends into the neck on the right and is incompletely imaged. There is atherosclerotic calcification of the aortic arch and descendin g thoracic aorta. No pneumothorax. Hazy increased density in the left base noted, which may signify volume loss, infiltrate, or small volume pleural fluid on the left. IMPRESSION: Right-sided vascular catheter extending into the neck, distal tip incompletely imaged. CODE T POS: [facility]
[2018-10-08] MEDS: Atorvastatin Calcium 40 MG TAB PO SCH (21:09)
[2018-10-08] MEDS: Folic Acid 1 MG TAB PO SCH (21:10)
[2018-10-08] MEDS: Enoxaparin Sodium 80 MG/0.8 ML SYRINGE SC SCH (21:12)
[2018-10-08] MEDS: Ondansetron PF 4 MG/2 ML Vial IVP PRN (21:50)
--- NOTE | 2018-10-09 04:30 | OP ---
PREOPERATIVE DIAGNOSES: Poor IV access, dysphagia. POSTOPERATIVE DIAGNOSES: Poor IV access, dysphagia, recent stroke. PROCEDURE PERFORMED: Right subclavian vein triple-lumen catheter. SURGEON: Dr. Clement Costa. ANESTHESIA: 1% Xylocaine. PROCEDURE IN DETAIL: The patient was at bedside in her room. Her right periclavicular area was prep ared with ChloraPrep, draped in routine fashion. 1% Xylocaine infiltrated into skin and subcutaneous tissue about the operative site. Seldinger technique used to place a triple lumen catheter, access the subclavian vein with trocar catheter, J wire, Seldinger technique complied. Catheter secured wit h 2 interrupted sutures of 3-0 silk. J-wire removed. Each port aspirated blood and was flushed with saline solution.
[2018-10-09 05:07] LABS: Anion Gap 10 mmol/L (10-20); BUN (Urea Nitrogen) 18 mg/dL (9.8-20.1); Calc. Creatinine Clearance 47 mL/min (70-130); Calcium 9.5 mg/dL (7.8-10.44); Carbon Dioxide 23 mmol/L (23-31); Chloride 121 mmol/L (98-107); Estimated GFR-MDRD 52; Glucose 216 mg/dL (83-110); Potassium 4.3 mmol/L (3.5-5.1); Sodium 150 mmol/L (136-145)
[2018-10-09 05:35] LABS: Band 3 % (5-11); Eosinophils 3 % (0-10); Hemoglobin 11.2 g/dL (12.0-16.0); Lymphocytes 46 % (21-51); MDiff Complete? YES; Mean Corpuscular HGB CONC 32.7 g/dL (32.0-36.0); Mean Corpuscular Hemoglobin 29.5 pg (27.0-31.0); Mean Corpuscular Volume 90.2 fL (78.0-98.0); Mean Platelet Volume 9.2 fL (7.4-10.4); Monocytes 5 % (0-10); Neutrophil 41 % (42-75); Platelet Count 225 thou/uL (130-400); RBC Distribution Width 15.4 % (11.5-14.5); Reactive Lymphocytes 2 % (0-10); Red Blood Cell (RBC) Count 3.79 mill/uL (4.20-5.40); White Blood Cell (WBC) Count 13.8 thou/uL (4.8-10.8)
[2018-10-09] MEDS: Potassium Chloride 40 MEQ in Dextrose 5% in Water 1,000 ML IV SCH ×2 (05:53→18:16)
--- NOTE | 2018-10-09 09:43 | PRG ---
DATE OF SERVICE: 10/09/2018 SUBJECTIVE: Ms. Marvin was admitted for hypernatremia and hypokalemia. This was corrected with D5 w ater and potassium replacement. This is a reflection of a decreased p.o. intake. Recommendation for a PEG tube has been made with the patient's family, but they have declined for the moment. A centra l line has been placed. My plan is to continue the IV fluid of D5 water to improve the hypernatremia . Please note this patient has history of CVA and could not make decisions. No other complaints. PHYSICAL EXAMINATION: VITAL SIGNS: Blood pressure 145/105, heart rate 71, respiratory rate 13, temperature 98.8, pulse ox 100% room air. GENERAL: Awake, confused, not in distress. SKIN: Adequate turgor. HEENT: Pinkish conjunctivae, anicteric sclerae. NECK: No neck mass, no carotid bruits, no JVD. CHEST: No deformities. LUNGS: Clear breath sounds. HEART: Normal sinus rhythm. No murmur, no gallops, no rubs. ABDOMEN: Globular, soft, nontender, no masses. EXTREMITIES: No edema. MEDICATIONS: 10/09/2018 - Reviewed. LABORATORY DATA: 10/09/2018 - Sodium 150, potassium 4.3, chloride 121, carbon dioxide 23, BUN 18, cr eatinine 1.02, calcium is 9.5, hemoglobin 11.2. ASSESSMENT AND PLAN: 1. Hypernatremia. Continue D5 water. I do anticipate correction of the serum sodium. 2. Hypokalemia, much improved. The issue with this patient is the family has refused PEG tube placement. IV fluid with at central l ine is a temporizing thing. I do recommend that they consider PEG tube placement since the patient h as some degree of dementia and is not eating. If they decline PEG tube, the other option is to consi shae palliative care or hospice care.
--- NOTE | 2018-10-09 13:19 | PDOC.PN ---
- Subjective Encounter Start Date: 10/09/18 Encounter Start Time: 13:18 Saying "Help me" repeatedly, but when asked if she needs help, she says "no". Doesnt want to eat. - Objective Resuscitation Status: 10/09/18 11:49 Resuscitation Status Routine Resuscitation Status: DNAR: NO Resuscitation Discussed with: no aggressive measures; discussed with daughter ISRRAEL Reviewed: Yes Vital Signs & Weight: Vital Signs (12 hours) Temp Pulse Resp BP Pulse Ox 10/09/18 11:56 97.7 F 72 14 155/71 H 100 10/09/18 08:08 100 10/09/18 07:44 98.8 F 71 13 145/105 H 100 10/09/18 04:00 98.7 F 72 20 169/97 H 100 Weight Admit Weight 155 lb 2 oz Weight 155 lb 2 oz I&O: 10/08/18 10/09/18 10/10/18 06:59 06:59 06:59 Intake Total 700 810 Output Total 0 0 Balance 700 810 Result Diagrams: 10/09/18 04:22 10/09/18 04:22 Additional Labs: Accuchecks 10/09/18 10/09/18 10/08/18 10:28 06:02 19:59 POC Glucose 200 H 197 H 121 H 10/08/18 16:36 POC Glucose 156 H Phys Exam - Physical Examination Constitutional: NAD Respiratory: no wheezing, no rales, no rhonchi Cardiovascular: RRR, no significant murmur, no rub Gastrointestinal: soft, non-tender, no distention, positive bowel sounds Musculoskeletal: no edema RUE erythema from infiltrated mainline. LUE contractures. Deviation from normal: Dementia. Dx/Plan (1) Hypernatremia Code(s): E87.0 - HYPEROSMOLALITY AND HYPERNATREMIA Status: Acute Comment: secondary to dehydration, sodium improving with hydration (2) Hypokalemia Code(s): E87.6 - HYPOKALEMIA Status: Acute Comment: potassium being replaced , improving (3) Severe dehydration Code(s): E86.0 - DEHYDRATION Status: Acute Comment: continue IV fluids. Patient does not take adequate po fluid/nutrition, but family is not interested in a PEG. Difficult access. (4) Afib Code(s): I48.91 - UNSPECIFIED ATRIAL FIBRILLATION Status: Chronic Qualifiers: Atrial fibrillation type: chronic Qualified Code(s): I48.2 - Chronic atrial fibrillation Comment: Pt has not been able to take Eliquis. Lovenox was started. Can resume the Eliquis not that she has central access placed. (5) DM type 2 (diabetes mellitus, type 2) Status: Chronic Qualifiers: Diabetes mellitus rn long term care insulin use: without rn long term care use Diabetes mellitus complication status: with kidney complications Diabetes mellitus complication detail: with chronic kidney disease Chronic kidney disease stage : stage 3 (moderate) Qualified Code(s): E11.22 - Type 2 diabetes mellitus with diabetic chronic kidney disease; N18.3 - Chronic kidney disease, stage 3 ( moderate); N18.3 - Chronic kidney disease, stage 3 (moderate); N18.3 - Chronic kidney disease, stage 3 (moderate) Comment: Blood sugars well controlled. (6) Dyslipidemia Code(s): E78.5 - HYPERLIPIDEMIA, UNSPECIFIED Status: Chronic Comment: on statin (7) HTN (hypertension) Code(s): I10 - ESSENTIAL (PRIMARY) HYPERTENSION Status: Chronic Qualifiers: Hypertension type: essential hypertension Qualified Code(s): I10 - Essential (primary) hypertension Comment: monitor vital signs and titrate antihypertensives as needed - Plan * Continue to rehydrate and resolve the electrolyte abnormalities. * Unfortunately, all likely temporary as she is not eating and drinking adequately on her own due to several factors, including dementia. She will likely dehydrate again after discharge. Will discuss with CM. * Patient is a tele overflow. May be able to go the floor when her lytes are stable if no tele bed available.
[2018-10-09] MEDS: Acetaminophen 500 MG TAB PO SCH ×3 (13:22→21:01)
[2018-10-09] MEDS: Flecainide 50 MG TAB PO SCH (13:22)
[2018-10-09] MEDS: Loratadine 10 MG TAB PO SCH (13:22)
[2018-10-09] MEDS: Enoxaparin Sodium 80 MG/0.8 ML SYRINGE SC SCH ×2 (13:22→22:55)
[2018-10-09] MEDS: Famotidine 20 MG TAB PO SCH (13:22)
[2018-10-09] MEDS: Multivitamin W/ Minerals 1 TAB PO SCH (13:23)
[2018-10-09] MEDS: Nystatin 500,000 UNITS/5 ML UDCUP SSW SCH ×3 (13:23→21:02)
--- NOTE | 2018-10-09 14:49 | PQF ---
CLINICAL DOCUMENTATION IMPROVEMENT CLARIFICATION FORM: ICD-10 Updated PLEASE DO AN ADDENDUM TO THE PROGRESS NOTE WITH ANY DOCUMENTATION UPDATES OR ADDITIONS AND CARRY THROUGH TO DC SUMMARY. THANK YOU. DATE: 10/09/18 ATTN: DR. MUNOZ Please exercise your independent, professional judgment in responding to the clarification form. Clinical indicators are provided on the bottom of this form for your review Please check appropriate box(s): [ x ] Hemiplegia Specify: [ x ] Non dominant side [ ] Dominant side Status: [ ] Complete [ x ] Incomplete [ ] Functional Quadriplegia (specify underlying cause) [ ] Weakness (please specify anatomical area) Specify: [ ] Non dominant side [ ] Dominant side [ ] Other diagnosis [ ] Unable to determine In addition, please specify: Present on Admission (POA): [ x ] Yes [ ] No [ ] Unable to determine CLINICAL INDICATORS - SIGNS / SYMPTOMS / LABS ER NOTE: "CONTRACTURED PER BASELINE" NURSING ASSESSMENT 10/09: "CANNOT STAND, CANNOT WALK, TOTAL ASSISTANCE" "BEDFAST" RISKS: H/O CVA ADVANCED AGE DEMENTIA (PER PROGRESS NOTE 10/09) TREATMENT: TOTAL ASSISTANCE PER NURSING CARE (ORAL, SKIN AND ALMA CARE PER HYGIENE ASSESSMENT 10/08) (This form is maintained as a part of the permanent medical record) 2014 [employer] All Rights Reserved [email or web address] Office: [phone] [email or web address]
--- NOTE | 2018-10-09 15:13 | PQF ---
CLINICAL DOCUMENTATION IMPROVEMENT CLARIFICATION FORM: ICD-10 Updated PLEASE DO AN ADDENDUM TO THE PROGRESS NOTE WITH ANY DOCUMENTATION UPDATES OR ADDITIONS AND CARRY THROUGH TO DC SUMMARY. THANK YOU. DATE: 10/09/18 ATTN : DR. MUNOZ Please exercise your independent, professional judgment in responding to the clarification form. Clinical indicators are provided on the bottom of this form for your review Please check appropriate box(s): [ ] Alzheimers disease with behavioral disturbances [ ] Aggressive[ ] Combative [ ] Violent [ ] Other [ ] Alzheimers disease with dementia [ ] Acute[ ] Sub acute[ ] With wandering [ ] Other diagnosis Multi-infarct dementia [ ] Unable to determine In addition, please specify: Present on Admission (POA): [ x] Yes [ ] No [ ] Unable to determine For continuity of documentation, please document condition throughout progress notes and discharge summary. Thank You. CLINICAL INDICATORS - SIGNS / SYMPTOMS / LABS NURSING NOTE 10/08: "PATIENT REFUSING TO EAT, SCREAMING AND "BEING STUBBORN" PER DAUGHTER." NURSING NOTE 10/09: " PT INTERMITTENTLY SCREAMING AND GRUNTING, SOMETIMES SCREAMING FOR HELP BUT UNABLE TO TELL ME WHAT SHE NEEDS HELP WITH." RISKS: H/O DEMENTIA ADVANCED AGE H/O CVA TREATMENT: DAUGHTER ASSISTING AT BEDSIDE (PER NURSING NOTE 10/08) FALL PRECAUTIONS (This form is maintained as a part of the permanent medical record) 2014 [employer]. All Rights Reserved [email or web address] Office: [phone] [facility]
[2018-10-09] MEDS: Ondansetron PF 4 MG/2 ML Vial IVP PRN (18:15)
[2018-10-09] MEDS: Atorvastatin Calcium 40 MG TAB PO SCH (21:01)
[2018-10-09] MEDS: Folic Acid 1 MG TAB PO SCH (21:02)
[2018-10-10] MEDS: Potassium Chloride 40 MEQ in Dextrose 5% in Water 1,000 ML IV SCH (04:55)
[2018-10-10 08:29] LABS: Band 7 % (5-11); Hemoglobin 12.4 g/dL (12.0-16.0); Lymphocytes 21 % (21-51); MDiff Complete? YES; Mean Corpuscular HGB CONC 31.9 g/dL (32.0-36.0); Mean Corpuscular Hemoglobin 28.8 pg (27.0-31.0); Mean Corpuscular Volume 90.2 fL (78.0-98.0); Mean Platelet Volume 9.4 fL (7.4-10.4); Monocytes 5 % (0-10); Neutrophil 67 % (42-75); Platelet Count 236 thou/uL (130-400); RBC Distribution Width 15.6 % (11.5-14.5); RBC Morphology Normal; Red Blood Cell (RBC) Count 4.31 mill/uL (4.20-5.40); White Blood Cell (WBC) Count 17.9 thou/uL (4.8-10.8)
[2018-10-10 08:30] LABS: Anion Gap 11 mmol/L (10-20); BUN (Urea Nitrogen) 16 mg/dL (9.8-20.1); Calc. Creatinine Clearance 44 mL/min (70-130); Calcium 9.7 mg/dL (7.8-10.44); Carbon Dioxide 25 mmol/L (23-31); Chloride 112 mmol/L (98-107); Estimated GFR-MDRD 48; Glucose 287 mg/dL (83-110); Potassium 5.1 mmol/L (3.5-5.1); Sodium 143 mmol/L (136-145)
[2018-10-10] MEDS: Nystatin 500,000 UNITS/5 ML UDCUP SSW SCH ×4 (09:00→21:39)
[2018-10-10] MEDS: Enoxaparin Sodium 80 MG/0.8 ML SYRINGE SC SCH ×2 (09:56→22:04)
[2018-10-10] MEDS: Acetaminophen 500 MG TAB PO SCH ×3 (11:32→21:39)
[2018-10-10] MEDS: Loratadine 10 MG TAB PO SCH (11:32)
[2018-10-10] MEDS: Famotidine 20 MG TAB PO SCH (11:32)
[2018-10-10] MEDS: Flecainide 50 MG TAB PO SCH (11:32)
[2018-10-10] MEDS: Multivitamin W/ Minerals 1 TAB PO SCH (11:33)
--- NOTE | 2018-10-10 13:28 | PDOC.PN ---
- Subjective Encounter Start Date: 10/10/18 Encounter Start Time: 09:55 Patient talks, but is not verbally coherent. - Objective Resuscitation Status - Order Detail: 10/09/18 11:49 Resuscitation Status Routine Resuscitation Status: DNAR: NO Resuscitation Discussed with: no aggressive measures; discussed with daughter Vital Signs & Weight: Vital Signs (12 hours) Temp Pulse Resp BP Pulse Ox 10/10/18 08:00 97.3 F L 83 16 179/78 H 100 10/10/18 02:55 98.6 F 81 20 160/74 H 99 Weight Admit Weight 155 lb 2 oz Weight 155 lb 2 oz I&O: 10/09/18 10/10/18 10/11/18 06:59 06:59 06:59 Intake Total 810 1140 Output Total 0 Balance 810 1140 Result Diagrams: 10/10/18 07:57 10/10/18 07:57 Additional Labs: Accuchecks 10/10/18 10/10/18 10/09/18 11:06 06:02 23:02 POC Glucose 238 H 248 H 218 H 10/09/18 16:39 POC Glucose 241 H Dx/Plan (1) Hypernatremia Code(s): E87.0 - HYPEROSMOLALITY AND HYPERNATREMIA Status: Resolved (2) Hypokalemia Code(s): E87.6 - HYPOKALEMIA Status: Resolved Comment: potassium being replaced, improving (3) Severe dehydration Code(s): E86.0 - DEHYDRATION Status: Resolved Comment: continue IV fluids. Patient does not take adequate po fluid/nutrition, but family is not interested in a PEG. Difficult access. (4) Afib Code(s): I48.91 - UNSPECIFIED ATRIAL FIBRILLATION Status: Chronic Qualifiers: Atrial fibrillation type: chronic Qualified Code(s): I48.2 - Chronic atrial fibrillation Comment: Pt has not been able to take Eliquis. Lovenox was started. Can resume the Eliquis not that she has central access placed. (5) DM type 2 (diabetes mellitus, type 2) Status: Chronic Qualifiers: Diabetes mellitus alf insulin use: without alf use Diabetes mellitus complication status: with kidney complications Diabetes mellitus complication detail: with chronic kidney disease Chronic kidney disease stage : stage 3 (moderate) Qualified Code(s): E11.22 - Type 2 diabetes mellitus with diabetic chronic kidney disease; N18.3 - Chronic kidney disease, stage 3 ( moderate); N18.3 - Chronic kidney disease, stage 3 (moderate); N18.3 - Chronic kidney disease, stage 3 (moderate) Comment: Blood sugars well controlled, but slightly higher with the D5. (6) Dyslipidemia Code(s): E78.5 - HYPERLIPIDEMIA, UNSPECIFIED Status: Chronic Comment: on statin (7) HTN (hypertension) Code(s): I10 - ESSENTIAL (PRIMARY) HYPERTENSION Status: Chronic Qualifiers: Hypertension type: essential hypertension Qualified Code(s): I10 - Essential (primary) hypertension Comment: monitor vital signs and titrate antihypertensives as needed (8) Leucocytosis Code(s): D72.829 - ELEVATED WHITE BLOOD CELL COUNT, UNSPECIFIED Status: Acute - Plan * Dehydration improved. * Lytes better. * Change from D5 to NS. * Still not taking anything po...food, water or meds. * Difficult disposition given the fact that she will simply dehydrate again if she is not taking po's. * Leukocytosis of unkown etiology. UA, CXR. Afebrile. Normal diff. * Difficult access. Has SC line that went cephalad. Using it for fluids. * Patient's daughter has declined PEG thus far.
[2018-10-10] MEDS ORDERED: Acetaminophen 1,000 MG in Premix Bag 1 BAG IVPB PRN (13:57)
[2018-10-10] MEDS ORDERED: cloNIDine 0.1mg/24 Hour PATCH TD SCH (14:00)
--- NOTE | 2018-10-10 14:10 | RAD ---
RADIOGRAPH CHEST 1 VIEW: Date: 10/10/18 Time: 1214 hours HISTORY: 83-year-old female with leukocytosis. FINDINGS: There are no air space densities, pulmonary edema, pneumothorax, or cardiomegaly. The lateral costop hrenic angles are sharp. The right-sided subclavian central line ascending the neck is again demonstrated. The previously demo nstrated opacification of the left lower lobe with left pleural effusion is no longer visualized. The re is a new finding of a curvilinear lucency across the right mid lung field, which is probably in th e soft tissues. IMPRESSION: 1. No acute cardiopulmonary findings. 2. Right subclavian central vascular catheter ascending right side of neck, distal tip outside field of view. 3. Possible soft tissue wound in right chest. [email or web address] [] POS: ANNE MARIE
[2018-10-10] MEDS: Sodium Chloride 0.9% 1,000 ML IV SCH (14:53)
[2018-10-10] MEDS: Ondansetron PF 4 MG/2 ML Vial IVP PRN (15:35)
[2018-10-10 16:35] LABS: Bilirubin Negative (Negative); Blood, Urine Moderate (Negative); Clarity CLOUDY (Clear); Glucose, Urine (Dipstick) 250 mg/dL (Negative); Leukocyte Negative (Negative); Nitrite Negative (Negative); Protein, Urine (Dipstick) Trace mg/dL (Neg-Trace); Specific Gravity, Urine 1.019 (1.002-1.036); Urobilinogen 0.2 mg/dL (0.2-1.0); pH, Urine 5.5 (5.0-9.0)
--- NOTE | 2018-10-10 16:35 | RAD ---
KUB: 10/10/18 HISTORY: Patient bedside vomiting blood. COMPARISON: 03/31/18 study. There is some motion on this examination. The bowel gas pattern nonobstructed. No radiopaque calculi are seen. There is scoliotic change and arthritic changes of the spine. There is atherosclerotic herndon ges of the aorta. IMPRESSION: No acute findings. POS: [facility]
[2018-10-10 16:37] LABS: Bacteria/HPF None Seen HPF (None Seen); RBC/HPF GREATER THAN 50-TNTC HPF (0-3); Squamous Epithelial 0-3 HPF (0-3)
[2018-10-10 16:38] LABS: Pathc Cast-AUWi Flag 14.68 (0-2.49)
[2018-10-10 16:56] LABS: Crystals/HPF 2+ URIC ACID HPF (Negative); Other Casts/LPF None Seen LPF (0-3 Hyaline); Yeast-All Forms 4+ HPF (None Seen)
[2018-10-10 16:57] LABS: Hyaline Casts/LPF 7-10 HYALINE CAST LPF (0-3 Hyaline)
[2018-10-10] MEDS: Atorvastatin Calcium 40 MG TAB PO SCH (21:39)
[2018-10-10] MEDS: Folic Acid 1 MG TAB PO SCH (21:39)
[2018-10-10] MEDS: Pantoprazole 40 MG VIAL IVP SCH (22:04)
--- NOTE | 2018-10-11 03:17 | CON ---
DATE OF CONSULTATION: 10/10/2018 REASON FOR CONSULTATION: Vomiting, anorexia. HISTORY OF PRESENT ILLNESS: Mrs. Marvin is an 83-year-old female, who was admitted to the hospital with severe dehydration, resulting in hyperosmolar hypernatremia and hyperkalemia. The patient has had a central line placed and has been receiving IV fluid with low correction of her electrolyte derangement. History is mostly obtained from the nurse, Dr. Soliman, and her daughter by phone. Reportedly 3 hours ago, this afternoon, she had a sudden episode of emesis of "dark tea" fluid without any qian hematemesis or coffee-ground material. There is no indication of any abdominal pain. She had a subsequent KUB, which I reviewed, which was normal, specifically without any obstructive bowel pattern. In talking to her daughter, she has had persistent refusal to eat or drink over the last 2 to 3 weeks. There is no indication of any recent gastrointestinal bleeding such as melena, hematochezia, coffee-ground emesis, or hematemesis. Of note, she did have a large duodenal ulcer seen on upper endoscopy in 03/2018. She was treated with PPI up until May and has been off PPI. Currently, she is on famotidine 20 mg daily. She did have treatment for H pylori in April, but eradication of her H pylori status is unknown. PAST MEDICAL HISTORY: 1. Severe dementia. 2. History of atrial fibrillation. 3. Peptic ulcer disease with large duodenal ulcer in 03/2018. 4. Adult-onset diabetes. 5. 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 6. History of C difficile. 7. Gastroesophageal reflux disease. 8. Status post hysterectomy/cholecystectomy/hip replacement. ALLERGIES: INCLUDE AMLODIPINE AND CEFACLOR. CURRENT MEDICATIONS: Include; 1. Lovenox subcutaneous. 2. Famotidine 20 mg daily. 3. Flecainide 50 mg daily. 4. Metoprolol 50 mg daily. 5. Clonidine patch 0.1 mg every 3 days. SOCIAL HISTORY: Not obtainable. No alcohol or tobacco usage in the past per chart. FAMILY HISTORY: No family history of GI disorder or malignancy according to chart. REVIEW OF SYSTEMS: Not obtainable. PHYSICAL EXAMINATION: VITAL SIGNS: Temperature is 97.3, blood pressure , and pulse of 83. GENERAL: She is alert, but noncommunicative. HEENT: Shows anicteric sclerae. NECK: Supple. CV: Shows normal S1 and S2. Regular rate and rhythm. CHEST: Shows normal breath sounds, poor excursion. ABDOMEN: Protuberant, but no distention, very soft and nontender. She has active bowel sounds. EXTREMITIES: Show no edema. LABORATORY DATA: WBC is 17.0, hemoglobin 12.4, hematocrit 38.8, and platelet count of 236. Sodium 143, potassium 5.1, chloride 112, CO2 of 25, and creatinine 1.0. KUB showed normal small bowel gas pattern. There is no gastric air seen. No abnormal dilation of small bowel. ASSESSMENT: 1. Emesis of dark tea-colored fluid without any qian hematemesis or coffee-ground emesis. Based on description, I do not think she has any significant gastrointestinal bleeding. 2. Persistent anorexia, refusing pretty much all of the oral intake. 3. No evidence of bowel obstruction based on the x-ray and physical exam. 4. Advanced dementia. 5. Many other comorbidities as above. RECOMMENDATIONS: 1. In view of her large duodenal ulcer in the past, I would empirically treat her with PPI, pantoprazole 40 mg b.i.d. at this point. 2. Conservative management, no endoscopic intervention plan unless there is clear evidence of clinically active GI hemorrhage. 3. I discussed with her daughter, Mrs. De La Cruz, regarding issue of her refusal of oral intake that she does not wish to pursue gastrostomy tube placement. She reports that her mother wished not to have any form of feeding tube from before; therefore, will not wish to have any alternative means of tube feeding. 4. I did discuss with her about palliative care, which she has been pursuing for the last week. She does not want any inpatient hospice, but will consider outpatient at some point. Job ID: [id number]
[2018-10-11 07:10] LABS: #Basophils 0.1 thou/uL (0.0-0.2); #Eosinphils 0.1 thou/uL (0.0-0.7); #Lymphocytes 4.7 thou/uL (1.20-3.40); #Monocytes 0.9 thou/uL (0.11-0.59); %Basophils 0.8 % (0.0-1.0); %Eosinophils 0.6 % (0.0-10.0); %Lymphocytes 26.4 % (21.0-51.0); %Monocytes 4.9 % (0.0-10.0); %Neutrophils 67.3 % (42.0-75.0); Hemoglobin 10.3 g/dL (12.0-16.0); Mean Corpuscular HGB CONC 33.6 g/dL (32.0-36.0); Mean Corpuscular Hemoglobin 30.4 pg (27.0-31.0); Mean Corpuscular Volume 90.3 fL (78.0-98.0); Platelet Count 186 thou/uL (130-400); RBC Distribution Width 15.6 % (11.5-14.5); White Blood Cell (WBC) Count 17.9 thou/uL (4.8-10.8)
[2018-10-11 07:30] LABS: Anion Gap 7 mmol/L (10-20); BUN (Urea Nitrogen) 16 mg/dL (9.8-20.1); Calc. Creatinine Clearance 45 mL/min (70-130); Calcium 8.8 mg/dL (7.8-10.44); Carbon Dioxide 26 mmol/L (23-31); Chloride 113 mmol/L (98-107); Estimated GFR-MDRD 50; Glucose 165 mg/dL (83-110); Potassium 4.7 mmol/L (3.5-5.1); Sodium 141 mmol/L (136-145)
[2018-10-11] MEDS: Enoxaparin Sodium 80 MG/0.8 ML SYRINGE SC SCH ×2 (10:32→21:37)
[2018-10-11] MEDS: Pantoprazole 40 MG VIAL IVP SCH ×2 (10:32→21:37)
[2018-10-11] MEDS: Acetaminophen 500 MG TAB PO SCH ×3 (10:34→21:37)
[2018-10-11] MEDS: Flecainide 50 MG TAB PO SCH (10:34)
[2018-10-11] MEDS: Loratadine 10 MG TAB PO SCH (10:34)
[2018-10-11] MEDS: Nystatin 500,000 UNITS/5 ML UDCUP SSW SCH ×4 (10:35→21:38)
[2018-10-11] MEDS: Multivitamin W/ Minerals 1 TAB PO SCH (10:35)
[2018-10-11] MEDS: Sodium Chloride 0.9% 1,000 ML IV SCH ×2 (10:36→13:27)
--- NOTE | 2018-10-11 11:05 | PQF ---
CLINICAL DOCUMENTATION IMPROVEMENT CLARIFICATION FORM: ICD-10 Updated PLEASE DO AN ADDENDUM TO THE PROGRESS NOTE WITH ANY DOCUMENTATION UPDATES OR ADDITIONS AND CARRY THROUGH TO DC SUMMARY. THANK YOU. DATE: 10/11/18 ATTN: DR. MUNOZ Please exercise your independent, professional judgment in responding to the clarification form. 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 Thank You. CLINICAL INDICATORS - SIGNS / SYMPTOMS / LABS NURSING NOTE 10/08: "PATIENT REFUSING TO EAT, SCREAMING AND "BEING STUBBORN" PER DAUGHTER." NURSING NOTE 10/09: " PT INTERMITTENTLY SCREAMING AND GRUNTING, SOMETIMES SCREAMING FOR HELP BUT UNABLE TO TELL ME WHAT SHE NEEDS HELP WITH." RISKS: H/O DEMENTIA ADVANCED AGE H/O CVA TREATMENT: DAUGHTER ASSISTING AT BEDSIDE (PER NURSING NOTE 10/08) FALL PRECAUTIONS (This form is maintained as a part of the permanent medical record) 2014 [employer], [employer].. All Rights Reserved [email or web address] Office: [phone] [facility]
--- NOTE | 2018-10-11 13:25 | PRG ---
DATE OF SERVICE: 10/11/2018 This is a GI inpatient daily progress note. SUBJECTIVE: No significant change in Ms. Marvin's clinical status. She is unable to verbally communicate with me due to her dementia. There has been no report of further emesis since that episode yesterday. She does have persistent leukocytosis as well as urinary tract infection which is being treated. OBJECTIVE: VITAL SIGNS: Temperature 98.6, pulse 84, blood pressure 160/65, and 96% oxygen saturation on room air. GENERAL: No acute distress. She is awake and alert, but noncommunicative. HEART: Regular rate and rhythm. LUNGS: Clear to auscultation bilaterally. ABDOMEN: Bowel sounds present. Soft. She does not withdraw to deep palpation anywhere in the abdomen. EXTREMITIES: No peripheral edema. LABORATORY DATA: WBC 17.9, hemoglobin 10.3, and platelets 186. Sodium 141, potassium 4.7, BUN 16, and creatinine 1.06. ASSESSMENT AND PLAN: 1. Vomiting. 2. Persistent anorexia, the patient basically refusing all forms of oral intake. 3. Dehydration. 4. Advanced dementia. I spoke with Dr. Valverde as well as Dr. Soliman. The patient and family are not wanting to proceed with PEG tube placement and I think this is a fine decision. Her anorexia is most likely primarily driven by her advanced dementia, though she does have a history of significant peptic ulcer disease. Agree with having her put back on the PPI. Beyond this, I do not think there would be any utility to any endoscopic investigation, or any other meaningful intervention. I agree with the recommendation to pursue palliative/hospice care. GI will sign off at this time. Please call back anytime with questions or concerns. Job ID: [id number]
--- NOTE | 2018-10-11 15:15 | PDOC.PN ---
- Subjective Encounter Start Date: 10/11/18 Encounter Start Time: 15:13 Denies complaints. - Objective Resuscitation Status - Order Detail: 10/09/18 11:49 Resuscitation Status Routine Resuscitation Status: DNAR: NO Resuscitation Discussed with: no aggressive measures; discussed with daughter Vital Signs & Weight: Vital Signs (12 hours) Temp Pulse Resp BP Pulse Ox 10/11/18 10:29 98.6 F 84 18 160/65 H 96 10/11/18 07:45 96 10/11/18 04:00 97.8 F 85 18 137/74 95 Weight Admit Weight 155 lb 2 oz Weight 155 lb 2 oz I&O: 10/10/18 10/11/18 10/12/18 06:59 06:59 06:59 Intake Total 1140 1341 Output Total 880 Balance 1140 461 Result Diagrams: 10/11/18 07:00 10/11/18 07:00 Additional Labs: Accuchecks 10/11/18 10/11/18 10/10/18 11:19 05:38 20:23 POC Glucose 127 H 163 H 221 H 10/10/18 16:50 POC Glucose 258 H Phys Exam - Physical Examination Constitutional: NAD Respiratory: no wheezing Upper airway rhonchi. Cardiovascular: RRR, no significant murmur Gastrointestinal: soft, non-tender, no distention, positive bowel sounds Musculoskeletal: no edema Deviation from normal: Flat affect Dx/Plan (1) Hypernatremia Code(s): E87.0 - HYPEROSMOLALITY AND HYPERNATREMIA Status: Resolved (2) Hypokalemia Code(s): E87.6 - HYPOKALEMIA Status: Resolved Comment: potassium being replaced, improving (3) Severe dehydration Code(s): E86.0 - DEHYDRATION Status: Resolved Comment: continue IV fluids. Patient does not take adequate po fluid/nutrition, but family is not interested in a PEG. Difficult access. (4) Afib Code(s): I48.91 - UNSPECIFIED ATRIAL FIBRILLATION Status: Chronic Qualifiers: Atrial fibrillation type: chronic Qualified Code(s): I48.2 - Chronic atrial fibrillation Comment: Cannot take po meds. On Lovenox. (5) DM type 2 (diabetes mellitus, type 2) Status: Chronic Qualifiers: Diabetes mellitus equipment operator intermodal yard insulin use: without equipment operator intermodal yard use Diabetes mellitus complication status: with kidney complications Diabetes mellitus complication detail: with chronic kidney disease Chronic kidney disease stage : stage 3 (moderate) Qualified Code(s): E11.22 - Type 2 diabetes mellitus with diabetic chronic kidney disease; N18.3 - Chronic kidney disease, stage 3 ( moderate); N18.3 - Chronic kidney disease, stage 3 (moderate); N18.3 - Chronic kidney disease, stage 3 (moderate) Comment: Blood sugars well controlled, but slightly higher with the D5. (6) Dyslipidemia Code(s): E78.5 - HYPERLIPIDEMIA, UNSPECIFIED Status: Chronic Comment: on statin (7) HTN (hypertension) Code(s): I10 - ESSENTIAL (PRIMARY) HYPERTENSION Status: Chronic Qualifiers: Hypertension type: essential hypertension Qualified Code(s): I10 - Essential (primary) hypertension Comment: monitor vital signs and titrate antihypertensives as needed (8) Leucocytosis Code(s): D72.829 - ELEVATED WHITE BLOOD CELL COUNT, UNSPECIFIED Status: Acute (9) Multi-infarct dementia Code(s): F01.50 - VASCULAR DEMENTIA WITHOUT BEHAVIORAL DISTURBANCE Status: Acute Comment: Not eating due to advanced dementia. (10) Nausea & vomiting Code(s): R11.2 - NAUSEA WITH VOMITING, UNSPECIFIED Status: Acute (11) H/O: GI bleed Code(s): Z87.19 - PERSONAL HISTORY OF OTHER DISEASES OF THE DIGESTIVE SYSTEM Status: Acute - Plan * No more nausea and vomiting. * On PPI IV. * Still on IV fluids for maintenance and meds. * Still not taking po's. * Cannot do much more for her without a method of give fluids, nutrition and meds. Family does not want PEG, so that leaves the central line. Once that is out, she will likely quickly dehydrate. If she has not further vomiting tomorrow, she will be considered medically optimized and we will need a plan in place.
[2018-10-11] MEDS: Atorvastatin Calcium 40 MG TAB PO SCH (21:37)
[2018-10-11] MEDS: Folic Acid 1 MG TAB PO SCH (21:38)
[2018-10-12 05:47] LABS: Anion Gap 6 mmol/L (10-20); BUN (Urea Nitrogen) 13 mg/dL (9.8-20.1); Calc. Creatinine Clearance 46 mL/min (70-130); Calcium 8.8 mg/dL (7.8-10.44); Carbon Dioxide 26 mmol/L (23-31); Chloride 114 mmol/L (98-107); Estimated GFR-MDRD 51; Glucose 86 mg/dL (83-110); Potassium 4.2 mmol/L (3.5-5.1); Sodium 142 mmol/L (136-145)
[2018-10-12 06:09] LABS: Hemoglobin 9.3 g/dL (12.0-16.0); Hypochromia SLIGHT = 6-15 cells (100X) (0-5/hpf); Lymphocytes 23 % (21-51); MDiff Complete? YES; Mean Corpuscular HGB CONC 32.9 g/dL (32.0-36.0); Mean Corpuscular Hemoglobin 29.9 pg (27.0-31.0); Mean Corpuscular Volume 90.8 fL (78.0-98.0); Mean Platelet Volume 9.8 fL (7.4-10.4); Monocytes 2 % (0-10); Neutrophil 75 % (42-75); PLT Morphology Comment Appears Decreased; Platelet Count 115 thou/uL (130-400); RBC Distribution Width 15.7 % (11.5-14.5); White Blood Cell (WBC) Count 12.6 thou/uL (4.8-10.8)
[2018-10-12] MEDS: Enoxaparin Sodium 80 MG/0.8 ML SYRINGE SC SCH ×2 (10:39→22:12)
[2018-10-12] MEDS: Pantoprazole 40 MG VIAL IVP SCH ×2 (10:39→22:12)
[2018-10-12] MEDS: Acetaminophen 500 MG TAB PO SCH ×3 (10:39→22:12)
[2018-10-12] MEDS: Flecainide 50 MG TAB PO SCH (10:39)
[2018-10-12] MEDS: Multivitamin W/ Minerals 1 TAB PO SCH (10:40)
[2018-10-12] MEDS: Nystatin 500,000 UNITS/5 ML UDCUP SSW SCH ×4 (10:40→22:13)
[2018-10-12] MEDS: Loratadine 10 MG TAB PO SCH (10:40)
[2018-10-12] MEDS: Sodium Chloride 0.9% 1,000 ML IV SCH (15:47)
[2018-10-12] MEDS ORDERED: Acetaminophen 325 MG Suppository PR PRN (20:24)
[2018-10-12] MEDS: Atorvastatin Calcium 40 MG TAB PO SCH (22:12)
[2018-10-12] MEDS: Folic Acid 1 MG TAB PO SCH (22:13)
--- NOTE | 2018-10-12 23:00 | PRG ---
DATE OF SERVICE: 10/12/2018 SUBJECTIVE: The patient remains a bit somnolent, but awakens. She is not terribly conversant today. OBJECTIVE: VITAL SIGNS: Temperature 96.5, pulse 64, respirations 18, O2 sat 96 % on room air, blood pressure 110/73. GENERAL APPEARANCE: She is an age appropriate female, who is somnolent, but awakens. She is not significantly conversant today. HEART: Regular without murmur. LUNGS: Clear HEART: Regular without murmur. ABDOMEN: Soft, nontender, and nondistended with positive bowel sounds. EXTREMITIES: Warm and dry. LABORATORY DATA: White count 12.6, hemoglobin 9.3, and platelets 115. Sodium 142, potassium 4.2, chloride 114, CO2 is 26, BUN 13, creatinine is 1.04, glucose 86, and calcium 8.3. IMPRESSION AND PLAN: 1. Hypernatremia, on IV fluids. 2. Hypokalemia, on IV fluids. 3. Dehydration, clinically improved. 4. History of atrial fibrillation, not able to take her own medications, is on Lovenox now. 5. Diabetes mellitus, well controlled, not taking much in the way of p.o. 6. Dyslipidemia, untreatable as the patient is not taking p.o. 7. Hypertension, untreatable with the patient not taking p.o. 8. Leukocytosis, slightly improved, unclear etiology. 9. History of cerebrovascular accident with some infarct dementia. The patient' s daughter today reported that she has had several episodes, in which she has been fairly lucid, conversant and asking appropriate questions. 10. Nausea and vomiting, intermittent. 11. Anorexia, etiology is not fully elucidated, but likely related to some dementia, some possible gastritis. 12. History of gastrointestinal bleed with recent vomiting, for which the emesis was guaiac positive. Continue with IV Protonix. 13. Disposition. I had a couple of long conversations with the patient's daughter today. She had a number of questions regarding the patient's situation, my thoughts on her treating options and disposition. Ultimately, she will be talking to the halfway administration to determine if it would be possible for her to go there to have palliative treatment, and we will discuss the possibility of various types of access due to her IV fluids, etc., and she will follow up when she has been able to determine the best course of action. Job ID: [id number] MTDD
[2018-10-13] MEDS: Pantoprazole 40 MG VIAL IVP SCH ×2 (09:47→21:10)
[2018-10-13] MEDS: Enoxaparin Sodium 80 MG/0.8 ML SYRINGE SC SCH ×2 (09:47→21:08)
[2018-10-13] MEDS: Acetaminophen 500 MG TAB PO SCH ×3 (11:05→21:26)
[2018-10-13] MEDS: Flecainide 50 MG TAB PO SCH (11:06)
[2018-10-13] MEDS: Multivitamin W/ Minerals 1 TAB PO SCH (11:06)
[2018-10-13] MEDS: Loratadine 10 MG TAB PO SCH (11:06)
[2018-10-13] MEDS: Nystatin 500,000 UNITS/5 ML UDCUP SSW SCH ×4 (11:06→21:26)
[2018-10-13] MEDS: Dextrose 5 %-0.45 % NaCl 1,000 ML IV SCH (12:56)
--- NOTE | 2018-10-13 14:27 | EKG ---
Test Reason : Blood Pressure : / mmHG Vent. Rate : 063 BPM Atrial Rate : 063 BPM P-R Int : 144 ms QRS Dur : 082 ms QT Int : 464 ms P-R-T Axes : 018 -03 215 degrees QTc Int : 474 ms Normal sinus rhythm with sinus arrhythmia Inferior infarct , age undetermined Anterolateral infarct , age undetermined Abnormal ECG Confirmed by KAHLIL SCHNEIDER, TALIA ([id number]), newspaper editor MISTY SANABRIA ([id number]) on 10/13/2018 2:27:03 PM Referred By: Confirmed By:TALIA GUILLORY MD
--- NOTE | 2018-10-13 14:32 | PDOC.PN ---
- Subjective Encounter Start Date: 10/13/18 Encounter Start Time: 10:50 Says she is ok. Denies pain or complaints. - Objective Resuscitation Status - Order Detail: 10/09/18 11:49 Resuscitation Status Routine Resuscitation Status: DNAR: NO Resuscitation Discussed with: no aggressive measures; discussed with daughter Vital Signs & Weight: Vital Signs (12 hours) Temp Pulse Resp BP Pulse Ox 10/13/18 12:00 98.6 F 82 18 127/67 100 10/13/18 07:57 99.2 F 81 18 127/70 97 10/13/18 04:00 98.3 F 82 18 148/70 H 100 Weight Admit Weight 155 lb 2 oz Weight 155 lb 2 oz I&O: 10/12/18 10/13/18 10/14/18 06:59 06:59 06:59 Intake Total 550 1136 Output Total 1100 500 Balance -550 636 Result Diagrams: 10/12/18 05:20 10/12/18 05:20 Additional Labs: Accuchecks 10/13/18 10/13/18 10/12/18 10:43 05:34 20:12 POC Glucose 69 L 72 94 10/12/18 16:54 POC Glucose 84 Phys Exam - Physical Examination Constitutional: NAD Sitting in bed completely awake and alert. Respiratory: no wheezing, no rales, no rhonchi, clear to auscultation bilateral Cardiovascular: RRR, no significant murmur Gastrointestinal: soft, non-tender, no distention Musculoskeletal: no edema Deviation from normal: Less lethargic. Dx/Plan (1) Hypernatremia Code(s): E87.0 - HYPEROSMOLALITY AND HYPERNATREMIA Status: Resolved (2) Hypokalemia Code(s): E87.6 - HYPOKALEMIA Status: Resolved Comment: potassium being replaced, improving (3) Severe dehydration Code(s): E86.0 - DEHYDRATION Status: Resolved Comment: continue IV fluids. Patient does not take adequate po fluid/nutrition, but family is not interested in a PEG. Difficult access. (4) Afib Code(s): I48.91 - UNSPECIFIED ATRIAL FIBRILLATION Status: Chronic Qualifiers: Atrial fibrillation type: chronic Qualified Code(s): I48.2 - Chronic atrial fibrillation Comment: Cannot take po meds. On Lovenox. (5) DM type 2 (diabetes mellitus, type 2) Status: Chronic Qualifiers: Diabetes mellitus termite control representative insulin use: without termite control representative use Diabetes mellitus complication status: with kidney complications Diabetes mellitus complication detail: with chronic kidney disease Chronic kidney disease stage : stage 3 (moderate) Qualified Code(s): E11.22 - Type 2 diabetes mellitus with diabetic chronic kidney disease; N18.3 - Chronic kidney disease, stage 3 ( moderate); N18.3 - Chronic kidney disease, stage 3 (moderate); N18.3 - Chronic kidney disease, stage 3 (moderate) Comment: Blood sugars well controlled, but slightly higher with the D5. (6) Dyslipidemia Code(s): E78.5 - HYPERLIPIDEMIA, UNSPECIFIED Status: Chronic Comment: on statin (7) HTN (hypertension) Code(s): I10 - ESSENTIAL (PRIMARY) HYPERTENSION Status: Chronic Qualifiers: Hypertension type: essential hypertension Qualified Code(s): I10 - Essential (primary) hypertension Comment: monitor vital signs and titrate antihypertensives as needed (8) Leucocytosis Code(s): D72.829 - ELEVATED WHITE BLOOD CELL COUNT, UNSPECIFIED Status: Acute Comment: Improving (9) Multi-infarct dementia Code(s): F01.50 - VASCULAR DEMENTIA WITHOUT BEHAVIORAL DISTURBANCE Status: Acute Comment: Not eating due to advanced dementia. (10) Nausea & vomiting Code(s): R11.2 - NAUSEA WITH VOMITING, UNSPECIFIED Status: Resolved (11) H/O: GI bleed Code(s): Z87.19 - PERSONAL HISTORY OF OTHER DISEASES OF THE DIGESTIVE SYSTEM Status: Acute Comment: Had guaiac positive emesis here. On IV PPI. (12) Decubitus ulcer of sacral area Code(s): L89.159 - PRESSURE ULCER OF SACRAL REGION, UNSPECIFIED STAGE Status: Acute (13) Decubitus ulcer of sacral region, stage 3 Code(s): L89.153 - PRESSURE ULCER OF SACRAL REGION, STAGE 3 Status: Acute Comment: Present on admission. - Plan * Patient has refused to eat for a while. Has had some dehydration and lyte problems as a result. Improved with IVF. Still not eating. Refuses to open her mouth even for her daughter. She is dependent on the central line. Changing back to D5 1/2 NS for now so she can have some calories. Discussed with her daughter. Plan to move back to [facility] on Monday without the central line. She will be on palliative care there, but no formally on Hospice services. She will have rectal Tylenol prn and may eat ad jose and they believe they can secure a peripheral IV from time to time for IV fluids if that is indicated. Her daughter understands that there is little to do for the decub without the nutritional component. 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
[2018-10-13] MEDS: Atorvastatin Calcium 40 MG TAB PO SCH (21:19)
[2018-10-13] MEDS: Folic Acid 1 MG TAB PO SCH (21:26)
[2018-10-14 04:27] LABS: Anion Gap 8 mmol/L (10-20); BUN (Urea Nitrogen) 13 mg/dL (9.8-20.1); Calc. Creatinine Clearance 51 mL/min (70-130); Calcium 8.6 mg/dL (7.8-10.44); Carbon Dioxide 23 mmol/L (23-31); Chloride 114 mmol/L (98-107); Estimated GFR-MDRD 57; Glucose 131 mg/dL (83-110); Potassium 3.4 mmol/L (3.5-5.1); Sodium 142 mmol/L (136-145)
[2018-10-14 04:27] LABS: #Basophils 0.1 thou/uL (0.0-0.2); #Eosinphils 0.4 thou/uL (0.0-0.7); #Lymphocytes 3.7 thou/uL (1.20-3.40); #Monocytes 0.9 thou/uL (0.11-0.59); #Neutrophils 9.9 thou/uL (1.40-6.50); %Basophils 0.5 % (0.0-1.0); %Eosinophils 2.5 % (0.0-10.0); %Lymphocytes 24.8 % (21.0-51.0); %Monocytes 5.9 % (0.0-10.0); %Neutrophils 66.3 % (42.0-75.0); Hemoglobin 9.8 g/dL (12.0-16.0); Mean Corpuscular HGB CONC 33.3 g/dL (32.0-36.0); Mean Corpuscular Hemoglobin 30.3 pg (27.0-31.0); Mean Platelet Volume 9.6 fL (7.4-10.4); Platelet Count 166 thou/uL (130-400); RBC Distribution Width 15.6 % (11.5-14.5); Red Blood Cell (RBC) Count 3.23 mill/uL (4.20-5.40); White Blood Cell (WBC) Count 14.9 thou/uL (4.8-10.8)
[2018-10-14] MEDS: Dextrose 5 %-0.45 % NaCl 1,000 ML IV SCH (06:24)
[2018-10-14] MEDS: Nystatin 500,000 UNITS/5 ML UDCUP SSW SCH ×4 (09:34→20:30)
[2018-10-14] MEDS: Enoxaparin Sodium 80 MG/0.8 ML SYRINGE SC SCH ×2 (09:35→20:24)
[2018-10-14] MEDS: Flecainide 50 MG TAB PO SCH (09:36)
[2018-10-14] MEDS: Acetaminophen 500 MG TAB PO SCH ×3 (09:36→20:30)
[2018-10-14] MEDS: Pantoprazole 40 MG VIAL IVP SCH ×2 (09:36→20:23)
[2018-10-14] MEDS: Loratadine 10 MG TAB PO SCH (09:36)
[2018-10-14] MEDS: Multivitamin W/ Minerals 1 TAB PO SCH (09:37)
[2018-10-14] MEDS: Folic Acid 1 MG TAB PO SCH (20:30)
[2018-10-14] MEDS: Atorvastatin Calcium 40 MG TAB PO SCH (20:30)
--- NOTE | 2018-10-14 22:28 | PDOC.PN ---
- Subjective Encounter Start Date: 10/14/18 Encounter Start Time: 09:30 Denies any problems. Not interested in eating. - Objective Resuscitation Status - Order Detail: 10/09/18 11:49 Resuscitation Status Routine Resuscitation Status: DNAR: NO Resuscitation Discussed with: no aggressive measures; discussed with daughter Vital Signs & Weight: Vital Signs (12 hours) Temp Pulse Resp BP Pulse Ox 10/14/18 20:00 97.4 F L 86 18 164/74 H 100 Weight Admit Weight 155 lb 2 oz Weight 155 lb 2 oz I&O: 10/13/18 10/14/18 10/15/18 06:59 06:59 06:59 Intake Total 1136 825 Output Total 500 700 400 Balance 636 125 -400 Result Diagrams: 10/14/18 04:00 10/14/18 03:30 Additional Labs: Accuchecks 10/14/18 10/14/18 10/14/18 20:35 16:54 11:39 POC Glucose 144 H 146 H 153 H 10/14/18 04:27 POC Glucose 133 H Phys Exam - Physical Examination Constitutional: NAD Awake and conversant. Respiratory: no wheezing, no rales, no rhonchi, clear to auscultation bilateral Cardiovascular: RRR, no significant murmur Gastrointestinal: soft, non-tender, no distention, positive bowel sounds Musculoskeletal: no edema Dx/Plan (1) Hypernatremia Code(s): E87.0 - HYPEROSMOLALITY AND HYPERNATREMIA Status: Resolved (2) Hypokalemia Code(s): E87.6 - HYPOKALEMIA Status: Resolved Comment: potassium being replaced, improving (3) Severe dehydration Code(s): E86.0 - DEHYDRATION Status: Resolved Comment: continue IV fluids. Patient does not take adequate po fluid/nutrition, but family is not interested in a PEG. Difficult access. (4) Afib Code(s): I48.91 - UNSPECIFIED ATRIAL FIBRILLATION Status: Chronic Qualifiers: Atrial fibrillation type: chronic Qualified Code(s): I48.2 - Chronic atrial fibrillation Comment: Cannot take po meds. On Lovenox. (5) DM type 2 (diabetes mellitus, type 2) Status: Chronic Qualifiers: Diabetes mellitus skilled nursing insulin use: without keno terminal operator use Diabetes mellitus complication status: with kidney complications Diabetes mellitus complication detail: with chronic kidney disease Chronic kidney disease stage : stage 3 (moderate) Qualified Code(s): E11.22 - Type 2 diabetes mellitus with diabetic chronic kidney disease; N18.3 - Chronic kidney disease, stage 3 ( moderate); N18.3 - Chronic kidney disease, stage 3 (moderate); N18.3 - Chronic kidney disease, stage 3 (moderate) Comment: Blood sugars well controlled, but slightly higher with the D5. (6) Dyslipidemia Code(s): E78.5 - HYPERLIPIDEMIA, UNSPECIFIED Status: Chronic Comment: on statin (7) HTN (hypertension) Code(s): I10 - ESSENTIAL (PRIMARY) HYPERTENSION Status: Chronic Qualifiers: Hypertension type: essential hypertension Qualified Code(s): I10 - Essential (primary) hypertension Comment: monitor vital signs and titrate antihypertensives as needed (8) Leucocytosis Code(s): D72.829 - ELEVATED WHITE BLOOD CELL COUNT, UNSPECIFIED Status: Acute Comment: Improving (9) Multi-infarct dementia Code(s): F01.50 - VASCULAR DEMENTIA WITHOUT BEHAVIORAL DISTURBANCE Status: Acute Comment: Not eating due to advanced dementia. (10) Nausea & vomiting Code(s): R11.2 - NAUSEA WITH VOMITING, UNSPECIFIED Status: Resolved (11) H/O: GI bleed Code(s): Z87.19 - PERSONAL HISTORY OF OTHER DISEASES OF THE DIGESTIVE SYSTEM Status: Acute Comment: Had guaiac positive emesis here. On IV PPI. (12) Decubitus ulcer of sacral area Code(s): L89.159 - PRESSURE ULCER OF SACRAL REGION, UNSPECIFIED STAGE Status: Acute (13) Decubitus ulcer of sacral region, stage 3 Code(s): L89.153 - PRESSURE ULCER OF SACRAL REGION, STAGE 3 Status: Acute Comment: Present on admission. - Plan * Presented with hypernatremia and dehydration. Improved with fluids. * Will not eat. Likely secondary to dementia, but patient has some history of PUD that could be contributory. * She is to return to [facility] in am with the central line out. * She can continue the Lovenox for the afib. * May be able to receive some IVF there as needed if a peripheral IV can be established. * Will be on palliative services at [facility].
[2018-10-15] MEDS: Dextrose 5 %-0.45 % NaCl 1,000 ML IV SCH (05:43)
[2018-10-15] MEDS: Pantoprazole 40 MG VIAL IVP SCH (07:48)
[2018-10-15] MEDS: Enoxaparin Sodium 80 MG/0.8 ML SYRINGE SC SCH (07:48)
[2018-10-15] MEDS: Loratadine 10 MG TAB PO SCH (08:12)
[2018-10-15] MEDS: Flecainide 50 MG TAB PO SCH (08:12)
[2018-10-15] MEDS: Acetaminophen 500 MG TAB PO SCH ×2 (08:12→14:09)
[2018-10-15] MEDS: Multivitamin W/ Minerals 1 TAB PO SCH (08:13)
[2018-10-15] MEDS: Nystatin 500,000 UNITS/5 ML UDCUP SSW SCH ×3 (08:13→16:53)
[2018-10-15 08:16] VITALS: BP 137/72; TEMP 97.6
== END 2018-10-15 18:09 | DRG 640 ==
LOC: ERS 18:28 → IMCU/EMU 20:03 → 2NO 10-09 17:41 → T4-A 10-13 14:48
PROVIDERS: ADMIT Hospitalist; ATTEND Hospitalist
PROC: 05H533Z Insertion of Infusion Device into Right Subclavian Vein, Percutaneous Approach (ICD-10-PCS; principal; 2018-10-08)
DX: E86.0 Dehydration (principal); L89.153 Pressure ulcer of sacral region, stage 3; G93.40 Encephalopathy, unspecified; I69.354 Hemiplegia and hemiparesis following cerebral infarction affecting left non-dominant side; E87.0 Hyperosmolality and hypernatremia; K21.9 Gastro-esophageal reflux disease without esophagitis; F41.9 Anxiety disorder, unspecified; E87.6 Hypokalemia; E87.8 Other disorders of electrolyte and fluid balance, not elsewhere classified; E11.65 Type 2 diabetes mellitus with hyperglycemia; Z51.5 Encounter for palliative care; E78.5 Hyperlipidemia, unspecified; G30.9 Alzheimer's disease, unspecified; I48.2 Chronic atrial fibrillation; E11.22 Type 2 diabetes mellitus with diabetic chronic kidney disease; I12.9 Hypertensive chronic kidney disease with stage 1 through stage 4 chronic kidney disease, or unspecified chronic kidney disease; N18.3 Chronic kidney disease, stage 3 (moderate); D72.829 Elevated white blood cell count, unspecified; Z66 Do not resuscitate; F01.50 Vascular dementia, unspecified severity, without behavioral disturbance, psychotic disturbance, mood disturbance, and anxiety; R11.2 Nausea with vomiting, unspecified; R63.0 Anorexia; Z68.23 Body mass index [BMI] 23.0-23.9, adult
CPT/HCPCS: 36415; 36416; 71045; 74018; 80048; 80053; 81003; 81015; 82271; 85025; 93005; A4353; C9113; G8996-GN-CL; G8996-GN-CN; G8997-GN-CK; G8997-GN-CL; J0131; J1650; J2405; J3480; J7070

== ENCOUNTER 2018-10-19 18:40 | Emergency (ER) | payer MEDICARE, BC ==
[2018-10-19] MEDS ORDERED: Potassium Chloride 20 MEQ in Premix Bag 1 BAG IVPB SCH (20:00)
[2018-10-19 20:07] LABS: #Basophils 0.2 thou/uL (0.0-0.2); #Eosinphils 0.1 thou/uL (0.0-0.7); #Lymphocytes 3.3 thou/uL (1.20-3.40); #Monocytes 0.4 thou/uL (0.11-0.59); #Neutrophils 9.2 thou/uL (1.40-6.50); %Basophils 1.5 % (0.0-1.0); %Eosinophils 0.8 % (0.0-10.0); %Lymphocytes 24.7 % (21.0-51.0); %Monocytes 3.3 % (0.0-10.0); %Neutrophils 69.6 % (42.0-75.0); Hemoglobin 11.9 g/dL (12.0-16.0); Mean Corpuscular HGB CONC 33.3 g/dL (32.0-36.0); Mean Corpuscular Hemoglobin 29.7 pg (27.0-31.0); Mean Corpuscular Volume 89.2 fL (78.0-98.0); Mean Platelet Volume 8.1 fL (7.4-10.4); Platelet Count 357 thou/uL (130-400); RBC Distribution Width 15.8 % (11.5-14.5); White Blood Cell (WBC) Count 13.2 thou/uL (4.8-10.8)
[2018-10-19] MEDS ORDERED: Digoxin 0.5 MG/2 ML AMP ONE (20:08)
[2018-10-19 20:25] LABS: ALT (SGPT) 16 U/L (8-55); AST (SGOT) 19 U/L (5-34); Alkaline Phosphatase 167 U/L (40-150); Anion Gap 20 mmol/L (10-20); BUN (Urea Nitrogen) 18 mg/dL (9.8-20.1); Bilirubin, Total 0.7 mg/dL (0.2-1.2); Calc. Creatinine Clearance 0 mL/min (70-130); Calcium 9.4 mg/dL (7.8-10.44); Carbon Dioxide 14 mmol/L (23-31); Chloride 117 mmol/L (98-107); Estimated GFR-MDRD 44; Globulin 2.7 g/dL (2.4-3.5); Glucose 94 mg/dL (83-110); Protein, Total 4.7 g/dL (6.0-8.3); Sodium 148 mmol/L (136-145)
[2018-10-19 20:28] LABS: Potassium 2.7 mmol/L (3.5-5.1)
[2018-10-20 00:22] LABS: Potassium 3.5 mmol/L (3.5-5.1)
--- NOTE | 2018-10-24 15:21 | EKG ---
Test Reason : TACHY Blood Pressure : / mmHG Vent. Rate : 131 BPM Atrial Rate : 141 BPM P-R Int : 000 ms QRS Dur : 102 ms QT Int : 374 ms P-R-T Axes : 000 035 244 degrees QTc Int : 552 ms Atrial fibrillation with rapid ventricular response Low voltage QRS Cannot rule out Anteroseptal infarct , age undetermined Marked ST abnormality, possible inferolateral subendocardial injury Abnormal ECG Confirmed by VIKTOR SCHNEIDER, KALYANI ([id number]), videotape editor MISTY SANABRIA ([id number]) on 10/24/2018 3:21:03 PM Referred By: Confirmed By:KALYANI HOANG MD
== END 2018-10-20 01:50 ==
LOC: ERS 18:40
DX: E87.6 Hypokalemia (principal); E86.0 Dehydration; I48.91 Unspecified atrial fibrillation; I10 Essential (primary) hypertension; E11.40 Type 2 diabetes mellitus with diabetic neuropathy, unspecified; F41.9 Anxiety disorder, unspecified; Z86.73 Personal history of transient ischemic attack (TIA), and cerebral infarction without residual deficits; Z79.4 Long term (current) use of insulin; Z79.899 Other long term (current) drug therapy
CPT/HCPCS: 36415; 80053; 85025; 93005; 96365; 96366; 96375; J1160; J3480